=== PATIENT | female | born 1945 | race Two or more races ===

== ENCOUNTER → 2017-04-01 | Outpatient (CLI) | payer MEDICARE, OTHER ==
--- NOTE | 2017-04-02 07:07 | MM ---
Reason for exam: screening (asymptomatic). Last mammogram was performed 1 year ago. History: Patient is postmenopausal and has history of colon cancer at age 59. Physical Findings: A clinical breast exam by your physician is recommended on an annual basis and results should be correlated with mammographic findings. MG 3D Screening Mammo W/Cad Bilateral CC and MLO view(s) were taken. Prior study comparison: March 18, 2016, bilateral MG 3d screening mammo w/cad. February 13, 2015, bilateral MG screening mammo w CAD. The breast tissue is almost entirely fat. Finding: There is a 2.9mm equal density, round mass in the left breast. New finding since March 18, 2016 and February 13, 2015. ASSESSMENT: Incomplete: need additional imaging evaluation, BI-RAD 0 RECOMMENDATION: Ultrasound of the left breast. [facility] will attempt to contact patient to return for ultrasound.
== END | disposition home or self-care (01) ==
LOC: RADMAMWWP 12:45
PROVIDERS: ATTEND Internal Medicine
DX: Z12.31 Encounter for screening mammogram for malignant neoplasm of breast (principal)
CPT/HCPCS: 77063; G0202

== ENCOUNTER → 2017-04-05 | Outpatient (CLI) | payer MEDICARE, OTHER ==
--- NOTE | 2017-04-06 17:17 | BD ---
EXAMINATION TYPE: MG DEXA axial skeleton. DATE OF EXAM: 04/05/2017 COMPARISON: NONE CLINICAL HISTORY: Height: 55.5 IN Weight: 110 LBS FRAX RISK QUESTIONS: Alcohol (3 or more units per day): NO Family History (Parent hip fracture): NO Glucocorticoids (More than 3mos): NO (Ex: prednisone, prednisolone, methylprednisolone, dexamethasone, and hydrocortisone). History of Fracture in Adulthood: NO Secondary Osteoporosis: 1. Type 1 Diabetes: NO 2. Hyperthyroidism: NO 3. Menopause before 45: NO 4. Malnutrition: NO 5. Chronic liver disease: NO Rheumatoid Arthritis: NO Current Tobacco Use: NO RISK FACTORS HISTORY OF: Active: MODERATE Postmenopausal woman: AGE 54 Lost more than 2 inches in height since high school: YES 3 " MEDICATIONS: Additional Medications: CALCIUM, VIT D, BLOOD PRESSURE MEDS, ASPIRIN, HEART MED EXAM MEASUREMENTS: Bone mineral densitometry was performed using the [employer] System. Bone mineral density as measured about the Lumbar spine is: ----- L1-L4(G/cm2): 1.229 T Score Values are as follows: ----- L2: -0.9 ----- L3: 0.0 ----- L4: 1.7 ----- L1-L4: 0.4 Bone mineral density has: Decreased -1.7% since study of: 04/18/2014 Bone mineral density about the R hip (g/cm2): 0.859 Bone mineral density about the L hip (g/cm2): 0.871 T Score values are as follows: -----R Neck: -1.3 -----L Neck: -1.2 -----R Total: -1.6 -----L Total: -0.5 Bone mineral density has: Decreased -2.0% since study of: 04/18/2014 IMPRESSION: Osteopenia (T Score between -2.5 and -1 as noted by T score values There is slightly increased risk of fracture and the patient may be considered for treatment. Re-Screen 2-5 years. Bone density has diminished 1.7% from 2014 within the lumbar spine. Bone density is diminished 2% max ateral hips from 2014. NOTE: T-SCORE=SD OF THE YOUNG ADULT MEAN.
== END | disposition home or self-care (01) ==
LOC: RADBDWWP 16:21
PROVIDERS: ATTEND Internal Medicine
DX: M85.80 Other specified disorders of bone density and structure, unspecified site (principal); N95.1 Menopausal and female climacteric states
CPT/HCPCS: 77080

== ENCOUNTER → 2017-04-15 | Outpatient (CLI) | payer MEDICARE, OTHER ==
--- NOTE | 2017-04-15 10:49 | USB ---
Reason for exam: additional evaluation requested from abnormal screening. History: Patient is postmenopausal and has history of colon cancer at age 59. Physical Findings: Nurse did not find any significant physical abnormalities on exam. US Breast Workup LT Left breast ultrasound demonstrates a 0.8 x 0.4 x 0.4 cm lipoma at 8 o'clock. These results were verbally communicated with the patient and result sheet given to the patient on 04/15/17. ASSESSMENT: Benign, BI-RAD 2 RECOMMENDATION: Follow-up diagnostic mammogram of the left breast in 6 months.
== END | disposition home or self-care (01) ==
LOC: RADUSWWP 09:14
PROVIDERS: ATTEND Internal Medicine
DX: R92.8 Other abnormal and inconclusive findings on diagnostic imaging of breast (principal)

== ENCOUNTER 2018-02-22 09:10 | Day surgery (SDC) | payer MEDICARE, OTHER ==
[2018-02-18 12:43] VITALS: BMI 23.6
[~2018-02-22 09:10] MED LIST: LACTATED RINGERS 1,000 ML IV SCH; LIDOCAINE 1% 20 ML VIAL (10MG/ML) FOR IV START INTRADERMA PRN
[2018-02-22 10:12] VITALS: PULSE 53; TEMP 98.3
[2018-02-22] MEDS ORDERED: LIDOCAINE 1% 20 ML VIAL (10MG/ML) FOR IV START INTRADERMA ONE (10:25)
[2018-02-22] MEDS ORDERED: PROPOFOL 10 MG/ML 20 ML VIAL IV ONE (10:47)
--- NOTE | 2018-02-22 11:34 | P.PCN ---
Date of Procedure: 02/22/18 Procedure(s) Performed: Procedure: Colonoscopy and polypectomy. Preoperative diagnosis: Screening for neoplasia, patient has history of polyps. Postoperative diagnosis: 1. Right colon polyp removed with the snare piecemeal. 2. Prior sigmoid resection and sigmoid diverticulosis with no evidence of acute diverticulitis or strictures. Preparation: HalfLytely prep. Sedation: Was provided by anesthesia. Brief clinical history: The patient is a 72-year-old female who is referred for this evaluation because of history of polyps. She had resection in the past for a colon tumor. She has no abdominal complaints, bleeding or anemia. Procedure: With the patient on her left lateral decubitus position and after informed consent and adequate sedation, the perianal area was inspected and it did not show any fissures or fistulas. There were no masses felt on digital rectal examination. The Olympus CFQ 160L video colonoscope was then inserted in the rectum in the usual fashion and advanced to the cecum. The area of the sigmoid resection in the distal sigmoid was noted and there were a few diverticular orifices seen in the vicinity with no evidence of acute diverticulitis or strictures. On the right side, just distal to the area of the ileocecal valve and on that side of the bowel, there was a flat polyp measuring between 3 and 4 cm which I removed piecemeal with the snare with good hemostasis. No other polyps or tumors were seen. The mucosa appeared healthy. I retroflexed the endoscope in the rectum before the endoscope was withdrawn. The patient tolerated the procedure well. Plan: The patient was reassured. Will await pathology results. I anticipate repeating this exam in 1-3 years depending on the pathology results. She will follow-up with you as planned and I will keep you updated on her progress.
[2018-02-22 11:41] VITALS: BP 147/72; RESP 16
== END 2018-02-22 12:13 | disposition home or self-care (01) ==
LOC: ORWHC2ENDO 09:10
DX: Z12.11 Encounter for screening for malignant neoplasm of colon (principal); D12.2 Benign neoplasm of ascending colon; K57.30 Diverticulosis of large intestine without perforation or abscess without bleeding; Z85.038 Personal history of other malignant neoplasm of large intestine; Z86.010 Personal history of colon polyps; I25.10 Atherosclerotic heart disease of native coronary artery without angina pectoris; I10 Essential (primary) hypertension; E78.5 Hyperlipidemia, unspecified; Z86.73 Personal history of transient ischemic attack (TIA), and cerebral infarction without residual deficits; I25.2 Old myocardial infarction; Z79.82 Long term (current) use of aspirin; Z79.899 Other long term (current) drug therapy
CPT/HCPCS: 88305; 45385; J2704

== ENCOUNTER 2018-02-22 23:27 | Inpatient (IN) | payer MEDICARE, OTHER ==
[2018-02-23] MEDS ORDERED: SODIUM CHLORIDE 0.9% 1,000 ML IV STA ×2 (00:36→04:38)
[2018-02-23] MEDS ORDERED: MORPHINE SULFATE 4 MG/ML SYRINGE IVP STA (00:37)
--- NOTE | 2018-02-23 00:39 | ED ---
General Adult HPI - General Source: patient, RN notes reviewed Mode of arrival: wheelchair Limitations: no limitations <Leonard Emmanuel - Last Filed: 02/23/18 02:16> <Jacob Barnes - Last Filed: 02/23/18 03:07> - General Chief complaint: GI Bleed Stated complaint: Rectal bleeding Time Seen by Provider: 02/23/18 00:22 - History of Present Illness Initial comments: Patient 72-year-old female presenting to the emergency room today with a chief complaint of bloody bowel movement. She does admit that she had a colonoscopy earlier in the day. She states there was a polyp. Patient states that she's had 3 or 4 bloody bowel movements. Patient does admit to pain in the abdomen. Patient also admits to mild headache. She denies any other complaints or symptoms. Patient denies any recent fever, chills, shortness of breath, chest pain, back pain, numbness or tingling, dysuria or hematuria, constipation or diarrhea, headaches or visual changes, or any other complaints. (Leonard Emmanuel) - Related Data Home Medications Medication Instructions Recorded Confirmed Alendronate Sodium [Fosamax] 70 mg PO WEEKLY 07/31/15 02/23/18 Calcium Carbonate/Vitamin D3 1 tab PO DAILY 07/31/15 02/23/18 [Calcium 600-Vit D3 400 Tablet] Ergocalciferol [Vitamin D2 50,000 unit PO TU 07/31/15 02/23/18 (DRISDOL)] Metoprolol Tartrate [Lopressor] 25 mg PO BID 07/31/15 02/23/18 Pravastatin Sodium [Pravachol] 20 mg PO AC-SUPPER 07/31/15 02/23/18 Lisinopril [Zestril] 20 mg PO BID 01/25/16 02/23/18 Aspirin EC [Ecotrin Low Dose] 81 mg PO DAILY 02/18/18 02/23/18 Allergies Allergy/AdvReac Type Severity Reaction Status Date / Time No Known Allergies Allergy Verified 02/22/18 10:14 Review of Systems ROS Other: All systems not noted in ROS Statement are negative. <Leonard Emmanuel - Last Filed: 02/23/18 02:16> ROS Other: All systems not noted in ROS Statement are negative. <Jacob Barnes - Last Filed: 02/23/18 03:07> ROS Statement: Those systems with pertinent positive or pertinent negative responses have been documented in the HPI. Past Medical History Past Medical History: CVA/TIA, Hyperlipidemia, Hypertension, Memory Impairment, Myocardial Infarction ([place]) Additional Past Medical History / Comment(s): HEART MURMUR, LEAKY VALVE. POSS MILD STROKE YEARS AGO, UNSURE, HAS DIFFICULTY RECALLING SOME HISTORICAL MEDICAL INFO. Last Myocardial Infarction Date:: 2005 History of Any Multi-Drug Resistant Organisms: None Reported Past Surgical History: Back Surgery Additional Past Surgical History / Comment(s): TUMOR EXC FROM COLON. Past Anesthesia/Blood Transfusion Reactions: Motion Sickness Past Psychological History: No Psychological Hx Reported Smoking Status: Never smoker - Past Family History Father Additional Family Medical History / Comment(s): patient states "he had heart problems". patient unsure what type of heart problems. Mother Family Medical History: Cancer, Diabetes Mellitus Additional Family Medical History / Comment(s): brain cancer Brother(s) Family Medical History: Diabetes Mellitus Additional Family Medical History / Comment(s): autistic Sister(s) History Unknown: Yes <Leonard Emmanuel - Last Filed: 02/23/18 02:16> General Exam Limitations: no limitations <Leonard Emmanuel - Last Filed: 02/23/18 02:16> <Jacob Barnes - Last Filed: 02/23/18 03:07> - General Exam Comments Initial Comments: General: The patient is awake and alert, in mild distress. Eye: Pupils are equal, round and reactive to light, extra-ocular movements are intact. No nystagmus. There is normal conjunctiva bilaterally. No signs of icterus. Ears, nose, mouth and throat: There are moist mucous membranes and no oral lesions. Neck: The neck is supple, there is no tenderness or JVD. Cardiovascular: There is a regular rate and rhythm. No murmur, rub or gallop is appreciated. Respiratory: Lungs are clear to auscultation, respirations are non-labored, breath sounds are equal. No wheezes, stridor, rales, or rhonchi. Gastrointestinal: Abdomen soft on palpation. Mild tenderness in the middle and left lower quadrants. No rebound. No guarding. No CVA tenderness. Musculoskeletal: Normal ROM, no tenderness. Strength 5/5. Sensation intact. Pulses equal bilaterally 2+. Neurological: A&O x 3. CN II-XII intact, There are no obvious motor or sensory deficits. Coordination appears grossly intact. Speech is normal. Skin: Skin is warm and dry and no rashes or lesions are noted. Psychiatric: Cooperative, appropriate mood & affect, normal judgment. : Patient does have positive occult with blood per rectum. (Leonard Emmanuel) Vital Signs 02/23/18 02/23/18 02/23/18 00:08 00:20 01:04 Temperature 97.7 F 97 F L Pulse Rate 72 69 65 Respiratory 20 14 17 Rate Blood Pressure 97/66 118/68 99/58 O2 Sat by Pulse 100 98 98 Oximetry 02/23/18 02:45 Temperature 97.8 F Pulse Rate 67 Respiratory 14 Rate Blood Pressure 113/68 O2 Sat by Pulse 97 Oximetry Medical Decision Making - Lab Data Result diagrams: 02/23/18 00:30 02/23/18 00:30 <Leonard Emmanuel - Last Filed: 02/23/18 02:16> - Lab Data Result diagrams: 02/23/18 00:30 02/23/18 00:30 <Jacob Barnes - Last Filed: 02/23/18 03:07> - Medical Decision Making Patient's CT of the abdomen and pelvis is negative for any acute abnormality. Patient's hemoglobin stable. She does have positive occult. Patient will be admitted with consult to GI after having a polyp removed from and colonoscopy earlier today. (Leonard Emmanuel) Patient was reevaluated by myself, Dr. Barnes. Patient resting comfortably in bed. Patient did have several episodes of bloody bowel movement at home. Abdomen is soft with mild diffuse tenderness. Endoscopy report from earlier today reviewed. Patient updated on results and plan. Case was discussed in detail with Dr. Dimas, who will admit his patient. Dr. Boston will be placed on consult. (Jacob Barnes) - Lab Data Lab Results 02/23/18 02/23/18 02/23/18 Range/Units 00:30 00:30 00:30 WBC 9.8 (3.8-10.6) k/uL RBC 3.97 (3.80-5.40) m/uL Hgb 12.4 (11.4-16.0) gm/dL Hct 35.2 (34.0-46.0) % MCV 88.8 (80.0-100.0) fL MCH 31.2 (25.0-35.0) pg MCHC 35.2 (31.0-37.0) g/dL RDW 13.3 (11.5-15.5) % Plt Count 305 (150-450) k/uL Neutrophils % 65 % Lymphocytes % 28 % Monocytes % 4 % Eosinophils % 2 % Basophils % 1 % Neutrophils # 6.4 (1.3-7.7) k/uL Lymphocytes # 2.7 (1.0-4.8) k/uL Monocytes # 0.4 (0-1.0) k/uL Eosinophils # 0.2 (0-0.7) k/uL Basophils # 0.1 (0-0.2) k/uL PT 9.9 (9.0-12.0) sec INR 1.0 (<1.2) APTT 22.6 (22.0-30.0) sec Sodium 132 L (137-145) mmol/L Potassium 4.0 (3.5-5.1) mmol/L Chloride 100 (98-107) mmol/L Carbon Dioxide 18 L (22-30) mmol/L Anion Gap 14 mmol/L BUN 14 (7-17) mg/dL Creatinine 0.60 (0.52-1.04) mg/dL Est GFR (CKD-EPI)AfAm >90 (>60 ml/min/1.73 sqM) Est GFR (CKD-EPI)NonAf >90 (>60 ml/min/1.73 sqM) Glucose 117 H (74-99) mg/dL Calcium 9.7 (8.4-10.2) mg/dL Total Bilirubin 1.1 (0.2-1.3) mg/dL AST 31 (14-36) U/L ALT 43 (9-52) U/L Alkaline Phosphatase 113 (38-126) U/L Total Protein 6.4 (6.3-8.2) g/dL Albumin 3.8 (3.5-5.0) g/dL Disposition Is patient prescribed a controlled substance at d/c from ED?: No Time of Disposition: 02:17 <Leonard Emmanuel - Last Filed: 02/23/18 02:16> <Jacob Barnes - Last Filed: 02/23/18 03:07> Clinical Impression: GI bleed Disposition: ADMITTED IP TO THIS [facility] Condition: Stable Referrals: Gary Dimas MD [Primary Care Provider] - 1-2 days
[2018-02-23 00:51] LABS: Basophils # (A) 0.1 k/uL (0-0.2); Basophils % (A) 1 %; Eosinophils # (A) 0.2 k/uL (0-0.7); Eosinophils % (A) 2 %; HCT 35.2 % (34.0-46.0); HGB 12.4 gm/dL (11.4-16.0); Lymphocytes # (A) 2.7 k/uL (1.0-4.8); Lymphocytes % (A) 28 %; MCH 31.2 pg (25.0-35.0); MCHC 35.2 g/dL (31.0-37.0); MCV 88.8 fL (80.0-100.0); Mean Platelet Volume 7.8; Monocytes # (A) 0.4 k/uL (0-1.0); Monocytes % (A) 4 %; Neutrophils # (A) 6.4 k/uL (1.3-7.7); Neutrophils % (A) 65 %; Platelet Count 305 k/uL (150-450); RBC 3.97 m/uL (3.80-5.40); RDW 13.3 % (11.5-15.5); WBC 9.8 k/uL (3.8-10.6)
[2018-02-23] MEDS ORDERED: RX INFO: IV CONTRAST WAS GIVEN 1 EACH MISC MISCELLANE PRN (00:52)
[2018-02-23] MEDS ORDERED: ONDANSETRON 4 MG/2 ML VIAL IVP STA (00:54)
[2018-02-23 01:03] LABS: ALT 43 U/L (9-52); AST 31 U/L (14-36); Albumin 3.8 g/dL (3.5-5.0); Alkaline Phosphatase 113 U/L (38-126); Anion Gap 14 mmol/L; Blood Urea Nitrogen 14 mg/dL (7-17); Calcium 9.7 mg/dL (8.4-10.2); Carbon Dioxide 18 mmol/L (22-30); Chloride 100 mmol/L (98-107); Glucose 117 mg/dL (74-99); Sodium 132 mmol/L (137-145); Total Bilirubin 1.1 mg/dL (0.2-1.3); Total Protein 6.4 g/dL (6.3-8.2)
[2018-02-23 01:22] LABS: Partial Thromboplastin Time 22.6 sec (22.0-30.0); Prothrombin Time 9.9 sec (9.0-12.0)
--- NOTE | 2018-02-23 01:55 | CT ---
EXAMINATION TYPE: CT abdomen pelvis w con DATE OF EXAM: 02/23/2018 COMPARISON: 07/30/2012 HISTORY: Prior on synapse, rectal bleediong, Mid to upper abd pain CT DLP: 492.40 mGycm Automated exposure control for dose reduction was used. TECHNIQUE: Helical acquisition of images was performed from the lung bases through the pelvis. CONTRAST: Performed without Oral Contrast and with IV Contrast, patient injected with 100 mL of Isovue 300. FINDINGS: There is mild subsegmental atelectasis at the lung bases. Heart is enlarged. There is no pericardial effusion. There is no pleural effusion. There is a 1 cm cyst in the left lobe of the liver. There is a 1.5 cm cyst in the inferior right lobe of the liver. Spleen appears normal. There is no pancreatic mass. There are clips from cholecystecto my. Bile ducts are not dilated. There is no adrenal mass. Kidneys show satisfactory contrast opacification. There is no hydronephrosi s. There is thoracolumbar levorotoscoliosis. There is no retroperitoneal adenopathy. Ureters are not dilated. There is umbilical hernia that contains omental fat. There is a loop of bowel projecting int o the hernia to a small extent. I see no intestinal wall thickening. There are surgical clips in the sigmoid colon. I see no sign of a bowel obstruction. Bladder distends smoothly. There is no pelvic mass. There is no ascites. There i s no sign of free air. I see no bony destructive process. There is multilevel lumbar spinal stenosis with hypertrophic facet arthropathy. IMPRESSION: PREVIOUS COLON SURGERY. NO SIGN OF ACUTE ABDOMEN AND PELVIS. NO SIGN OF APPENDICITIS. SMALL UMBILICAL HERNIA IS STABLE.
[2018-02-23] MEDS ORDERED: LORazepam 2 MG/ML INJ IV PRN (02:18)
[2018-02-23] MEDS ORDERED: MORPHINE SULFATE 4 MG/ML SYRINGE IV PRN (02:18)
[2018-02-23] MEDS ORDERED: ONDANSETRON 4 MG/2 ML VIAL IVP PRN (02:18)
[2018-02-23] MEDS ORDERED: NALOXONE 0.4 MG/ML 1 ML VIAL IV PRN (02:18)
[2018-02-23] MEDS ORDERED: ACETAMINOPHEN TAB 325 MG TAB PO PRN (02:18)
[2018-02-23 05:32] LABS: Appearance,Urine Clear (Clear); Bilirubin,Urine Negative (Negative); Blood,Urine Negative (Negative); Color,Urine Light Yellow; Glucose,Urine (UA) Negative (Negative); Ketones,Urine 1+ (Negative); Leukocyte Esterase,Urine Negative (Negative); Nitrite,Urine Negative (Negative); PH, Urine 5.5 (5.0-8.0); Protein,Urine Negative (Negative); Urobilinogen,Urine <2.0 mg/dL (<2.0)
[2018-02-23 06:49] LABS: Specific Gravity,Urine >1.050 (1.001-1.035)
[2018-02-23 08:21] LABS: Basophils % (A) 0 %; Eosinophils # (A) 0.1 k/uL (0-0.7); Eosinophils % (A) 1 %; HCT 31.9 % (34.0-46.0); HGB 10.9 gm/dL (11.4-16.0); Lymphocytes # (A) 1.8 k/uL (1.0-4.8); Lymphocytes % (A) 22 %; MCH 31.2 pg (25.0-35.0); MCV 91.6 fL (80.0-100.0); Mean Platelet Volume 7.7; Monocytes # (A) 0.3 k/uL (0-1.0); Monocytes % (A) 4 %; Neutrophils # (A) 5.9 k/uL (1.3-7.7); Neutrophils % (A) 72 %; Platelet Count 250 k/uL (150-450); RBC 3.48 m/uL (3.80-5.40); RDW 13.4 % (11.5-15.5); WBC 8.2 k/uL (3.8-10.6)
--- NOTE | 2018-02-23 09:25 | P.CONS ---
History of Present Illness - Reason for Consult Consult date: 02/23/18 Rectal bleeding Requesting physician: Gary Dimas - History of Present Illness 72-year-old female status post screening colonoscopy yesterday with findings of a 3-4 cm flat polyp near the ileocecal valve status post snare piecemeal removal. Patient was discharged in satisfactory condition and a few hours later developed increased nausea and passage of bloody burgundy colored bowel movements with clots. She passed a total of 3 bowel movements before presenting herself to the emergency room for further evaluation. Her last bowel movement was late last night. Denies abdominal pain describes as "sore". Denies hematemesis fever or chills. CT abdomen and pelvis reported no evidence of free air. Hemoglobin on admission 12.4 this morning is's 10.9. BUN 14. Creatinine 0.6. INR 1.0. Platelet 250. Review of Systems RConstitutional: Denies fever, chills, sweats, weight gain, or loss. HEENT: Negative for migraines, blurred vision or loss, earaches, drainage, tinnitus, oral mucosal lesions, dysphagia, or odynophagia. CARDIAC: Negative for chest pain, arrhythmias, or palpitation. RESPIRATORY: Negative for shortness of breath, hemoptysis, cough, or sputum production. GI: See HPI for pertinent findings. : Negative for hematuria, urgency, frequency, polyuria, or dysuria. GYNc: Negative vaginal discharge. MUSCULOSKELETAL: Negative for muscle aches, swelling, arthritis, and arthralgias. NEUROLOGIC: Negative for stroke or TIA. ENDOCRINE: Negative for thyroid problems. SKIN: Negative for rash or itching. PSYCHIATRIC: Negative history for depression and anxietymale Past Medical History Past Medical History: CVA/TIA, Hyperlipidemia, Hypertension, Memory Impairment, Myocardial Infarction ([place]) Additional Past Medical History / Comment(s): HEART MURMUR, LEAKY VALVE. POSS MILD STROKE YEARS AGO, UNSURE, HAS DIFFICULTY RECALLING SOME HISTORICAL MEDICAL INFO. 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 Past Anesthesia/Blood Transfusion Reactions: Motion Sickness Past Psychological History: No Psychological Hx Reported Smoking Status: Never smoker Past Alcohol Use History: None Reported Past Drug Use History: None Reported - Past Family History Father Additional Family Medical History / Comment(s): patient states "he had heart problems". patient unsure what type of heart problems. Mother Family Medical History: Cancer, Diabetes Mellitus Additional Family Medical History / Comment(s): brain cancer Brother(s) Family Medical History: Diabetes Mellitus Additional Family Medical History / Comment(s): autistic Sister(s) History Unknown: Yes Medications and Allergies Home Medications Medication Instructions Recorded Confirmed Type Alendronate Sodium [Fosamax] 70 mg PO MO 07/31/15 02/23/18 History Calcium Carbonate/Vitamin D3 1 tab PO DAILY 07/31/15 02/23/18 History [Calcium 600-Vit D3 400 Tablet] Ergocalciferol [Vitamin D2 50,000 unit PO WE 07/31/15 02/23/18 History (DRISDOL)] Metoprolol Tartrate [Lopressor] 25 mg PO AC-BID 07/31/15 02/23/18 History Pravastatin Sodium [Pravachol] 20 mg PO AC-SUPPER 07/31/15 02/23/18 History Lisinopril [Zestril] 20 mg PO BID 01/25/16 02/23/18 History Aspirin EC [Ecotrin Low Dose] 81 mg PO DAILY 02/18/18 02/23/18 History Allergies Allergy/AdvReac Type Severity Reaction Status Date / Time No Known Allergies Allergy Verified 02/23/18 07:46 Physical Exam Vitals: Vital Signs Temp Pulse Pulse Resp BP BP Pulse Ox 02/23/18 05:10 97.0 F L 82 16 122/76 99 02/23/18 04:29 98.6 F 74 16 103/61 97 02/23/18 03:40 98 F 68 14 103/61 97 02/23/18 02:45 97.8 F 67 14 113/68 97 02/23/18 01:04 65 17 99/58 98 02/23/18 00:20 97 F L 69 14 118/68 98 02/23/18 00:08 97.7 F 72 20 97/66 100 Intake and Output 02/22/18 02/23/18 02/23/18 22:59 06:59 14:59 Output Total 300 Balance -300 Output: Urine 300 Other: Voiding Method Toilet # Voids 1 Weight 53.07 kg General appearance: The patient is alert, oriented, in no acute distress. HET: Head is normocephalic and atraumatic. Pupils are equal and reactive. Oropharynx is clear without lesions. Neck: Supple without lymphadenopathy. Trachea midline. Heart: S1 S2. Regular rate and rhythm. Lungs: No crackles or wheezes are heard. Abdomen: Soft, nontender, nondistended with bowel sounds. No peritoneal signs. No palpable organomegaly or masses. Extremities: Normal skin color and turgor. No cyanosis, rash, ulceration, clubbing, or edema. Radial and pedal pulses are 2/4 bilaterally. Neurological: No focal deficits. Strength and sensation are grossly intact. Results CBC & Chem 7: 02/23/18 08:13 02/23/18 00:30 Labs: Abnormal Lab Results - Last 24 Hours (Table) 02/23/18 02/23/18 02/23/18 Range/Units 00:30 04:35 05:10 RBC (3.80-5.40) m/uL Hgb (11.4-16.0) gm/dL Hct (34.0-46.0) % Sodium 132 L (137-145) mmol/L Carbon Dioxide 18 L (22-30) mmol/L Glucose 117 H (74-99) mg/dL Ur Specific [place] >1.050 H (1.001-1.035) Urine Ketones 1+ H (Negative) Stool Occult Blood Positive H (Negative) 02/23/18 Range/Units 08:13 RBC 3.48 L (3.80-5.40) m/uL Hgb 10.9 L (11.4-16.0) gm/dL Hct 31.9 L (34.0-46.0) % Sodium (137-145) mmol/L Carbon Dioxide (22-30) mmol/L Glucose (74-99) mg/dL Ur Specific [place] (1.001-1.035) Urine Ketones (Negative) Stool Occult Blood (Negative) CT scan - abdomen: report reviewed (Dr. Hebert) Assessment and Plan (1) Post-polypectomy bleeding Narrative/Plan: Status post screening colonoscopy yesterday with removal of 3-4 cm flat polyp near the ileocecal valve with snare. Suspect bleeding is secondary to bleeding at polypectomy site. Current Visit: Yes Status: Acute Code(s): KGU7742 - SNOMED Code(s): 596414738 (2) Rectal bleeding Current Visit: Yes Status: Acute Code(s): K62.5 - HEMORRHAGE OF ANUS AND RECTUM SNOMED Code(s): 55318950 (3) Acute blood loss anemia Current Visit: Yes Status: Acute Code(s): D62 - ACUTE POSTHEMORRHAGIC ANEMIA SNOMED Code(s): 635890959 Plan: 1. Patient is relatively comfortable bleeding appears to be settling down no further passages of bloody bowel movements since last night. Will allow clear liquid diet for lunch and observe. If patient has continuance of bleeding reason surveillance colonoscopy will be considered. Continue to monitor CBC. We'll continue to follow with you. Thank you for this kind referral and the opportunity to participate in the care of your patient. This consultation was discussed with Dr. Hebert. The impression and plan of care have been directed as dictated.
--- NOTE | 2018-02-23 11:57 | P.HPIM ---
History of Present Illness H&P Date: 02/23/18 Chief Complaint: Rectal bleeding Tia Faulkner is a 72-year-old female well known to my practice who had a colonoscopy yesterday she had a large polyps that was removed, patient was discharged home she started having significant amount of rectal bleeding discontinued 4 hours, she called the gastroenterology office and was advised to come to emergency room. She was evaluated in the emergency room by Dr. Barnes computed tomography scan of the abdomen and pelvis did not reveal any significant abnormality she was still having significant amount of rectal bleeding she was admitted to medical floor gastroenterology consultation was requested. On review of system patient denies any fever or chills no headache or dizziness no chest pain or shortness of breath no cough no nausea or vomiting no abdominal pain no diarrhea or constipation no burning with urination no frequency or urgency no hematuria Past Medical History Past Medical History: CVA/TIA, Hyperlipidemia, Hypertension, Memory Impairment, Myocardial Infarction (DC) Additional Past Medical History / Comment(s): HEART MURMUR, LEAKY VALVE. POSS MILD STROKE YEARS AGO, UNSURE, HAS DIFFICULTY RECALLING SOME HISTORICAL MEDICAL INFO. 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 Past Anesthesia/Blood Transfusion Reactions: Motion Sickness Past Psychological History: No Psychological Hx Reported Smoking Status: Never smoker Past Alcohol Use History: None Reported Past Drug Use History: None Reported - Past Family History Father Additional Family Medical History / Comment(s): patient states "he had heart problems". patient unsure what type of heart problems. Mother Family Medical History: Cancer, Diabetes Mellitus Additional Family Medical History / Comment(s): brain cancer Brother(s) Family Medical History: Diabetes Mellitus Additional Family Medical History / Comment(s): autistic Sister(s) History Unknown: Yes Medications and Allergies Home Medications Medication Instructions Recorded Confirmed Type Alendronate Sodium [Fosamax] 70 mg PO MO 07/31/15 02/23/18 History Calcium Carbonate/Vitamin D3 1 tab PO DAILY 07/31/15 02/23/18 History [Calcium 600-Vit D3 400 Tablet] Ergocalciferol [Vitamin D2 50,000 unit PO WE 07/31/15 02/23/18 History (DRISDOL)] Metoprolol Tartrate [Lopressor] 25 mg PO AC-BID 07/31/15 02/23/18 History Pravastatin Sodium [Pravachol] 20 mg PO AC-SUPPER 07/31/15 02/23/18 History Lisinopril [Zestril] 20 mg PO BID 01/25/16 02/23/18 History Aspirin EC [Ecotrin Low Dose] 81 mg PO DAILY 02/18/18 02/23/18 History Allergies Allergy/AdvReac Type Severity Reaction Status Date / Time No Known Allergies Allergy Verified 02/23/18 07:46 Physical Exam Vitals: Vital Signs Temp Pulse Pulse Resp BP BP Pulse Ox 02/23/18 05:10 97.0 F L 82 16 122/76 99 02/23/18 04:29 98.6 F 74 16 103/61 97 02/23/18 03:40 98 F 68 14 103/61 97 02/23/18 02:45 97.8 F 67 14 113/68 97 02/23/18 01:04 65 17 99/58 98 02/23/18 00:20 97 F L 69 14 118/68 98 02/23/18 00:08 97.7 F 72 20 97/66 100 Intake and Output 02/22/18 02/23/18 02/23/18 22:59 06:59 14:59 Output Total 300 Balance -300 Output: Urine 300 Other: Voiding Method Toilet # Voids 1 2 Weight 53.07 kg In general patient is alert and oriented 3 in no apparent distress Neck is supple no JVD no goiter no lymphadenopathy Chest exam reveals a few scattered rhonchi no wheezing Cardiac exam reveals regular heart sounds S1 and S2 with 3/6 pansystolic murmur best heard in the left sternal border Abdomen is soft nontender no organomegaly with normal bowel sounds Extremity exam reveals no edema no cyanosis or clubbing Neurological examination reveals no gross focal deficit Results CBC & Chem 7: 02/23/18 08:13 02/23/18 00:30 Labs: Abnormal Lab Results - Last 24 Hours (Table) 02/23/18 02/23/18 02/23/18 Range/Units 00:30 04:35 05:10 RBC (3.80-5.40) m/uL Hgb (11.4-16.0) gm/dL Hct (34.0-46.0) % Sodium 132 L (137-145) mmol/L Carbon Dioxide 18 L (22-30) mmol/L Glucose 117 H (74-99) mg/dL Ur Specific [place] >1.050 H (1.001-1.035) Urine Ketones 1+ H (Negative) Stool Occult Blood Positive H (Negative) 02/23/18 Range/Units 08:13 RBC 3.48 L (3.80-5.40) m/uL Hgb 10.9 L (11.4-16.0) gm/dL Hct 31.9 L (34.0-46.0) % Sodium (137-145) mmol/L Carbon Dioxide (22-30) mmol/L Glucose (74-99) mg/dL Ur Specific [place] (1.001-1.035) Urine Ketones (Negative) Stool Occult Blood (Negative) Thrombosis Risk Factor Assmnt - Choose All That Apply Any of the Below Risk Factors Present?: No Other Risk Factors: Yes Each Risk Factor Represents 2 Points: Age 61-74 years Other congenital or acquired thrombophilia - If yes, enter type in comment: No Thrombosis Risk Factor Assessment Total Risk Factor Score: 2 Thrombosis Risk Factor Assessment Level: Low Risk Assessment and Plan Plan: #1 rectal bleeding patient had colonoscopy yesterday with removal of 4 cm polyp #2 acute blood loss anemia. #3 underlying history of hypertension #4 underlying history of hyperlipidemia #5 underlying history of osteoporosis, maintained on Fosamax #6 underlying history of severe scoliosis with chronic back pain #7 underlying history of anxiety disorder At this time patient is admitted to medical floor will monitor hemoglobin closely If needed will proceed was the red blood cell transfusion Further management steps will depend on the severity of bleeding
--- NOTE | 2018-02-24 09:15 | P.PN ---
Subjective Progress Note Date: 02/24/18 Principal diagnosis: Hematochezia 72-year-old female admitted with suspected post-polypectomy bleeding. Patient had 4 bowel movements yesterday afternoon into early evening. Her last bowel movement between 7-9 PM. She describes her bowel movement is more darker old blood appearance. Presently reports increased abdominal tenderness across the midabdomen. No emesis. Afebrile. CBC pending. Nothing by mouth since midnight. Objective - Vital Signs Vital signs: Vital Signs Temp 98.4 F 02/24/18 06:15 Pulse 74 02/24/18 06:15 Resp 16 02/24/18 06:15 BP 98/55 02/24/18 06:15 Pulse Ox 97 02/24/18 06:15 Intake & Output 02/23/18 02/24/18 02/24/18 18:59 06:59 18:59 Other: Voiding Method Toilet Toilet Toilet # Voids 2 3 # Bowel Movements 1 2 - Exam General appearance: The patient is alert, oriented, in no acute distress. HET: Head is normocephalic and atraumatic. Pupils are equal and reactive. Oropharynx is clear without lesions. Neck: Supple without lymphadenopathy. Trachea midline. Heart: S1 S2. Regular rate and rhythm. Lungs: No crackles or wheezes are heard. Abdomen: Soft, tenderness to the midabdomen, nondistended with bowel sounds. No peritoneal signs. No palpable organomegaly or masses. Extremities: Normal skin color and turgor. No cyanosis, rash, ulceration, clubbing, or edema. Radial and pedal pulses are 2/4 bilaterally. Neurological: No focal deficits. Strength and sensation are grossly intact. - Labs CBC & Chem 7: 02/23/18 08:13 02/23/18 00:30 Assessment and Plan (1) Post-polypectomy bleeding Narrative/Plan: Status post screening colonoscopy yesterday with removal of 3-4 cm flat polyp near the ileocecal valve with snare. Suspect bleeding is secondary to bleeding at polypectomy site. Current Visit: Yes Status: Acute Code(s): INN9410 - SNOMED Code(s): 763559403 (2) Rectal bleeding Current Visit: Yes Status: Acute Code(s): K62.5 - HEMORRHAGE OF ANUS AND RECTUM SNOMED Code(s): 84882389 (3) Acute blood loss anemia Current Visit: Yes Status: Acute Code(s): D62 - ACUTE POSTHEMORRHAGIC ANEMIA SNOMED Code(s): 373279881 Plan: 1. Keep nothing by mouth except medications. Await CBC results. 2. Abdominal x-rays to further evaluate abdominal pain. We'll continue to follow with you. Assessment and plan a care discussed with Dr. Hebert
[2018-02-24 09:46] LABS: Basophils % (A) 1 %; Eosinophils # (A) 0.1 k/uL (0-0.7); Eosinophils % (A) 1 %; HGB 9.5 gm/dL (11.4-16.0); Lymphocytes # (A) 1.7 k/uL (1.0-4.8); Lymphocytes % (A) 27 %; MCH 31.3 pg (25.0-35.0); Mean Platelet Volume 7.1; Monocytes # (A) 0.2 k/uL (0-1.0); Monocytes % (A) 4 %; Neutrophils % (A) 65 %; Platelet Count 190 k/uL (150-450); RBC 3.04 m/uL (3.80-5.40); RDW 13.5 % (11.5-15.5); WBC 6.2 k/uL (3.8-10.6)
--- NOTE | 2018-02-24 09:53 | XR ---
EXAMINATION TYPE: XR abdomen complete w decub DATE OF EXAM: 02/24/2018 COMPARISON: 02/23/2018 HISTORY: Pain TECHNIQUE: Supine, upright, and left side down lateral decubitus views of the abdomen are obtained. FINDINGS: Scoliosis and multilevel degenerative disc disease. Surgical clips in the right upper quadr ant. Calcifications in pelvis are likely vascular. Arthropathy of the hips. Bowel gas pattern nonspec ific. No diagnostic evidence of free intraperitoneal air. IMPRESSION: Nonspecific abdomen
[2018-02-24 10:31] LABS: ALT 30 U/L (9-52); AST 23 U/L (14-36); Albumin 2.8 g/dL (3.5-5.0); Alkaline Phosphatase 83 U/L (38-126); Anion Gap 10 mmol/L; Blood Urea Nitrogen 8 mg/dL (7-17); Calcium 8.4 mg/dL (8.4-10.2); Carbon Dioxide 21 mmol/L (22-30); Chloride 109 mmol/L (98-107); Glucose 71 mg/dL (74-99); Sodium 140 mmol/L (137-145); Total Bilirubin 0.8 mg/dL (0.2-1.3)
--- NOTE | 2018-02-24 11:03 | P.PN ---
Subjective Progress Note Date: 02/24/18 Tia Faulkner is a 72-year-old female well known to my practice who had a colonoscopy yesterday she had a large polyps that was removed, patient was discharged home she started having significant amount of rectal bleeding discontinued 4 hours, she called the gastroenterology office and was advised to come to emergency room. She was evaluated in the emergency room by Dr. Barnes computed tomography scan of the abdomen and pelvis did not reveal any significant abnormality she was still having significant amount of rectal bleeding she was admitted to medical floor gastroenterology consultation was requested. 02/24/2018 Patient had 2 dark bloody stools yesterday evening. Patient's hemoglobin has dropped from 10.9-9.5. She does report after the shower this morning she wiped herself and there was blood present on the towel. Patient is having abdominal tenderness. GI service is following closely. Abdominal x-ray shows a nonspecific abdomen. GI service has ordered a repeat CBC at 1400. Blood pressures have been on the lower side. Ranging in the 90s systolic. Repeat blood pressure is 120/74. Continue with IV fluids. Continue to hold metoprolol and lisinopril Objective - Vital Signs Vital signs: Vital Signs Temp 98.4 F 02/24/18 06:15 Pulse 74 02/24/18 06:15 Resp 16 02/24/18 06:15 BP 120/74 02/24/18 10:20 Pulse Ox 97 02/24/18 06:15 Intake & Output 02/23/18 02/24/18 02/24/18 18:59 06:59 18:59 Other: Voiding Method Toilet Toilet Toilet # Voids 2 3 # Bowel Movements 1 2 - Exam Head normocephalic Neck supple Lungs clear to auscultation bilaterally no wheezing or crackles Heart regular rate and rhythm S1-S2, no rub or gallop Abdomen is soft diffuse abdominal tenderness nondistended positive bowel sounds no hepatosplenomegaly Extremities no edema Neuro alert and orientated to 3 - Labs CBC & Chem 7: 02/24/18 08:58 02/24/18 08:58 Labs: Abnormal Lab Results - Last 24 Hours (Table) 02/24/18 02/24/18 Range/Units 08:58 08:58 RBC 3.04 L (3.80-5.40) m/uL Hgb 9.5 L (11.4-16.0) gm/dL Hct 28.0 L (34.0-46.0) % Chloride 109 H (98-107) mmol/L Carbon Dioxide 21 L (22-30) mmol/L Creatinine 0.50 L (0.52-1.04) mg/dL Glucose 71 L (74-99) mg/dL Total Protein 5.0 L (6.3-8.2) g/dL Albumin 2.8 L (3.5-5.0) g/dL Assessment and Plan Assessment: #1 post polypectomy bleeding: Patient had rectal bleeding after a screening colonoscopy with a 4 cm polyp removed. Suspect bleeding is secondary to bleeding at the polypectomy site. GI service is following closely. Monitoring hemoglobin. Hemoglobin has dropped to 9.5. Repeat CBC ordered at 1400 per GI service #2 acute blood loss anemia secondary to #1. Aspirin discontinued on admission #3 underlying history of hypertension. Patient has been hypotensive. Metoprolol and lisinopril are on hold. Continue with IV fluids #4 underlying history of hyperlipidemia #5 underlying history of osteoporosis, maintained on Fosamax #6 underlying history of severe scoliosis with chronic back pain #7 underlying history of generalized anxiety disorder I performed an examination of the patient and discussed their management with the physician Checker Stocker. I have reviewed the Physician Checker Stocker's notes and agree with the documented findings and plan of care
[2018-02-24 14:05] LABS: Basophils % (A) 1 %; Eosinophils # (A) 0.1 k/uL (0-0.7); Eosinophils % (A) 1 %; HCT 30.1 % (34.0-46.0); HGB 10.4 gm/dL (11.4-16.0); Lymphocytes # (A) 2.3 k/uL (1.0-4.8); Lymphocytes % (A) 27 %; MCH 31.8 pg (25.0-35.0); MCHC 34.4 g/dL (31.0-37.0); MCV 92.5 fL (80.0-100.0); Mean Platelet Volume 6.8; Monocytes # (A) 0.3 k/uL (0-1.0); Monocytes % (A) 4 %; Neutrophils # (A) 5.7 k/uL (1.3-7.7); Neutrophils % (A) 67 %; Platelet Count 228 k/uL (150-450); RBC 3.25 m/uL (3.80-5.40); RDW 13.3 % (11.5-15.5); WBC 8.6 k/uL (3.8-10.6)
[2018-02-24] MEDS: PRAVASTATIN SODIUM 20 MG TAB PO SCH (17:16)
[2018-02-25 06:43] LABS: Basophils % (A) 1 %; Eosinophils # (A) 0.2 k/uL (0-0.7); Eosinophils % (A) 3 %; HCT 26.8 % (34.0-46.0); Lymphocytes # (A) 1.9 k/uL (1.0-4.8); Lymphocytes % (A) 33 %; MCHC 33.5 g/dL (31.0-37.0); MCV 92.5 fL (80.0-100.0); Mean Platelet Volume 7.4; Monocytes # (A) 0.3 k/uL (0-1.0); Monocytes % (A) 6 %; Neutrophils # (A) 3.3 k/uL (1.3-7.7); Neutrophils % (A) 57 %; Platelet Count 185 k/uL (150-450); RDW 13.2 % (11.5-15.5); WBC 5.8 k/uL (3.8-10.6)
[2018-02-25 06:58] LABS: Anion Gap 10 mmol/L; Blood Urea Nitrogen 10 mg/dL (7-17); Calcium 8.6 mg/dL (8.4-10.2); Carbon Dioxide 21 mmol/L (22-30); Chloride 107 mmol/L (98-107); Glucose 81 mg/dL (74-99); Potassium 3.7 mmol/L (3.5-5.1); Sodium 138 mmol/L (137-145)
[2018-02-25] MEDS: CALCIUM CARB-VIT D 500MG-200UN 1 EACH TAB PO SCH (07:31)
[2018-02-25] MEDS ORDERED: MAGNESIUM CITRATE 296 ML BOTTLE PO STA (09:18)
--- NOTE | 2018-02-25 09:21 | P.PN ---
Subjective Progress Note Date: 02/25/18 Principal diagnosis: Hematochezia 72-year-old female admitted with suspected post-polypectomy bleeding. Patient had 2 burgundy colored bowel movements one last night and 1 around 7 AM this morning. Hemoglobin decreased to 9.0. No emesis. Afebrile. Nothing by mouth since midnight. Objective - Vital Signs Vital signs: Vital Signs Temp 98.7 F 02/25/18 05:35 Pulse 69 02/25/18 05:35 Resp 16 02/25/18 05:35 BP 144/81 02/25/18 05:35 Pulse Ox 99 02/25/18 05:35 Intake & Output 02/24/18 02/25/18 02/25/18 18:59 06:59 18:59 Other: Voiding Method Toilet Toilet # Voids 3 3 # Bowel Movements 2 1 - Exam General appearance: The patient is alert, oriented, in no acute distress. HET: Head is normocephalic and atraumatic. Pupils are equal and reactive. Oropharynx is clear without lesions. Neck: Supple without lymphadenopathy. Trachea midline. Heart: S1 S2. Regular rate and rhythm. Lungs: No crackles or wheezes are heard. Abdomen: Soft, tenderness to the midabdomen, nondistended with bowel sounds. No peritoneal signs. No palpable organomegaly or masses. Extremities: Normal skin color and turgor. No cyanosis, rash, ulceration, clubbing, or edema. Radial and pedal pulses are 2/4 bilaterally. Neurological: No focal deficits. Strength and sensation are grossly intact. - Labs CBC & Chem 7: 02/25/18 06:31 02/25/18 06:31 Labs: Abnormal Lab Results - Last 24 Hours (Table) 02/24/18 02/24/18 02/24/18 Range/Units 08:58 08:58 13:50 RBC 3.04 L 3.25 L (3.80-5.40) m/uL Hgb 9.5 L 10.4 L (11.4-16.0) gm/dL Hct 28.0 L 30.1 L (34.0-46.0) % Chloride 109 H (98-107) mmol/L Carbon Dioxide 21 L (22-30) mmol/L Creatinine 0.50 L (0.52-1.04) mg/dL Glucose 71 L (74-99) mg/dL Total Protein 5.0 L (6.3-8.2) g/dL Albumin 2.8 L (3.5-5.0) g/dL 02/25/18 02/25/18 Range/Units 06:31 06:31 RBC 2.90 L (3.80-5.40) m/uL Hgb 9.0 L (11.4-16.0) gm/dL Hct 26.8 L (34.0-46.0) % Chloride (98-107) mmol/L Carbon Dioxide 21 L (22-30) mmol/L Creatinine 0.50 L (0.52-1.04) mg/dL Glucose (74-99) mg/dL Total Protein (6.3-8.2) g/dL Albumin (3.5-5.0) g/dL Assessment and Plan (1) Post-polypectomy bleeding Narrative/Plan: Status post screening colonoscopy yesterday with removal of 3-4 cm flat polyp near the ileocecal valve with snare. Suspect bleeding is secondary to bleeding at polypectomy site. Patient continues to pass burgundy-colored bowel movements. Current Visit: Yes Status: Acute Code(s): [id number] - SNOMED Code(s): 500323137 (2) Rectal bleeding Current Visit: Yes Status: Acute Code(s): K62.5 - HEMORRHAGE OF ANUS AND RECTUM SNOMED Code(s): 00009206 (3) Acute blood loss anemia Current Visit: Yes Status: Acute Code(s): D62 - ACUTE POSTHEMORRHAGIC ANEMIA SNOMED Code(s): 179036130 Plan: 1. Recent surveillance colonoscopy today. Bowel prep; Citrate of magnesia 1. 2. Nothing by mouth except medications. CBC at noon. The chemistry tutor has discussed the risks, benefits and alternative therapies for the above-mentioned procedure and for both sedation/analgesia as well as necessary blood product administration, if indicated, as they pertain to this patient. The patient has indicated understanding and acceptance of the risks and procedures discussed. Assessment and plan of care discussed with Dr. Hendrix
--- NOTE | 2018-02-25 11:40 | P.PN ---
Subjective Progress Note Date: 02/25/18 Tia Faulkner is a 72-year-old female well known to my practice who had a colonoscopy yesterday she had a large polyps that was removed, patient was discharged home she started having significant amount of rectal bleeding discontinued 4 hours, she called the gastroenterology office and was advised to come to emergency room. She was evaluated in the emergency room by Dr. Barnes computed tomography scan of the abdomen and pelvis did not reveal any significant abnormality she was still having significant amount of rectal bleeding she was admitted to medical floor gastroenterology consultation was requested. 02/24/2018 Patient had 2 dark bloody stools yesterday evening. Patient's hemoglobin has dropped from 10.9-9.5. She does report after the shower this morning she wiped herself and there was blood present on the towel. Patient is having abdominal tenderness. GI service is following closely. Abdominal x-ray shows a nonspecific abdomen. GI service has ordered a repeat CBC at 1400. Blood pressures have been on the lower side. Ranging in the 90s systolic. Repeat blood pressure is 120/74. Continue with IV fluids. Continue to hold metoprolol and lisinopril 02/25/2018 patient had about 3 episodes of blood in her stool. Patient's hemoglobin has dropped from 10.4-9. She is scheduled for a colonoscopy this afternoon Objective - Vital Signs Vital signs: Vital Signs Temp 98.7 F 02/25/18 05:35 Pulse 69 02/25/18 05:35 Resp 16 02/25/18 05:35 BP 144/81 02/25/18 05:35 Pulse Ox 99 02/25/18 05:35 Intake & Output 02/24/18 02/25/18 02/25/18 18:59 06:59 18:59 Other: Voiding Method Toilet Toilet # Voids 3 3 # Bowel Movements 2 1 - Exam Head normocephalic Neck supple Lungs clear to auscultation bilaterally no wheezing or crackles Heart regular rate and rhythm S1-S2, no rub or gallop Abdomen is soft diffuse abdominal tenderness nondistended positive bowel sounds no hepatosplenomegaly Extremities no edema Neuro alert and orientated to 3 - Labs CBC & Chem 7: 02/25/18 06:31 02/25/18 06:31 Labs: Abnormal Lab Results - Last 24 Hours (Table) 05/01/0902/25/18 02/25/18 Range/Units 13:50 06:31 06:31 RBC 3.25 L 2.90 L (3.80-5.40) m/uL Hgb 10.4 L 9.0 L (11.4-16.0) gm/dL Hct 30.1 L 26.8 L (34.0-46.0) % Carbon Dioxide 21 L (22-30) mmol/L Creatinine 0.50 L (0.52-1.04) mg/dL Assessment and Plan Assessment: #1 post polypectomy bleeding: Patient had rectal bleeding after a screening colonoscopy with a 4 cm polyp removed. Suspect bleeding is secondary to bleeding at the polypectomy site. GI service is following closely. Patient is had further bloody stools. Hemoglobins dropped to 9. She's scheduled for colonoscopy #2 acute blood loss anemia secondary to #1. Aspirin discontinued on admission #3 underlying history of hypertension. Patient has been hypotensive. Metoprolol and lisinopril are on hold. Continue with IV fluids #4 underlying history of hyperlipidemia #5 underlying history of osteoporosis, maintained on Fosamax #6 underlying history of severe scoliosis with chronic back pain #7 underlying history of generalized anxiety disorder I performed an examination of the patient and discussed their management with the physician Entertainment Manager. I have reviewed the Physician Entertainment Manager's notes and agree with the documented findings and plan of care
[2018-02-25 12:14] LABS: Basophils # (A) 0.1 k/uL (0-0.2); Basophils % (A) 1 %; Eosinophils # (A) 0.1 k/uL (0-0.7); Eosinophils % (A) 1 %; HCT 29.2 % (34.0-46.0); Lymphocytes % (A) 19 %; MCH 31.4 pg (25.0-35.0); MCHC 34.4 g/dL (31.0-37.0); MCV 91.2 fL (80.0-100.0); Mean Platelet Volume 6.9; Monocytes # (A) 0.5 k/uL (0-1.0); Monocytes % (A) 5 %; Neutrophils # (A) 7.9 k/uL (1.3-7.7); Neutrophils % (A) 74 %; Platelet Count 256 k/uL (150-450); RDW 13.4 % (11.5-15.5); WBC 10.7 k/uL (3.8-10.6)
[2018-02-25] MEDS ORDERED: LIDOCAINE 1% INJ 10MG/ML (20 ML MDV) ONE (14:27)
[2018-02-25] MEDS ORDERED: ONDANSETRON 4 MG/2 ML VIAL ONE (14:27)
[2018-02-25] MEDS ORDERED: PROPOFOL 10 MG/ML 20 ML VIAL IV ONE (14:27)
[2018-02-25] MEDS ORDERED: PHENYLEPHRINE-0.9% NACL SYG 1 MG/10 ML SYRINGE ONE (14:27)
[2018-02-25] MEDS ORDERED: IV FLUID CONTINUATION 1,000 ML IV ONE (14:29)
[2018-02-25] MEDS ORDERED: LACTATED RINGERS 1,000 ML IV ONE (15:00)
[2018-02-25] MEDS ORDERED: EPINEPHrine 10 ML SYRINGE (0.1 MG/ML) MISCELLANE ONE (15:18)
--- NOTE | 2018-02-25 15:59 | P.PCN ---
Date of Procedure: 02/25/18 Procedure(s) Performed: BRIEF HISTORY: Patient is a 72-year-old pleasant white female, admitted to the hospital with acute post-polypectomy lower GI bleed. She underwent colonoscopy with polypectomy on Wednesday by Dr. Hebert in the evening came into the emergency room for acute lower GI bleed. She dropped her hemoglobin from 12-10 g/dL. This morning she had a large bloody bowel movement. Because of the ongoing bleeding she is scheduled for colonoscopy today. PROCEDURE PERFORMED: Colonoscopy with injection epinephrine and Endo Clip placement/snare polypectomy. PREOPERATIVE DIAGNOSIS: Acute post-polypectomy lower GI bleed. IV sedation per Anesthesia. PROCEDURE: After informed consent was obtained, the patient, was brought into the endoscopy unit. IV sedation was administered by Anesthesia under continuous monitoring. Digital rectal examination was normal. Initially the Olympus CF- 160 flexible video colonoscope was then inserted in the rectum, gradually advanced into the cecum without any difficulty. Careful examination was performed as the scope was gradually being withdrawn. Ileocecal valve and the appendiceal orifice were visualized and appeared normal. Prep was excellent. Mucosa of the cecum, appeared normal. In the proximal ascending colon there was a 1 cm polyp that was removed by snare polypectomy. In the mid ascending colon there was a large clot that was noted on the site of previous polypectomy. Using thorough irrigation the clot was removed area at this time there was brisk oozing identified. Initially one Endo Clip was placed but there was continued bleeding. At this time I injected epinephrine 1 in 10,000 at the site of bleeding and total of 10 mL was injected with some hemostasis. Following this I placed 2 more endoclips with complete hemostasis. The rest of the ascending colon, transverse colon, descending colon, sigmoid colon, and rectum appeared normal. Retroflexion was performed in the rectum and no lesions were seen. The patient tolerated the procedure well. IMPRESSION: Ulceration with active oozing at the site of previous polypectomy in the mid ascending colon status post injection epinephrine and and a clip placement as described above 1 cm ascending colon polyp status post polypectomy RECOMMENDATIONS: Findings of this examination were discussed with the patient . At this time she'll be on a clear liquid diet. Monitor CBC closely..
[2018-02-25] MEDS: PRAVASTATIN SODIUM 20 MG TAB PO SCH (17:31)
[2018-02-25 19:53] LABS: Basophils % (A) 0 %; Eosinophils # (A) 0.1 k/uL (0-0.7); Eosinophils % (A) 1 %; HCT 24.2 % (34.0-46.0); Lymphocytes # (A) 0.9 k/uL (1.0-4.8); Lymphocytes % (A) 11 %; MCH 31.5 pg (25.0-35.0); MCHC 34.8 g/dL (31.0-37.0); MCV 90.5 fL (80.0-100.0); Mean Platelet Volume 7.8; Monocytes # (A) 0.3 k/uL (0-1.0); Monocytes % (A) 3 %; Neutrophils # (A) 7.3 k/uL (1.3-7.7); Neutrophils % (A) 84 %; Platelet Count 198 k/uL (150-450); RBC 2.68 m/uL (3.80-5.40); RDW 13.3 % (11.5-15.5); WBC 8.6 k/uL (3.8-10.6)
[2018-02-25 20:00] LABS: HGB 8.4 gm/dL (11.4-16.0)
[2018-02-25 23:39] LABS: Basophils % (A) 0 %; Eosinophils # (A) 0.1 k/uL (0-0.7); Eosinophils % (A) 2 %; HCT 23.6 % (34.0-46.0); HGB 8.2 gm/dL (11.4-16.0); Lymphocytes # (A) 2.1 k/uL (1.0-4.8); Lymphocytes % (A) 25 %; MCH 31.8 pg (25.0-35.0); MCHC 34.9 g/dL (31.0-37.0); MCV 91.1 fL (80.0-100.0); Mean Platelet Volume 7.6; Monocytes # (A) 0.4 k/uL (0-1.0); Monocytes % (A) 5 %; Neutrophils # (A) 5.8 k/uL (1.3-7.7); Neutrophils % (A) 67 %; Platelet Count 223 k/uL (150-450); RBC 2.59 m/uL (3.80-5.40); RDW 13.5 % (11.5-15.5); WBC 8.6 k/uL (3.8-10.6)
[2018-02-26] MEDS: CALCIUM CARB-VIT D 500MG-200UN 1 EACH TAB PO SCH (07:19)
[2018-02-26 09:02] LABS: Basophils % (A) 0 %; Eosinophils # (A) 0.1 k/uL (0-0.7); Eosinophils % (A) 2 %; HCT 20.7 % (34.0-46.0); HGB 7.3 gm/dL (11.4-16.0); Lymphocytes # (A) 1.7 k/uL (1.0-4.8); Lymphocytes % (A) 24 %; MCH 32.3 pg (25.0-35.0); MCHC 35.2 g/dL (31.0-37.0); MCV 91.9 fL (80.0-100.0); Mean Platelet Volume 7.4; Monocytes # (A) 0.3 k/uL (0-1.0); Monocytes % (A) 4 %; Neutrophils # (A) 4.8 k/uL (1.3-7.7); Neutrophils % (A) 68 %; Platelet Count 209 k/uL (150-450); RBC 2.25 m/uL (3.80-5.40); WBC 7.1 k/uL (3.8-10.6)
[2018-02-26 09:20] LABS: Anion Gap 11 mmol/L; Blood Urea Nitrogen 8 mg/dL (7-17); Calcium 8.1 mg/dL (8.4-10.2); Carbon Dioxide 22 mmol/L (22-30); Chloride 105 mmol/L (98-107); Glucose 116 mg/dL (74-99); Potassium 3.7 mmol/L (3.5-5.1); Sodium 138 mmol/L (137-145)
--- NOTE | 2018-02-26 10:33 | PN ---
PROGRESS NOTE DATE OF SERVICE: 02/26/18 Patient is a 72-year-old pleasant white female admitted to the hospital because of post polypectomy lower GI bleed. She underwent colonoscopy by Dr. Hebert on February 22 and was noted to have a 3 cm polyp in ascending colon. Biopsy was done which revealed fragmented tubular adenoma. Subsequently a few hours later on the same evening she came to the emergency room with acute lower GI bleed. She had multiple episodes of bright red blood per rectum and maroon-colored stools. She dropped hemoglobin from 12- 8.4 g/dL. She underwent a colonoscopy yesterday and was noted to have bleeding at the previous polypectomy site in the ascending colon that was injected with epinephrine and Endoclips were placed. After the procedure she had 3 small bloody bowel movements. This morning she had 1 with small amount of blood. Overall, she is feeling better. She denies any abdominal pain. No nausea, vomiting. PHYSICAL EXAMINATION: She appears comfortable. No apparent distress. VITAL SIGNS: Stable. Blood pressure is 116/73, pulse rate 85, and temperature 98.6. HEENT examination unremarkable. Conjunctivae pink. Sclerae anicteric. Oral cavity no lesions. Neck no JVD or lymph node enlargement. Chest was clear to auscultation. HEART: Regular rate and rhythm rate. ABDOMEN: Soft. Bowel sounds are positive. No organomegaly. Extremities: No pedal edema. Skin no rashes. Neuro: She is alert and oriented x3. No focal deficits. LABS: From 12 midnight, WBC 8.6, hemoglobin 8.2, and platelets 223. Morning labs are still pending. IMPRESSION: Acute post polypectomy lower gastrointestinal bleed, status post colonoscopy yesterday and was noted to have bleeding from the polypectomy site in the right colon, status post injection of epinephrine and Endoclip placement, which she appears to have slowed down with the bleeding significantly. She remains hemodynamically stable. Hemoglobin last night was 8.2. This morning it is still pending. RECOMMENDATIONS: 1. Continue with a clear liquid diet. 2. Continue to monitor CBC every 6 hours and transfuse if the hemoglobin goes less than 7. At this time, we will continue to monitor her closely. If she has rectal bleeding, we will obtain surgical consultation. Thank you for this consultation. MMODL / IJN: [id number] /
[2018-02-26] MEDS ORDERED: SODIUM FERRIC GLUCONAT-SUCROSE 125 MG in SODIUM CHLORIDE 0.9% 100 ML IVPB ONE (14:00)
--- NOTE | 2018-02-26 14:04 | P.PN ---
Subjective Progress Note Date: 02/26/18 Tia Faulkner is a 72-year-old female well known to my practice who had a colonoscopy yesterday she had a large polyps that was removed, patient was discharged home she started having significant amount of rectal bleeding discontinued 4 hours, she called the gastroenterology office and was advised to come to emergency room. She was evaluated in the emergency room by Dr. Barnes computed tomography scan of the abdomen and pelvis did not reveal any significant abnormality she was still having significant amount of rectal bleeding she was admitted to medical floor gastroenterology consultation was requested. 02/24/2018 Patient had 2 dark bloody stools yesterday evening. Patient's hemoglobin has dropped from 10.9-9.5. She does report after the shower this morning she wiped herself and there was blood present on the towel. Patient is having abdominal tenderness. GI service is following closely. Abdominal x-ray shows a nonspecific abdomen. GI service has ordered a repeat CBC at 1400. Blood pressures have been on the lower side. Ranging in the 90s systolic. Repeat blood pressure is 120/74. Continue with IV fluids. Continue to hold metoprolol and lisinopril 02/25/2018 patient had about 3 episodes of blood in her stool. Patient's hemoglobin has dropped from 10.4-9. She is scheduled for a colonoscopy this afternoon On 02/26/2018 patient is alert and oriented 3 she is still having episodes of bloody stools hemoglobin is down to 7.3 input from gastroenterology including colonoscopy report reviewed at this time possibility of blood transfusion was discussed with patient she is not in favor of blood transfusion at this point will give IV iron and monitor hemoglobin Objective - Vital Signs Vital signs: Vital Signs Temp 96.7 F L 02/26/18 07:00 Pulse 99 02/26/18 07:00 Resp 18 02/26/18 07:00 BP 116/73 02/26/18 07:00 Pulse Ox 100 02/26/18 07:00 Intake & Output 02/25/18 02/26/18 02/26/18 18:59 06:59 18:59 Intake Total 1375 300 Output Total 4 Balance 1375 296 Weight 53.07 kg Intake: IV 1375 Oral 300 Output: Urine/Stool Mix 4 Other: Voiding Method Toilet # Voids 5 3 3 # Bowel Movements 4 3 2 - Exam Head normocephalic and atraumatic Neck supple no JVD no goiter no lymphadenopathy Lungs clear to auscultation bilaterally no wheezing or crackles Heart regular rate and rhythm S1-S2, no rub or gallop Abdomen is soft diffuse abdominal tenderness nondistended positive bowel sounds no hepatosplenomegaly Extremities no edema Neuro alert and orientated to 3 no gross neurological deficit - Labs CBC & Chem 7: 02/26/18 08:09 02/26/18 08:09 Labs: Abnormal Lab Results - Last 24 Hours (Table) 02/25/18 02/25/18 02/26/18 Range/Units 19:26 23:16 08:09 RBC 2.68 L 2.59 L 2.25 L (3.80-5.40) m/uL Hgb 8.4 L D 8.2 L 7.3 L (11.4-16.0) gm/dL Hct 24.2 L 23.6 L 20.7 L (34.0-46.0) % Lymphocytes # 0.9 L (1.0-4.8) k/uL Glucose (74-99) mg/dL Calcium (8.4-10.2) mg/dL 02/26/18 Range/Units 08:09 RBC (3.80-5.40) m/uL Hgb (11.4-16.0) gm/dL Hct (34.0-46.0) % Lymphocytes # (1.0-4.8) k/uL Glucose 116 H (74-99) mg/dL Calcium 8.1 L (8.4-10.2) mg/dL Assessment and Plan Plan: #1 rectal bleeding patient had colonoscopy yesterday with removal of 4 cm polyp #2 acute blood loss anemia. #3 underlying history of hypertension #4 underlying history of hyperlipidemia #5 underlying history of osteoporosis, maintained on Fosamax #6 underlying history of severe scoliosis with chronic back pain #7 underlying history of anxiety disorder At this time patient is admitted to medical floor will monitor hemoglobin closely, at this time patient will be given IV iron If needed will proceed was the red blood cell transfusion Input from gastroenterology including colonoscopy report reviewed
[2018-02-26] MEDS: PRAVASTATIN SODIUM 20 MG TAB PO SCH (16:43)
[2018-02-26 18:18] LABS: MCH 31.9 pg (25.0-35.0); MCHC 34.2 g/dL (31.0-37.0); MCV 93.1 fL (80.0-100.0); Platelet Count 203 k/uL (150-450); RBC 2.03 m/uL (3.80-5.40); RDW 14.2 % (11.5-15.5); WBC 7.9 k/uL (3.8-10.6)
[2018-02-26 18:32] LABS: HGB 6.5 gm/dL (11.4-16.0)
[2018-02-27 07:10] LABS: ALT 18 U/L (9-52); AST 18 U/L (14-36); Albumin 2.3 g/dL (3.5-5.0); Alkaline Phosphatase 58 U/L (38-126); Anion Gap 9 mmol/L; Blood Urea Nitrogen 9 mg/dL (7-17); Carbon Dioxide 22 mmol/L (22-30); Chloride 108 mmol/L (98-107); Glucose 77 mg/dL (74-99); Potassium 3.5 mmol/L (3.5-5.1); Sodium 139 mmol/L (137-145); Total Bilirubin 1.1 mg/dL (0.2-1.3); Total Protein 4.2 g/dL (6.3-8.2)
[2018-02-27 07:12] LABS: Basophils % (A) 0 %; Eosinophils # (A) 0.1 k/uL (0-0.7); Eosinophils % (A) 2 %; HCT 26.3 % (34.0-46.0); Lymphocytes # (A) 1.9 k/uL (1.0-4.8); Lymphocytes % (A) 28 %; MCH 30.7 pg (25.0-35.0); MCHC 34.5 g/dL (31.0-37.0); MCV 89.1 fL (80.0-100.0); Mean Platelet Volume 7.6; Monocytes # (A) 0.3 k/uL (0-1.0); Monocytes % (A) 5 %; Neutrophils # (A) 4.5 k/uL (1.3-7.7); Neutrophils % (A) 64 %; Platelet Count 148 k/uL (150-450); RBC 2.96 m/uL (3.80-5.40); RDW 15.7 % (11.5-15.5)
[2018-02-27 07:17] LABS: HGB 9.1 gm/dL (11.4-16.0)
[2018-02-27] MEDS: CALCIUM CARB-VIT D 500MG-200UN 1 EACH TAB PO SCH (08:42)
--- NOTE | 2018-02-27 09:01 | PN ---
PROGRESS NOTE DATE OF SERVICE: 02/27/18. REQUESTING PHYSICIAN: Dr. Dimas. HISTORY: The patient is a 72-year-old pleasant white female who underwent a colonoscopy by Dr. Hebert 6 days ago and admitted to the hospital with post polypectomy bleed. She dropped hemoglobin to 6.5 yesterday, requiring 2 units of blood transfusion. I performed a colonoscopy on her on Wednesday, which revealed active bleeding from the polypectomy site in the ascending colon that was injected with epinephrine and Endoclips were placed. Last night she had 2 more episodes of bloody bowel movements. This morning she is feeling better. She denies any symptoms. No bowel movements for the last 6 hours. PHYSICAL EXAMINATION: She appears comfortable. No apparent distress. Vital signs are stable. Blood pressure is 108/62, pulse rate 69, temperature 97.4. HEENT examination unremarkable. Conjunctivae pink. Sclerae anicteric. Oral cavity no lesions. Neck: No jugular venous distention or lymph node enlargement. Chest was clear to auscultation. HEART: Regular rate and rhythm. ABDOMEN: Soft. Bowel sounds are positive. No organomegaly. Extremities: No pedal edema. Skin no rashes. NEUROLOGIC: Alert and oriented x3. No focal deficits. LABS: From today, WBC is 7, hemoglobin 9.1, platelets 148. Yesterday hemoglobin was 6.5. IMPRESSION: Acute post polypectomy lower gastrointestinal bleed. Initial colonoscopy done on Wednesday of last week. Repeat colonoscopy on Wednesday showed actively bleeding at the post polypectomy site in the ascending colon that was injected with epinephrine and Endoclips were placed. The patient still has ongoing oozing despite colonoscopy with Endoclip placement. She dropped hemoglobin to 6.5 requiring 2 units of blood transfusion. This morning it is 9.1. She remains stable. Last bloody bowel movement was last night. RECOMMENDATIONS: I had a lengthy discussion with the patient regarding further management. If she continues to bleed, she may need surgical intervention. At this time the patient wants to wait and continue with conservative approach. Hence, for now, we will obtain CBC every 6 hours. Transfuse as needed and follow her closely and keep her on a clear liquid diet. Thank you for this consultation. MMODL / IJN: [id number] /
--- NOTE | 2018-02-27 12:11 | P.PN ---
Subjective Progress Note Date: 02/27/18 Tia Faulkner is a 72-year-old female well known to my practice who had a colonoscopy yesterday she had a large polyps that was removed, patient was discharged home she started having significant amount of rectal bleeding discontinued 4 hours, she called the gastroenterology office and was advised to come to emergency room. She was evaluated in the emergency room by Dr. Barnes computed tomography scan of the abdomen and pelvis did not reveal any significant abnormality she was still having significant amount of rectal bleeding she was admitted to medical floor gastroenterology consultation was requested. 02/24/2018 Patient had 2 dark bloody stools yesterday evening. Patient's hemoglobin has dropped from 10.9-9.5. She does report after the shower this morning she wiped herself and there was blood present on the towel. Patient is having abdominal tenderness. GI service is following closely. Abdominal x-ray shows a nonspecific abdomen. GI service has ordered a repeat CBC at 1400. Blood pressures have been on the lower side. Ranging in the 90s systolic. Repeat blood pressure is 120/74. Continue with IV fluids. Continue to hold metoprolol and lisinopril 02/25/2018 patient had about 3 episodes of blood in her stool. Patient's hemoglobin has dropped from 10.4-9. She is scheduled for a colonoscopy this afternoon On 02/26/2018 patient is alert and oriented 3 she is still having episodes of bloody stools hemoglobin is down to 7.3 input from gastroenterology including colonoscopy report reviewed at this time possibility of blood transfusion was discussed with patient she is not in favor of blood transfusion at this point will give IV iron and monitor hemoglobin. On 02/27/2018 patient is alert and oriented x3 in no distress, still having bloody bowel movement, HGB dropped to 6.5 last night and patient was given 2 units of RBC today HGB 9.1 clinically patient is stable, no fever or chills no headache no dizziness no chest pain or shortness of breath no cough no nausea or vomiting no abdominal pain and no urinary symptoms. Objective - Vital Signs Vital signs: Vital Signs Temp 98.1 F 02/27/18 11:29 Pulse 75 02/27/18 11:29 Resp 18 02/27/18 11:29 BP 120/74 02/27/18 11:29 Pulse Ox 98 02/27/18 11:29 Intake & Output 02/26/18 02/27/18 02/27/18 18:59 06:59 18:59 Intake Total 360 Balance 360 Weight 53.07 kg 53.07 kg Intake: Oral 50 Blood Product 310 Rc As-1 Unit 310 [id number] As-3 Unit 0 [id number] Other: Voiding Method Toilet Toilet Toilet Bedside Commode Bedside Commode # Voids 3 1 # Bowel Movements 2 1 - Exam Head normocephalic and atraumatic Neck supple no JVD no goiter no lymphadenopathy Lungs clear to auscultation bilaterally no wheezing or crackles Heart regular rate and rhythm S1-S2, no rub or gallop Abdomen is soft diffuse abdominal tenderness nondistended positive bowel sounds no hepatosplenomegaly Extremities no edema Neuro alert and orientated to 3 no gross neurological deficit - Labs CBC & Chem 7: 02/27/18 06:23 02/27/18 06:23 Labs: Abnormal Lab Results - Last 24 Hours (Table) 02/26/18 02/26/18 02/27/18 Range/Units 08:12 18:08 06:23 RBC 2.03 L 2.96 L (3.80-5.40) m/uL Hgb 6.5 L* 9.1 L D (11.4-16.0) gm/dL Hct 19.0 L* 26.3 L (34.0-46.0) % RDW 15.7 H (11.5-15.5) % Plt Count 148 L (150-450) k/uL Chloride (98-107) mmol/L Creatinine (0.52-1.04) mg/dL Calcium (8.4-10.2) mg/dL Total Protein (6.3-8.2) g/dL Albumin (3.5-5.0) g/dL Crossmatch See Detail 02/27/18 Range/Units 06:23 RBC (3.80-5.40) m/uL Hgb (11.4-16.0) gm/dL Hct (34.0-46.0) % RDW (11.5-15.5) % Plt Count (150-450) k/uL Chloride 108 H (98-107) mmol/L Creatinine 0.50 L (0.52-1.04) mg/dL Calcium 8.0 L (8.4-10.2) mg/dL Total Protein 4.2 L (6.3-8.2) g/dL Albumin 2.3 L (3.5-5.0) g/dL Crossmatch Assessment and Plan Plan: #1 rectal bleeding patient had colonoscopy yesterday with removal of 4 cm polyp , hemoglobin last night down to 6.5 requiring 2 units of red blood cell transfusion #2 acute blood loss anemia. #3 underlying history of hypertension #4 underlying history of hyperlipidemia #5 underlying history of osteoporosis, maintained on Fosamax #6 underlying history of severe scoliosis with chronic back pain #7 underlying history of anxiety disorder Continue to monitor CBC If needed will proceed was the red blood cell transfusion Input from gastroenterology including colonoscopy report reviewed If bleeding continues patient may need surgical intervention, however she wants to wait and have a conservative approach at this time She was counseled to walk several times a day for DVT prevention also continue to use SCD stockings for DVT prevention
[2018-02-27 12:39] LABS: Basophils % (A) 0 %; Eosinophils # (A) 0.2 k/uL (0-0.7); Eosinophils % (A) 2 %; HCT 27.2 % (34.0-46.0); HGB 9.3 gm/dL (11.4-16.0); Lymphocytes # (A) 3.3 k/uL (1.0-4.8); Lymphocytes % (A) 32 %; MCH 30.7 pg (25.0-35.0); MCHC 34.3 g/dL (31.0-37.0); MCV 89.5 fL (80.0-100.0); Mean Platelet Volume 7.7; Monocytes # (A) 0.4 k/uL (0-1.0); Monocytes % (A) 4 %; Neutrophils # (A) 6.4 k/uL (1.3-7.7); Neutrophils % (A) 61 %; Platelet Count 177 k/uL (150-450); RBC 3.04 m/uL (3.80-5.40); RDW 15.4 % (11.5-15.5); WBC 10.4 k/uL (3.8-10.6)
[2018-02-27] MEDS: PRAVASTATIN SODIUM 20 MG TAB PO SCH (17:08)
[2018-02-27 18:57] LABS: Basophils % (A) 1 %; Eosinophils # (A) 0.2 k/uL (0-0.7); Eosinophils % (A) 2 %; HCT 24.3 % (34.0-46.0); HGB 8.2 gm/dL (11.4-16.0); Lymphocytes # (A) 2.5 k/uL (1.0-4.8); Lymphocytes % (A) 30 %; MCH 30.1 pg (25.0-35.0); MCHC 33.8 g/dL (31.0-37.0); Mean Platelet Volume 7.8; Monocytes # (A) 0.4 k/uL (0-1.0); Monocytes % (A) 4 %; Neutrophils # (A) 5.3 k/uL (1.3-7.7); Neutrophils % (A) 63 %; Platelet Count 162 k/uL (150-450); RBC 2.73 m/uL (3.80-5.40); RDW 15.6 % (11.5-15.5); WBC 8.6 k/uL (3.8-10.6)
[2018-02-27 23:42] LABS: Basophils % (A) 0 %; Eosinophils # (A) 0.2 k/uL (0-0.7); Eosinophils % (A) 2 %; HGB 7.5 gm/dL (11.4-16.0); Lymphocytes # (A) 2.3 k/uL (1.0-4.8); Lymphocytes % (A) 31 %; MCH 30.4 pg (25.0-35.0); MCHC 34.1 g/dL (31.0-37.0); Mean Platelet Volume 7.6; Monocytes # (A) 0.3 k/uL (0-1.0); Monocytes % (A) 4 %; Neutrophils # (A) 4.6 k/uL (1.3-7.7); Neutrophils % (A) 62 %; Platelet Count 151 k/uL (150-450); RBC 2.47 m/uL (3.80-5.40); RDW 15.7 % (11.5-15.5); WBC 7.5 k/uL (3.8-10.6)
[2018-02-28 06:53] LABS: Anisocytosis Slight; Basophils % (A) 1 %; Eosinophils # (A) 0.2 k/uL (0-0.7); Eosinophils % (A) 2 %; HCT 24.3 % (34.0-46.0); HGB 8.4 gm/dL (11.4-16.0); Lymphocytes # (A) 2.2 k/uL (1.0-4.8); Lymphocytes % (A) 25 %; MCH 30.7 pg (25.0-35.0); MCHC 34.5 g/dL (31.0-37.0); MCV 88.9 fL (80.0-100.0); Mean Platelet Volume 7.2; Monocytes # (A) 0.3 k/uL (0-1.0); Monocytes % (A) 4 %; Neutrophils # (A) 5.9 k/uL (1.3-7.7); Neutrophils % (A) 68 %; Platelet Count 188 k/uL (150-450); RBC 2.73 m/uL (3.80-5.40); WBC 8.7 k/uL (3.8-10.6)
[2018-02-28] MEDS: CALCIUM CARB-VIT D 500MG-200UN 1 EACH TAB PO SCH (07:51)
[2018-02-28] MEDS ORDERED: Alendronate Sodium [Fosamax] 70 MG PO SCH (09:00)
--- NOTE | 2018-02-28 11:14 | US ---
EXAMINATION TYPE: US venous doppler duplex UE RT DATE OF EXAM: 02/28/2018 COMPARISON: NONE CLINICAL HISTORY: pain,swelling. SIDE PERFORMED: Right Grayscale, color doppler, spectral doppler imaging performed of the deep veins of the upper extremiti es. There is normal flow, compressibility and vascular waveforms. Right Arm: Negative for DVT At area of redness and swelling is superficial thrombophlebitis in right basilic v at forearm. IMPRESSION: 1. No sonographic evidence of deep venous thrombosis within the right upper extremity. 2. Positive exam for superficial venous thrombosis within the right basilic vein at the level of swel ling and redness in the right upper extremity.
--- NOTE | 2018-02-28 11:16 | P.PN ---
Subjective Progress Note Date: 02/28/18 Tia Faulkner is a 72-year-old female well known to my practice who had a colonoscopy yesterday she had a large polyps that was removed, patient was discharged home she started having significant amount of rectal bleeding discontinued 4 hours, she called the gastroenterology office and was advised to come to emergency room. She was evaluated in the emergency room by Dr. Barnes computed tomography scan of the abdomen and pelvis did not reveal any significant abnormality she was still having significant amount of rectal bleeding she was admitted to medical floor gastroenterology consultation was requested. 02/24/2018 Patient had 2 dark bloody stools yesterday evening. Patient's hemoglobin has dropped from 10.9-9.5. She does report after the shower this morning she wiped herself and there was blood present on the towel. Patient is having abdominal tenderness. GI service is following closely. Abdominal x-ray shows a nonspecific abdomen. GI service has ordered a repeat CBC at 1400. Blood pressures have been on the lower side. Ranging in the 90s systolic. Repeat blood pressure is 120/74. Continue with IV fluids. Continue to hold metoprolol and lisinopril 02/25/2018 patient had about 3 episodes of blood in her stool. Patient's hemoglobin has dropped from 10.4-9. She is scheduled for a colonoscopy this afternoon On 02/26/2018 patient is alert and oriented 3 she is still having episodes of bloody stools hemoglobin is down to 7.3 input from gastroenterology including colonoscopy report reviewed at this time possibility of blood transfusion was discussed with patient she is not in favor of blood transfusion at this point will give IV iron and monitor hemoglobin 02/28/2018 patient did require 2 units of blood over the weekend and was given IV iron. Hemoglobin is currently 8.4. For Kelly patient is still having blood in her stools. She had 2 yesterday evening and one this morning. GI service consult dictated they are recommending surgical service for possible intervention. Dr. Russell will be consulted. Patient also complaining of swelling and decreased range of motion of her right arm at old IV site. There is redness around the old IV site with scabbing no pus or drainage. Very tender with palpation and limited range of motion. Venous Doppler has been ordered to rule out DVT. Patient denies any chest pain or shortness of breath. Denies any nausea or vomiting. Denies any burning with urination. Objective - Vital Signs Vital signs: Vital Signs Temp 97.9 F 02/28/18 07:52 Pulse 88 02/28/18 07:52 Resp 18 02/28/18 07:52 BP 109/70 02/28/18 07:52 Pulse Ox 100 02/28/18 07:52 Intake & Output 02/27/18 02/28/18 02/28/18 18:59 06:59 18:59 Intake Total 560 50 Balance 560 50 Weight 53.07 kg 52 kg Intake: Oral 560 50 Other: Voiding Method Toilet Toilet Bedside Commode Bedside Commode # Voids 1 1 # Bowel Movements 1 - Exam Head normocephalic Neck supple Lungs clear to auscultation bilaterally no wheezing or crackles Heart regular rate and rhythm S1-S2, no rub or gallop Abdomen is soft nontender nondistended positive bowel sounds no hepatosplenomegaly Extremities no edema of the lower extremities. Right arm is swollen. Erythema around the IV site. No pus or drainage. Limited range of motion. Neuro alert and orientated to 3 - Labs CBC & Chem 7: 02/28/18 06:23 02/27/18 06:23 Labs: Abnormal Lab Results - Last 24 Hours (Table) 02/26/18 02/27/18 02/27/18 Range/Units 08:12 12:14 18:13 RBC 3.04 L 2.73 L (3.80-5.40) m/uL Hgb 9.3 L 8.2 L (11.4-16.0) gm/dL Hct 27.2 L 24.3 L (34.0-46.0) % RDW 15.6 H (11.5-15.5) % Crossmatch See Detail 02/27/18 02/28/18 Range/Units 23:29 06:23 RBC 2.47 L 2.73 L (3.80-5.40) m/uL Hgb 7.5 L 8.4 L (11.4-16.0) gm/dL Hct 22.0 L 24.3 L (34.0-46.0) % RDW 15.7 H 16.0 H (11.5-15.5) % Crossmatch Assessment and Plan Assessment: #1 acute post polypectomy bleeding: Patient had rectal bleeding after a screening colonoscopy with a 4 cm polyp removed. Repeat colonoscopy on Wednesday showed active bleeding at the post polypectomy site the ascending colon. GI service injected with epinephrine and clips were placed. Patient is still having evidence of blood in her stools. She did require 2 units of blood for hemoglobin of 6.5. Patient had blood in her stools again this morning. GI service is recommending a surgical consult. Dr. Russell will be consulted. Continue to monitor CBC every 6 #2 acute blood loss anemia secondary to #1. Aspirin discontinued on admission #3 underlying history of hypertension. Patient had been hypotensive. Metoprolol and lisinopril are on hold. Blood pressures are currently stable. Continue to monitor off of BP meds #4 underlying history of hyperlipidemia #5 underlying history of osteoporosis, maintained on Fosamax #6 underlying history of severe scoliosis with chronic back pain #7 underlying history of generalized anxiety disorder #8 right arm swelling and redness at IV site. Start Keflex for mild cellulitis. Check venous Doppler to rule out DVT I performed an examination of the patient and discussed their management with the physician Sql Report Analyst. I have reviewed the Physician Sql Report Analyst's notes and agree with the documented findings and plan of care
[2018-02-28] MEDS: CEPHALEXIN 500 MG CAP PO SCH ×3 (12:51→21:22)
--- NOTE | 2018-02-28 13:02 | PN ---
PROGRESS NOTE DATE OF SERVICE: 02/28/2018 The patient is a 72-year-old pleasant white female admitted to the hospital with post polypectomy bleed a week ago. She continues to have ongoing bleeding. She underwent colonoscopy by Dr. Hebert a week ago Wednesday and had a 3 cm polyp removed in the right colon. She was admitted the same night underwent a repeat colonoscopy on Wednesday with Endoclip placement at the polypectomy site in the right colon. Through the weekend she dropped hemoglobin to 6.5 requiring 2 units of blood transfusion. On Wednesday she had one bowel movement and last night she had 2 more maroon-colored stools. This morning, hemoglobin is 7.5 g/dL. The patient denies any symptoms. PHYSICAL EXAMINATION: On physical examination, appears comfortable, no apparent distress. Vital signs are stable. Blood pressure is 104/68, pulse rate is 87, temperature 97.9. HEENT examination unremarkable. Conjunctivae pink. Sclerae anicteric. Oral cavity no lesions. NECK: No JVD or lymph node enlargement. Chest was clear to auscultation. HEART: Regular rate and rhythm. ABDOMEN: Soft. Bowel sounds are positive. No organomegaly. EXTREMITIES: No pedal edema. SKIN: No rashes. NEURO: Alert and oriented x3. No focal deficits. LABS: Labs from today, hemoglobin last night it was 7.5 and this morning it is 8.4. IMPRESSION: Acute postpolypectomy lower gastrointestinal bleed from the right colon, status post colonoscopy 3 days ago with Endoclip placement. Still continues to have slow active bleeding. She is status post 2 units of blood transfusion so far. Last hemoglobin 8.4 g/dL. RECOMMENDATIONS: Because of the ongoing bleeding, we will obtain surgical consultation with Dr. Cisneros. In the meantime, CBC every 8 hours and transfuse as needed. Thank you for this consultation. MMODL / IJN: [id number] /
[2018-02-28 13:21] LABS: Anisocytosis Slight; Basophils % (A) 0 %; Eosinophils # (A) 0.2 k/uL (0-0.7); Eosinophils % (A) 2 %; HCT 23.8 % (34.0-46.0); Lymphocytes # (A) 1.4 k/uL (1.0-4.8); Lymphocytes % (A) 19 %; MCH 30.5 pg (25.0-35.0); MCHC 33.8 g/dL (31.0-37.0); MCV 90.3 fL (80.0-100.0); Mean Platelet Volume 7.6; Monocytes # (A) 0.3 k/uL (0-1.0); Monocytes % (A) 4 %; Neutrophils # (A) 5.4 k/uL (1.3-7.7); Neutrophils % (A) 74 %; Platelet Count 174 k/uL (150-450); RBC 2.64 m/uL (3.80-5.40); RDW 16.1 % (11.5-15.5); WBC 7.3 k/uL (3.8-10.6)
--- NOTE | 2018-02-28 13:45 | P.GSCN ---
<Kristina Salazar M - Last Filed: 02/28/18 13:18> History of Present Illness Consult date: 02/28/18 Reason for Consult: Ongoing lower GI bleeding status post colonoscopy History of present illness: A very pleasant 72-year-old female being seen at the request of the attending for a surgical eval for persistent lower GI bleed. Patient reportedly underwent a surveillance colonoscopy by Dr. Higgins Wednesday last week. The report indicated 3 cm polyp was removed from the right colon Patient stated she went home after the procedure that evening started having bright red bloody stool. The symptoms continue throughout the night. Patient stated she had dizziness lightheadedness with the episode. Patient returned to the emergency room to be evaluated subsequently was admitted. Patient underwent a repeat colonoscopy on Wednesday this week by Dr. Manzanares. Endoclips were placed at the polypectomy site patient over the past 48 hours continue to have episodes of maroon colored stool. There was a drop in hemoglobin down to 6.5. Did require 2 units of packed red blood cells to be infused. This morning the patient states is no abdominal pain had 1 stool this morning bright red stool per nursing. Patient denies any nausea vomiting dizziness or lightheadedness. The hemoglobin this morning is 8 the heart rate in the 80s blood pressure 147/85 Review of Systems Essentially unremarkable except as mentioned in the present illness Past Medical History Past Medical History: CVA/TIA, Hyperlipidemia, Hypertension, Memory Impairment, Myocardial Infarction (OR) Additional Past Medical History / Comment(s): HEART MURMUR, LEAKY VALVE. POSS MILD STROKE YEARS AGO, UNSURE, HAS DIFFICULTY RECALLING SOME HISTORICAL MEDICAL INFO. 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 Past Anesthesia/Blood Transfusion Reactions: Motion Sickness Past Psychological History: No Psychological Hx Reported Smoking Status: Never smoker Past Alcohol Use History: None Reported Past Drug Use History: None Reported - Past Family History Father Additional Family Medical History / Comment(s): patient states "he had heart problems". patient unsure what type of heart problems. Mother Family Medical History: Cancer, Diabetes Mellitus Additional Family Medical History / Comment(s): brain cancer Brother(s) Family Medical History: Diabetes Mellitus Additional Family Medical History / Comment(s): autistic Sister(s) History Unknown: Yes Medications and Allergies Home Medications Medication Instructions Recorded Confirmed Type Alendronate Sodium [Fosamax] 70 mg PO MO 07/31/15 02/23/18 History Calcium Carbonate/Vitamin D3 1 tab PO DAILY 07/31/15 02/23/18 History [Calcium 600-Vit D3 400 Tablet] Ergocalciferol [Vitamin D2 50,000 unit PO WE 07/31/15 02/23/18 History (DRISDOL)] Metoprolol Tartrate [Lopressor] 25 mg PO AC-BID 07/31/15 02/23/18 History Pravastatin Sodium [Pravachol] 20 mg PO AC-SUPPER 07/31/15 02/23/18 History Lisinopril [Zestril] 20 mg PO BID 01/25/16 02/23/18 History Aspirin EC [Ecotrin Low Dose] 81 mg PO DAILY 02/18/18 02/23/18 History Allergies Allergy/AdvReac Type Severity Reaction Status Date / Time No Known Allergies Allergy Verified 02/23/18 07:46 Surgical - Exam Vital Signs Temp Pulse Resp BP Pulse Ox 97.7 F 72 20 97/66 100 02/23/18 00:08 02/23/18 00:08 02/23/18 00:08 02/23/18 00:08 02/23/18 00:08 GENERAL APPEARANCE: Pleasant 72-year-old female resting in bed patient is alert denies any abdominal pain. Denies any dizziness lightheadedness or chest pain VITAL SIGNS: Reviewed HEENT: Head is normocephalic and atraumatic. Pupils are equal and reactive. The nares are patent. Oropharynx is clear without lesions. NECK: Supple without lymphadenopathy. Traches midline. HEART: S1, S2. Regular rate and rhythm. Positive murmur noted LUNGS: No crackles or wheezes are heard. Adequate air movement bilaterally room air ABDOMEN: Soft, nontender, nondistended with good bowel sounds. No peritoneal signs. No palpable organomegaly or masses. States urinating no difficulty states had 1 stool this morning is reports it was bright red. Patient reports she had 1 stool last evening EXTREMITIES: Right arm at the antecubital space red tenderness no drainage no pus Normal skin color and turgor. Radial pedal pulses are 2/4 bilaterally. NEUROLOGICAL: No focal deficits. Strength and sensation are grossly intact. Results - Labs 02/28/18 06:23 02/27/18 06:23 Abnormal Lab Results - Last 24 Hours (Table) 02/26/18 02/27/18 02/27/18 Range/Units 08:12 18:13 23:29 RBC 2.73 L 2.47 L (3.80-5.40) m/uL Hgb 8.2 L 7.5 L (11.4-16.0) gm/dL Hct 24.3 L 22.0 L (34.0-46.0) % RDW 15.6 H 15.7 H (11.5-15.5) % Crossmatch See Detail 02/28/18 Range/Units 06:23 RBC 2.73 L (3.80-5.40) m/uL Hgb 8.4 L (11.4-16.0) gm/dL Hct 24.3 L (34.0-46.0) % RDW 16.0 H (11.5-15.5) % Crossmatch Assessment and Plan Assessment: Impression Present on admission nausea vomiting passage of bloody burgundy colored stools with clots after colonoscopy screening done with a snare polypectomy Acute blood loss anemia suspect lower GI bleed Repeat colonoscopy showed ulceration with active oozing at the previous polypectomy site in the mid ascending colon with clip placement done on February 25 Symptomatic acute blood loss anemia suspect lower GI bleed necessitating 2 units of packed red blood cells to be infused Plan Agree with monitoring hemoglobin every 8 hours with a attempt to keep greater than 8 IV iron supplements per the attending Further recommendations after Dr. Cisneros evaluates the patient Continue recommendations per medical service defer to Surgical consultation note dictated for Dr. Cardoso The above impression and plan of care have been discussed and directed by signing physician. Kristina Salazar nurse practitioner acting as scribe for signing physician. <Leonard Cisneros - Last Filed: 02/28/18 16:27> Surgical - Exam Vital Signs Temp Pulse Resp BP Pulse Ox 97.7 F 72 20 97/66 100 02/23/18 00:08 02/23/18 00:08 02/23/18 00:08 02/23/18 00:08 02/23/18 00:08 Results - Labs 02/28/18 12:59 02/27/18 06:23 Abnormal Lab Results - Last 24 Hours (Table) 02/26/18 02/27/18 02/27/18 Range/Units 08:12 18:13 23:29 RBC 2.73 L 2.47 L (3.80-5.40) m/uL Hgb 8.2 L 7.5 L (11.4-16.0) gm/dL Hct 24.3 L 22.0 L (34.0-46.0) % RDW 15.6 H 15.7 H (11.5-15.5) % Crossmatch See Detail 02/28/18 02/28/18 Range/Units 06:23 12:59 RBC 2.73 L 2.64 L (3.80-5.40) m/uL Hgb 8.4 L 8.0 L (11.4-16.0) gm/dL Hct 24.3 L 23.8 L (34.0-46.0) % RDW 16.0 H 16.1 H (11.5-15.5) % Crossmatch Assessment and Plan Assessment: As above. Unclear whether the bleeding seen this morning is related to old blood that the patient is evacuating or if there is in fact active bleeding still present. Hemoglobin has been fairly stable. Options discussed with the patient she and I both agree on observation at this time. Surgical intervention or repeat endoscopy will be reserved in the event that bleeding continues. We'll follow closely with you.
[2018-02-28] MEDS: PRAVASTATIN SODIUM 20 MG TAB PO SCH (15:22)
[2018-02-28 19:42] LABS: Anisocytosis Slight; Basophils % (A) 0 %; Eosinophils # (A) 0.2 k/uL (0-0.7); Eosinophils % (A) 2 %; HCT 25.6 % (34.0-46.0); HGB 8.8 gm/dL (11.4-16.0); Lymphocytes # (A) 2.5 k/uL (1.0-4.8); Lymphocytes % (A) 24 %; MCH 30.8 pg (25.0-35.0); MCHC 34.3 g/dL (31.0-37.0); MCV 89.7 fL (80.0-100.0); Mean Platelet Volume 7.7; Monocytes # (A) 0.5 k/uL (0-1.0); Monocytes % (A) 5 %; Neutrophils # (A) 7.2 k/uL (1.3-7.7); Neutrophils % (A) 69 %; Platelet Count 219 k/uL (150-450); RBC 2.85 m/uL (3.80-5.40); RDW 16.1 % (11.5-15.5); WBC 10.5 k/uL (3.8-10.6)
[2018-03-01 00:06] LABS: Anisocytosis Slight; Basophils % (A) 1 %; Eosinophils # (A) 0.1 k/uL (0-0.7); Eosinophils % (A) 2 %; HCT 21.9 % (34.0-46.0); HGB 7.6 gm/dL (11.4-16.0); Lymphocytes # (A) 1.6 k/uL (1.0-4.8); Lymphocytes % (A) 23 %; MCH 31.2 pg (25.0-35.0); MCV 89.1 fL (80.0-100.0); Mean Platelet Volume 7.1; Monocytes # (A) 0.4 k/uL (0-1.0); Monocytes % (A) 5 %; Neutrophils % (A) 69 %; Platelet Count 194 k/uL (150-450); RBC 2.45 m/uL (3.80-5.40); RDW 16.4 % (11.5-15.5); WBC 7.2 k/uL (3.8-10.6)
[2018-03-01 06:59] LABS: Anisocytosis Slight; Basophils % (A) 0 %; Eosinophils # (A) 0.1 k/uL (0-0.7); Eosinophils % (A) 2 %; HCT 23.2 % (34.0-46.0); HGB 7.9 gm/dL (11.4-16.0); Lymphocytes # (A) 1.3 k/uL (1.0-4.8); Lymphocytes % (A) 19 %; MCH 30.6 pg (25.0-35.0); MCHC 33.8 g/dL (31.0-37.0); MCV 90.3 fL (80.0-100.0); Monocytes # (A) 0.3 k/uL (0-1.0); Monocytes % (A) 5 %; Neutrophils % (A) 73 %; Platelet Count 186 k/uL (150-450); RBC 2.57 m/uL (3.80-5.40); RDW 16.2 % (11.5-15.5); WBC 6.9 k/uL (3.8-10.6)
[2018-03-01 07:23] LABS: Anion Gap 7 mmol/L; Blood Urea Nitrogen 8 mg/dL (7-17); Calcium 8.1 mg/dL (8.4-10.2); Carbon Dioxide 26 mmol/L (22-30); Chloride 104 mmol/L (98-107); Glucose 81 mg/dL (74-99); Potassium 3.3 mmol/L (3.5-5.1); Sodium 137 mmol/L (137-145)
[2018-03-01] MEDS ORDERED: POTASSIUM CHLORIDE ER 20 MEQ TAB.ER PO STA (08:15)
--- NOTE | 2018-03-01 09:21 | P.PN ---
Subjective Progress Note Date: 03/01/18 Principal diagnosis: Hematochezia No rectal bleeding 24 hours. Tolerating clears. Denies abdominal pain. Hemoglobin stable 7.9. Objective - Vital Signs Vital signs: Vital Signs Temp 98.0 F 03/01/18 04:00 Pulse 79 03/01/18 04:00 Resp 18 03/01/18 04:00 BP 137/78 03/01/18 04:00 Pulse Ox 98 03/01/18 04:00 Intake & Output 02/28/18 03/01/18 03/01/18 18:59 06:59 18:59 Intake Total 118 Output Total 400 Balance 118 -400 Weight 52 kg 51 kg Intake: Oral 118 Output: Urine 400 Other: Voiding Method Toilet Bedside Commode # Voids 1 - Exam General appearance: The patient is alert, oriented, in no acute distress. HET: Head is normocephalic and atraumatic. Pupils are equal and reactive. Oropharynx is clear without lesions. Neck: Supple without lymphadenopathy. Trachea midline. Heart: S1 S2. Regular rate and rhythm. Lungs: No crackles or wheezes are heard. Abdomen: Soft, nontender, nondistended with bowel sounds. No peritoneal signs. No palpable organomegaly or masses. Extremities: Right upper extremity antecubital region with erythema and swelling warmth. Neurological: No focal deficits. Strength and sensation are grossly intact. - Labs CBC & Chem 7: 03/01/18 06:22 03/01/18 06:22 Labs: Abnormal Lab Results - Last 24 Hours (Table) 02/26/18 02/28/18 02/28/18 Range/Units 08:12 12:59 18:23 RBC 2.64 L 2.85 L (3.80-5.40) m/uL Hgb 8.0 L 8.8 L (11.4-16.0) gm/dL Hct 23.8 L 25.6 L (34.0-46.0) % RDW 16.1 H 16.1 H (11.5-15.5) % Crossmatch See Detail 02/28/18 Range/Units 23:45 RBC 2.45 L (3.80-5.40) m/uL Hgb 7.6 L (11.4-16.0) gm/dL Hct 21.9 L (34.0-46.0) % RDW 16.4 H (11.5-15.5) % Crossmatch Assessment and Plan (1) Post-polypectomy bleeding Narrative/Plan: Status post screening colonoscopy one week ago with removal of 3-4 cm flat polyp near the ileocecal valve with snare with development of post polypectomy bleeding status post recent surveillance colonoscopy 4 days ago with Endo Clip placement. Current Visit: Yes Status: Acute Code(s): NZX9247 - SNOMED Code(s): 221949423 (2) Rectal bleeding Current Visit: Yes Status: Acute Code(s): K62.5 - HEMORRHAGE OF ANUS AND RECTUM SNOMED Code(s): 04100987 (3) Acute blood loss anemia Current Visit: Yes Status: Acute Code(s): D62 - ACUTE POSTHEMORRHAGIC ANEMIA SNOMED Code(s): 707207479 Plan: 1. Surgical consult and recommendations appreciated. CBC monitoring. Full liquids. Assessment and plan a care discussed with Dr. mason
[2018-03-01] MEDS: CALCIUM CARB-VIT D 500MG-200UN 1 EACH TAB PO SCH (09:22)
[2018-03-01] MEDS: CEPHALEXIN 500 MG CAP PO SCH ×3 (09:22→20:57)
[2018-03-01] MEDS: HYDROcodone/APAP 5-325MG 1 EACH TAB PO PRN (09:31)
--- NOTE | 2018-03-01 11:07 | P.PN ---
Subjective Progress Note Date: 03/01/18 Tia Faulkner is a 72-year-old female well known to my practice who had a colonoscopy yesterday she had a large polyps that was removed, patient was discharged home she started having significant amount of rectal bleeding discontinued 4 hours, she called the gastroenterology office and was advised to come to emergency room. She was evaluated in the emergency room by Dr. Barnes computed tomography scan of the abdomen and pelvis did not reveal any significant abnormality she was still having significant amount of rectal bleeding she was admitted to medical floor gastroenterology consultation was requested. 02/24/2018 Patient had 2 dark bloody stools yesterday evening. Patient's hemoglobin has dropped from 10.9-9.5. She does report after the shower this morning she wiped herself and there was blood present on the towel. Patient is having abdominal tenderness. GI service is following closely. Abdominal x-ray shows a nonspecific abdomen. GI service has ordered a repeat CBC at 1400. Blood pressures have been on the lower side. Ranging in the 90s systolic. Repeat blood pressure is 120/74. Continue with IV fluids. Continue to hold metoprolol and lisinopril 02/25/2018 patient had about 3 episodes of blood in her stool. Patient's hemoglobin has dropped from 10.4-9. She is scheduled for a colonoscopy this afternoon On 02/26/2018 patient is alert and oriented 3 she is still having episodes of bloody stools hemoglobin is down to 7.3 input from gastroenterology including colonoscopy report reviewed at this time possibility of blood transfusion was discussed with patient she is not in favor of blood transfusion at this point will give IV iron and monitor hemoglobin 02/28/2018 patient did require 2 units of blood over the weekend and was given IV iron. Hemoglobin is currently 8.4. For Kelly patient is still having blood in her stools. She had 2 yesterday evening and one this morning. GI service consult dictated they are recommending surgical service for possible intervention. Dr. Russell will be consulted. Patient also complaining of swelling and decreased range of motion of her right arm at old IV site. There is redness around the old IV site with scabbing no pus or drainage. Very tender with palpation and limited range of motion. Venous Doppler has been ordered to rule out DVT. Patient denies any chest pain or shortness of breath. Denies any nausea or vomiting. Denies any burning with urination. 03/01/2018 patient had 1 bloody bowel movements around noon yesterday. Has had no further bloody stools. Patient has been seen by surgical service and they' re recommending observation at this point. No surgical intervention scheduled. Hemoglobin is up to 7.9. Patient is still complaining of right arm pain where the SVT is located. Denies any chest pain or shortness breath. Denies any burning with urination. Objective - Vital Signs Vital signs: Vital Signs Temp 97.6 F 03/01/18 09:24 Pulse 79 03/01/18 09:24 Resp 18 03/01/18 09:24 BP 99/62 03/01/18 09:24 Pulse Ox 97 03/01/18 09:24 Intake & Output 02/28/18 03/01/18 03/01/18 18:59 06:59 18:59 Intake Total 118 Output Total 400 200 Balance 118 -400 -200 Weight 52 kg 51 kg Intake: Oral 118 Output: Urine 400 200 Other: Voiding Method Toilet Toilet Bedside Commode Bedside Commode # Voids 1 - Exam Head normocephalic Neck supple Lungs clear to auscultation bilaterally no wheezing or crackles Heart regular rate and rhythm S1-S2, no rub or gallop Abdomen is soft nontender nondistended positive bowel sounds no hepatosplenomegaly Extremities no edema of the lower extremities. Right arm is swollen. Erythema around the IV site. No pus or drainage. Limited range of motion. Neuro alert and orientated to 3 - Labs CBC & Chem 7: 03/01/18 06:22 03/01/18 06:22 Labs: Abnormal Lab Results - Last 24 Hours (Table) 02/28/18 02/28/18 02/28/18 Range/Units 12:59 18:23 23:45 RBC 2.64 L 2.85 L 2.45 L (3.80-5.40) m/uL Hgb 8.0 L 8.8 L 7.6 L (11.4-16.0) gm/dL Hct 23.8 L 25.6 L 21.9 L (34.0-46.0) % RDW 16.1 H 16.1 H 16.4 H (11.5-15.5) % Potassium (3.5-5.1) mmol/L Creatinine (0.52-1.04) mg/dL Calcium (8.4-10.2) mg/dL 03/01/18 03/01/18 Range/Units 06:22 06:22 RBC 2.57 L (3.80-5.40) m/uL Hgb 7.9 L (11.4-16.0) gm/dL Hct 23.2 L (34.0-46.0) % RDW 16.2 H (11.5-15.5) % Potassium 3.3 L (3.5-5.1) mmol/L Creatinine 0.45 L (0.52-1.04) mg/dL Calcium 8.1 L (8.4-10.2) mg/dL Assessment and Plan Assessment: #1 acute post polypectomy bleeding: Patient had rectal bleeding after a screening colonoscopy with a 4 cm polyp removed. Repeat colonoscopy on Wednesday showed active bleeding at the post polypectomy site the ascending colon. GI service injected with epinephrine and clips were placed. Patient is still having evidence of blood in her stools. She did require 2 units of blood for hemoglobin of 6.5. Patient had blood in her stools again this morning. GI service is recommending a surgical consult. Patient seen by surgical service. The recommending observation. No surgical intervention at this point. Continue to monitor hemoglobin. Hemoglobin is at 7.9. Last bloody bowel movement around noon. GI service is advancing diet to a full liquid diet #2 acute blood loss anemia secondary to #1. Aspirin discontinued on admission #3 underlying history of hypertension. Patient had been hypotensive. Metoprolol and lisinopril are on hold. Blood pressures are currently stable. Continue to monitor off of BP meds #4 underlying history of hyperlipidemia #5 underlying history of osteoporosis, maintained on Fosamax #6 underlying history of severe scoliosis with chronic back pain #7 underlying history of generalized anxiety disorder #8 right arm phlebitis and SVT: Continue Keflex. Keep arm elevated and apply heat I performed an examination of the patient and discussed their management with the physician Incising Machine Operator. I have reviewed the Physician Incising Machine Operator's notes and agree with the documented findings and plan of care
--- NOTE | 2018-03-01 16:45 | P.PN ---
Subjective Progress Note Date: 03/01/18 Principal diagnosis: GI bleeding Patient doing well today. She has not moved her bowels since yesterday morning. No abdominal pain. Right arm discomfort at the IV site improved. Hemoglobin has fluctuated but shows no definite significant drop. Tolerating full. Objective - Vital Signs Vital signs: Vital Signs Temp 97.7 F 03/01/18 16:28 Pulse 87 03/01/18 16:28 Resp 16 03/01/18 16:28 BP 124/72 03/01/18 16:28 Pulse Ox 99 03/01/18 16:28 Intake & Output 02/28/18 03/01/18 03/01/18 18:59 06:59 18:59 Intake Total 118 875 Output Total 400 200 Balance 118 -400 675 Weight 52 kg 51 kg Intake: Oral 118 875 Output: Urine 400 200 Other: Voiding Method Toilet Toilet Bedside Commode Bedside Commode # Voids 1 - Exam Abdomen: Soft, nontender, nondistended - Labs CBC & Chem 7: 03/01/18 06:22 03/01/18 06:22 Labs: Abnormal Lab Results - Last 24 Hours (Table) 02/28/18 02/28/18 03/01/18 Range/Units 18:23 23:45 06:22 RBC 2.85 L 2.45 L 2.57 L (3.80-5.40) m/uL Hgb 8.8 L 7.6 L 7.9 L (11.4-16.0) gm/dL Hct 25.6 L 21.9 L 23.2 L (34.0-46.0) % RDW 16.1 H 16.4 H 16.2 H (11.5-15.5) % Potassium (3.5-5.1) mmol/L Creatinine (0.52-1.04) mg/dL Calcium (8.4-10.2) mg/dL 03/01/18 Range/Units 06:22 RBC (3.80-5.40) m/uL Hgb (11.4-16.0) gm/dL Hct (34.0-46.0) % RDW (11.5-15.5) % Potassium 3.3 L (3.5-5.1) mmol/L Creatinine 0.45 L (0.52-1.04) mg/dL Calcium 8.1 L (8.4-10.2) mg/dL Assessment and Plan (1) GI bleed Narrative/Plan: Continue to increase diet. Recheck hemoglobin tomorrow. Probable discharge tomorrow. Current Visit: Yes Status: Acute Code(s): K92.2 - GASTROINTESTINAL HEMORRHAGE, UNSPECIFIED SNOMED Code(s): 30360718
[2018-03-01] MEDS: PRAVASTATIN SODIUM 20 MG TAB PO SCH (20:56)
[2018-03-02 06:39] LABS: Anion Gap 6 mmol/L; Anisocytosis Slight; Basophils % (A) 0 %; Blood Urea Nitrogen 6 mg/dL (7-17); Calcium 8.2 mg/dL (8.4-10.2); Carbon Dioxide 27 mmol/L (22-30); Chloride 104 mmol/L (98-107); Eosinophils # (A) 0.1 k/uL (0-0.7); Eosinophils % (A) 2 %; Glucose 86 mg/dL (74-99); HCT 22.5 % (34.0-46.0); HGB 7.6 gm/dL (11.4-16.0); Lymphocytes # (A) 1.4 k/uL (1.0-4.8); Lymphocytes % (A) 22 %; MCH 31.5 pg (25.0-35.0); MCV 92.8 fL (80.0-100.0); Mean Platelet Volume 7.6; Monocytes # (A) 0.3 k/uL (0-1.0); Monocytes % (A) 5 %; Neutrophils # (A) 4.4 k/uL (1.3-7.7); Neutrophils % (A) 70 %; Platelet Count 224 k/uL (150-450); Potassium 3.8 mmol/L (3.5-5.1); RBC 2.42 m/uL (3.80-5.40); RDW 16.9 % (11.5-15.5); Sodium 137 mmol/L (137-145); WBC 6.3 k/uL (3.8-10.6)
[2018-03-02] MEDS: CEPHALEXIN 500 MG CAP PO SCH ×3 (07:45→21:24)
[2018-03-02] MEDS: CALCIUM CARB-VIT D 500MG-200UN 1 EACH TAB PO SCH (07:45)
[2018-03-02] MEDS: HYDROcodone/APAP 5-325MG 1 EACH TAB PO PRN (07:49)
--- NOTE | 2018-03-02 09:52 | P.PN ---
Subjective Progress Note Date: 03/02/18 Principal diagnosis: Hematochezia Hemoglobin stable 7.6. Denies abdominal pain. Tolerating full liquids with ensure. All movement yesterday mixture of older colored blood. Objective - Vital Signs Vital signs: Vital Signs Temp 98.8 F 03/02/18 07:51 Pulse 78 03/02/18 07:51 Resp 16 03/02/18 08:00 BP 124/74 03/02/18 07:51 Pulse Ox 98 03/02/18 07:51 Intake & Output 03/01/18 03/02/18 03/02/18 18:59 06:59 18:59 Intake Total 1750 240 Output Total 200 Balance 1550 240 Weight 50.4 kg Intake: Oral 1750 240 Output: Urine 200 Other: Voiding Method Toilet Toilet Toilet Bedside Commode # Voids 2 1 - Exam General appearance: The patient is alert, oriented, in no acute distress. HET: Head is normocephalic and atraumatic. Pupils are equal and reactive. Oropharynx is clear without lesions. Neck: Supple without lymphadenopathy. Trachea midline. Heart: S1 S2. Regular rate and rhythm. Lungs: No crackles or wheezes are heard. Abdomen: Soft, nontender, nondistended with bowel sounds. No peritoneal signs. No palpable organomegaly or masses. Extremities: Right upper extremity antecubital region with erythema and swelling warmth. Neurological: No focal deficits. Strength and sensation are grossly intact. - Labs CBC & Chem 7: 03/02/18 05:57 03/02/18 05:57 Labs: Abnormal Lab Results - Last 24 Hours (Table) 03/02/18 03/02/18 Range/Units 05:57 05:57 RBC 2.42 L (3.80-5.40) m/uL Hgb 7.6 L (11.4-16.0) gm/dL Hct 22.5 L (34.0-46.0) % RDW 16.9 H (11.5-15.5) % BUN 6 L (7-17) mg/dL Creatinine 0.49 L (0.52-1.04) mg/dL Calcium 8.2 L (8.4-10.2) mg/dL Assessment and Plan (1) Post-polypectomy bleeding Narrative/Plan: Status post screening colonoscopy one week ago with removal of 3-4 cm flat polyp near the ileocecal valve with snare with development of post polypectomy bleeding status post recent surveillance colonoscopy 5 days ago with Endo Clip placement. Current Visit: Yes Status: Acute Code(s): AXA6009 - SNOMED Code(s): 823035557 (2) Rectal bleeding Current Visit: Yes Status: Acute Code(s): K62.5 - HEMORRHAGE OF ANUS AND RECTUM SNOMED Code(s): 19396519 (3) Acute blood loss anemia Current Visit: Yes Status: Acute Code(s): D62 - ACUTE POSTHEMORRHAGIC ANEMIA SNOMED Code(s): 414657579 Plan: 1. Continue with present diet do not advance. CBC monitoring. Possible discharge in 24-48 hours. Assessment and plan a care discussed with Dr. Hendrix
--- NOTE | 2018-03-02 10:14 | P.PN ---
Subjective Progress Note Date: 03/02/18 Principal diagnosis: GI bleeding Patient doing well today. Still no bowel activity. Hemoglobin down slightly. No pain. Objective - Vital Signs Vital signs: Vital Signs Temp 98.8 F 03/02/18 07:51 Pulse 78 03/02/18 07:51 Resp 16 03/02/18 08:00 BP 124/74 03/02/18 07:51 Pulse Ox 98 03/02/18 07:51 Intake & Output 03/01/18 03/02/18 03/02/18 18:59 06:59 18:59 Intake Total 1750 240 Output Total 200 Balance 1550 240 Weight 50.4 kg Intake: Oral 1750 240 Output: Urine 200 Other: Voiding Method Toilet Toilet Toilet Bedside Commode # Voids 2 1 - Exam Abdomen: Soft, nondistended, nontender - Labs CBC & Chem 7: 03/02/18 05:57 03/02/18 05:57 Labs: Abnormal Lab Results - Last 24 Hours (Table) 03/02/18 03/02/18 Range/Units 05:57 05:57 RBC 2.42 L (3.80-5.40) m/uL Hgb 7.6 L (11.4-16.0) gm/dL Hct 22.5 L (34.0-46.0) % RDW 16.9 H (11.5-15.5) % BUN 6 L (7-17) mg/dL Creatinine 0.49 L (0.52-1.04) mg/dL Calcium 8.2 L (8.4-10.2) mg/dL Assessment and Plan (1) GI bleed Narrative/Plan: No evidence of bleeding. We'll sign off at this point. Current Visit: Yes Status: Acute Code(s): K92.2 - GASTROINTESTINAL HEMORRHAGE, UNSPECIFIED SNOMED Code(s): 97914572
[2018-03-02] MEDS ORDERED: ERGOCALCIFEROL 50,000 UNIT CAP PO SCH (12:00)
[2018-03-02 13:41] VITALS: BMI 22.4
[2018-03-02] MEDS ORDERED: MORPHINE ORAL SOLN 10 MG/5 ML CUP PO PRN (14:08)
[2018-03-02 14:44] LABS: Anisocytosis Slight; Basophils % (A) 0 %; Eosinophils # (A) 0.2 k/uL (0-0.7); Eosinophils % (A) 2 %; HCT 24.9 % (34.0-46.0); HGB 8.5 gm/dL (11.4-16.0); Lymphocytes # (A) 1.6 k/uL (1.0-4.8); Lymphocytes % (A) 21 %; MCH 31.5 pg (25.0-35.0); MCHC 34.4 g/dL (31.0-37.0); MCV 91.8 fL (80.0-100.0); Monocytes # (A) 0.4 k/uL (0-1.0); Monocytes % (A) 5 %; Neutrophils # (A) 5.5 k/uL (1.3-7.7); Neutrophils % (A) 71 %; Platelet Count 269 k/uL (150-450); Poikilocytosis Slight; RBC 2.71 m/uL (3.80-5.40); RDW 17.1 % (11.5-15.5); WBC 7.7 k/uL (3.8-10.6)
--- NOTE | 2018-03-02 16:59 | P.PN ---
Subjective Progress Note Date: 03/02/18 Tia Faulkner is a 72-year-old female well known to my practice who had a colonoscopy yesterday she had a large polyps that was removed, patient was discharged home she started having significant amount of rectal bleeding discontinued 4 hours, she called the gastroenterology office and was advised to come to emergency room. She was evaluated in the emergency room by Dr. Barnes computed tomography scan of the abdomen and pelvis did not reveal any significant abnormality she was still having significant amount of rectal bleeding she was admitted to medical floor gastroenterology consultation was requested. 02/24/2018 Patient had 2 dark bloody stools yesterday evening. Patient's hemoglobin has dropped from 10.9-9.5. She does report after the shower this morning she wiped herself and there was blood present on the towel. Patient is having abdominal tenderness. GI service is following closely. Abdominal x-ray shows a nonspecific abdomen. GI service has ordered a repeat CBC at 1400. Blood pressures have been on the lower side. Ranging in the 90s systolic. Repeat blood pressure is 120/74. Continue with IV fluids. Continue to hold metoprolol and lisinopril 02/25/2018 patient had about 3 episodes of blood in her stool. Patient's hemoglobin has dropped from 10.4-9. She is scheduled for a colonoscopy this afternoon On 02/26/2018 patient is alert and oriented 3 she is still having episodes of bloody stools hemoglobin is down to 7.3 input from gastroenterology including colonoscopy report reviewed at this time possibility of blood transfusion was discussed with patient she is not in favor of blood transfusion at this point will give IV iron and monitor hemoglobin. On 02/27/2018 patient is alert and oriented x3 in no distress, still having bloody bowel movement, HGB dropped to 6.5 last night and patient was given 2 units of RBC today HGB 9.1 clinically patient is stable, no fever or chills no headache no dizziness no chest pain or shortness of breath no cough no nausea or vomiting no abdominal pain and no urinary symptoms. 02/28/2018 patient did require 2 units of blood over the weekend and was given IV iron. Hemoglobin is currently 8.4. For Kelly patient is still having blood in her stools. She had 2 yesterday evening and one this morning. GI service consult dictated they are recommending surgical service for possible intervention. Dr. Russell will be consulted. Patient also complaining of swelling and decreased range of motion of her right arm at old IV site. There is redness around the old IV site with scabbing no pus or drainage. Very tender with palpation and limited range of motion. Venous Doppler has been ordered to rule out DVT. Patient denies any chest pain or shortness of breath. Denies any nausea or vomiting. Denies any burning with urination. 03/01/2018 patient had 1 bloody bowel movements around noon yesterday. Has had no further bloody stools. Patient has been seen by surgical service and they' re recommending observation at this point. No surgical intervention scheduled. Hemoglobin is up to 7.9. Patient is still complaining of right arm pain where the SVT is located. Denies any chest pain or shortness breath. Denies any burning with urination. 03/02/2018 patient had 1 bowel movements today, no clear blood in it. Has had no further bloody stools. Patient has been seen by surgical service and they' re recommending no surgical intervention at this time. Hemoglobin is down to 7.6. Patient is still complaining of right arm pain where the SVT is located. Denies any chest pain or shortness breath. Denies any burning with urination. Objective - Vital Signs Vital signs: Vital Signs Temp 98.8 F 03/02/18 07:51 Pulse 75 03/02/18 11:39 Resp 16 03/02/18 16:00 BP 111/69 03/02/18 11:39 Pulse Ox 98 03/02/18 11:39 Intake & Output 03/01/18 03/02/18 03/02/18 18:59 06:59 18:59 Intake Total 1750 480 Output Total 200 Balance 1550 480 Weight 50.4 kg 50.4 kg Intake: Oral 1750 480 Output: Urine 200 Other: Voiding Method Toilet Toilet Toilet Bedside Commode # Voids 2 1 1 - Exam Head normocephalic and atraumatic Neck supple no JVD no goiter no lymphadenopathy Lungs clear to auscultation bilaterally no wheezing or crackles Heart regular rate and rhythm S1-S2, no rub or gallop Abdomen is soft diffuse abdominal tenderness nondistended positive bowel sounds no hepatosplenomegaly Extremities no edema Neuro alert and orientated to 3 no gross neurological deficit - Labs CBC & Chem 7: 03/02/18 14:29 03/02/18 05:57 Labs: Abnormal Lab Results - Last 24 Hours (Table) 03/02/18 03/02/18 03/02/18 Range/Units 05:57 05:57 14:29 RBC 2.42 L 2.71 L (3.80-5.40) m/uL Hgb 7.6 L 8.5 L (11.4-16.0) gm/dL Hct 22.5 L 24.9 L (34.0-46.0) % RDW 16.9 H 17.1 H (11.5-15.5) % BUN 6 L (7-17) mg/dL Creatinine 0.49 L (0.52-1.04) mg/dL Calcium 8.2 L (8.4-10.2) mg/dL Assessment and Plan Plan: #1 acute post polypectomy bleeding: Patient had rectal bleeding after a screening colonoscopy with a 4 cm polyp removed. Repeat colonoscopy on Wednesday showed active bleeding at the post polypectomy site the ascending colon. GI service injected with epinephrine and clips were placed. Patient is still having evidence of blood in her stools. She did require 2 units of blood for hemoglobin of 6.5. Patient had blood in her stools again this morning. GI service is recommending a surgical consult. Patient seen by surgical service. The recommending observation. No surgical intervention at this point. Continue to monitor hemoglobin. Hemoglobin is at 7.6. Last bloody bowel movement around noon. GI service is advancing diet to a full liquid diet #2 acute blood loss anemia secondary to #1. Aspirin discontinued on admission #3 underlying history of hypertension. Patient had been hypotensive. Metoprolol and lisinopril are on hold. Blood pressures are currently stable. Continue to monitor off of BP meds #4 underlying history of hyperlipidemia #5 underlying history of osteoporosis, maintained on Fosamax #6 underlying history of severe scoliosis with chronic back pain #7 underlying history of generalized anxiety disorder #8 right arm phlebitis and SVT: Continue Keflex. Keep arm elevated and apply heat
[2018-03-02] MEDS: PRAVASTATIN SODIUM 20 MG TAB PO SCH (17:29)
[2018-03-03 05:49] LABS: Anisocytosis Slight; Basophils % (A) 0 %; Eosinophils # (A) 0.2 k/uL (0-0.7); Eosinophils % (A) 2 %; HCT 26.4 % (34.0-46.0); HGB 8.8 gm/dL (11.4-16.0); Lymphocytes # (A) 2.4 k/uL (1.0-4.8); Lymphocytes % (A) 26 %; MCHC 33.5 g/dL (31.0-37.0); MCV 92.6 fL (80.0-100.0); Monocytes # (A) 0.3 k/uL (0-1.0); Monocytes % (A) 4 %; Neutrophils # (A) 6.3 k/uL (1.3-7.7); Neutrophils % (A) 67 %; Platelet Count 324 k/uL (150-450); Poikilocytosis Slight; RBC 2.85 m/uL (3.80-5.40); RDW 16.8 % (11.5-15.5); WBC 9.4 k/uL (3.8-10.6)
[2018-03-03 06:03] LABS: Anion Gap 11 mmol/L; Blood Urea Nitrogen 13 mg/dL (7-17); Calcium 8.5 mg/dL (8.4-10.2); Carbon Dioxide 26 mmol/L (22-30); Chloride 100 mmol/L (98-107); Glucose 94 mg/dL (74-99); Potassium 4.1 mmol/L (3.5-5.1); Sodium 137 mmol/L (137-145)
[2018-03-03] MEDS: HYDROcodone/APAP 5-325MG 1 EACH TAB PO PRN ×2 (06:47→12:19)
[2018-03-03] MEDS: CEPHALEXIN 500 MG CAP PO SCH (08:02)
[2018-03-03] MEDS: CALCIUM CARB-VIT D 500MG-200UN 1 EACH TAB PO SCH (08:02)
[2018-03-03 08:06] VITALS: RESP 16
--- NOTE | 2018-03-03 11:18 | P.DS ---
Providers Date of admission: 02/24/18 18:24 Expected date of discharge: 03/03/18 Attending physician: Gary Dimas Consults: 02/28/18 11:01 Consult Physician Routine Consulting Provider: Leonard Cisneros Consult Reason/Comments: Continuous rectal bleeding Do you want consulting provider notified?: Yes Primary care physician: [facility] Course: Discharge diagnosis #1 acute post polypectomy bleeding: Patient had rectal bleeding after a screening colonoscopy with a 4 cm polyp removed. Repeat colonoscopy on Wednesday showed active bleeding at the post polypectomy site the ascending colon. GI service injected with epinephrine and clips were placed. She did require 2 units of blood for hemoglobin of 6.5. Patient had blood in her stools again this morning. GI service is recommending a surgical consult. Patient seen by surgical service. The recommending observation. No surgical intervention at this point. Patient is had no further bloody bowel movements. Hemoglobin at discharge is 8.8. She'll follow up with GI service in the outpatient setting #2 acute blood loss anemia secondary to #1. Aspirin discontinued on admission #3 underlying history of hypertension. Patient had been hypotensive. Blood pressures are stable. We'll continue holding the lisinopril. We'll restart patient's metoprolol at a decreased dose of 25 mg daily #4 underlying history of hyperlipidemia #5 underlying history of osteoporosis, maintained on Fosamax #6 underlying history of severe scoliosis with chronic back pain #7 underlying history of generalized anxiety disorder #8 right arm phlebitis and SVT: Continue Keflex for 5 more days. Keep arm elevated and apply heat Hospital course Tia Faulkner is a 72-year-old female well known to my practice who had a colonoscopy yesterday she had a large polyps that was removed, patient was discharged home she started having significant amount of rectal bleeding discontinued 4 hours, she called the gastroenterology office and was advised to come to emergency room. She was evaluated in the emergency room by Dr. Barnes computed tomography scan of the abdomen and pelvis did not reveal any significant abnormality she was still having significant amount of rectal bleeding she was admitted to medical floor gastroenterology consultation was requested. 02/24/2018 Patient had 2 dark bloody stools yesterday evening. Patient's hemoglobin has dropped from 10.9-9.5. She does report after the shower this morning she wiped herself and there was blood present on the towel. Patient is having abdominal tenderness. GI service is following closely. Abdominal x-ray shows a nonspecific abdomen. GI service has ordered a repeat CBC at 1400. Blood pressures have been on the lower side. Ranging in the 90s systolic. Repeat blood pressure is 120/74. Continue with IV fluids. Continue to hold metoprolol and lisinopril 02/25/2018 patient had about 3 episodes of blood in her stool. Patient's hemoglobin has dropped from 10.4-9. She is scheduled for a colonoscopy this afternoon On 02/26/2018 patient is alert and oriented 3 she is still having episodes of bloody stools hemoglobin is down to 7.3 input from gastroenterology including colonoscopy report reviewed at this time possibility of blood transfusion was discussed with patient she is not in favor of blood transfusion at this point will give IV iron and monitor hemoglobin. On 02/27/2018 patient is alert and oriented x3 in no distress, still having bloody bowel movement, HGB dropped to 6.5 last night and patient was given 2 units of RBC today HGB 9.1 clinically patient is stable, no fever or chills no headache no dizziness no chest pain or shortness of breath no cough no nausea or vomiting no abdominal pain and no urinary symptoms. 02/28/2018 patient did require 2 units of blood over the weekend and was given IV iron. Hemoglobin is currently 8.4. For Kelly patient is still having blood in her stools. She had 2 yesterday evening and one this morning. GI service consult dictated they are recommending surgical service for possible intervention. Dr. Russell will be consulted. Patient also complaining of swelling and decreased range of motion of her right arm at old IV site. There is redness around the old IV site with scabbing no pus or drainage. Very tender with palpation and limited range of motion. Venous Doppler has been ordered to rule out DVT. Patient denies any chest pain or shortness of breath. Denies any nausea or vomiting. Denies any burning with urination. 03/01/2018 patient had 1 bloody bowel movements around noon yesterday. Has had no further bloody stools. Patient has been seen by surgical service and they' re recommending observation at this point. No surgical intervention scheduled. Hemoglobin is up to 7.9. Patient is still complaining of right arm pain where the SVT is located. Denies any chest pain or shortness breath. Denies any burning with urination. 03/02/2018 patient had 1 bowel movements today, no clear blood in it. Has had no further bloody stools. Patient has been seen by surgical service and they' re recommending no surgical intervention at this time. Hemoglobin is down to 7.6. Patient is still complaining of right arm pain where the SVT is located. Denies any chest pain or shortness breath. Denies any burning with urination. Patient is medically stable for discharge. She's been cleared by consulting physicians. She did not require any surgical intervention. She's had no further bloody bowel movements. Hemoglobin is stable at 8.8. She did require blood transfusion during this admission. We'll patient follow-up in the office on Wednesday to have a recheck CBC. Patient is also being sent home on Keflex for her right arm phlebitis. Also being given a three-day prescription of [place] for pain control. I performed an examination of the patient and discussed their management with the physician Salt Machine Operator. I have reviewed the Physician Salt Machine Operator's notes and agree with the documented findings and plan of care Patient Condition at Discharge: Stable Plan - Discharge Summary Discharge Rx Participant: No New Discharge Prescriptions: New Cephalexin [Keflex] 500 mg PO TID #15 cap HYDROcodone/APAP 5-325MG [[place] 5-325] 1 each PO Q8HR PRN #9 tab PRN Reason: Moderate Pain Continue Pravastatin Sodium [Pravachol] 20 mg PO AC-SUPPER Ergocalciferol [Vitamin D2 (DRISDOL)] 50,000 unit PO WE Alendronate Sodium [Fosamax] 70 mg PO MO Calcium Carbonate/Vitamin D3 [Calcium 600-Vit D3 400 Tablet] 1 tab PO DAILY Changed Metoprolol Tartrate [Lopressor] 25 mg PO DAILY #0 Discontinued Lisinopril [Zestril] 20 mg PO BID Aspirin EC [Ecotrin Low Dose] 81 mg PO DAILY Discharge Medication List Alendronate Sodium [Fosamax] 70 mg PO MO 07/31/15 [History] Calcium Carbonate/Vitamin D3 [Calcium 600-Vit D3 400 Tablet] 1 tab PO DAILY 05/08 [History] Ergocalciferol [Vitamin D2 (DRISDOL)] 50,000 unit PO WE 07/31/15 [History] Pravastatin Sodium [Pravachol] 20 mg PO AC-SUPPER 07/31/15 [History] Cephalexin [Keflex] 500 mg PO TID #15 cap 03/03/18 [Rx] HYDROcodone/APAP 5-325MG [[place] 5-325] 1 each PO Q8HR PRN #9 tab 03/03/18 [Rx] Metoprolol Tartrate [Lopressor] 25 mg PO DAILY #0 03/03/18 [Rx] Follow up Appointment(s)/Referral(s): Kuldip Hebert MD [STAFF PHYSICIAN] - 03/15/18 5:15 pm (Wednesday) Gary Dimas MD [Primary Care Provider] - 03/08/18 4:00 pm (Wednesday) Activity/Diet/Wound Care/Special Instructions: Diet: cardiac Activity: as tolerated Discharge Disposition: HOME SELF-CARE
[2018-03-03 12:17] VITALS: BP 114/85; PULSE 83; TEMP 98
== END 2018-03-03 14:05 | disposition home or self-care (01) | DRG 920 ==
LOC: EC 23:27 → 4MS4W 02-23 03:08 → OBSVTOIN 02-24 18:24 → 6SEL 02-26 19:46
PROVIDERS: ADMIT Internal Medicine; ATTEND Internal Medicine
PROC: 0W3P8ZZ Control Bleeding in Gastrointestinal Tract, Via Natural or Artificial Opening Endoscopic (ICD-10-PCS; principal; 2018-02-25 07:50)
PROC: 0DBK8ZX Excision of Ascending Colon, Via Natural or Artificial Opening Endoscopic, Diagnostic (ICD-10-PCS; 2018-02-25 07:50)
PROC: 30230N1 Transfusion of Nonautologous Red Blood Cells into Peripheral Vein, Open Approach (ICD-10-PCS; 2018-02-26)
DX: K91.840 Postprocedural hemorrhage of a digestive system organ or structure following a digestive system procedure (principal); I95.9 Hypotension, unspecified; T80.1XXA Vascular complications following infusion, transfusion and therapeutic injection, initial encounter; I80.8 Phlebitis and thrombophlebitis of other sites; D62 Acute posthemorrhagic anemia; I10 Essential (primary) hypertension; E78.5 Hyperlipidemia, unspecified; M81.0 Age-related osteoporosis without current pathological fracture; D12.2 Benign neoplasm of ascending colon; F41.1 Generalized anxiety disorder; M41.9 Scoliosis, unspecified; G89.29 Other chronic pain; M54.9 Dorsalgia, unspecified; I25.2 Old myocardial infarction; Z79.83 Long term (current) use of bisphosphonates; Z79.82 Long term (current) use of aspirin; Z79.899 Other long term (current) drug therapy; Z90.49 Acquired absence of other specified parts of digestive tract; Z86.73 Personal history of transient ischemic attack (TIA), and cerebral infarction without residual deficits; Z83.3 Family history of diabetes mellitus; Z80.8 Family history of malignant neoplasm of other organs or systems; Z81.8 Family history of other mental and behavioral disorders; Y83.8 Other surgical procedures as the cause of abnormal reaction of the patient, or of later complication, without mention of misadventure at the time of the procedure
CPT/HCPCS: 36415; 44404; 45382; 45385; 74021; 74177; 80048; 80053; 81003; 82272; 85025; 85027; 85610; 85730; 86850; 86900; 86901; 86920; 88305; 96361; 96374; 96375; 99285

== ENCOUNTER → 2018-05-09 | Outpatient (CLI) | payer MEDICARE, OTHER ==
--- NOTE | 2018-05-10 11:05 | MM ---
Reason for exam: screening (asymptomatic). Last mammogram was performed 1 year and 1 month ago. History: Patient is postmenopausal and has history of colon cancer at age 59. Physical Findings: A clinical breast exam by your physician is recommended on an annual basis and results should be correlated with mammographic findings. MG 3D Screening Mammo W/Cad Bilateral CC and MLO view(s) were taken. Prior study comparison: April 01, 2017, bilateral MG 3d screening mammo w/cad. March 18, 2016, bilateral MG 3d screening mammo w/cad. There are scattered fibroglandular densities. Finding: There is a 6 mm circumscribed oval mass in the lower inner quadrant, middle position of the left breast. New finding and increase in size since April 01, 2017 and March 18, 2016. ASSESSMENT: Incomplete: need additional imaging evaluation, BI-RAD 0 RECOMMENDATION: Ultrasound of the left breast. [facility] will attempt to contact patient to return for ultrasound.
== END | disposition home or self-care (01) ==
LOC: RADMAMWWP 11:10
PROVIDERS: ATTEND Internal Medicine
DX: Z12.31 Encounter for screening mammogram for malignant neoplasm of breast (principal)
CPT/HCPCS: 77063; 77067

== ENCOUNTER → 2018-05-24 | Outpatient (CLI) | payer MEDICARE, OTHER ==
--- NOTE | 2018-05-26 08:45 | USB ---
Reason for exam: additional evaluation requested from abnormal screening. History: Patient is postmenopausal and has history of colon cancer at age 59. Physical Findings: Nurse did not find any significant physical abnormalities on exam. US Breast Workup Limited LT Technologist: Cyndee Bowman, RT (R)(M) Left limited breast ultrasound including focal area of concern, retroareolar and axilla demonstrates no cystic or solid lesion seen. The focal asymmetry maybe at the skin. 6 month follow up recommended. These results were verbally communicated with the patient and result sheet given to the patient on 05/24/18. ASSESSMENT: Probably benign, BI-RAD 3 RECOMMENDATION: Follow-up diagnostic mammogram of the left breast in 6 months.
== END | disposition home or self-care (01) ==
LOC: RADUSWWP 08:01
PROVIDERS: ATTEND Internal Medicine
DX: R92.8 Other abnormal and inconclusive findings on diagnostic imaging of breast (principal)

== ENCOUNTER → 2019-03-17 | Outpatient (CLI) | payer MEDICARE, OTHER ==
--- NOTE | 2019-03-21 09:12 | MM ---
Reason for exam: follow-up at short interval from prior study. Last mammogram was performed 10 months ago. History: Patient is postmenopausal and has history of colon cancer at age 59. Physical Findings: Nurse Summary: 1cm nodule in the left breast at 11 o'clock (nurse dw). MG 3D Diag Mammo W/Cad LT CC and MLO view(s) were taken of the left breast. Prior study comparison: May 09, 2018, bilateral MG 3d screening mammo w/cad. April 01, 2017, bilateral MG 3d screening mammo w/cad. Finding: There is a stable 3 mm equal density (isodense), circumscribed oval mass in the lower inner quadrant, anterior position of the left breast. No significant changes in finding since May 09, 2018 and April 01, 2017. These results were verbally communicated with the patient and result sheet given to the patient on 03/17/19. ASSESSMENT: Benign, BI-RAD 2 RECOMMENDATION: Return to routine screening mammogram schedule for both breasts. Back on schedule for May 2019.
== END | disposition home or self-care (01) ==
LOC: RADMAMWWP 12:10
PROVIDERS: ATTEND Internal Medicine
DX: R92.8 Other abnormal and inconclusive findings on diagnostic imaging of breast (principal)
CPT/HCPCS: 77065; G0279; 77061

== ENCOUNTER → 2019-06-12 | Outpatient (CLI) | payer MEDICARE, OTHER ==
--- NOTE | 2019-06-13 11:05 | MM ---
Reason for exam: screening (asymptomatic). Last mammogram was performed 3 months ago. History: Patient is postmenopausal and has history of colon cancer at age 59. Physical Findings: A clinical breast exam by your physician is recommended on an annual basis and results should be correlated with mammographic findings. MG 3D Screening Mammo W/Cad Bilateral CC and MLO view(s) were taken. XCCL view(s) were taken of the left breast. Prior study comparison: March 17, 2019, left breast MG 3d diag mammo w/cad LT. May 09, 2018, bilateral MG 3d screening mammo w/cad. There are scattered fibroglandular densities. There is chronic nodularity in the left breast. There is no discrete abnormality. ASSESSMENT: Benign, BI-RAD 2 RECOMMENDATION: Routine screening mammogram of both breasts in 1 year.
== END | disposition home or self-care (01) ==
LOC: RADMAMWWP 15:28
PROVIDERS: ATTEND Internal Medicine
DX: Z12.31 Encounter for screening mammogram for malignant neoplasm of breast (principal)
CPT/HCPCS: 77063; 77067

== ENCOUNTER → 2021-01-28 | Outpatient (CLI) | payer MEDICARE, OTHER ==
--- NOTE | 2021-01-29 09:22 | MM ---
Reason for exam: screening (asymptomatic). Last mammogram was performed 1 year and 8 months ago. History: Patient is postmenopausal and has history of colon cancer at age 59. Physical Findings: A clinical breast exam by your physician is recommended on an annual basis and results should be correlated with mammographic findings. MG 3D Screening Mammo W/Cad Bilateral CC and MLO view(s) were taken. Prior study comparison: June 12, 2019, bilateral MG 3d screening mammo w/cad. March 17, 2019, left breast MG 3d diag mammo w/cad LT. The breast tissue is heterogeneously dense. This may lower the sensitivity of mammography. There is chronic nodularity in the left breast. There is no discrete abnormality. No significant changes when compared with prior studies. ASSESSMENT: Benign, BI-RAD 2 RECOMMENDATION: Routine screening mammogram of both breasts in 1 year.
--- NOTE | 2021-01-29 10:40 | BD ---
EXAMINATION TYPE: Axial Bone Density DATE OF EXAM: 01/28/2021 COMPARISON: 04.05.2017 CLINICAL HISTORY: 75 YR OLD FEMALE....ICD-10 CODE: M81.0 OSTEOPOROSIS Height: 55 Weight: 114 FRAX RISK QUESTIONS: NOTHING ADDITIONAL TO ADD RISK FACTORS HISTORY OF: Surgery to Spine...INJECTIONS....LONG AGO Family History of Osteoporosis: YES, NO BROKEN BONES Active: NO, USES WALKER, AND CHAIR Postmenopausal woman: YES, AT AGE 54 Lost more than 2 inches in height since high school: YES Frequent falls: WALKER AND UNSTEADY Hyperparathyroidism: UNKNOWN Adrenal Insufficiency: UNKNOWN MEDICATIONS: Osteoporosis Medications: YES, FOSAMAX, FOR MANY YRS Additional Medications: CALCIUM AND VIT D, BP MEDS, STATIN FOR CHOLESTEROL, HEART MEDS, , Additional History: SCOLIOSIS, PT USES A WALKER, CHOLESTEROL, HYPERTENSION, HEART TROUBLE EXAM MEASUREMENTS: Bone mineral densitometry was performed using the [employer] retargeting System. Bone mineral density as measured about the Lumbar spine is: ----- L1-L4(G/cm2): 1.308 T Score Values are as follows: ----- L1: 0.9 ----- L2: -0.8 ----- L3: 0.6 ----- L4: 2.5 ----- L1-L4: 1.1 Bone mineral density has: Increased 7.6% since study of: 04.05.2017 Bone mineral density about the R hip (g/cm2): 0.757 Bone mineral density about the L hip (g/cm2): 0.921 T Score values are as follows: -----R Neck: -1.8 -----L Neck: -1.7 -----R Total: -2.0 -----L Total: -0.7 Bone mineral density has: Decreased -3.6% since study of: 04.05.2017 FRAX%s: THERE IS A 9.2% CHANCE FOR A MAJOR OSTEPOROTIC FX AND A 2.3% FOR HIP......PROBABILITY FOR FX IN 10 YRS TIME IMPRESSION: Osteopenia (T Score between -2.5 and -1). There is slightly increased risk of fracture and the patient may be considered for treatment. Re-Screen 2-5 years. NOTE: T-SCORE=SD OF THE YOUNG ADULT MEAN.
== END | disposition home or self-care (01) ==
LOC: RADMAMWWP 09:16
PROVIDERS: ATTEND Internal Medicine
DX: Z12.31 Encounter for screening mammogram for malignant neoplasm of breast (principal); M81.0 Age-related osteoporosis without current pathological fracture
CPT/HCPCS: 77063; 77067; 77080

== ENCOUNTER 2023-04-08 10:45 | Inpatient (IN) | payer MEDICARE, OTHER ==
--- NOTE | 2023-04-08 11:21 | ED ---
General Adult HPI - General Chief complaint: Neuro Symptoms/Deficit Stated complaint: Numbness on Left Side of Body Time Seen by Provider: 04/08/23 11:00 Source: patient, family, RN notes reviewed, old records reviewed Mode of arrival: ambulatory Limitations: no limitations - History of Present Illness Initial comments: Patient is a 77-year-old female presents he was Department complaining of numbness on the left side of her body. She was also complaining of some weakness. Does ambulate with a walker baseline and his chronic lower extremity weakness but worse on the left side upon wakening this morning. Last known well was last night. Awoke at approximately 9:30 AM. She no she had complete tingling, paresthesias and numbness over the left side of her face, upper extremity, neck as well as leg. Patient also endorses weakness in her left u pper extremity only. Denies any trauma. Denies any falls. Takes a baby aspirin at baseline. Chart states she has a prior CVA or TIA but patient and family deny. Is not on blood thinners. No history of intracranial surgery. Presents for further evaluation at this time. - Related Data Home Medications Medication Instructions Recorded Confirmed Pravastatin Sodium [Pravachol] 20 mg PO HS 07/31/15 04/08/23 Aspirin EC [Ecotrin Low Dose] 81 mg PO DAILY 04/08/23 04/08/23 Metoprolol Tartrate [Lopressor] 25 mg PO BID 04/08/23 04/08/23 lisinopriL [Zestril] 20 mg PO BID 04/08/23 04/08/23 Allergies Allergy/AdvReac Type Severity Reaction Status Date / Time No Known Allergies Allergy Verified 04/08/23 12:21 Review of Systems ROS Statement: Those systems with pertinent positive or pertinent negative responses have been documented in the HPI. Review of Systems: CONST: Denies fever EYES: Denies blurry vision ENT: Denies nasal congestion C/V: Denies Chest pain RESP: Denies shortness of breath GI: Denies abdominal pain : Denies dysuria SKIN: Denies rash. MSK: Denies joint pain. NEURO: Denies headache ROS Other: All systems not noted in ROS Statement are negative. Past Medical History Past Medical History: CVA/TIA, Hyperlipidemia, Hypertension, Memory Impairment, Myocardial Infarction ([place]) Additional Past Medical History / Comment(s): HEART MURMUR, LEAKY VALVE. POSS MILD STROKE YEARS AGO, UNSURE, HAS DIFFICULTY RECALLING SOME HISTORICAL MEDICAL INFO. 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 Past Anesthesia/Blood Transfusion Reactions: Motion Sickness Past Psychological History: No Psychological Hx Reported Smoking Status: Never smoker Past Alcohol Use History: None Reported Past Drug Use History: None Reported - Past Family History Father Additional Family Medical History / Comment(s): patient states "he had heart problems". patient unsure what type of heart problems. Mother Family Medical History: Cancer, Diabetes Mellitus Additional Family Medical History / Comment(s): brain cancer Brother(s) Family Medical History: Diabetes Mellitus Additional Family Medical History / Comment(s): autistic Sister(s) History Unknown: Yes General Exam - General Exam Comments Initial Comments: General: Appears in no acute distress. HEAD: Normal with no signs of head trauma. EYES: PERRLA, EOMI, conjunctiva normal, no discharge. Pupils are 3 mm and equal bilaterally. ENT: Hearing grossly intact, normal oropharynx. RESPIRATORY: Clear breath sounds bilaterally. No wheezes, rales, or rhonchi. C/V: Regular rate and rhythm. S1 and S2 auscultated, no edema, peripheral pulses 2+ and intact throughout ABD: Abd is soft, nontender, nondistended EXT: Normal range of motion, no obvious deformity SKIN: No rashes or lesions observed on exposed skin. NEURO: Alert and oriented 4. NIH is 5, with 2 points for left lower extremity weakness, 1 for left upper extremity weakness, 1 for sensory loss, 1 point for mild LUE ataxia. Limitations: no limitations Course Vital Signs 04/08/23 04/08/23 04/08/23 10:55 11:40 11:45 Temperature 98.1 F Pulse Rate 60 57 L 57 L Respiratory 18 24 19 Rate Blood Pressure 182/86 178/84 O2 Sat by Pulse 99 99 96 Oximetry 04/08/23 04/08/23 04/08/23 12:00 12:15 12:30 Temperature Pulse Rate 56 L 54 L 55 L Respiratory 15 16 19 Rate Blood Pressure 157/82 161/85 149/85 O2 Sat by Pulse 96 96 97 Oximetry 04/08/23 04/08/23 04/08/23 12:45 13:00 13:15 Temperature Pulse Rate 54 L 57 L 52 L Respiratory 18 15 16 Rate Blood Pressure 152/88 148/83 148/88 O2 Sat by Pulse 97 97 98 Oximetry 04/08/23 13:30 Temperature Pulse Rate 56 L Respiratory 18 Rate Blood Pressure 159/84 O2 Sat by Pulse 97 Oximetry Medical Decision Making - Medical Decision Making Was pt. sent in by a medical professional or institution (, PA, MORNING NEWS PRODUCER, urgent care, hospital, or fpc...) When possible be specific @ -No Did you speak to anyone other than the patient for history (EMS, parent, family, police, friend...)? What history was obtained from this source @ -Patient's family who is at bedside and consulted the patient's history. Did you review nursing and triage notes (agree or disagree)? Why? @ -I reviewed and agree with nursing and triage notes Were old charts reviewed (outside hosp., previous admission, EMS record, old EKG, old radiological studies, urgent care reports/EKG's, fpc records)? Report findings @ -No old charts were reviewed Differential Diagnosis (chest pain, altered mental status, abdominal pain women, abdominal pain men, vaginal bleeding, weakness, fever, dyspnea, syncope, headache, dizziness, GI bleed, back pain, seizure, CVA, palpatations, mental health, musculoskeletal)? @ -Differential CVA Ischemic stroke, hemorrhagic stroke, brain tumor, atypical migraine, Wernicke's encephalopathy, seizure, multiple sclerosis, meningitis, encephalitis, hypoglycemia, Guillain-Villa, electrolytes disturbance, myasthenia gravis.... This is not meant to be an all-inclusive list EKG interpreted by me (3pts min.). @ -As above X-rays interpreted by me (1pt min.). @ -Chest x-ray reveals no obvious acute cardio pulmonary process. CT interpreted by me (1pt min.). @ -CT brain, CT angiogram brain and neck revealed no obvious acute stenosis, blockage, evidence of CVA. U/S interpreted by me (1pt. min.). @ -None done What testing was considered but not performed or refused? (CT, X-rays, U/S, labs)? Why? @ -None What meds were considered but not given or refused? Why? @ -None Did you discuss the management of the patient with other professionals (jimbo meyer i.e. , PA, MORNING NEWS PRODUCER, lab, RT, psych nurse, clinical social work aide, trimmer hand, teacher, special service officer, case loader operator)? Give summary @ -Discussed with neuro critical care on-call Dr. Casanova, who is in agreement with the workup plan. He did review the images and states that there is no acut e intervention is no obvious blockage. Recommended medical management an aspirin. Recommended neuro consult. I spoke with Dr. Valenzuela of neurology who accepted the consult. I spoke with Dr. Dimas who accepted the patient on his service. Was smoking cessation discussed for >3mins.? @ -No Was critical care preformed (if so, how long)? @ -yes, 35 minutes Were there social determinants of health that impacted care today? How? (Homelessness, low income, unemployed, alcoholism, drug addiction, transporta tion, low edu. Level, literacy, decrease access to med. care, retirement, rehab)? @ -No Was there de-escalation of care discussed even if they declined (Discuss DNR or withdrawal of care, Hospice)? DNR status @ -No What co-morbidities impacted this encounter? (DM, HTN, Smoking, COPD, CAD, Cancer, CVA, ARF, Chemo, Hep., AIDS, mental health diagnosis, sleep apnea, morbid obesity)? @ -None Was patient admitted / discharged? Hospital course, mention meds given and route, prescriptions, significant lab abnormalities, going to OR and other pertinent info. @ -Based on the patient's presentation and physical exam, I'm concerned for possible CVA. Patient has wakeup symptoms. Last known well was last night. NIH is currently 5. Patient is not a TPA candidate as risks far outweigh the benefits. She is outside of the window. We will obtain stroke workup. Code stroke was activated. Vital signs are within acceptable limits. Patient was in agreement this plan. I spoke with neurocritical care who was in agreement with the plan and will review the imaging. EKG showed no evidence of acute ischemia. Chronic right bundle branch block.Patient's labs are within acceptable limits. Potassium is 3.3 which was replenished. Patient's imaging shows no evidence of acute CVA on CT or CT angiogram. Chest x-ray is unremarkable. On reevaluation, patient remains an NIH of 5. I spoke with Dr. Casanova who reviewed the imaging and was in agreement that there is no obvious evidence of CVA at this time. Recommended admission, aspirin initiation, evaluation by neurology. I spoke with Dr. Valenzuela, who was walking in the emergency department who agreed to the consult. MRI was ordered. Patient was given 325 mg of aspirin. I spoke with the patient and she was in agreement with this plan. Patient will be admitted to inpatient for further workup. I spoke with Dr. Dr. Dimas, the accepting physician who was in agreement with the plan. Undiagnosed new problem with uncertain prognosis? @ -No Drug Therapy requiring intensive monitoring for toxicity (Heparin, Nitro, Insulin, Cardizem)? @ -No Were any procedures done? @ -No Diagnosis/symptom? @ -CVA Acute, or Chronic, or Acute on Chronic? @ -Acute Uncomplicated (without systemic symptoms) or Complicated (systemic symptoms)? @ -Complicated Side effects of treatment? @ -none Exacerbation, Progression, or Severe Exacerbation] @ -no Poses a threat to life or bodily function? @ -Yes Diagnosis/symptom? @ -Hypokalemia Acute, or Chronic, or Acute on Chronic? @ -Acute Uncomplicated (without systemic symptoms) or Complicated (systemic symptoms)? @ -Uncomplicated Side effects of treatment? @ -none Exacerbation, Progression, or Severe Exacerbation] @ -no Poses a threat to life or bodily function? @ -no - Lab Data Result diagrams: 04/08/23 11:19 04/08/23 11:19 Lab Results 04/08/23 04/08/23 04/08/23 Range/Units 11:19 11:19 11:19 WBC 6.8 (3.8-10.6) k/uL RBC 4.57 (3.80-5.40) m/uL Hgb 14.7 (11.4-16.0) gm/dL Hct 41.5 (34.0-46.0) % MCV 90.8 (80.0-100.0) fL MCH 32.1 (25.0-35.0) pg MCHC 35.3 (31.0-37.0) g/dL RDW 13.6 (11.5-15.5) % Plt Count 231 (150-450) k/uL MPV 8.7 Neutrophils % 71 % Lymphocytes % 22 % Monocytes % 4 % Eosinophils % 1 % Basophils % 1 % Neutrophils # 4.9 (1.3-7.7) k/uL Lymphocytes # 1.5 (1.0-4.8) k/uL Monocytes # 0.3 (0-1.0) k/uL Eosinophils # 0.1 (0-0.7) k/uL Basophils # 0.0 (0-0.2) k/uL PT 10.0 (9.0-12.0) sec INR 0.9 (<1.2) APTT 25.2 (22.0-30.0) sec Sodium 138 (137-145) mmol/L Potassium 3.3 L (3.5-5.1) mmol/L Chloride 103 (98-107) mmol/L Carbon Dioxide 27 (22-30) mmol/L Anion Gap 8 mmol/L BUN 11 (7-17) mg/dL Creatinine 0.45 L (0.52-1.04) mg/dL Est GFR (CKD-EPI)AfAm >90 (>60 ml/min/1.73 sqM) Est GFR (CKD-EPI)NonAf >90 (>60 ml/min/1.73 sqM) Glucose 91 (74-99) mg/dL Calcium 9.3 (8.4-10.2) mg/dL Total Bilirubin 1.4 H (0.2-1.3) mg/dL AST 25 (14-36) U/L ALT 16 (4-34) U/L Alkaline Phosphatase 114 (38-126) U/L Creatine Kinase 108 (30-135) U/L Troponin I (0.000-0.034) ng/mL Total Protein 7.2 (6.3-8.2) g/dL Albumin 4.3 (3.5-5.0) g/dL 04/08/23 Range/Units 11:19 WBC (3.8-10.6) k/uL RBC (3.80-5.40) m/uL Hgb (11.4-16.0) gm/dL Hct (34.0-46.0) % MCV (80.0-100.0) fL MCH (25.0-35.0) pg MCHC (31.0-37.0) g/dL RDW (11.5-15.5) % Plt Count (150-450) k/uL MPV Neutrophils % % Lymphocytes % % Monocytes % % Eosinophils % % Basophils % % Neutrophils # (1.3-7.7) k/uL Lymphocytes # (1.0-4.8) k/uL Monocytes # (0-1.0) k/uL Eosinophils # (0-0.7) k/uL Basophils # (0-0.2) k/uL PT (9.0-12.0) sec INR (<1.2) APTT (22.0-30.0) sec Sodium (137-145) mmol/L Potassium (3.5-5.1) mmol/L Chloride (98-107) mmol/L Carbon Dioxide (22-30) mmol/L Anion Gap mmol/L BUN (7-17) mg/dL Creatinine (0.52-1.04) mg/dL Est GFR (CKD-EPI)AfAm (>60 ml/min/1.73 sqM) Est GFR (CKD-EPI)NonAf (>60 ml/min/1.73 sqM) Glucose (74-99) mg/dL Calcium (8.4-10.2) mg/dL Total Bilirubin (0.2-1.3) mg/dL AST (14-36) U/L ALT (4-34) U/L Alkaline Phosphatase (38-126) U/L Creatine Kinase (30-135) U/L Troponin I 0.015 (0.000-0.034) ng/mL Total Protein (6.3-8.2) g/dL Albumin (3.5-5.0) g/dL - EKG Data -: EKG Interpreted by Me EKG Comments: 12-lead Electrocardiogram Interpretation Note EKG was reviewed and interpreted by myself. 12-lead ECG performed at 1111 is interpreted by me as revealing sinus bradycardia with right bundle branch block that is chronic at a rate of 57 beats per minute. [place] is normal. [place] interval is 170 ms, QRS duration is 153 ms, QTc is 503 ms.. There were no acute ST or T wave abnormalities to suggest myocardial ischemia or injury. Chronic right bundle branch block present. R wave progression across the precordium was satisfactory. By my interpretation this EKG is non-diagnostic for acute ischemia. Compared with EKG from January 2016 with no acute changes. Critical Care Time Critical Care Time: Yes Total Critical Care Time: 35 Disposition Clinical Impression: Cerebrovascular accident (CVA), Hypokalemia Disposition: ADMITTED IP TO THIS HOSP Condition: Stable Time of Disposition: 12:38
[2023-04-08 11:27] LABS: Basophils % (A) 1 %; Eosinophils # (A) 0.1 k/uL (0-0.7); Eosinophils % (A) 1 %; HCT 41.5 % (34.0-46.0); HGB 14.7 gm/dL (11.4-16.0); Lymphocytes # (A) 1.5 k/uL (1.0-4.8); Lymphocytes % (A) 22 %; MCH 32.1 pg (25.0-35.0); MCHC 35.3 g/dL (31.0-37.0); MCV 90.8 fL (80.0-100.0); Mean Platelet Volume 8.7; Monocytes # (A) 0.3 k/uL (0-1.0); Monocytes % (A) 4 %; Neutrophils # (A) 4.9 k/uL (1.3-7.7); Neutrophils % (A) 71 %; Platelet Count 231 k/uL (150-450); RBC 4.57 m/uL (3.80-5.40); RDW 13.6 % (11.5-15.5); WBC 6.8 k/uL (3.8-10.6)
--- NOTE | 2023-04-08 11:36 | CT ---
EXAMINATION TYPE: CT brain wo con CT DLP: 1103.6 mGycm, Automated exposure control for dose reduction was used. DATE OF EXAM: 04/08/2023 11:29 AM COMPARISON: Prior CT Brain from 07/14/2012, MRI brain 02/09/2014. CLINICAL INDICATION:Female, 77 years old with history of Neuro deficit, acute, stroke suspected, Neur o deficits code stroke TECHNIQUE: Brain: Multiple axial CT images of the brain were obtained without IV contrast. Coronal and sagittal reformats reviewed. FINDINGS: Brain: Extra-axial spaces: No abnormal extra-axial fluid collections. Ventricular system: Within normal limits Cerebral parenchyma: Mild cerebral atrophy. No acute intraparenchymal hemorrhage or mass effect. The delacruz-white junction is well differentiated. Scattered hypoattenuating areas are seen within the whit e matter. Cerebellum: Unremarkable. Mass effect: No evidence of midline shift. Intracranial vasculature: unremarkable Soft tissues: Normal. Calvarium/osseous structures: No depressed skull fracture. Benign hyperostosis frontalis noted. Paranasal sinuses and mastoid air cells: The mastoid air cells are clear. Likely mucous retention cys t within the bilateral maxillary sinuses with largest on the right measuring up to 1.2 cm. Visualized orbits: Orbital contents are intact. IMPRESSION: 1. No acute intracranial process. 2. Nonspecific white matter changes, likely secondary to chronic small vessel ischemic disease.
[2023-04-08 11:41] LABS: INR 0.9 (<1.2); Partial Thromboplastin Time 25.2 sec (22.0-30.0)
[2023-04-08 11:48] LABS: ALT 16 U/L (4-34); AST 25 U/L (14-36); African American GFR (CKD) >90 (>60 ml/min/1.73 sqM); Albumin 4.3 g/dL (3.5-5.0); Alkaline Phosphatase 114 U/L (38-126); Anion Gap 8 mmol/L; Blood Urea Nitrogen 11 mg/dL (7-17); Calcium 9.3 mg/dL (8.4-10.2); Carbon Dioxide 27 mmol/L (22-30); Chloride 103 mmol/L (98-107); Creatine Kinase 108 U/L (30-135); Glucose 91 mg/dL (74-99); Non-African American GFR(CKD) >90 (>60 ml/min/1.73 sqM); Potassium 3.3 mmol/L (3.5-5.1); Sodium 138 mmol/L (137-145); Total Bilirubin 1.4 mg/dL (0.2-1.3); Total Protein 7.2 g/dL (6.3-8.2)
--- NOTE | 2023-04-08 11:53 | XR ---
EXAMINATION TYPE: XR chest 2V DATE OF EXAM: 04/08/2023 11:49 AM COMPARISON: Chest radiographs from 01/24/2016 TECHNIQUE: XR chest 2V Frontal and lateral views of the chest. CLINICAL INDICATION:Female, 77 years old with history of altered mental status; FINDINGS: Lungs/Pleura: There is no evidence of pleural effusion, focal consolidation, or pneumothorax. Chroni c senescent parenchymal change. Pulmonary vascularity: Unremarkable. Heart/mediastinum: Cardiomediastinal silhouette is enlarged and stable. Atherosclerotic calcificatio ns are seen in the aorta. Musculoskeletal: No acute osseous pathology. Scoliotic curvature. IMPRESSION: Mild cardiomegaly without evidence for acute process.
--- NOTE | 2023-04-08 12:03 | CT ---
EXAMINATION TYPE: CT angio head neck CT DLP: 370 mGycm, Automated exposure control for dose reduction was used. DATE OF EXAM: 04/08/2023 11:45 AM COMPARISON: CT brain of the same date. CLINICAL INDICATION:Female, 77 years old with history of Neuro deficit, acute, stroke suspected; PHH, Neuro deficits, code stroke. TECHNIQUE: Axially acquired helical CT angiogram of the head and neck was obtained with contrast util izing 65 cc of Isovue-370 administered intravenously. Axial images are supplemented with 3D reconstru ctions which were post-processed at an independent workstation. NASCET criteria used. FINDINGS: CTA HEAD: No evidence of acute intracranial hemorrhage, mass effect, or midline shift. The ventricles, sulci, a nd cisterns are unremarkable. The visualized portions of the internal carotid arteries, middle cerebral arteries, anterior cerebral arteries, and posterior cerebral arteries are patent. Absent left A1 segment of the anterior cerebra l artery which is an incidental anatomic variant. Both A2 segments are supplied by the right A1 segme nt. origin of the left posterior cerebral artery. The basilar and vertebral arteries are patent. CTA NECK: Right Carotid System: The common carotid artery and external carotid artery are patent. The carotid bifurcation demonstrate s no evidence of hemodynamically significant stenosis. The remaining portions of the internal carotid artery demonstrate normal size without significant narrowing. Left Carotid System: The common carotid artery and external carotid artery are patent. The carotid bifurcation demonstrate s no evidence of hemodynamically significant stenosis. The remaining portions of the internal carotid artery demonstrate normal size without significant narrowing. Vertebral arteries are patent without evidence hemodynamically significant stenosis. Right vertebral artery is dominant. There is a three-vessel aortic arch. The origins of the great vessels are patent. No evidence of hemo dynamically significant stenosis. IMPRESSION: 1. No evidence of dissection of the cervical internal carotid arteries or vertebral arteries or any e vidence of significant stenosis at the carotid bifurcations. 2. No evidence of high-grade stenosis or intracranial aneurysm.
[2023-04-08] MEDS ORDERED: ASPIRIN 325 MG TAB PO STA (12:05)
[2023-04-08] MEDS ORDERED: POTASSIUM CHLORIDE ER 20 MEQ TAB.ER PO STA (12:06)
[2023-04-08] MEDS: CLOPIDOGREL 75 MG TAB PO SCH (16:21)
[2023-04-08] MEDS ORDERED: NON FORMULARY DRUG (Aspirin Ec 81 MG Tablet) PO SCH (17:15)
--- NOTE | 2023-04-08 17:46 | P.HPIM ---
History of Present Illness H&P Date: 04/08/23 Tia Faulkner, is a 77-year-old female who presented to [facility] emergency room with a chief complaint of weakness and numbness involving the left side of her body, patient stated that she woke up at 9:30 AM this morning and was having numbness and tingling over the left side of her face upper extremity and lower extremity she was also having some weakness in the left upper extremity, EMS were called and patient was brought into emergency room. She was evaluated in the emergency room vital examination on presentation revealed a temperature of 98.1 pulse 60 respiration 18 blood pressure 182/86 pulse ox 99% on room air Laboratory data revealed a white blood count of 6.8 hemoglobin 14.7 platelet count 231 sodium 138 potassium 3.3 chloride 103 CO2 27 BUN 11 creatinine 0.45 Testing in the emergency room revealed computed tomography scan of the brain without contrast was done in the emergency room and revealed no acute intracranial process, nonspecific white matter changes likely secondary to chronic small vessel ischemic disease. CT angiogram of the neck and brain was done and revealed no evidence of dissection of the cervical internal carotid arteries or vertebral arteries or any evidence of significant stenosis at the carotid bifurcations, no evidence of high grade stenosis or intracranial aneurysm. Patient was admitted to medical floor for further evaluation and treatment, neurology consultation was requested. Past medical history is significant for history of hypertension, history of hyperlipidemia, History of osteoporosis, history of severe scoliosis On review of systems Patient is alert and oriented 3 in no apparent distress there is no fever or chills, no headache or dizziness no chest pain no shortness of breath no cough no nausea or vomiting no abdominal pain no diarrhea no blood in the stools no burning with urination no frequency or urgency and no hematuria. Past Medical History Past Medical History: CVA/TIA, Hyperlipidemia, Hypertension, Memory Impairment, Myocardial Infarction ([place]) Additional Past Medical History / Comment(s): HEART MURMUR, LEAKY VALVE. POSS MILD STROKE YEARS AGO, UNSURE, HAS DIFFICULTY RECALLING SOME HISTORICAL MEDICAL INFO. 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 Past Anesthesia/Blood Transfusion Reactions: Motion Sickness Past Psychological History: No Psychological Hx Reported Smoking Status: Never smoker Past Alcohol Use History: None Reported Past Drug Use History: None Reported - Past Family History Father Additional Family Medical History / Comment(s): patient states "he had heart problems". patient unsure what type of heart problems. Mother Family Medical History: Cancer, Diabetes Mellitus Additional Family Medical History / Comment(s): brain cancer Brother(s) Family Medical History: Diabetes Mellitus Additional Family Medical History / Comment(s): autistic Sister(s) History Unknown: Yes Medications and Allergies Home Medications Medication Instructions Recorded Confirmed Type Pravastatin Sodium [Pravachol] 20 mg PO HS 07/31/15 04/08/23 History Aspirin EC [Ecotrin Low Dose] 81 mg PO DAILY 04/08/23 04/08/23 History Metoprolol Tartrate [Lopressor] 25 mg PO BID 04/08/23 04/08/23 History lisinopriL [Zestril] 20 mg PO BID 04/08/23 04/08/23 History Allergies Allergy/AdvReac Type Severity Reaction Status Date / Time No Known Allergies Allergy Verified 04/08/23 12:21 Physical Exam Vitals: Vital Signs Temp Pulse Resp BP Pulse Ox 04/08/23 15:00 50 L 15 141/83 96 04/08/23 14:00 52 L 18 149/107 94 L 04/08/23 13:30 56 L 18 159/84 97 04/08/23 13:15 52 L 16 148/88 98 04/08/23 13:00 57 L 15 148/83 97 04/08/23 12:45 54 L 18 152/88 97 04/08/23 12:30 55 L 19 149/85 97 04/08/23 12:15 54 L 16 161/85 96 04/08/23 12:00 56 L 15 157/82 96 04/08/23 11:45 57 L 19 178/84 96 04/08/23 11:40 57 L 24 99 04/08/23 10:55 98.1 F 60 18 182/86 99 Intake and Output 04/08/23 04/08/23 04/08/23 06:59 14:59 22:59 Other: Weight 54.431 kg In general patient is alert and oriented x 3 in no distress HEENT head normocephalic and atraumatic Neck is supple no JVD no goiter no lymphadenopathy no carotid bruit Chest examination is clear to auscultation no crackles no wheezing Cardiac exam reveals regular heart sounds S1 and S2 no gallops no murmurs Abdomen is soft nontender no organomegaly with normal bowel sounds Extremity exam reveals no edema no cyanosis or clubbing Neurological examination reveals patient is alert and oriented 3 in no apparent distress speech is fluent Cranial nerve II-12 are intact There is weakness in the left upper extremity and the left lower extremity at 4 out of 5 There is loss of sensation to the touch in the left upper extremity and the left lower extremity Plantar is downward on the right and equivocal on the left Results CBC & Chem 7: 04/08/23 11:19 04/08/23 11:19 Labs: Abnormal Lab Results - Last 24 Hours (Table) 04/08/23 Range/Units 11:19 Potassium 3.3 L (3.5-5.1) mmol/L Creatinine 0.45 L (0.52-1.04) mg/dL Total Bilirubin 1.4 H (0.2-1.3) mg/dL Assessment and Plan Plan: Left sided numbness tingling and weakness involving the left side of the face the left upper and lower extremity, likely related to acute ischemic stroke Underlying history of hypertension Underlying history of osteoarthritis Underlying history of osteoporosis Underlying history of severe scoliosis At this time patient was seen and examined in emergency room She was started on aspirin and Plavix Home medications reviewed and reordered Neurology consultation was requested For DVT prophylaxis subcu Lovenox Physical therapy and occupational therapy consultations requested Will follow closely
--- NOTE | 2023-04-08 18:19 | P.CNNES ---
History of Present Illness Consult date: 04/08/23 Requesting physician: Tj Daugherty Reason for Consult: CVA History of Present Illness: Patient is a 77-year-old left-handed female with history of hypertension, otherwise healthy, came to the hospital this morning at 10:45 AM with stroke symptoms. Patient's daughter and grandson were present, who provided the hist ory as well. Patient's daughter states that this morning she got up at 9:30 AM with stroke symptoms, consisting of left-sided numbness, achiness and tingling. She also has some difficulty breathing, headache rating 8/10 and nausea. Patient never has any history of headaches, and she did not vomit. She was feeling very weak, mainly involving her whole body but left more than right. Patient apparently was feeling fine last night and had dinner, and then watched movie with her daughter and while going to the bed at 9 PM, was complaining of some discomfort on the left side. Patient's daughter believed that it was her left hip, which has chronic issues is giving her discomfort therefore did not think of a stroke. However at this time patient admits that she did have some stroke symptoms with numbness of the left arm and leg last night as well by she was going to the bed. However this morning as his symptoms persisted, therefore she brought her to the hospital. There is no slurred speech, swallowing difficulty. Patient does complain of some blurred vision involving the left eye and complaining of left-sided weakness. Patient has been using walker for last 5 years since she had undergone hip surgery. She uses cane for short distances. Vital signs on arrival blood pressure 182/86, pulse rate 60 temperature 98.1.. Blood test shows normal CBC, PT/PTT, normal CMP with potassium 3.3. Troponin negative, CK normal. CT head revealed no acute intracranial process. Nonspecific white matter changes, likely secondary to chronic small vessel ischemic disease. I personally reviewed CT head, agree with the findings. Chest x-ray revealed mild cardiomegaly without evidence for acute process. EKG shows sinus bradycardia, right bundle branch block. Patient has history of hypertension, denies diabetes. No previous history of strokes. Patient has history of ME 20 years ago. Patient is compliant with her aspirin 81 mg daily for years. Denies any tobacco or alcohol use. Patient has history of low back surgery 25 years ago. At present her back does not bother her, but she does have chronic hip issue with the left side. Patient has been living with her daughter for last 10 years. Her memory functions is normal, with no evidence of dementia. She is slightly forgetful at times. At present patient complains of headache 5-6/10, feels slightly dizzy, slight nausea but no vomiting. Continues to have weakness and numbness of left side of the body. Review of Systems Constitutional: Denies chills, Denies fever Eyes: left blurred vision, denies diplopia, denies pain Ears: bilateral: decreased hearing, tinnitus, deny: earache Ears, nose, mouth and throat: Reports headache, Denies sore throat Cardiovascular: Reports shortness of breath, Denies chest pain Respiratory: Denies cough, Denies excessive sputum Gastrointestinal: Reports nausea, Denies abdominal pain, Denies diarrhea, Denies vomiting Genitourinary: Denies dysuria, Denies hematuria, Denies urge incontinence Musculoskeletal: Reports neck pain, Denies low back pain, Denies myalgias Musculoskeletal: left: hip pain Integumentary: Denies pruritus, Denies rash Neurological: Reports as per HPI Psychiatric: Denies anxiety, Denies depression Endocrine: Reports fatigue, Denies weight change Past Medical History Past Medical History: CVA/TIA, Hyperlipidemia, Hypertension, Memory Impairment, Myocardial Infarction (ME) Additional Past Medical History / Comment(s): HEART MURMUR, LEAKY VALVE. POSS MILD STROKE YEARS AGO, UNSURE, HAS DIFFICULTY RECALLING SOME HISTORICAL MEDICAL INFO. 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 Past Anesthesia/Blood Transfusion Reactions: Motion Sickness Past Psychological History: No Psychological Hx Reported Smoking Status: Never smoker Past Alcohol Use History: None Reported Past Drug Use History: None Reported - Past Family History Father Additional Family Medical History / Comment(s): patient states "he had heart problems". patient unsure what type of heart problems. Mother Family Medical History: Cancer, Diabetes Mellitus Additional Family Medical History / Comment(s): brain cancer Brother(s) Family Medical History: Diabetes Mellitus Additional Family Medical History / Comment(s): autistic Sister(s) History Unknown: Yes Medications and Allergies Home Medications Medication Instructions Recorded Confirmed Type Pravastatin Sodium [Pravachol] 20 mg PO HS 07/31/15 04/08/23 History Aspirin EC [Ecotrin Low Dose] 81 mg PO DAILY 04/08/23 04/08/23 History Metoprolol Tartrate [Lopressor] 25 mg PO BID 04/08/23 04/08/23 History lisinopriL [Zestril] 20 mg PO BID 04/08/23 04/08/23 History Allergies Allergy/AdvReac Type Severity Reaction Status Date / Time No Known Allergies Allergy Verified 04/08/23 12:21 Physical Examination - Vital Signs Vital Signs: Vital Signs Temp Pulse Resp BP Pulse Ox 04/08/23 15:00 50 L 15 141/83 96 04/08/23 14:00 52 L 18 149/107 94 L 04/08/23 13:30 56 L 18 159/84 97 04/08/23 13:15 52 L 16 148/88 98 04/08/23 13:00 57 L 15 148/83 97 04/08/23 12:45 54 L 18 152/88 97 04/08/23 12:30 55 L 19 149/85 97 04/08/23 12:15 54 L 16 161/85 96 04/08/23 12:00 56 L 15 157/82 96 04/08/23 11:45 57 L 19 178/84 96 04/08/23 11:40 57 L 24 99 04/08/23 10:55 98.1 F 60 18 182/86 99 Intake and Output 04/08/23 04/08/23 04/08/23 06:59 14:59 22:59 Other: Weight 54.431 kg Patient is an elderly female, very pleasant, appears to be somewhat in discomfort, not feeling well. Patient is alert awake oriented to time place and person. Speech and language functions are normal. Patient can name and repeat very well. No aphasia or dysarthria. Attention, concentration and fund of knowledge is adequate. On cranial nerve examination, pupils are equal, round and reacting to light, visual orozco are full on confrontation, with no neglect on double simultaneous stimulation. Patient complains of blurred vision on the left side, but no deficits noted. Extraocular muscles are intact with no nystagmus. Face is symmetric, tongue protrudes to the midline. Palatal elevation and sensation normal, hearing and shoulder shrug normal, facial sensation normal. On muscle strength testing, there is left pronator drift, and the strength is (right/left) deltoid 5/4+, triceps 5/4+5-, biceps 5/4, media theorist and author of 5/3+, hip flexion 4- /3, ankle dorsiflexion 5/4. Deep tendon reflexes are symmetric and hypoactive, and plantars are downgoing bilaterally. Sensory to touch is decreased in the entire left side of the body including face arm and leg Cerebellar function showed no ataxia for [id number] testing. No ataxia for [id number] testing on the right leg, but cannot perform on the left because of pain and weakness. Tone and bulk of muscles normal. Gait deferred.. On general examination, there is no carotid bruit or murmur, S1-S2 audible. Chest is clear on consultation. Abdomen is soft nontender. No organomegaly, bowel sounds present. Peripheral pulses are present. No edema. Results - Laboratory Findings CBC and BMP: 04/08/23 11:19 04/08/23 11:19 Abnormal Lab Findings: Abnormal Labs 04/08/23 11:19 Potassium 3.3 L Creatinine 0.45 L Total Bilirubin 1.4 H Assessment and Plan Assessment: * Probable acute ischemic stroke, manifesting with mild to moderate left hemiparesis, and left-sided sensory loss. No cranial nerve symptoms except for subjective blurred vision on the left, and decreased sensations left side of the face. * Hypertension * Hyperlipidemia * Chronic left hip issues * History of low back surgery 25 years ago. Plan: * MRI of the brain without contrast, evaluate for acute CVA * 2-D echo with bubble study to rule out PFO * CTA head and neck showed: No evidence of dissection of the cervical internal carotid arteries or vertebral arteries or any evidence of significant stenosis at the carotid bifurcations. No evidence of high-grade stenosis or intracranial aneurysm. * Patient has failed aspirin regimen. We will start Plavix 75 mg daily. Patient will stay on dual antiplatelet medications for 21 days and then will stop aspirin and continue Plavix. * Fasting a.m. lipid panel * Hemoglobin A1c * Permissive hypertension for next 24-48 hours * Close neuro checks * Telemetry monitoring rule out any arrhythmia * DVT prophylaxis: Lovenox 40 mg subcu daily * PT OT, speech therapy. * Neurology will continue ot follow. Thank you for the consult.
[2023-04-08] MEDS: ENOXAPARIN 40 MG/0.4 ML SYRINGE SQ SCH (20:42)
[2023-04-08] MEDS: PRAVASTATIN SODIUM 20 MG TAB PO SCH (20:43)
[2023-04-08] MEDS: METOPROLOL TARTRATE 25 MG TAB PO SCH (20:43)
[2023-04-08] MEDS: lisinopriL 20 MG TAB PO SCH (20:43)
[2023-04-09] MEDS: CLOPIDOGREL 75 MG TAB PO SCH (08:59)
[2023-04-09] MEDS: lisinopriL 20 MG TAB PO SCH ×2 (08:59→19:53)
[2023-04-09] MEDS: METOPROLOL TARTRATE 25 MG TAB PO SCH ×2 (08:59→19:53)
[2023-04-09] MEDS: ASPIRIN 81 MG PO SCH (08:59)
--- NOTE | 2023-04-09 10:32 | P.PN ---
Subjective Progress Note Date: 04/09/23 Tia Faulkner, is a 77-year-old female who presented to [facility] emergency room with a chief complaint of weakness and numbness involving the left side of her body, patient stated that she woke up at 9:30 AM this morning and was having numbness and tingling over the left side of her face upper extremity and lower extremity she was also having some weakness in the left upper extremity, EMS were called and patient was brought into emergency room. She was evaluated in the emergency room vital examination on presentation revealed a temperature of 98.1 pulse 60 respiration 18 blood pressure 182/86 pulse ox 99% on room air Laboratory data revealed a white blood count of 6.8 hemoglobin 14.7 platelet count 231 sodium 138 potassium 3.3 chloride 103 CO2 27 BUN 11 creatinine 0.45 Testing in the emergency room revealed computed tomography scan of the brain without contrast was done in the emergency room and revealed no acute intracranial process, nonspecific white matter changes likely secondary to chronic small vessel ischemic disease. CT angiogram of the neck and brain was done and revealed no evidence of dissection of the cervical internal carotid arteries or vertebral arteries or any evidence of significant stenosis at the carotid bifurcations, no evidence of high grade stenosis or intracranial aneurysm. Patient was admitted to medical floor for further evaluation and treatment, neurology consultation was requested. Past medical history is significant for history of hypertension, history of hyperlipidemia, History of osteoporosis, history of severe scoliosis On review of systems Patient is alert and oriented 3 in no apparent distress there is no fever or chills, no headache or dizziness no chest pain no shortness of breath no cough no nausea or vomiting no abdominal pain no diarrhea no blood in the stools no burning with urination no frequency or urgency and no hematuria. On 04/09/2023 patient is alert and oriented 3 currently sitting up in chair ready to take a shower. Patient was started on Plavix and aspirin. Patient reports minimal improvement with weakness. Patient denies any new neurological symptoms. MRI and 2-D echo has been ordered. Patient denies chest pain or shortness breath. Patient denies nausea vomiting or diarrhea. Patient denies any urinary burning or frequency. Current vital signs temp 98.1, heart rate 53, blood pressure 143/77 with pulse ox 97% on room and Objective - Vital Signs Vital signs: Vital Signs Temp 98.1 F 04/09/23 04:00 Pulse 53 L 04/09/23 04:00 Resp 18 04/09/23 04:00 BP 143/77 04/09/23 04:00 Pulse Ox 97 04/09/23 04:00 FiO2 Intake & Output 04/08/23 04/09/23 04/09/23 18:59 06:59 18:59 Intake Total 10 110 Balance 10 110 Weight 54.431 kg Intake: IV 10 0.9 10 Oral 110 Other: Voiding Method Toilet # Voids 1 1 1 - Exam In general patient is alert and oriented x 3 in no distress HEENT head normocephalic and atraumatic Neck is supple no JVD no goiter no lymphadenopathy no carotid bruit Chest examination is clear to auscultation no crackles no wheezing Cardiac exam reveals regular heart sounds S1 and S2 no gallops no murmurs Abdomen is soft nontender no organomegaly with normal bowel sounds Extremity exam reveals no edema no cyanosis or clubbing Neurological examination reveals patient is alert and oriented 3 in no apparent distress speech is fluent Cranial nerve II-12 are intact There is weakness in the left upper extremity and the left lower extremity at 4 out of 5 There is loss of sensation to the touch in the left upper extremity and the left lower extremity Plantar is downward on the right and equivocal on the left - Labs CBC & Chem 7: 04/08/23 11:19 04/08/23 11:19 Labs: Abnormal Lab Results - Last 24 Hours (Table) 04/08/23 04/08/23 Range/Units 11:19 11:19 Potassium 3.3 L (3.5-5.1) mmol/L Creatinine 0.45 L (0.52-1.04) mg/dL Total Bilirubin 1.4 H (0.2-1.3) mg/dL Folate 35.70 H (4.40-31.00) ng/mL Assessment and Plan Plan: Left sided numbness tingling and weakness involving the left side of the face the left upper and lower extremity, likely related to acute ischemic stroke Underlying history of hypertension Underlying history of osteoarthritis Underlying history of osteoporosis Underlying history of severe scoliosis At this time patient was seen and examined in emergency room She was started on aspirin and Plavix Home medications reviewed and reordered Neurology consultation was requested MRI of the brain ordered 2-D echo ordered For DVT prophylaxis subcu Lovenox Physical therapy and occupational therapy consultations requested Will follow closely
--- NOTE | 2023-04-09 11:05 | CA ---
Transthoracic Echo Report Name: Tia Faulkner Age: 77 Gender: F : 1945 Exam Date: 04/09/2023 07:32 Exam Location: [facility] Ht (in): 60 Wt (lb): 120 Ordering Physician: Gary Dimas MD Attending/Referring Phys: Rat Exterminator Moses Anglin Procedure CPT: Indications: CVA Cardiac Hx: Technical Quality: Good Contrast 1: Total Dose (mL): Contrast 2: Total Dose (mL): MEASUREMENTS (Male / Female) Normal Values 2D ECHO LV Diastolic Diameter PLAX 2.8 cm 4.2 - 5.9 / 3.9 - 5.3 cm LV Systolic Diameter PLAX 1.9 cm IVS Diastolic Thickness 1.9 cm 0.6 - 1.0 / 0.6 - 0.9 cm LVPW Diastolic Thickness 2.4 cm 0.6 - 1.0 / 0.6 - 0.9 cm LV Relative Wall Thickness 1.5 RV Internal Dim ED PLAX 2.4 cm LVOT Diameter 1.8 cm Aortic Root Diameter 2.6 cm LA Systolic Diameter LX 3.0 cm 3.0 - 4.0 / 2.7 - 3.8 cm LV Diastolic Volume MOD BP 50.7 cm??? 67 - 155 / 56 - 104 cm??? LV Systolic Volume MOD BP 15.4 cm??? 22 - 58 / 19 - 49 cm??? LV Ejection Fraction MOD BP 69.7 % >= 55 % LV Diastolic Volume MOD 4C 51.7 cm??? LV Systolic Volume MOD 4C 11.4 cm??? LV Ejection Fraction MOD 4C 78.0 % LV Diastolic Length 4C 7.4 cm LV Systolic Length 4C 6.2 cm LV Diastolic Volume MOD 2C 36.2 cm??? LV Systolic Volume MOD 2C 19.7 cm??? LV Ejection Fraction MOD 2C 45.5 % LV Diastolic Length 2C 5.3 cm LV Systolic Length 2C 6.6 cm LA Volume 58.7 cm??? 18 - 58 / 22 - 52 cm??? Ascending Aorta Diameter 3.1 cm DOPPLER AV Peak Velocity 383.6 cm/s AV Peak Gradient 58.9 mmHg AV Mean Velocity 257.5 cm/s AV Mean Gradient 31.6 mmHg AV Velocity Time Integral 97.6 cm AI Peak Velocity 415.5 cm/s AI Peak Gradient 69.1 mmHg AI Pressure Half Time 889.8 ms MV Peak Velocity 110.9 cm/s MV Peak Gradient 4.9 mmHg MV Mean Velocity 49.2 cm/s MV Mean Gradient 1.2 mmHg MV Velocity Time Integral 44.0 cm MR Peak Velocity 661.6 cm/s MR Peak Gradient 175.1 mmHg Mitral E Point Velocity 62.1 cm/s Mitral A Point Velocity 100.4 cm/s Mitral E to A Ratio 0.6 MV Deceleration Time 244.6 ms TR Peak Velocity 228.5 cm/s TR Peak Gradient 20.9 mmHg Right Ventricular Systolic Press 25.9 mmHg FINDINGS Left Ventricle Left ventricular ejection fraction is estimated at 55-60 %. Severe concentric left ventricular hypertrophy.normal left ventricular wall motion. Left ventricular cavity size normal. Right Ventricle Normal right ventricular size. Right Atrium Normal right atrial size. Left Atrium Normal left atrial size. Mitral Valve Moderate mitral annular calcification. Moderate mitral regurgitation. Aortic Valve Hypertrophic Subaortic Stenosis. Trileaflet aortic valve. Mild to Moderate AI. Tricuspid Valve Structurally normal tricuspid valve. . Mild TR. Pulmonic Valve Pulmonic valve not well visualized. No pulmonic regurgitation. Pericardium Normal pericardium. Aorta Normal size aortic root and proximal ascending aorta. CONCLUSIONS 1. Normal left ventricle size and systolic function with severe hypertrophy 2. Moderate mitral regurgitation 3. Left ventricular outflow gradient consistent with hypertrophic obstructive cardiomyopathy 4. Mild to moderate aortic regurgitation 5. Mild tricuspid regurgitation with normal estimated right ventricular systolic pressure 6. No Evidence of shunting with bubble study Previewed by: Dr. Dolly Morel MD (Electronically Signed) Final Date: 09 April 2023 11:03
--- NOTE | 2023-04-09 11:23 | MR ---
EXAMINATION TYPE: MR brain wo con DATE OF EXAM: 04/09/2023 10:44 AM COMPARISON: CT 04/08/2023. CLINICAL INDICATION:Female, 77 years old with history of cva, Neuro deficits TECHNIQUE: Multi planar, multi sequence imaging was performed through the brain including: T1, T2, In version recovery, Diffusion weighted imaging, and gradient echo imaging. No gadolinium was given. FINDINGS: The delacruz-white junctions, ventricular system, and cisterns appear unremarkable. Scattered foci of hi gh T2 signal intensity are seen within the periventricular white matter. Midline structures show no a bnormality. Diffusion-weighted imaging shows no evidence of restricted diffusion. The susceptibility weighted images do not reveal any evidence for micro-hemorrhage. Blooming artifact is pronounced in t he posterior cranial fossa but also affecting the parietal lobes with corresponding low T2 signal. The bone marrow signal is within normal limits. Paranasal sinuses and mastoid air cells: Mild scattered paranasal sinus disease. Visualized orbits: Orbital contents are intact. IMPRESSION: 1. No evidence of intracranial mass or acute/subacute infarct. 2. Findings suspicious for superficial siderosis. 3. Nonspecific white matter changes, likely secondary to small vessel ischemic disease
[2023-04-09 11:39] LABS: Chol/HDL Ratio 3.36 Ratio; LDL Cholesterol,Calculated 117.8 mg/dL (0.0-131.0)
[2023-04-09 12:48] LABS: African American GFR (CKD) >90 (>60 ml/min/1.73 sqM); Anion Gap 5 mmol/L; Blood Urea Nitrogen 11 mg/dL (7-17); Calcium 8.9 mg/dL (8.4-10.2); Carbon Dioxide 26 mmol/L (22-30); Chloride 104 mmol/L (98-107); Glucose 83 mg/dL (74-99); Non-African American GFR(CKD) >90 (>60 ml/min/1.73 sqM); Potassium 3.9 mmol/L (3.5-5.1); Sodium 135 mmol/L (137-145)
--- NOTE | 2023-04-09 14:34 | P.CONS ---
History of Present Illness - Reason for Consult Consult date: 04/09/23 Rehab recommendations - Chief Complaint Left sided numbness, concer for CVA - History of Present Illness Ms Tia Faulkner, is a 77-year-old left handed female who lives with her daughter and grandson in a second floor apartment, 14 steps to enter. Patient has good support from family. She presented to [facility] emergency room on 04/08/23 with a chief complaint of weakness and numbness involving the left side of her body, patient stated that she woke up at 9:30 AM in the morning and was having numbness and tingling over the left side of her face upper extremity and lower extremity she was also having some weakness in the left upper extremity, EMS were called and patient was brought into emergency room. She was evaluated in the emergency room vital examination on presentation revealed a temperature of 98.1 pulse 60 respiration 18 blood pressure 182/86 pulse ox 99% on room air. Laboratory data revealed a white blood count of 6.8 hemoglobin 14.7 platelet count 231 sodium 138 potassium 3.3 chloride 103 CO2 27 BUN [address] brain without contrast was done in the emergency room and revealed no acute intracranial process, nonspecific white matter changes likely secondary to chronic small vessel ischemic disease. CT angiogram of the neck and brain was done and revealed no evidence of dissection of the cervical internal carotid arteries or vertebral arteries or any evidence of significant stenosis at the carotid bifurcations, no evidence of high grade stenosis or intracranial aneurysm. Patient was admitted to medical floor for further evaluation and treatment, neurology consultation was requested. Echo was ordered, revealed EF > 50% and normal left side ventricle and systolic function with severe hypertrophy. MRI brain with no acute mass or infarct. PM&R consulted for rehab recommendations; patient seen by [facility] for auditory comprehension, some difficulty with immediate recall which is patient's baseline, Supervision with transfers, bed mobility, gait. Review of Systems Reviewed, negative unless noted above in HPI Past Medical History Past Medical History: CVA/TIA, Hyperlipidemia, Hypertension, Memory Impairment, Myocardial Infarction (CT) Additional Past Medical History / Comment(s): HEART MURMUR, LEAKY VALVE. POSS MILD STROKE YEARS AGO, UNSURE, HAS DIFFICULTY RECALLING SOME HISTORICAL MEDICAL INFO. 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 Past Anesthesia/Blood Transfusion Reactions: Motion Sickness Past Psychological History: No Psychological Hx Reported Smoking Status: Never smoker Past Alcohol Use History: None Reported Past Drug Use History: None Reported - Past Family History Father Additional Family Medical History / Comment(s): patient states "he had heart problems". patient unsure what type of heart problems. Mother Family Medical History: Cancer, Diabetes Mellitus Additional Family Medical History / Comment(s): brain cancer Brother(s) Family Medical History: Diabetes Mellitus Additional Family Medical History / Comment(s): autistic Sister(s) History Unknown: Yes Medications and Allergies Home Medications Medication Instructions Recorded Confirmed Type Pravastatin Sodium [Pravachol] 20 mg PO HS 07/31/15 04/08/23 History Aspirin EC [Ecotrin Low Dose] 81 mg PO DAILY 04/08/23 04/08/23 History Metoprolol Tartrate [Lopressor] 25 mg PO BID 04/08/23 04/08/23 History lisinopriL [Zestril] 20 mg PO BID 04/08/23 04/08/23 History Allergies Allergy/AdvReac Type Severity Reaction Status Date / Time No Known Allergies Allergy Verified 04/08/23 12:21 Physical Exam Osteopathic Statement: *. No significant issues noted on an osteopathic structural exam other than those noted in the History and Physical/Consult. Vitals: Vital Signs Temp Pulse Pulse Resp BP BP BP 04/09/23 12:00 49 L 127/63 04/09/23 08:00 98.1 F 49 L 18 150/70 04/09/23 04:00 98.1 F 53 L 18 143/77 04/09/23 02:00 43 L 18 04/09/23 00:00 97.8 F 43 L 18 157/68 04/08/23 20:00 98.0 F 55 L 18 137/84 04/08/23 16:00 98.7 F 56 L 16 165/83 04/08/23 15:00 50 L 15 141/83 Pulse Ox 04/09/23 12:00 97 04/09/23 08:00 94 L 04/09/23 04:00 97 04/09/23 02:00 04/09/23 00:00 96 04/08/23 20:00 97 04/08/23 16:00 96 04/08/23 15:00 96 Intake and Output 04/08/23 04/09/23 04/09/23 22:59 06:59 14:59 Intake Total 10 110 Balance 10 110 Intake: IV 10 0.9 10 Oral 110 Other: Voiding Method Toilet Toilet Toilet # Voids 1 1 1 Weight 54.431 kg General: Well-developed, well-nourished, female, in no acute distress, sitting up in bed HEENT: NC/AT, external ears intact, hearing intact to conversational speech, neck supple Cardiovascular: B/L calves are supple, nontender, no cords, without peripheral edema, no cardiac distress Respiratory: Even and unlabored breathing on RA Abdomen: Soft, nontender, nondistended Musculoskeletal: ROM WFL MMT RUE 4/5 throughout LUE 4/5 throughout RLE 4/5 throughout LLE 4/5 throughout Neurological: Alert and oriented x2-3. CN II-XII: Grossly intact. Speech is clear, fluent. Slow processing. Negative Hoffmans bilaterally. Skin: Skin intact where visible to head, neck, and bilateral upper and lower extremities Psychiatric: Mood calm, affect appropriate, cooperative Results CBC & Chem 7: 04/08/23 11:19 04/09/23 12:32 Labs: Abnormal Lab Results - Last 24 Hours (Table) 04/08/23 04/09/23 04/09/23 Range/Units 11:19 07:04 12:32 Sodium 135 L (137-145) mmol/L Creatinine 0.48 L (0.52-1.04) mg/dL Cholesterol 205.00 H (0.00-200.00) mg/dL HDL Cholesterol 61.00 H (40.00-60.00) mg/dL Folate 35.70 H (4.40-31.00) ng/mL Assessment and Plan Assessment: #Left hemiparesis and paresthesias, suspected TIA - resolved -CT and MRI negative for infarct -Patient on ASA, statin, Plavix # Impaired gait and ADLs # Memory impairment -baseline # Bowel/ Bladder: Nursing to monitor and report concerns if any. # Diet- per EMR # Skin/wound: Skin/Wound care to follow as needed # Pain Management none per MAR # DVT Prophylaxis: Lovenox # Comorbidities: HTN, OA, osteoporosis, severe scoliosis # Your medical dx and mgt Goals: Modified Independent mobility and ADLS both basic and advanced; increased functional mobility/strength; increased balance, safety, endurance. Improvement in medical issues through your care. Barriers: fall risk, stairs to enter apartment Discharge recommendation: Patient doing well with therapy, will likely be sucessful with C as long as family is able to provide supervision and assist with stairs, which patient says they are. Patient is too high level for IPR. Patient seen and examined by Dr Christina, consult remotely prepped by Michelle Thrasher PA-C
[2023-04-09 16:15] VITALS: RESP 16
[2023-04-09] MEDS: ENOXAPARIN 40 MG/0.4 ML SYRINGE SQ SCH (19:01)
[2023-04-09] MEDS: PRAVASTATIN SODIUM 20 MG TAB PO SCH (19:53)
--- NOTE | 2023-04-10 07:30 | P.CRDCN ---
History of Present Illness Consult date: 04/10/23 Chief complaint: Left side weak History of present illness: The patient is a 77-year-old female patient with a past medical history significant for hypertension and dyslipidemia presented to the hospital with left sided numbness and left side weakness and finding concerning for ischemic stroke. She was seen by the neurology service and the further investigation was performed including computed tomography scan of the brain as well as MRI of the brain and both came in to be unremarkable. She underwent also CTA of the neck and that showed no evidence of any high-grade stenosis or any carotid dissection. Subsequently further investigation was performed including an echocardiogram and that showed normal LV systolic function with severe left ventricular hypertrophy and evidence of LVOT obstruction. Also the echo showed evidence of moderate aortic regurgitation and moderate mitral regurgitation. The EKG showed sinus mechanism with RBBB. The echo did not show any evidence of crossing across the interatrial septum. We requested to see the patient for further evaluation of the abnormal echocardiogram. Currently the patient does n ot report any symptoms of any anginal chest pain or chest discomfort. She does not recall having any heart racing or fluttering or any dizziness or lightheadedness or any presyncope or syncope. No coronary artery disease or any congestive heart failure history from before. On examination she has regular rhythm with sinus bradycardia and heart rate in the upper 40s and/or 50s with systolic murmur at the right and left upper sternal border. 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 She might benefit from an event monitor as an outpatient And no evidence of any patent foramen ovale on the echocardiogram which was p erformed earlier Continue the current medical regimen. Possible discharge in the next 24-48 hours Past Medical History Past Medical History: CVA/TIA, Hyperlipidemia, Hypertension, Memory Impairment, Myocardial Infarction (AR) Additional Past Medical History / Comment(s): HEART MURMUR, LEAKY VALVE. POSS MILD STROKE YEARS AGO, UNSURE, HAS DIFFICULTY RECALLING SOME HISTORICAL MEDICAL INFO. 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 Past Anesthesia/Blood Transfusion Reactions: Motion Sickness Past Psychological History: No Psychological Hx Reported Smoking Status: Never smoker Past Alcohol Use History: None Reported Past Drug Use History: None Reported - Past Family History Father Additional Family Medical History / Comment(s): patient states "he had heart problems". patient unsure what type of heart problems. Mother Family Medical History: Cancer, Diabetes Mellitus Additional Family Medical History / Comment(s): brain cancer Brother(s) Family Medical History: Diabetes Mellitus Additional Family Medical History / Comment(s): autistic Sister(s) History Unknown: Yes Medications and Allergies Home Medications Medication Instructions Recorded Confirmed Type Pravastatin Sodium [Pravachol] 20 mg PO HS 07/31/15 04/08/23 History Aspirin EC [Ecotrin Low Dose] 81 mg PO DAILY 04/08/23 04/08/23 History Metoprolol Tartrate [Lopressor] 25 mg PO BID 04/08/23 04/08/23 History lisinopriL [Zestril] 20 mg PO BID 04/08/23 04/08/23 History Allergies Allergy/AdvReac Type Severity Reaction Status Date / Time No Known Allergies Allergy Verified 04/08/23 12:21 Physical Exam Vitals: Vital Signs Temp Pulse Resp BP BP Pulse Ox 04/10/23 04:00 98.1 F 48 L 16 136/78 96 04/10/23 02:00 44 L 16 04/09/23 23:48 98 F 44 L 16 150/70 95 04/09/23 19:04 97.4 F L 50 L 16 143/80 96 04/09/23 16:00 98 F 48 L 16 124/76 96 04/09/23 14:00 49 L 18 04/09/23 12:00 49 L 127/63 97 04/09/23 08:00 98.1 F 49 L 18 150/70 94 L Intake and Output 04/09/23 04/10/23 04/10/23 22:59 06:59 14:59 Intake Total 0 Balance 0 Intake: Oral 0 Other: Voiding Method Toilet # Voids 1 2 1 Results 04/08/23 11:19 04/09/23 12:32 Lipids 04/09/23 Range/Units 07:04 Triglycerides 131.00 (0.00-149.00) mg/dL Cholesterol 205.00 H (0.00-200.00) mg/dL HDL Cholesterol 61.00 H (40.00-60.00) mg/dL Cholesterol/HDL Ratio 3.36 Ratio Comprehensive Metabolic Panel 04/09/23 Range/Units 12:32 Sodium 135 L (137-145) mmol/L Potassium 3.9 (3.5-5.1) mmol/L Chloride 104 (98-107) mmol/L Carbon Dioxide 26 (22-30) mmol/L BUN 11 (7-17) mg/dL Creatinine 0.48 L (0.52-1.04) mg/dL Glucose 83 (74-99) mg/dL Calcium 8.9 (8.4-10.2) mg/dL Current Medications Generic Name Dose Route Start Last Admin Trade Name Freq PRN Reason Stop Dose Admin Aspirin 81 mg 04/09/23 09:00 04/09/23 08:59 Aspirin 81 Mg PO 81 mg DAILY AUTUMN Administration Clopidogrel Bisulfate 75 mg 04/08/23 16:00 04/09/23 08:59 Clopidogrel 75 Mg Tab PO 75 mg DAILY AUTUMN Administration Enoxaparin Sodium 40 mg 04/08/23 18:00 04/09/23 19:01 Enoxaparin 40 Mg/0.4 Ml Syringe SQ 40 mg DAILY@1800 AUTUMN Administration Lisinopril 20 mg 04/08/23 21:00 04/09/23 19:53 Lisinopril 20 Mg Tab PO 20 mg BID AUTUMN Administration Metoprolol Tartrate 12.5 mg 04/10/23 09:00 Metoprolol Tartrate 12.5 Mg Tab PO BID [facility] Pravastatin Sodium 20 mg 04/08/23 21:00 04/09/23 19:53 Pravastatin Sodium 20 Mg Tab PO 20 mg HS AUTUMN Administration Intake and Output 04/09/23 04/10/23 04/10/23 22:59 06:59 14:59 Intake Total 0 Balance 0 Intake: Oral 0 Other: Voiding Method Toilet # Voids 1 2 1 04/08/23 11:19 04/09/23 12:32
[2023-04-10 08:09] LABS: Basophils % (A) 1 %; Eosinophils # (A) 0.1 k/uL (0-0.7); Eosinophils % (A) 1 %; HCT 46.5 % (34.0-46.0); HGB 15.4 gm/dL (11.4-16.0); Lymphocytes # (A) 2.4 k/uL (1.0-4.8); Lymphocytes % (A) 34 %; MCH 31.4 pg (25.0-35.0); MCHC 33.2 g/dL (31.0-37.0); MCV 94.7 fL (80.0-100.0); Monocytes # (A) 0.4 k/uL (0-1.0); Monocytes % (A) 5 %; Neutrophils % (A) 56 %; Platelet Count 238 k/uL (150-450); RBC 4.91 m/uL (3.80-5.40); RDW 13.7 % (11.5-15.5)
[2023-04-10 08:39] LABS: ALT 14 U/L (4-34); AST 25 U/L (14-36); African American GFR (CKD) >90 (>60 ml/min/1.73 sqM); Albumin 4.2 g/dL (3.5-5.0); Alkaline Phosphatase 112 U/L (38-126); Anion Gap 7 mmol/L; Blood Urea Nitrogen 16 mg/dL (7-17); Calcium 9.5 mg/dL (8.4-10.2); Carbon Dioxide 25 mmol/L (22-30); Chloride 105 mmol/L (98-107); Glucose 86 mg/dL (74-99); Non-African American GFR(CKD) >90 (>60 ml/min/1.73 sqM); Potassium 4.3 mmol/L (3.5-5.1); Sodium 137 mmol/L (137-145); Total Protein 7.2 g/dL (6.3-8.2)
[2023-04-10] MEDS: lisinopriL 20 MG TAB PO SCH ×2 (08:54→20:40)
[2023-04-10] MEDS: METOPROLOL TARTRATE 12.5 MG TAB PO SCH ×2 (08:54→20:40)
[2023-04-10] MEDS: CLOPIDOGREL 75 MG TAB PO SCH (08:54)
[2023-04-10] MEDS: ASPIRIN 81 MG PO SCH (08:54)
--- NOTE | 2023-04-10 10:43 | P.PN ---
Subjective Progress Note Date: 04/09/23 Patient was seen for follow-up. Patient says that she is feeling much better. Patient offers no new complaints. Patient is laying comfortably in the bed. Objective - Vital Signs Vital signs: Vital Signs Temp 98.1 F 04/09/23 08:00 Pulse 49 L 04/09/23 12:00 Resp 18 04/09/23 08:00 BP 127/63 04/09/23 12:00 Pulse Ox 97 04/09/23 12:00 FiO2 Intake & Output 04/08/23 04/09/23 04/09/23 18:59 06:59 18:59 Intake Total 10 110 Balance 10 110 Weight 54.431 kg Intake: IV 10 0.9 10 Oral 110 Other: Voiding Method Toilet Toilet # Voids 1 1 1 - Exam Patient's mental status, speech and language functions are normal. Cranial ne rves are all normal. Visual orozco are full, extraocular muscles are intact, face is symmetric and tongue protrudes the midline. Shoulder shrug normal. On muscle strength testing, there is no pronator drift and the strength is normal in arms and legs distally and proximally. No more focal weakness. Patient does have some generalized pain, and sometimes goes away but equally. Sensory touch is equal. No ataxia for [id number] or [id number] testing. Plantars are downgoing bilaterally. - Labs CBC & Chem 7: 04/10/23 07:12 04/10/23 07:12 Labs: Abnormal Lab Results - Last 24 Hours (Table) 04/08/23 04/09/23 04/09/23 Range/Units 11:19 07:04 12:32 Sodium 135 L (137-145) mmol/L Creatinine 0.48 L (0.52-1.04) mg/dL Cholesterol 205.00 H (0.00-200.00) mg/dL HDL Cholesterol 61.00 H (40.00-60.00) mg/dL Folate 35.70 H (4.40-31.00) ng/mL Assessment and Plan Assessment: * Probable stroke/TIA manifesting with transient left hemiparesis. Her symptoms have mostly has resolved. * Hypertension * Hyperlipidemia * Chronic left hip issues * History of low back surgery 25 years ago. Plan: * MRI of the brain without contrast, revealed no evidence of intracranial mass or acute/subacute infarct. Findings suspicious for superficial syndrome process. Nonspecific white matter changes, likely secondary to small vessel ischemic disease. I personally reviewed MRI, agree with the findings. No acute ischemic stroke. Some small vessel disease. * 2-D echo with bubble study revealed normal left ventricle size and systolic function with severe hypertrophy. Left ventricular outflow gradient consistent with hypertrophic obstructive cardiomyopathy. Moderate MR, mild to moderate AR. No evidence of shunting with bubble study. Suggest cardiology consultation for abnormal 2-D echo. * CTA head and neck showed: No evidence of dissection of the cervical internal carotid arteries or vertebral arteries or any evidence of significant stenosis at the carotid bifurcations. No evidence of high-grade stenosis or intracranial aneurysm. * Patient has failed aspirin regimen. We will start Plavix 75 mg daily. Patient will stay on dual antiplatelet medications for 21 days and then will stop aspirin and continue Plavix. * Pepcid 20 mg twice a day for gastric ulcer prophylaxis. * Fasting a.m. lipid panel with cholesterol 205, LDL 117, HDL 61 and triglycerides 131. Patient on pravastatin 20 mg at bedtime * Hemoglobin A1c 4.9. * B12 236, folate 35.7. B12 is low, we will start B12 replacement. * Optimize control of blood pressure. * Close neuro checks * Telemetry monitoring rule out any arrhythmia * DVT prophylaxis: Lovenox 40 mg subcu daily * PT OT, speech therapy. PMNR consult appreciated. * Neurologically otherwise clear pending cardiology workup.
[2023-04-10] MEDS ORDERED: CYANOCOBALAMIN 1,000 MCG/ML 1 ML VIAL IM ONE (11:00)
--- NOTE | 2023-04-10 11:24 | P.PN ---
Subjective Progress Note Date: 04/10/23 Tia Faulkner, is a 77-year-old female who presented to [facility] emergency room with a chief complaint of weakness and numbness involving the left side of her body, patient stated that she woke up at 9:30 AM this morning and was having numbness and tingling over the left side of her face upper extremity and lower extremity she was also having some weakness in the left upper extremity, EMS were called and patient was brought into emergency room. She was evaluated in the emergency room vital examination on presentation revealed a temperature of 98.1 pulse 60 respiration 18 blood pressure 182/86 pulse ox 99% on room air Laboratory data revealed a white blood count of 6.8 hemoglobin 14.7 platelet count 231 sodium 138 potassium 3.3 chloride 103 CO2 27 BUN 11 creatinine 0.45 Testing in the emergency room revealed computed tomography scan of the brain without contrast was done in the emergency room and revealed no acute intracranial process, nonspecific white matter changes likely secondary to chronic small vessel ischemic disease. CT angiogram of the neck and brain was done and revealed no evidence of dissection of the cervical internal carotid arteries or vertebral arteries or any evidence of significant stenosis at the carotid bifurcations, no evidence of high grade stenosis or intracranial aneurysm. Patient was admitted to medical floor for further evaluation and treatment, neurology consultation was requested. Past medical history is significant for history of hypertension, history of hyperlipidemia, History of osteoporosis, history of severe scoliosis On review of systems Patient is alert and oriented 3 in no apparent distress there is no fever or chills, no headache or dizziness no chest pain no shortness of breath no cough no nausea or vomiting no abdominal pain no diarrhea no blood in the stools no burning with urination no frequency or urgency and no hematuria. On 04/09/2023 patient is alert and oriented 3 currently sitting up in chair ready to take a shower. Patient was started on Plavix and aspirin. Patient reports minimal improvement with weakness. Patient denies any new neurological symptoms. MRI and 2-D echo has been ordered. Patient denies chest pain or shortness breath. Patient denies nausea vomiting or diarrhea. Patient denies any urinary burning or frequency. Current vital signs temp 98.1, heart rate 53, blood pressure 143/77 with pulse ox 97% on room and On 04/10/2023 patient was seen and examined on the telemetry floor she is alert and oriented 3 in no apparent distress she is still complaining of weakness and numbness especially in the left upper extremity otherwise she denies any complaints, there is no fever or chills no headache or dizziness no chest pain no shortness of breath no cough no nausea or vomiting no abdominal pain no diarrhea and no urinary symptoms. Patient had an abnormal echocardiogram showing hypertrophic obstructive cardiomyopathy, patient also has evidence of bradycardia, dose of beta esthela was decreased by cardiology, will continue to monitor till AM possible discharge to home tomorrow if stable. Objective - Vital Signs Vital signs: Vital Signs Temp 97.7 F 04/10/23 08:00 Pulse 52 L 04/10/23 08:00 Resp 16 04/10/23 08:00 BP 123/59 04/10/23 08:00 Pulse Ox 98 04/10/23 08:00 FiO2 Intake & Output 04/09/23 04/10/23 04/10/23 18:59 06:59 18:59 Intake Total 110 180 Balance 110 180 Intake: Oral 110 180 Other: Voiding Method Toilet Toilet Toilet # Voids 1 2 1 - Exam In general patient is alert and oriented x 3 in no distress HEENT head normocephalic and atraumatic Neck is supple no JVD no goiter no lymphadenopathy no carotid bruit Chest examination is clear to auscultation no crackles no wheezing Cardiac exam reveals regular heart sounds S1 and S2 no gallops no murmurs Abdomen is soft nontender no organomegaly with normal bowel sounds Extremity exam reveals no edema no cyanosis or clubbing Neurological examination reveals patient is alert and oriented 3 in no apparent distress speech is fluent Cranial nerve II-12 are intact There is weakness in the left upper extremity and the left lower extremity at 4 out of 5 There is loss of sensation to the touch in the left upper extremity and the left lower extremity Plantar is downward on the right and equivocal on the left - Labs CBC & Chem 7: 04/10/23 07:12 04/10/23 07:12 Labs: Abnormal Lab Results - Last 24 Hours (Table) 04/09/23 04/09/23 04/10/23 Range/Units 07:04 12:32 07:12 Hct 46.5 H (34.0-46.0) % Sodium 135 L (137-145) mmol/L Creatinine 0.48 L (0.52-1.04) mg/dL Cholesterol 205.00 H (0.00-200.00) mg/dL HDL Cholesterol 61.00 H (40.00-60.00) mg/dL Assessment and Plan Plan: Left sided numbness tingling and weakness involving the left side of the face the left upper and lower extremity, likely related to acute ischemic stroke Underlying history of hypertension Underlying history of osteoarthritis Underlying history of osteoporosis Underlying history of severe scoliosis At this time patient was seen and examined in emergency room She was started on aspirin and Plavix Home medications reviewed and reordered Neurology consultation was requested MRI of the brain ordered 2-D echo ordered For DVT prophylaxis subcu Lovenox Physical therapy and occupational therapy consultations requested Will follow closely
[2023-04-10] MEDS: FAMOTIDINE 20 MG TAB PO SCH ×2 (12:59→20:40)
[2023-04-10] MEDS: ENOXAPARIN 40 MG/0.4 ML SYRINGE SQ SCH (16:40)
[2023-04-10] MEDS: PRAVASTATIN SODIUM 20 MG TAB PO SCH (20:40)
[2023-04-11 07:53] LABS: Basophils % (A) 1 %; Eosinophils # (A) 0.2 k/uL (0-0.7); Eosinophils % (A) 3 %; HCT 45.5 % (34.0-46.0); HGB 15.1 gm/dL (11.4-16.0); Lymphocytes # (A) 2.4 k/uL (1.0-4.8); Lymphocytes % (A) 37 %; MCH 31.8 pg (25.0-35.0); MCHC 33.2 g/dL (31.0-37.0); MCV 95.9 fL (80.0-100.0); Mean Platelet Volume 8.5; Monocytes # (A) 0.3 k/uL (0-1.0); Monocytes % (A) 4 %; Neutrophils # (A) 3.6 k/uL (1.3-7.7); Neutrophils % (A) 55 %; Platelet Count 245 k/uL (150-450); RBC 4.74 m/uL (3.80-5.40); RDW 13.4 % (11.5-15.5); WBC 6.6 k/uL (3.8-10.6)
[2023-04-11 08:10] VITALS: BP 101/59; PULSE 53; TEMP 97.9
[2023-04-11] MEDS: CLOPIDOGREL 75 MG TAB PO SCH (08:15)
[2023-04-11] MEDS: FAMOTIDINE 20 MG TAB PO SCH (08:15)
[2023-04-11] MEDS: ASPIRIN 81 MG PO SCH (08:15)
[2023-04-11 08:44] LABS: ALT 15 U/L (4-34); AST 27 U/L (14-36); African American GFR (CKD) >90 (>60 ml/min/1.73 sqM); Alkaline Phosphatase 96 U/L (38-126); Anion Gap 5 mmol/L; Blood Urea Nitrogen 20 mg/dL (7-17); Calcium 9.1 mg/dL (8.4-10.2); Carbon Dioxide 27 mmol/L (22-30); Chloride 104 mmol/L (98-107); Glucose 83 mg/dL (74-99); Non-African American GFR(CKD) >90 (>60 ml/min/1.73 sqM); Potassium 4.4 mmol/L (3.5-5.1); Sodium 136 mmol/L (137-145); Total Bilirubin 0.8 mg/dL (0.2-1.3); Total Protein 6.9 g/dL (6.3-8.2)
--- NOTE | 2023-04-11 09:16 | P.PN ---
Subjective Progress Note Date: 04/11/23 Principal diagnosis: Hypertension and dyslipidemia The patient is a 77-year-old female patient with a past medical history significant for hypertension and dyslipidemia presented to the hospital with left sided numbness and left side weakness and finding concerning for ischemic stroke. She was seen by the neurology service and the further investigation was performed including computed tomography scan of the brain as well as MRI of the brain and both came in to be unremarkable. She underwent also CTA of the neck and that showed no evidence of any high-grade stenosis or any carotid dissection. Subsequently further investigation was performed including an echocardiogram and that showed normal LV systolic function with severe left ventricular hypertrophy and evidence of LVOT obstruction. Also the echo showed evidence of moderate aortic regurgitation and moderate mitral regurgitation. The EKG showed sinus mechanism with RBBB. The echo did not show any evidence of crossing across the interatrial septum. We requested to see the patient for further evaluation of the abnormal echocardiogram. Currently the patient does not report any symptoms of any anginal chest pain or chest discomfort. She does not recall having any heart racing or fluttering or any dizziness or lightheadedness or any presyncope or syncope. No coronary artery disease or any congestive heart failure history from before. 04/11/2023 The patient was seen and evaluated this morning. She has been up and around using a walker. She reports no cardiovascular symptoms. The pressure has been marginal and I'm going to decrease the dose of lisinopril. The heart rate continues to be on the low side but has been in the upper 40s and lower 50s but she has been asymptomatic in terms of dizziness and lightheadedness or presyncope or syncope. I am going to keep her on the current dose of beta esthela which has decreased yesterday. On examination she has regular rhythm with sinus bradycardia and heart rate in the upper 40s and/or 50s with systolic murmur at the right and left upper st ernal border. Assessment Left sided numbness/weakness concerning for TIA Hypertrophy cardiomyopathy/hypertensive heart disease on the echocardiogram Valvular heart disease with aortic regurgitation and mitral regurgitation Asymptomatic sinus bradycardia Hypotension Plan Decrease the dose of lisinopril in the light of marginal blood pressure Continue the current dose of beta esthela Follow-up with the patient on when necessary case Objective - Vital Signs Vital signs: Vital Signs Temp 97.9 F 04/11/23 08:09 Pulse 53 L 04/11/23 08:09 Resp 16 04/11/23 08:09 BP 101/59 04/11/23 08:09 Pulse Ox 97 04/11/23 08:09 FiO2 Intake & Output 04/10/23 04/11/23 04/11/23 18:59 06:59 18:59 Intake Total 900 Balance 900 Intake: Oral 900 Other: Voiding Method Toilet Toilet # Voids 2 1 - Labs CBC & Chem 7: 04/11/23 07:23 04/11/23 07:23 Labs: Abnormal Lab Results - Last 24 Hours (Table) 04/11/23 Range/Units 07:23 Sodium 136 L (137-145) mmol/L BUN 20 H (7-17) mg/dL
[2023-04-11] MEDS ORDERED: lisinopriL 20 MG TAB PO SCH (09:30)
[2023-04-11] MEDS: METOPROLOL TARTRATE 12.5 MG TAB PO SCH (10:17)
--- NOTE | 2023-04-11 10:44 | P.PN ---
Subjective Progress Note Date: 04/10/23 Patient was seen for follow-up. Patient says that she is feeling much better. Patient offers no new complaints. Patient is laying comfortably in the bed. Objective - Vital Signs Vital signs: Vital Signs Temp 97.7 F 04/10/23 08:00 Pulse 50 L 04/10/23 12:00 Resp 16 04/10/23 08:00 BP 103/58 04/10/23 12:00 Pulse Ox 99 04/10/23 12:08 FiO2 Intake & Output 04/09/23 04/10/23 04/10/23 18:59 06:59 18:59 Intake Total 110 360 Balance 110 360 Intake: Oral 110 360 Other: Voiding Method Toilet Toilet Toilet # Voids 1 2 1 - Exam Patient's mental status, speech and language functions are normal. Cranial nerves are all normal. Visual orozco are full, extraocular muscles are intact, face is symmetric and tongue protrudes the midline. Shoulder shrug normal. On muscle strength testing, there is no pronator drift and the strength is normal in arms and legs distally and proximally. No more focal weakness. Sensory touch is equal. No ataxia for ejlzfl-fk-yoph or asnz-hw-mekh testing. Plantars are downgoing bilaterally. - Labs CBC & Chem 7: 04/11/23 07:23 04/11/23 07:23 Labs: Abnormal Lab Results - Last 24 Hours (Table) 04/10/23 Range/Units 07:12 Hct 46.5 H (34.0-46.0) % Assessment and Plan Assessment: * Probable stroke/TIA manifesting with transient left hemiparesis. Her symptoms have mostly has resolved. MRI of the brain negative for any acute stroke. * Hypertrophic obstructive cardiomyopathy * Valvular heart disease with aortic regurgitation and mitral regurgitation * Hypertension * Hyperlipidemia * Chronic left hip issues * Vitamin B12 deficiency * History of low back surgery 25 years ago. Plan: * Patient's all neurological deficits have resolved. * MRI of the brain without contrast, revealed no evidence of intracranial mass or acute/subacute infarct. Findings suspicious for superficial syndrome process. Nonspecific white matter changes, likely secondary to small vessel ischemic disease. I personally reviewed MRI, agree with the findings. No acute ischemic stroke. Some small vessel disease. * 2-D echo with bubble study revealed normal left ventricle size and systolic function with severe hypertrophy. Left ventricular outflow gradient consistent with hypertrophic obstructive cardiomyopathy. Moderate MR, mild to moderate AR. No evidence of shunting with bubble study. Appreciate cardiology input.. * CTA head and neck showed: No evidence of dissection of the cervical internal carotid arteries or vertebral arteries or any evidence of significant stenosis at the carotid bifurcations. No evidence of high-grade stenosis or intracranial aneurysm. * Patient has failed aspirin regimen. We will start Plavix 75 mg daily. Patient will stay on dual antiplatelet medications for 21 days and then will stop aspirin and continue Plavix. * Pepcid 20 mg twice a day for gastric ulcer prophylaxis. * Fasting a.m. lipid panel with cholesterol 205, LDL 117, HDL 61 and triglycerides 131. Patient on pravastatin 20 mg at bedtime * Hemoglobin A1c 4.9. * B12 236, folate 35.7. B12 is low, we will start B12 replacement. May consider monthly B12 injections after discharge. * Optimize control of blood pressure to normotensive level. Cardiology following. * Telemetry monitoring rule out any arrhythmia * DVT prophylaxis: Lovenox 40 mg subcu daily * PT OT, speech therapy. PMNR consult appreciated. Recommending home with home health care. * Neurologically otherwise clear pending cardiology workup.
[2023-04-11] MEDS: lisinopriL 20 MG TAB PO SCH (10:52)
--- NOTE | 2023-04-11 10:52 | P.DS ---
Providers Date of admission: 04/08/23 12:53 Expected date of discharge: 04/11/23 Attending physician: Gary Dimas Consults: 04/08/23 12:51 Consult Physician Routine Consulting Provider: Sona Valenzuela Consult Reason/Comments: cva Do you want consulting provider notified?: Already Contacted 04/09/23 11:28 Consult Physician Routine Consulting Provider: John Knox Consult Reason/Comments: IPR consult Do you want consulting provider notified?: Yes 04/09/23 15:35 Consult Physician Routine Consulting Provider: Dolly Morel Consult Reason/Comments: CVA, abnormal echo Do you want consulting provider notified?: Yes Primary care physician: Gary Dimas [facility] Course: Discharge diagnosis Left sided numbness tingling and weakness involving the left side of the face the left upper and lower extremity, likely related to acute ischemic stroke Underlying history of hypertension Underlying history of osteoarthritis Underlying history of osteoporosis Underlying history of severe scoliosis Hospital course Tia Faulkner, is a 77-year-old female who presented to [facility] emergency room with a chief complaint of weakness and numbness involving the left side of her body, patient stated that she woke up at 9:30 AM this morning and was having numbness and tingling over the left side of her face upper extremity and lower extremity she was also having some weakness in the left upper extremity, EMS were called and patient was brought into emergency room. She was evaluated in the emergency room vital examination on presentation revealed a temperature of 98.1 pulse 60 respiration 18 blood pressure 182/86 pulse ox 99% on room air Laboratory data revealed a white blood count of 6.8 hemoglobin 14.7 platelet count 231 sodium 138 potassium 3.3 chloride 103 CO2 27 BUN 11 creatinine 0.45 Testing in the emergency room revealed computed tomography scan of the brain without contrast was done in the emergency room and revealed no acute intracranial process, nonspecific white matter changes likely secondary to chronic small vessel ischemic disease. CT angiogram of the neck and brain was done and revealed no evidence of dissection of the cervical internal carotid arteries or vertebral arteries or any evidence of significant stenosis at the carotid bifurcations, no evidence of high grade stenosis or intracranial aneurysm. Patient was admitted to medical floor for further evaluation and treatment, neurology consultation was requested. Past medical history is significant for history of hypertension, history of hyperlipidemia, History of osteoporosis, history of severe scoliosis On review of systems Patient is alert and oriented 3 in no apparent distress there is no fever or chills, no headache or dizziness no chest pain no shortness of breath no cough no nausea or vomiting no abdominal pain no diarrhea no blood in the stools no burning with urination no frequency or urgency and no hematuria. On 04/09/2023 patient is alert and oriented 3 currently sitting up in chair ready to take a shower. Patient was started on Plavix and aspirin. Patient reports minimal improvement with weakness. Patient denies any new neurological symptoms. MRI and 2-D echo has been ordered. Patient denies chest pain or shortness breath. Patient denies nausea vomiting or diarrhea. Patient denies any urinary burning or frequency. Current vital signs temp 98.1, heart rate 53, blood pressure 143/77 with pulse ox 97% on room and On 04/10/2023 patient was seen and examined on the telemetry floor she is alert and oriented 3 in no apparent distress she is still complaining of weakness and numbness especially in the left upper extremity otherwise she denies any complaints, there is no fever or chills no headache or dizziness no chest pain no shortness of breath no cough no nausea or vomiting no abdominal pain no diarrhea and no urinary symptoms. Patient had an abnormal echocardiogram showing hypertrophic obstructive cardiomyopathy, patient also has evidence of bradycardia, dose of beta esthela was decreased by cardiology, will continue to monitor till AM possible discharge to home tomorrow if stable. On 04/11/2023 patient is alert and oriented 3. Lisinopril and beta estehla decreased per cardiology services. Cardiology no further workup inpatient patient to follow-up outpatient for further management. She'll be DC'd home with Plavix and aspirin. Patient Condition at Discharge: Stable Plan - Discharge Summary Discharge Rx Participant: No New Discharge Prescriptions: New Clopidogrel [Plavix] 75 mg PO DAILY 30 Days #30 tab lisinopriL [Zestril] 20 mg PO DAILY 30 Days #30 tab Metoprolol Tartrate [Lopressor] 12.5 mg PO BID 30 Days #60 tab Continue Pravastatin Sodium [Pravachol] 20 mg PO HS Aspirin EC [Ecotrin Low Dose] 81 mg PO DAILY Discontinued lisinopriL [Zestril] 20 mg PO BID Metoprolol Tartrate [Lopressor] 25 mg PO BID Discharge Medication List Pravastatin Sodium [Pravachol] 20 mg PO HS 07/31/15 [History] Aspirin EC [Ecotrin Low Dose] 81 mg PO DAILY 04/08/23 [History] Clopidogrel [Plavix] 75 mg PO DAILY 30 Days #30 tab 04/11/23 [Rx] Metoprolol Tartrate [Lopressor] 12.5 mg PO BID 30 Days #60 tab 04/11/23 [Rx] lisinopriL [Zestril] 20 mg PO DAILY 30 Days #30 tab 04/11/23 [Rx] Follow up Appointment(s)/Referral(s): [facility],[place] [facility] [NON-STAFF] - Gary Dimas MD [Primary Care Provider] - 1-2 days [facility] [NON-STAFF] - Wero Gagnon MD [STAFF PHYSICIAN] - 1 Week Activity/Diet/Wound Care/Special Instructions: Activity as tolerated Diet heart healthy Discharge/Stand Alone Forms: Who Do I Call?, Community Resources, Personal Android Software Engineer Discharge Disposition: HOME WITH HOME HEALTH SERVICES
[2023-04-11] MEDS ORDERED: CYANOCOBALAMIN 1,000 MCG/ML 1 ML VIAL IM ONE (11:00)
== END 2023-04-11 13:37 | disposition home or self-care (01) | DRG 65 ==
LOC: EC 10:45 → 3SCARD 12:53
PROVIDERS: ADMIT Internal Medicine; ATTEND Internal Medicine
DX: I63.9 Cerebral infarction, unspecified (principal); G81.94 Hemiplegia, unspecified affecting left nondominant side; I42.1 Obstructive hypertrophic cardiomyopathy; I11.9 Hypertensive heart disease without heart failure; I95.9 Hypotension, unspecified; R29.705 NIHSS score 5; E53.8 Deficiency of other specified B group vitamins; E78.5 Hyperlipidemia, unspecified; E87.6 Hypokalemia; I08.0 Rheumatic disorders of both mitral and aortic valves; M81.0 Age-related osteoporosis without current pathological fracture; M41.9 Scoliosis, unspecified; R00.1 Bradycardia, unspecified; M19.90 Unspecified osteoarthritis, unspecified site; I45.10 Unspecified right bundle-branch block; I25.2 Old myocardial infarction; Z79.82 Long term (current) use of aspirin; Z79.899 Other long term (current) drug therapy; Z86.73 Personal history of transient ischemic attack (TIA), and cerebral infarction without residual deficits; Z91.81 History of falling
CPT/HCPCS: 36415; 70450; 70496; 70498; 70551; 71046; 80048; 80053; 80061; 82550; 82607; 82746; 83036; 84484; 85025; 85610; 85730; 93005; 93306; 94760; 99291

== ENCOUNTER 2023-04-14 08:05 | Observation (INO) | payer MEDICARE, OTHER ==
--- NOTE | 2023-04-14 08:28 | ED ---
General Adult HPI - General Chief complaint: Neuro Symptoms/Deficit Stated complaint: poss stroke Time Seen by Provider: 04/14/23 08:13 Source: patient, family, RN notes reviewed Mode of arrival: wheelchair Limitations: no limitations - History of Present Illness Initial comments: Patient is a pleasant 77 year old female presenting to the emergency department with family with concern for lightheadedness. Onset of symptoms was noticed when she woke this morning. Last known well patient believes was last night however she is not quite clear on this. Patient feels lightheaded. Patient feels somewhat weak. Patient is unable to identify specific area of weakness. Patient did have mild tremors earlier. Family was worried patient is having another stroke. Patient was admitted last week with stroke. - Related Data Home Medications Medication Instructions Recorded Confirmed Pravastatin Sodium [Pravachol] 20 mg PO HS 07/31/15 04/08/23 Aspirin EC [Ecotrin Low Dose] 81 mg PO DAILY 04/08/23 04/08/23 Previous Rx's Medication Instructions Recorded Clopidogrel [Plavix] 75 mg PO DAILY 30 Days #30 tab 04/11/23 Metoprolol Tartrate [Lopressor] 12.5 mg PO BID 30 Days #60 tab 04/11/23 lisinopriL [Zestril] 20 mg PO DAILY 30 Days #30 tab 04/11/23 Allergies Allergy/AdvReac Type Severity Reaction Status Date / Time No Known Allergies Allergy Verified 04/08/23 12:21 Review of Systems ROS Statement: Those systems with pertinent positive or pertinent negative responses have been documented in the HPI. ROS Other: All systems not noted in ROS Statement are negative. Constitutional: Denies: fever Eyes: Denies: eye pain ENT: Denies: ear pain Respiratory: Denies: cough Cardiovascular: Denies: chest pain Endocrine: Denies: fatigue Gastrointestinal: Denies: abdominal pain Genitourinary: Denies: dysuria Musculoskeletal: Denies: back pain Skin: Denies: rash Neurological: Reports: as per HPI. Denies: headache Past Medical History Past Medical History: CVA/TIA, Hyperlipidemia, Hypertension, Memory Impairment, Myocardial Infarction (IL) Additional Past Medical History / Comment(s): HEART MURMUR, LEAKY VALVE. POSS MILD STROKE YEARS AGO, UNSURE, HAS DIFFICULTY RECALLING SOME HISTORICAL MEDICAL INFO. 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 Past Anesthesia/Blood Transfusion Reactions: Motion Sickness Past Psychological History: No Psychological Hx Reported Smoking Status: Never smoker Past Alcohol Use History: None Reported Past Drug Use History: None Reported - Past Family History Father Additional Family Medical History / Comment(s): patient states "he had heart problems". patient unsure what type of heart problems. Mother Family Medical History: Cancer, Diabetes Mellitus Additional Family Medical History / Comment(s): brain cancer Brother(s) Family Medical History: Diabetes Mellitus Additional Family Medical History / Comment(s): autistic Sister(s) History Unknown: Yes General Exam Limitations: no limitations General appearance: alert, in no apparent distress Head exam: Present: atraumatic Eye exam: Present: normal appearance, PERRL, EOMI ENT exam: Present: normal oropharynx Neck exam: Present: normal inspection Respiratory exam: Present: normal lung sounds bilaterally Cardiovascular Exam: Present: bradycardia GI/Abdominal exam: Present: soft. Absent: tenderness Extremities exam: Present: normal inspection Neurological exam: Present: alert, CN II-XII intact Expanded Neurological exam: Present: protecting the airway Speech: Present: fluid speech Cranial nerves: EOM's Intact: Normal, Facial Sensation: Normal Sensory exam: Upper Extremity Light Touch: Normal, Lower Extremity Light Touch: Normal Motor strength exam: RUE: 3, LUE: 3, RLE: 4, LLE: 3 Eye Response: (4) open spontaneously Motor Response: (6) obeys commands Verbal Response: (5) oriented Psychiatric exam: Present: normal affect, normal mood Skin exam: Present: normal color Course Vital Signs 04/14/23 04/14/23 08:06 09:13 Temperature 98 F Pulse Rate 44 L 47 L Respiratory 20 18 Rate Blood Pressure 141/60 152/81 O2 Sat by Pulse 100 97 Oximetry - Reevaluation(s) Reevaluation #1: 04/14/23 08:24 Patient not considered a TPA candidate secondary to symptoms not clear-cut diagn osis of stroke. In addition last known well greater than 4.5 hours. Therefore risk is felt to outweigh the benefit. EKG Findings - EKG Results: EKG: interpreted by ERMD (Left axis. Right bundle branch block. LVH. Prominent T waves.), sinus rhythm EKG shows: bradycardia Medical Decision Making - Medical Decision Making Was pt. sent in by a medical professional or institution (, [employer], COMPOSING MACHINE OPERATOR/TENDER, urgent care, hospital, or shelter...) When possible be specific @ -No Did you speak to anyone other than the patient for history (EMS, parent, family, police, friend...)? What history was obtained from this source @ -Daughter is present and helps provide history including recent visit Did you review nursing and triage notes (agree or disagree)? Why? @ -I reviewed and agree with nursing and triage notes Were old charts reviewed (outside hosp., previous admission, EMS record, old EKG, old radiological studies, urgent care reports/EKG's, shelter records)? Report findings @ -Previous CT and CTA reviewed Differential Diagnosis (chest pain, altered mental status, abdominal pain women, abdominal pain men, vaginal bleeding, weakness, fever, dyspnea, syncope, headache, dizziness, GI bleed, back pain, seizure, CVA, palpatations, mental health)? @ -Differential Weakness: Hypoglycemia, shock, sepsis, hyponatremia, anemia, infection, IL, ETOH, adverse medicine reaction, overdose, stroke, this is not meant to be an all-inclusive list. EKG interpreted by me (3pts min.). @ -As above X-rays interpreted by me (1pt min.). @ -Chest x-ray shows no acute process. Cardio megaly. CT interpreted by me (1pt min.). @ -Report reviewed U/S interpreted by me (1pt. min.). @ -None done What testing was considered but not performed or refused? (CT, X-rays, U/S, labs)? Why? @ -None What meds were considered but not given or refused? Why? @ -None Did you discuss the management of the patient with other professionals (professionals i.e. , [employer], COMPOSING MACHINE OPERATOR/TENDER, lab, RT, psych nurse, adoption social worker, local tanker truck driver, teacher, drug abuse resistance education officer, returned case inspector)? Give summary @ -Case was discussed with Dr. Dimas, who will admit his patient. Was smoking cessation discussed for >3mins.? @ -No Was critical care preformed (if so, how long)? @ -No Were there social determinants of health that impacted care today? How? (Homelessness, low income, unemployed, alcoholism, drug addiction, transportation, low edu. Level, literacy, decrease access to med. care, long term, rehab)? @ -No Was there de-escalation of care discussed even if they declined (Discuss DNR or withdrawal of care, Hospice)? DNR status @ -No What co-morbidities impacted this encounter? (DM, HTN, Smoking, COPD, CAD, Cancer, CVA, ARF, Chemo, Hep., AIDS, mental health diagnosis, sleep apnea, morbid obesity)? @ -None Was patient admitted / discharged? Hospital course, mention meds given and route, prescriptions, significant lab abnormalities, going to OR and other pertinent info. @ -Patient reevaluated. Patient and family updated on results and plan. Patient has persistent bradycardia. It about her be held and cardiology will be placed on consult. He should and will also have neurology consult for nonspecific neurological symptoms. Undiagnosed new problem with uncertain prognosis? @ -No Drug Therapy requiring intensive monitoring for toxicity (Heparin, Nitro, Ins ulin, Cardizem)? @ -No Were any procedures done? @ -No Diagnosis/symptom? @ -Bradycardia, weakness Acute, or Chronic, or Acute on Chronic? @ -Acute, acute Uncomplicated (without systemic symptoms) or Complicated (systemic symptoms)? @ -default Side effects of treatment? @ -No Exacerbation, Progression, or Severe Exacerbation? @ -No Poses a threat to life or bodily function? How? (Chest pain, [place], IL, pneumonia, PE, COPD, DKA, ARF, appy, cholecystitis, CVA, Diverticulitis, Homicidal, Suicidal, threat to staff... and all critical care pts) @ -No - Lab Data Result diagrams: 04/14/23 08:35 Lab Results 04/14/23 04/14/23 Range/Units 08:35 08:35 WBC 5.9 (3.8-10.6) k/uL RBC 4.52 (3.80-5.40) m/uL Hgb 14.8 (11.4-16.0) gm/dL Hct 43.1 (34.0-46.0) % MCV 95.5 (80.0-100.0) fL MCH 32.7 (25.0-35.0) pg MCHC 34.2 (31.0-37.0) g/dL RDW 13.1 (11.5-15.5) % Plt Count 253 (150-450) k/uL MPV 8.7 Neutrophils % 52 % Lymphocytes % 37 % Monocytes % 5 % Eosinophils % 4 % Basophils % 1 % Neutrophils # 3.0 (1.3-7.7) k/uL Lymphocytes # 2.2 (1.0-4.8) k/uL Monocytes # 0.3 (0-1.0) k/uL Eosinophils # 0.2 (0-0.7) k/uL Basophils # 0.1 (0-0.2) k/uL PT 10.0 (9.0-12.0) sec INR 0.9 (<1.2) APTT 23.3 (22.0-30.0) sec Disposition Clinical Impression: Bradycardia, Weakness Disposition: ADMITTED IP TO THIS HOSP Is patient prescribed a controlled substance at d/c from ED?: No Referrals: Gary Dimas MD [Primary Care Provider] - 1-2 days Time of Disposition: 09:42
[2023-04-14 08:45] LABS: Basophils # (A) 0.1 k/uL (0-0.2); Basophils % (A) 1 %; Eosinophils # (A) 0.2 k/uL (0-0.7); Eosinophils % (A) 4 %; HCT 43.1 % (34.0-46.0); HGB 14.8 gm/dL (11.4-16.0); Lymphocytes # (A) 2.2 k/uL (1.0-4.8); Lymphocytes % (A) 37 %; MCH 32.7 pg (25.0-35.0); MCHC 34.2 g/dL (31.0-37.0); MCV 95.5 fL (80.0-100.0); Mean Platelet Volume 8.7; Monocytes # (A) 0.3 k/uL (0-1.0); Monocytes % (A) 5 %; Neutrophils % (A) 52 %; Platelet Count 253 k/uL (150-450); RBC 4.52 m/uL (3.80-5.40); RDW 13.1 % (11.5-15.5); WBC 5.9 k/uL (3.8-10.6)
[2023-04-14 08:57] LABS: INR 0.9 (<1.2); Partial Thromboplastin Time 23.3 sec (22.0-30.0)
--- NOTE | 2023-04-14 09:05 | CT ---
EXAMINATION TYPE: CT brain wo con DATE OF EXAM: 04/14/2023 COMPARISON: 04/08/2023 HISTORY: Neuro deficit, stroke suspected. NOT CALLED A CODE STROKE CT DLP: 1099.4 mGycm Automated exposure control for dose reduction was used. FINDINGS: Moderate generalized degenerative change with faint low-attenuation white matter suggestive of remote ischemia. A low-attenuation left frontal cortex is stable exam appears to be secondary to partial vo lume averaging and coronal and sagittal images. There is no acute hemorrhage. No mass effect. Punctate left basal ganglia calcification incidentally noted. Intracranial atherosclerotic change is noted. Hyperostosis of frontal bone noted with a small osteoma extending off the outer table craniocervical junction maintained. Sella turcica is normal orbits are symmetric. A mucous retention cyst or polyp i n the right sinus. IMPRESSION: MODERATE DEGENERATIVE AND MILD REMOTE SUSPECT ISCHEMIC WHITE MATTER CHANGE WITH NO ACUTE MAJOR MASS E FFECT.
--- NOTE | 2023-04-14 09:29 | XR ---
EXAMINATION TYPE: XR chest 2V DATE OF EXAM: 04/14/2023 COMPARISON: 04/08/2023 HISTORY: 77-year-old female confusion, altered mental status TECHNIQUE: AP and lateral views FINDINGS: Heart mild to moderately enlarged. Atherosclerotic arch calcifications. Cholecystectomy clips. No con solidation or pleural effusion. Dextroconvex scoliosis. IMPRESSION: Similar mild to moderate cardiomegaly. No acute process seen.
[2023-04-14] MEDS ORDERED: ACETAMINOPHEN TAB 325 MG TAB PO PRN (09:43)
[2023-04-14] MEDS ORDERED: NALOXONE 0.4 MG/ML 1 ML VIAL IV PRN (09:43)
[2023-04-14 11:09] LABS: Glucose,Whole Blood 79 mg/dL (70-110)
--- NOTE | 2023-04-14 11:40 | CT ---
EXAMINATION TYPE: CT brain wo con for TPA DATE OF EXAM: 04/14/2023 COMPARISON: 04/14/2023 HISTORY: 77-year-old female CVA, code stroke TECHNIQUE: Examination was done in axial plane without intravenous contrast. Coronal and sagittal r econstructions performed. CT DLP: 1090.40 mGycm Automated exposure control for dose reduction was used. FINDINGS: There is no evidence of acute intracranial hemorrhage, acute ischemic changes, mass, mass-effect, or extra-axial fluid collection. There is no effacement of cerebral sulci or basal subarachnoid cister ns. There is no hydrocephalus. There is no midline shift. Garcia-white matter distinction is preserv ed. 1.3 cm polyp or mucous retention cyst posterior floor the right maxillary sinus. Mastoid air cells ar e well pneumatized. Orbits and globes are intact. Benign hyperostosis frontalis interna with stable small right paramedian anterior osteoma of the oute r table. IMPRESSION: No acute intracranial abnormality seen.
--- NOTE | 2023-04-14 11:48 | CT ---
EXAMINATION TYPE: CODE STROKE: CTA head neck DATE OF EXAM: 04/14/2023 COMPARISON: CT head same day HISTORY: 77-year-old female neuro deficit. code stroke TECHNIQUE: Contiguous axial scanning of the head and neck performed with IV Contrast, patient injecte d with 65 mL of Isovue 370. Coronal/sagittal MIP reconstructions performed. 3-D reconstructions gener ated on a dedicated independent workstation. CT DLP: 234.90 mGycm Automated exposure control for dose reduction was used. FINDINGS: Neck: Conventional arch vessel branching anatomy. Mild atherosclerotic arch calcifications. The vertebral arteries are patent throughout the course. Right vertebral artery minimally more domina nt than the left. The right common and right external carotid arteries are patent. The left common and left internal carotid arteries are widely patent. NASCET criteria was utilized. Mild emphysematous change in the visualized upper lungs. Head: Slightly more dominant right vertebral artery. Otherwise, both vertebral and basilar arteries are pat ent. The remainder of the posterior circulation is patent. Small posterior communicating artery on the right. 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 The bilateral internal carotid arteries are patent. There is hypoplastic A1 segment left anterior cer ebral artery. Otherwise, the anterior circulation is patent. No aneurysmal change is seen. Dural venous sinuses are patent. IMPRESSION: 1. NECK: WIDELY PATENT VERTEBRAL AND CAROTID ARTERIES OF THE NECK. 2. HEAD: NO LARGE VESSEL INTRACRANIAL ARTERIAL OCCLUSION, SIGNIFICANT STENOSIS, OR ANEURYSMAL CHANGE IS SEEN. SOME NORMAL ANATOMIC VARIATION ABOVE.
[2023-04-14 12:48] LABS: Basophils % (A) 1 %; Eosinophils # (A) 0.1 k/uL (0-0.7); Eosinophils % (A) 1 %; HCT 40.8 % (34.0-46.0); HGB 14.1 gm/dL (11.4-16.0); Lymphocytes # (A) 1.5 k/uL (1.0-4.8); Lymphocytes % (A) 29 %; MCHC 34.7 g/dL (31.0-37.0); MCV 92.3 fL (80.0-100.0); Mean Platelet Volume 9.2; Monocytes # (A) 0.2 k/uL (0-1.0); Monocytes % (A) 4 %; Neutrophils # (A) 3.3 k/uL (1.3-7.7); Neutrophils % (A) 64 %; Platelet Count 214 k/uL (150-450); RBC 4.42 m/uL (3.80-5.40); RDW 13.4 % (11.5-15.5); WBC 5.2 k/uL (3.8-10.6)
[2023-04-14] MEDS ORDERED: CYANOCOBALAMIN 1,000 MCG/ML 1 ML VIAL IM ONE (13:13)
--- NOTE | 2023-04-14 13:14 | P.CNNES ---
History of Present Illness Consult date: 04/14/23 Requesting physician: Jacob Barnes Reason for Consult: weak History of Present Illness: This is a 77-year-old woman with a recent probable stroke/TIA manifesting with left hemiparesis and symptoms resolved, hypertrophic obstructive cardiomyopathy, valvular heart disease with aortic regurgitation and mitral regurgitation, hypertension, hyperlipidemia, vitamin B12 deficiency who presented emergency department because of dizziness, feeling off. History was obtained from the patient's daughter was at bedside as well as the medical record the patient nurse. Patient was recently seen in our facility and was seen by Dr. Gisel little on 04/10/2023 in which she had the transient left-sided weakness any felt probable TIA and MRI is negative for acute stroke. Patient had a stroke workup and the patient was placed on aspirin or Plavix. Per the daughter she was doing well recovering well but today she woke up by stating that she's feeling dizzy feeling off and the stated she had allowed noticed it in her ears bilaterally. Per the patient daughter and grandson they stated that she had numbness on the left side while in the ED. While the patient was moved to 6 N floor there at around the 10ish according to her nurse she felt the patient had generalized weakness but predominately left-sided weakness more than the right side and was confused. Patient seems to be very confused. According to the daughter earlier dad today she had some shaking of bilateral upper extremity but she was responding. No foaming around the mouth. She does not have any history of seizures. Seems earlier she was a very unresponsive but has been slightly improving compared to earlier. Last normal state is unknown about presumptive E last night. As a result her NIH stroke scale per the the nurse is 18. No IV TPA since last normal was last night she is outside of her window. And the risk outweighed the benefit. CT of the head is reported as no acute intracranial abnormality seen. I personally reviewed the CT and I agree with the report. CT angiography of the head is reported as no large vessel intracranial arterial occlusion, significant stenosis or aneurysm changes seen. Some normal anatomic variation. For the CT of the neck and it's reported as widely patent vertebral and carotid arteries of the neck. POC glucose is 79. Her blood pressure was in the 160s 190s systolic and diastolic is 70 to 80s. Heart rate in the 40s. Earlier CT of the head is reported as moderate degenerative and mild most suspect ischemic white matter changes with no acute major mass effect. Review of Systems Review of system is limited but the prone positive and negative as per HPI. Past Medical History Past Medical History: CVA/TIA, Hyperlipidemia, Hypertension, Memory Impairment, Myocardial Infarction ([place]) Additional Past Medical History / Comment(s): HEART MURMUR, LEAKY VALVE. POSS MILD STROKE YEARS AGO, UNSURE, HAS DIFFICULTY RECALLING SOME HISTORICAL MEDICAL INFO. 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 Past Anesthesia/Blood Transfusion Reactions: Motion Sickness Past Psychological History: No Psychological Hx Reported Smoking Status: Never smoker Past Alcohol Use History: None Reported Past Drug Use History: None Reported - Past Family History Father Additional Family Medical History / Comment(s): patient states "he had heart problems". patient unsure what type of heart problems. Mother Family Medical History: Cancer, Diabetes Mellitus Additional Family Medical History / Comment(s): brain cancer Brother(s) Family Medical History: Diabetes Mellitus Additional Family Medical History / Comment(s): autistic Sister(s) History Unknown: Yes Medications and Allergies Home Medications Medication Instructions Recorded Confirmed Type Pravastatin Sodium [Pravachol] 20 mg PO HS 07/31/15 04/14/23 History Aspirin EC [Ecotrin Low Dose] 81 mg PO DAILY 04/08/23 04/14/23 History Clopidogrel [Plavix] 75 mg PO DAILY 30 Days #30 tab 04/11/23 04/14/23 Rx Metoprolol Tartrate [Lopressor] 12.5 mg PO BID 30 Days #60 tab 04/11/23 04/14/23 Rx lisinopriL [Zestril] 20 mg PO DAILY 30 Days #30 tab 04/11/23 04/14/23 Rx Allergies Allergy/AdvReac Type Severity Reaction Status Date / Time No Known Allergies Allergy Verified 04/14/23 10:23 Physical Examination - Vital Signs Vital Signs: Vital Signs Temp Pulse Pulse Resp BP BP Pulse Ox 04/14/23 11:50 49 L 13 162/81 98 04/14/23 11:05 44 L 14 164/74 99 04/14/23 10:58 98 F 44 L 44 L 12 195/71 195/71 98 04/14/23 10:20 48 L 16 129/80 99 04/14/23 09:13 47 L 18 152/81 97 04/14/23 08:06 98 F 44 L 20 141/60 100 Intake and Output 04/13/23 04/14/23 04/14/23 22:59 06:59 14:59 Other: Weight 47.174 kg GENERAL: The patient is laying in bed and does not appear in acute distress. NEUROLOGICAL: Higher mental function: The patient is severely drowsy and briefly aweakeable to voice. She is oriented to self. She is following few simple commands (thumbs up, wiggling toes). Language is limited and talking very slow. Pupils are round, equal and reactive to light. EOM is tracking throughout the room and no nystagmus. No facial droop. No dysarthria. Motor: The strength is limited in assessment but lifting bilateral uppers briefly above gravity and wiggle toes symmetrically. Decrease tone throughout. Cerebellum: Unable to assess. Sensation: Sensation is normal to touch in lowers otherwise limited. Results - Laboratory Findings CBC and BMP: 04/14/23 12:19 Assessment and Plan Assessment: This is a 77-year-old woman who was here last week for probable TIA (manifesting) with transient left hemiparesis that resolved and MRI was negative who presented to our facility because of dizzy, confused and lateral nose both ears. In the ED it seems that she had numbness and on the floor she had the weakness over the left side and that very confused and was unresponsive. Per the daughter she had some shaking of bilateral upper extremities earlier today but was a responsive during this episode. Episode of confusion with left-sided weakness and numbness and shaking of bilateral upper extremity is concerning for seizure. Cannot rule out stroke or other underlying etiologies. My examination she is extremely drowsy but do not appreciate any focal deficit by examination is limited because of her drowsiness History of recent TIA last week and she had manifestation of left hemiparesis that resolved the MRI the brain was negative. bradycardiac in the 40s Hypertension Valvular heart disease with aortic regurgitation mitral regurgitation Hypertension Hyperlipidemia Chronic left hip issues Vitamin B12 deficiency Plan: I ordered MRI of the brain with and without to rule out any stroke or any mass. I ordered the EEG to rule out underlying seizure or discharges. The daughters in agreement also holding off anti-seizure medication unless the EEG shows any signs of seizure or discharges or any further clinical episodes suggestive of seizures We'll continue her home dose of aspirin 81mg daily and Plavix 75mg daily. Continued pravastatin 20mg daily Recently she had B12: 236 and she received supplement last week (prior hospital visit). Dr. Valenzuela Recommended Monthly B12 Injection. I will give another B12 1000mcg injection today. 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 Thank you consultation Time with Patient: Greater than 30
[2023-04-14 13:23] LABS: Creatine Kinase MB 0.8 ng/mL (0.0-2.4); Troponin I 0.013 ng/mL (0.000-0.034)
[2023-04-14 13:26] LABS: Partial Thromboplastin Time 26.6 sec (22.0-30.0); Prothrombin Time 10.2 sec (9.0-12.0)
--- NOTE | 2023-04-14 13:38 | P.CRDCN ---
History of Present Illness History of present illness: HISTORY OF PRESENT ILLNESS: This is a 77-year-old female with a past medical history significant for hypertension, hyperlipidemia, and possible HOCM with LVOT obstruction per echocardiogram. Patient follows in the office with Dr. Morel. We have been asked to see the patient in consultation for bradycardia. Patient examined at the bedside. Patient initially presented to the hospital this morning with dizziness and "feeling off". Patient was found to be bradycardic and admitted for further evaluation. Beta esthela placed on hold. Patient was transferred up to 6N. Apparently, the patient became confused and had left sided weakness. A code stroke was called. She underwent CT which was negative. Neurology was consulted and patient is scheduled for EEG and MRI. Patient is drowsy but awakens to verbal stimulation. No complaints of chest pain or pressure. It is noted that the patient was hospitalized last week for left sided weakness and thought to have had a TIA. * EKG reveals sinus bradycardia. Right bundle branch block. Left axis deviation. * Chest xray similar [id number] cardiomegaly. No acute process seen. * CT brain: No acute intracranial abnormality noted * Head and neck CTA: Widely patent and vertebral and carotid arteries of the neck. No large vessel intracranial artery occlusion, significant stenosis, or aneurysmal change seen. * Laboratory data: WBC 5.2. Hemoglobin 14.1. Platelet count 214. * Current home cardiac medications include lisinopril 20 mg daily, Pravachol 20 mg at night, metoprolol tartrate 12.5 mg twice a day, Plavix 75 mg daily, and aspirin 81 mg daily * Most recent echocardiogram obtained in March 2023 revealing normal left ventricular size and systolic function with severe hypertrophy, moderate mitral regurgitation, left ventricular outflow gradient consistent with hypertrophic obstructive cardiomyopathy, [id number] aortic regurgitation, mild tricuspid regurgitation, no evidence of shunting with bubble study * Patient underwent Lexiscan stress test in May 2022 revealing ejection fraction 60% with no evidence of acute ischemia REVIEW OF SYSTEMS: At the time of my exam: CONSTITUTIONAL: Denies fever or chills. HEENT: Denies blurred vision, vision changes, or eye pain. Denies hemoptysis CARDIOVASCULAR: Denies chest pain. Denies orthopnea. Denies PND. Denies palpit ations RESPIRATORY: Denies shortness of breath. GASTROINTESTINAL: Denies abdominal pain. Denies nausea or vomiting. HEMATOLOGIC: Denies bleeding disorders. GENITOURINARY: Denies any blood in urine. SKIN: Denies pruitis. Denies rash. PHYSICAL EXAM: VITAL SIGNS: Reviewed. GENERAL: Well-developed in no acute distress. HEENT: Head is normocephalic. Pupils are equal, round. Sclerae anicteric. Mucous membranes of the mouth are moist. Neck supple. No JVD or thyromegaly LUNGS: Respirations even and unlabored. Lungs essentially clear to auscultation bilaterally. HEART: Regular rate and rhythm. S1 and S2 heard. 3/6 systolic murmur noted ABDOMEN: Soft. Nondistended. Nontender. EXTREMITIES: Left-sided weakness. No clubbing or cyanosis. Peripheral pulses intact. No lower extremity edema NEUROLOGIC: Lethargic. Awakens to verbal stimulation ASSESSMENT: Left sided weakness and dizziness Altered mental status, less likely to be related to hypoperfusion secondary to HOCM, r/o CVA/TIA, MRI pending Recent hospitalization last week for suspected TIA, per neurology Severe left ventricular hypertrophy Left ventricular outflow gradient consistent with hypertrophic obstructive cardiomyopathy Sinus bradycardia Hypertension Hyperlipidemia PLAN: Continue aspirin and plavix Neurology has changed statin therapy to atorvastatin 80 mg at night Patient scheduled for MRI of the brain and EEG Continue telemetry monitoring to assess for any arrhythmias Recommend 30 day event monitor at the time of discharge Patient may require RADHA during this hospitalization. Timing to be determined. Further recommendations pending patient course Nurse practitioner note has been reviewed by physician. Signing provider agrees with the documented findings, assessment, and plan of care. Past Medical History Past Medical History: CVA/TIA, Hyperlipidemia, Hypertension, Memory Impairment, Myocardial Infarction ([place]) Additional Past Medical History / Comment(s): HEART MURMUR, LEAKY VALVE. POSS MILD STROKE YEARS AGO, UNSURE, HAS DIFFICULTY RECALLING SOME HISTORICAL MEDICAL INFO. 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 Past Anesthesia/Blood Transfusion Reactions: Motion Sickness Past Psychological History: No Psychological Hx Reported Smoking Status: Never smoker Past Alcohol Use History: None Reported Past Drug Use History: None Reported - Past Family History Father Additional Family Medical History / Comment(s): patient states "he had heart problems". patient unsure what type of heart problems. Mother Family Medical History: Cancer, Diabetes Mellitus Additional Family Medical History / Comment(s): brain cancer Brother(s) Family Medical History: Diabetes Mellitus Additional Family Medical History / Comment(s): autistic Sister(s) History Unknown: Yes Medications and Allergies Home Medications Medication Instructions Recorded Confirmed Type Pravastatin Sodium [Pravachol] 20 mg PO HS 07/31/15 04/14/23 History Aspirin EC [Ecotrin Low Dose] 81 mg PO DAILY 04/08/23 04/14/23 History Clopidogrel [Plavix] 75 mg PO DAILY 30 Days #30 tab 04/11/23 04/14/23 Rx Metoprolol Tartrate [Lopressor] 12.5 mg PO BID 30 Days #60 tab 04/11/23 04/14/23 Rx lisinopriL [Zestril] 20 mg PO DAILY 30 Days #30 tab 04/11/23 04/14/23 Rx Allergies Allergy/AdvReac Type Severity Reaction Status Date / Time No Known Allergies Allergy Verified 04/14/23 10:23 Physical Exam Vitals: Vital Signs Temp Pulse Pulse Resp BP BP Pulse Ox 04/14/23 11:50 49 L 13 162/81 98 04/14/23 11:05 44 L 14 164/74 99 04/14/23 10:58 98 F 44 L 44 L 12 195/71 195/71 98 04/14/23 10:20 48 L 16 129/80 99 04/14/23 09:13 47 L 18 152/81 97 04/14/23 08:06 98 F 44 L 20 141/60 100 Intake and Output 04/13/23 04/14/23 04/14/23 22:59 06:59 14:59 Other: Weight 47.174 kg Results 04/14/23 12:19 Coagulation 04/14/23 Range/Units 08:35 PT 10.0 (9.0-12.0) sec APTT 23.3 (22.0-30.0) sec CBC 04/14/23 Range/Units 08:35 WBC 5.9 (3.8-10.6) k/uL RBC 4.52 (3.80-5.40) m/uL Hgb 14.8 (11.4-16.0) gm/dL Hct 43.1 (34.0-46.0) % Plt Count 253 (150-450) k/uL Current Medications Generic Name Dose Route Start Last Admin Trade Name Freq PRN Reason Stop Dose Admin Acetaminophen 650 mg 04/14/23 09:43 Acetaminophen Tab 325 Mg Tab PO Q6HR PRN Mild Pain or Fever > 100.5 Atorvastatin Calcium 80 mg 04/14/23 21:00 Atorvastatin 80 Mg Tab PO HS AUTUMN Naloxone HCl 0.2 mg 04/14/23 09:43 Naloxone 0.4 Mg/Ml 1 Ml Vial IV Q2M PRN Opioid Reversal Intake and Output 04/13/23 04/14/23 04/14/23 22:59 06:59 14:59 Other: Weight 47.174 kg Patient Weight 04/15/23 06:59 Weight 47.174 kg 04/14/23 08:35
[2023-04-14] MEDS ORDERED: levETIRAcetam IV 500 MG/5 ML VIAL IVP STA (13:44)
[2023-04-14 15:37] LABS: ALT 50 U/L (4-34); AST 77 U/L (14-36); African American GFR (CKD) >90 (>60 ml/min/1.73 sqM); Albumin 3.9 g/dL (3.5-5.0); Alkaline Phosphatase 101 U/L (38-126); Anion Gap 9 mmol/L; Blood Urea Nitrogen 15 mg/dL (7-17); Calcium 9.3 mg/dL (8.4-10.2); Carbon Dioxide 23 mmol/L (22-30); Chloride 102 mmol/L (98-107); Glucose 85 mg/dL (74-99); Non-African American GFR(CKD) >90 (>60 ml/min/1.73 sqM); Potassium 4.9 mmol/L (3.5-5.1); Sodium 134 mmol/L (137-145); Total Protein 6.5 g/dL (6.3-8.2)
[2023-04-14] MEDS: CLOPIDOGREL 75 MG TAB PO SCH (15:52)
[2023-04-14] MEDS: ASPIRIN 81 MG PO SCH (15:52)
[2023-04-14] MEDS: ENOXAPARIN 40 MG/0.4 ML SYRINGE SQ SCH (15:52)
--- NOTE | 2023-04-14 16:52 | P.HPIM ---
History of Present Illness H&P Date: 04/14/23 Tia Faulkner, is a 77-year-old female who presented to [facility] emergency room with a chief complaint of generalized weakness and fatigue. Patient was recently admitted to [facility], she had evidence of acute ischemic stroke at that time with left sided weakness and numbness, patient was seen by neurology and cardiology and was discharged home. She was evaluated in the emergency room vital examination on presentation revealed a temperature of 98 pulse 44 respiration 20 blood pressure 141/60 pulse ox 100% on room air Laboratory data revealed a white blood count of 5.9 hemoglobin 14.8 platelet count 253 Testing in the emergency room revealed computed tomography scan of the brain without contrast revealed moderate degenerative and mild remote ischemic white matter changes with no acute major mass effect Patient was admitted to medical floor for further evaluation and treatment Past Medical History Past Medical History: CVA/TIA, Hyperlipidemia, Hypertension, Memory Impairment, Myocardial Infarction ([place]) Additional Past Medical History / Comment(s): HEART MURMUR, LEAKY VALVE. POSS MILD STROKE YEARS AGO, UNSURE, HAS DIFFICULTY RECALLING SOME HISTORICAL MEDICAL INFO. 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 Past Anesthesia/Blood Transfusion Reactions: Motion Sickness Past Psychological History: No Psychological Hx Reported Smoking Status: Never smoker Past Alcohol Use History: None Reported Past Drug Use History: None Reported - Past Family History Father Additional Family Medical History / Comment(s): patient states "he had heart problems". patient unsure what type of heart problems. Mother Family Medical History: Cancer, Diabetes Mellitus Additional Family Medical History / Comment(s): brain cancer Brother(s) Family Medical History: Diabetes Mellitus Additional Family Medical History / Comment(s): autistic Sister(s) History Unknown: Yes Medications and Allergies Home Medications Medication Instructions Recorded Confirmed Type Pravastatin Sodium [Pravachol] 20 mg PO HS 07/31/15 04/14/23 History Aspirin EC [Ecotrin Low Dose] 81 mg PO DAILY 04/08/23 04/14/23 History Clopidogrel [Plavix] 75 mg PO DAILY 30 Days #30 tab 04/11/23 04/14/23 Rx Metoprolol Tartrate [Lopressor] 12.5 mg PO BID 30 Days #60 tab 04/11/23 04/14/23 Rx lisinopriL [Zestril] 20 mg PO DAILY 30 Days #30 tab 04/11/23 04/14/23 Rx Allergies Allergy/AdvReac Type Severity Reaction Status Date / Time No Known Allergies Allergy Verified 04/14/23 10:23 Physical Exam Vitals: Vital Signs Temp Pulse Resp BP Pulse Ox 04/14/23 10:20 48 L 16 129/80 99 04/14/23 09:13 47 L 18 152/81 97 04/14/23 08:06 98 F 44 L 20 141/60 100 Intake and Output 04/13/23 04/14/23 04/14/23 22:59 06:59 14:59 Other: Weight 47.174 kg In general patient is alert and oriented x 3 in no distress HEENT head normocephalic and atraumatic Neck is supple no JVD no goiter no lymphadenopathy no carotid bruit Chest examination is clear to auscultation no crackles no wheezing Cardiac exam reveals regular heart sounds S1 and S2 no gallops no murmurs Abdomen is soft nontender no organomegaly with normal bowel sounds Extremity exam reveals no edema no cyanosis or clubbing Neurological examination reveals no gross focal deficits, there is minimal weakness on the left upper extremity as compared to the right which may be residual from last week admission Results CBC & Chem 7: 04/14/23 12:19 04/14/23 15:03 Assessment and Plan Plan: Generalized weakness and fatigue Bradycardia, heart rate 44 on presentation Recent history of acute ischemic stroke with left sided weakness and numbness Underlying history of hypertension Underlying history of hyperlipidemia Underlying history of severe scoliosis Underlying history of osteoarthritis At this time patient is admitted to telemetry floor Home medications reviewed and reordered Cardiology consultation and neurology consultation requested Hold metoprolol for bradycardia Will follow closely
[2023-04-14] MEDS: PRAVASTATIN SODIUM 20 MG TAB PO SCH (19:26)
[2023-04-14] MEDS: ATORVASTATIN 80 MG TAB PO SCH (19:26)
[2023-04-14] MEDS: levETIRAcetam IV 500 MG/5 ML VIAL IVP SCH (20:22)
--- NOTE | 2023-04-15 00:28 | EEG ---
ELECTROENCEPHALOGRAM REPORT CLINICAL HISTORY: This is a 77-year-old woman who is in hospital because of confusion and tremor. The video EEG is obtained to evaluate for seizure and epileptiform activity. RELEVANT MEDICATIONS: The patient is not on any antiepileptic drugs. EEG TYPE: A routine 21-channel EEG is performed with video using the 10/20 electrode placement system. DESCRIPTION: Wakefulness is only obtained. The posterior dominant rhythm consists of low to moderate voltage of 9-10 hertz activity that is well modulated, well sustained. There is no physiological sleep architecture. There is no focal slowing. Interictal and ictal, there are sharp/spike slow waves over the left temporal region stemming over the T5/T3 region. Also, there is a phase reversal over the T5 electrode. No seizures noted during the study. ACTIVATION PROCEDURE: Photic stimulation and hyperventilation are not performed. CLINICAL INTERPRETATION: This is an abnormal routine EEG. The epileptiform discharges over the left temporal region increases risk for seizure. Otherwise, the background is normal and there is no focal slowing or seizure noted during this study. Clinical correlation is recommended. DOV / LAXMIN: [id number] / JO ANN
[2023-04-15] MEDS: ENOXAPARIN 40 MG/0.4 ML SYRINGE SQ SCH (09:38)
[2023-04-15] MEDS: CLOPIDOGREL 75 MG TAB PO SCH (09:38)
[2023-04-15] MEDS: ASPIRIN 81 MG PO SCH (09:38)
[2023-04-15] MEDS: lisinopriL 20 MG TAB PO SCH (09:38)
[2023-04-15] MEDS: levETIRAcetam IV 500 MG/5 ML VIAL IVP SCH ×2 (09:39→19:58)
--- NOTE | 2023-04-15 10:35 | P.PN ---
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 Patient follows in the office with Dr. Morel. We have been asked to see the patient in consultation for bradycardia. Patient examined at the bedside. Patient initially presented to the hospital this morning with dizziness and "feeling off". Patient was found to be bradycardic and admitted for further evaluation. Beta esthela placed on hold. Patient was transferred up to . Apparently, the patient became confused and had left sided weakness. A code stroke was called. She underwent CT which was negative. Neurology was consulted and patient is scheduled for EEG and MRI. Patient is drowsy but awakens to verbal stimulation. No complaints of chest pain or pressure. It is noted that the patient was hospitalized last week for left sided weakness and thought to have had a TIA. * EKG reveals sinus bradycardia. Right bundle branch block. Left axis deviation. * Chest xray similar [id number] cardiomegaly. No acute process seen. * CT brain: No acute intracranial abnormality noted * Head and neck CTA: Widely patent and vertebral and carotid arteries of the neck. No large vessel intracranial artery occlusion, significant stenosis, or aneurysmal change seen. * Laboratory data: WBC 5.2. Hemoglobin 14.1. Platelet count 214. * Current home cardiac medications include lisinopril 20 mg daily, Pravachol 20 mg at night, metoprolol tartrate 12.5 mg twice a day, Plavix 75 mg daily, and aspirin 81 mg daily * Most recent echocardiogram obtained in March 2023 revealing normal left ventricular size and systolic function with severe hypertrophy, moderate mitral regurgitation, left ventricular outflow gradient consistent with hypertrophic obstructive cardiomyopathy, [id number] aortic regurgitation, mild tricuspid regurgitation, no evidence of shunting with bubble study * Patient underwent Lexiscan stress test in May 2022 revealing ejection fraction 60% with no evidence of acute ischemia 04/15 Patient is seen today in follow-up, she is on the cardiac stepdown unit. Heart rate is running in the 50s to 65. Blood pressure is 98/66. Telemetry is sinus bradycardia, no signs of atrial fibrillation. She is scheduled for MRI of the brain. Patient denies any new concerns today. PHYSICAL EXAM: VITAL SIGNS: Reviewed. GENERAL: Well-developed in no acute distress. HEENT: Head is normocephalic. Pupils are equal, round. Sclerae anicteric. Mucous membranes of the mouth are moist. Neck supple. No JVD or thyromegaly LUNGS: Respirations even and unlabored. Lungs essentially clear to auscultation bilaterally. HEART: Regular rate and rhythm. S1 and S2 heard. 3/6 systolic murmur noted ABDOMEN: Soft. Nondistended. Nontender. EXTREMITIES: Left-sided weakness. No clubbing or cyanosis. Peripheral pulses intact. No lower extremity edema NEUROLOGIC: Lethargic. Awakens to verbal stimulation ASSESSMENT: Left sided weakness and dizziness Altered mental status, less likely to be related to hypoperfusion secondary to HOCM, r/o CVA/TIA, MRI pending Recent hospitalization last week for suspected TIA, per neurology Severe left ventricular hypertrophy Left ventricular outflow gradient consistent with hypertrophic obstructive cardiomyopathy Sinus bradycardia Hypertension Hyperlipidemia PLAN: Continue aspirin and plavix Neurology has changed statin therapy to atorvastatin 80 mg at night Patient scheduled for MRI of the brain Continue telemetry monitoring to assess for any arrhythmias, atrial fibrillation Recommend 30 day event monitor at the time of discharge Patient may require RADHA during this hospitalization if CVA is confirmed on MRI. Further recommendations pending patient course Nurse practitioner note has been reviewed by physician. Signing provider agrees with the documented findings, assessment, and plan of care. Objective - Vital Signs Vital signs: Vital Signs Temp 98.1 F 04/14/23 23:55 Pulse 52 L 04/15/23 05:53 Resp 18 04/15/23 05:53 BP 112/59 04/15/23 05:53 Pulse Ox 96 04/15/23 07:44 FiO2 Intake & Output 04/14/23 04/15/23 04/15/23 18:59 06:59 18:59 Output Total 150 Balance -150 Weight 47.174 kg Output: Urine 150 - Labs CBC & Chem 7: 04/14/23 12:19 04/14/23 15:03 Labs: Abnormal Lab Results - Last 24 Hours (Table) 04/14/23 Range/Units 15:03 Sodium 134 L (137-145) mmol/L Creatinine 0.48 L (0.52-1.04) mg/dL AST 77 H (14-36) U/L ALT 50 H (4-34) U/L
--- NOTE | 2023-04-15 10:57 | P.PN ---
Subjective Progress Note Date: 04/15/23 Tia Faulkner, is a 77-year-old female who presented to [facility] emergency room with a chief complaint of generalized weakness and fatigue. Patient was recently admitted to [facility], she had evidence of acute ischemic stroke at that time with left sided weakness and numbness, patient was seen by neurology and cardiology and was discharged home. She was evaluated in the emergency room vital examination on presentation revealed a temperature of 98 pulse 44 respiration 20 blood pressure 141/60 pulse ox 100% on room air Laboratory data revealed a white blood count of 5.9 hemoglobin 14.8 platelet count 253 Testing in the emergency room revealed computed tomography scan of the brain without contrast revealed moderate degenerative and mild remote ischemic white matter changes with no acute major mass effect Patient was admitted to medical floor for further evaluation and treatment On 04/15/2023 patient was seen and examined on the telemetry floor she is alert and oriented 3 in no apparent distress she is complaining of generalized fatigue and weakness and is complaining of headache otherwise she denies any complaints. Yesterday she had an episodes of altered mental status she was transferred to the telemetry floor and was reevaluated by neurology EEG was done and revealed epileptiform discharges over the left temporal region, patient was started on Keppra by neurology. Patient is scheduled for MRI of the brain, neurology and cardiology are following. Objective - Vital Signs Vital signs: Vital Signs Temp 97.8 F 04/15/23 08:00 Pulse 64 04/15/23 08:00 Resp 14 04/15/23 08:00 BP 98/66 04/15/23 08:00 Pulse Ox 96 04/15/23 08:00 FiO2 Intake & Output 04/14/23 04/15/23 04/15/23 18:59 06:59 18:59 Intake Total 100 Output Total 150 Balance -150 100 Weight 47.174 kg Intake: Oral 100 Output: Urine 150 - Exam In general patient is alert and oriented x 3 in no distress HEENT head normocephalic and atraumatic Neck is supple no JVD no goiter no lymphadenopathy no carotid bruit Chest examination is clear to auscultation no crackles no wheezing Cardiac exam reveals regular heart sounds S1 and S2 no gallops no murmurs Abdomen is soft nontender no organomegaly with normal bowel sounds Extremity exam reveals no edema no cyanosis or clubbing Neurological examination reveals no gross focal deficits, there is minimal weakness on the left upper extremity as compared to the right which may be residual from last week admission - Labs CBC & Chem 7: 04/14/23 12:19 04/14/23 15:03 Labs: Abnormal Lab Results - Last 24 Hours (Table) 04/14/23 Range/Units 15:03 Sodium 134 L (137-145) mmol/L Creatinine 0.48 L (0.52-1.04) mg/dL AST 77 H (14-36) U/L ALT 50 H (4-34) U/L Assessment and Plan Plan: Generalized weakness and fatigue Bradycardia, heart rate 44 on presentation Recent history of acute ischemic stroke with left sided weakness and numbness Underlying history of hypertension Underlying history of hyperlipidemia Underlying history of severe scoliosis Underlying history of osteoarthritis At this time patient is admitted to telemetry floor Home medications reviewed and reordered Cardiology consultation and neurology consultation requested Hold metoprolol for bradycardia Will follow closely
--- NOTE | 2023-04-15 13:20 | MR ---
EXAMINATION TYPE: MR brain wo/w con DATE OF EXAM: 04/15/2023 11:56 AM CLINICAL INDICATION:Female, 77 years old with history of left sided weakness.; Left side weakness COMPARISON: 04/09/2023 TECHNIQUE: Multi planar, multi sequence imaging was performed through the brain including: T1, T2, In version recovery, susceptibility weighted imaging and gradient echo imaging and Diffusion weighted im aging. The patient was then given intravenous contrast and multi planar, T1 fat-saturation images wer e obtained. IV Contrast: 5 cc Gadavist FINDINGS: Dilation of ventricular system in proportion to cerebral atrophy. Scattered foci of high T2 signal in tensity are seen within the periventricular white matter. Midline structures show no abnormality. Dif fusion-weighted imaging shows no evidence of restricted diffusion. Scattered foci are also present wi thin these regions. Curvilinear blooming artifact involving the cerebral cortex predominantly posteri pricilla with a gyriform pattern but also affecting the cerebellum to a greater degree. This has correspo nding low T2 signal which is most apparent in the posterior cranial fossa and parietal lobes. No abno rmal postcontrast enhancement The bone marrow signal is within normal limits. Paranasal sinuses and mastoid air cells: Mild scattered paranasal sinus disease. Visualized orbits: Orbital contents are intact. IMPRESSION: 1. No change from prior exam, No evidence of intracranial mass or acute/subacute infarct. 2. Findings suspicious for superficial siderosis. 3. Nonspecific white matter changes, likely secondary to small vessel ischemic disease
[2023-04-15 14:09] VITALS: BMI 20.9
--- NOTE | 2023-04-15 15:12 | P.PN ---
Subjective Progress Note Date: 04/15/23 The patient seen at bedside and the she is doing better. Denies of any headache, focal weakness or any neurological issues. She's feeling better again. Objective - Vital Signs Vital signs: Vital Signs Temp 98.2 F 04/15/23 12:00 Pulse 65 04/15/23 12:00 Resp 15 04/15/23 12:00 BP 93/62 04/15/23 12:00 Pulse Ox 97 04/15/23 12:00 FiO2 Intake & Output 04/14/23 04/15/23 04/15/23 18:59 06:59 18:59 Intake Total 340 Output Total 150 200 Balance -150 140 Weight 47.174 kg 47.174 kg Intake: Oral 340 Output: Urine 150 200 - Exam Neuro: Patient is awake alert oriented to self place and time. She is mildly slow to response. Is following simple commands. No aphasia. Visual orozco are full to confrontation. No facial weakness. No dysarthria Motor is a strength is moving all extremities above gravity without any focality. SOME OF THE WORK-UP DURING THIS HOSPITAL VISIT CONSISTED OF: CT of the head is reported as no acute intracranial abnormality seen. I personally reviewed the CT and I agree with the report. CT angiography of the head is reported as no large vessel intracranial arterial occlusion, significant stenosis or aneurysm changes seen. Some normal anatomic variation. For the CT of the neck and it's reported as widely patent vertebral and carotid arteries of the neck. POC glucose is 79. Her blood pressure was in the 160s 190s systolic and diastolic is 70 to 80s. Heart rate in the 40s. Earlier CT of the head is reported as moderate degenerative and mild most suspect ischemic white matter changes with no acute major mass effect. Routine EEG is abnormal. The epileptiform discharges over the left frontal region increases risk for seizure. Otherwise the background is normal and there is no focal slowing or seizure during the study. - Labs CBC & Chem 7: 04/14/23 12:19 04/14/23 15:03 Labs: Abnormal Lab Results - Last 24 Hours (Table) 04/14/23 Range/Units 15:03 Sodium 134 L (137-145) mmol/L Creatinine 0.48 L (0.52-1.04) mg/dL AST 77 H (14-36) U/L ALT 50 H (4-34) U/L Assessment and Plan Assessment: This is a 77-year-old woman who was here last week for probable TIA (manifesting) with transient left hemiparesis that resolved and MRI was negative who presented to our facility because of dizzy, confused and lateral nose both ears. In the ED it seems that she had numbness and on the floor she had the weakness over the left side and that very confused and was unresponsive. Per the daughter she had some shaking of bilateral upper extremities earlier today but was a responsive during this episode. Episode of confusion with reported left-sided weakness and numbness and shaking of bilateral upper extremity is concerning for seizure: On EEG had left temporal discharges and no seizure noted.---no focal deficit on my examination. History of recent TIA last week and she had manifestation of left hemiparesis that resolved the MRI the brain was negative. bradycardiac in the 40s Hypertension Valvular heart disease with aortic regurgitation mitral regurgitation Hypertension Hyperlipidemia Chronic left hip issues Vitamin B12 deficiency Plan: Pending.MRI of the brain with and without to rule out any stroke or any mass. Routine EEG shows left temporal discharges no seizure. Yesterday I loaded the patient with Keppra 1000 mg once and started the patient on Keppra 500 mg IV every 12 hours. Currently patient is stable and no further seizures or confusions. We'll continue her home dose of aspirin 81mg daily and Plavix 75mg daily. Can consider stopping Plavix a my perspective since I felt her episode this time and last time was likely due to seizures. Continued pravastatin 20mg daily Recently she had B12: 236 and she received supplement last week (prior hospital visit). Dr. Valenzuela Recommended Monthly B12 Injection. I gave another B12 1000mcg injection yesterday. 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
[2023-04-15] MEDS: ATORVASTATIN 80 MG TAB PO SCH (19:58)
[2023-04-15] MEDS: PRAVASTATIN SODIUM 20 MG TAB PO SCH (19:58)
[2023-04-16 08:23] LABS: Basophils # (A) 0.1 k/uL (0-0.2); Basophils % (A) 1 %; Eosinophils # (A) 0.1 k/uL (0-0.7); Eosinophils % (A) 2 %; HCT 41.4 % (34.0-46.0); Lymphocytes # (A) 1.4 k/uL (1.0-4.8); Lymphocytes % (A) 26 %; MCHC 33.9 g/dL (31.0-37.0); MCV 94.3 fL (80.0-100.0); Mean Platelet Volume 9.3; Monocytes # (A) 0.2 k/uL (0-1.0); Monocytes % (A) 4 %; Neutrophils # (A) 3.6 k/uL (1.3-7.7); Neutrophils % (A) 66 %; Platelet Count 243 k/uL (150-450); RBC 4.39 m/uL (3.80-5.40); RDW 12.8 % (11.5-15.5); WBC 5.4 k/uL (3.8-10.6)
[2023-04-16 08:48] LABS: ALT 38 U/L (4-34); AST 36 U/L (14-36); African American GFR (CKD) >90 (>60 ml/min/1.73 sqM); Albumin 3.6 g/dL (3.5-5.0); Alkaline Phosphatase 90 U/L (38-126); Anion Gap 8 mmol/L; Blood Urea Nitrogen 25 mg/dL (7-17); Carbon Dioxide 25 mmol/L (22-30); Chloride 100 mmol/L (98-107); Glucose 148 mg/dL (74-99); Non-African American GFR(CKD) 87 (>60 ml/min/1.73 sqM); Potassium 4.4 mmol/L (3.5-5.1); Sodium 133 mmol/L (137-145); Total Bilirubin 0.7 mg/dL (0.2-1.3); Total Protein 6.2 g/dL (6.3-8.2)
[2023-04-16] MEDS: ASPIRIN 81 MG PO SCH (08:56)
[2023-04-16] MEDS: ENOXAPARIN 40 MG/0.4 ML SYRINGE SQ SCH (08:56)
[2023-04-16] MEDS: lisinopriL 20 MG TAB PO SCH (08:56)
[2023-04-16] MEDS: CLOPIDOGREL 75 MG TAB PO SCH (08:56)
[2023-04-16] MEDS: levETIRAcetam IV 500 MG/5 ML VIAL IVP SCH (08:56)
--- NOTE | 2023-04-16 10:20 | P.PN ---
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 Patient follows in the office with Dr. Morel. We have been asked to see the patient in consultation for bradycardia. Patient examined at the bedside. Patient initially presented to the hospital this morning with dizziness and "feeling off". Patient was found to be bradycardic and admitted for further evaluation. Beta esthela placed on hold. Patient was transferred up to . Apparently, the patient became confused and had left sided weakness. A code stroke was called. She underwent CT which was negative. Neurology was consulted and patient is scheduled for EEG and MRI. Patient is drowsy but awakens to verbal stimulation. No complaints of chest pain or pressure. It is noted that the patient was hospitalized last week for left sided weakness and thought to have had a TIA. * EKG reveals sinus bradycardia. Right bundle branch block. Left axis deviation. * Chest xray similar [id number] cardiomegaly. No acute process seen. * CT brain: No acute intracranial abnormality noted * Head and neck CTA: Widely patent and vertebral and carotid arteries of the neck. No large vessel intracranial artery occlusion, significant stenosis, or aneurysmal change seen. * Laboratory data: WBC 5.2. Hemoglobin 14.1. Platelet count 214. * Current home cardiac medications include lisinopril 20 mg daily, Pravachol 20 mg at night, metoprolol tartrate 12.5 mg twice a day, Plavix 75 mg daily, and aspirin 81 mg daily * Most recent echocardiogram obtained in March 2023 revealing normal left ventricular size and systolic function with severe hypertrophy, moderate mitral regurgitation, left ventricular outflow gradient consistent with hypertrophic obstructive cardiomyopathy, [id number] aortic regurgitation, mild tricuspid regurgitation, no evidence of shunting with bubble study * Patient underwent Lexiscan stress test in May 2022 revealing ejection fraction 60% with no evidence of acute ischemia 04/15 Patient is seen today in follow-up, she is on the cardiac stepdown unit. Heart rate is running in the 50s to 65. Blood pressure is 98/66. Telemetry is sinus bradycardia, no signs of atrial fibrillation. She is scheduled for MRI of the brain. Patient denies any new concerns today. 04/16 MRI of the brain revealed no acute findings, no infarct. Patient has been on telemetry with no episodes of atrial fibrillation. HR 59-70, BP 93/62. Na 133, K 4.4, BUN 25, Creat 0.63. PHYSICAL EXAM: VITAL SIGNS: Reviewed. GENERAL: Well-developed in no acute distress. HEENT: Head is normocephalic. Pupils are equal, round. Sclerae anicteric. Mucous membranes of the mouth are moist. Neck supple. No JVD or thyromegaly LUNGS: Respirations even and unlabored. Lungs essentially clear to auscultation bilaterally. HEART: Regular rate and rhythm. S1 and S2 heard. 3/6 systolic murmur noted ABDOMEN: Soft. Nondistended. Nontender. EXTREMITIES: Left-sided weakness. No clubbing or cyanosis. Peripheral pulses intact. No lower extremity edema NEUROLOGIC: Lethargic. Awakens to verbal stimulation ASSESSMENT: Left sided weakness and dizziness Altered mental status, less likely to be related to hypoperfusion secondary to HOCM, r/o CVA/TIA, MRI pending Recent hospitalization last week for suspected TIA, per neurology Severe left ventricular hypertrophy Left ventricular outflow gradient consistent with hypertrophic obstructive cardiomyopathy Sinus bradycardia Hypertension Hyperlipidemia PLAN: Continue aspirin and plavix Cardiology we'll sign off and follow on an as-needed basis. Patient may follow-up in the office with Dr. Morel in 1 week. Nurse practitioner note has been reviewed by physician. Signing provider agrees with the documented findings, assessment, and plan of care. Objective - Vital Signs Vital signs: Vital Signs Temp 97.8 F 04/16/23 07:51 Pulse 70 04/16/23 07:51 Resp 14 04/16/23 07:51 BP 93/62 04/16/23 07:51 Pulse Ox 97 04/16/23 07:51 FiO2 Intake & Output 04/15/23 04/16/23 04/16/23 18:59 06:59 18:59 Intake Total 1010 Output Total 400 250 Balance 610 -250 Weight 47.174 kg Intake: Oral 1010 Output: Urine 400 250 Other: # Voids 2 - Labs CBC & Chem 7: 04/16/23 07:58 04/16/23 07:58
--- NOTE | 2023-04-16 11:13 | P.DS ---
Providers Date of admission: 04/14/23 09:46 Expected date of discharge: 04/16/23 Attending physician: Gary Dimas Consults: 04/14/23 09:43 Consult Physician Routine Consulting Provider: Wero Gagnon Consult Reason/Comments: bradyca Do you want consulting provider notified?: Yes Consult Physician Routine Consulting Provider: Hal Britt Consult Reason/Comments: weak Do you want consulting provider notified?: Yes Primary care physician: Gary Dimas [place] [facility] Course: Discharge diagnosis Generalized weakness and fatigue Bradycardia, heart rate 44 on presentation Recent history of acute ischemic stroke with left sided weakness and numbness Underlying history of hypertension Underlying history of hyperlipidemia Underlying history of severe scoliosis Underlying history of osteoarthritis Hospital course Tia Faulkner, is a 77-year-old female who presented to [facility] emergency room with a chief complaint of generalized weakness and fatigue. Patient was recently admitted to [facility], she had evidence of acute ischemic stroke at that time with left sided weakness and numbness, patient was seen by neurology and cardiology and was discharged home. She was evaluated in the emergency room vital examination on presentation revealed a temperature of 98 pulse 44 respiration 20 blood pressure 141/60 pulse ox 100% on room air Laboratory data revealed a white blood count of 5.9 hemoglobin 14.8 platelet count 253 Testing in the emergency room revealed computed tomography scan of the brain without contrast revealed moderate degenerative and mild remote ischemic white matter changes with no acute major mass effect Patient was admitted to medical floor for further evaluation and treatment On 04/15/2023 patient was seen and examined on the telemetry floor she is alert and oriented 3 in no apparent distress she is complaining of generalized fatigue and weakness and is complaining of headache otherwise she denies any complaints. Yesterday she had an episodes of altered mental status she was transferred to the telemetry floor and was reevaluated by neurology EEG was done and revealed epileptiform discharges over the left temporal region, patient was started on Keppra by neurology. Patient is scheduled for MRI of the brain, neurology and cardiology are following. On 04/16/2023 patient is alert and oriented 3. MRI of the brain completed and reviewed per cardiology and neurology services. Discussed case with cardiology nurse practitioner no plans for RADHA outpatient Holter monitor. Also patient's chronology start patient on Keppra 500 twice a day and she is going to be DC'd to ECF facility on Plavix and aspirin. Patient sitting or shortness of breath. Denies nausea vomiting or diarrhea. Patient denies any urinary burning or frequency Per phone call from Dr Hal Oconnor stated that he reviewed brain MRI with radiology, there is suspesion for siderosis, he is now recommending to discontinue Plavix. Patient Condition at Discharge: Stable Plan - Discharge Summary New Discharge Prescriptions: New levETIRAcetam [Keppra] 500 mg PO Q12HR 30 Days #60 tab Atorvastatin [Lipitor] 80 mg PO HS tab Continue Clopidogrel [Plavix] 75 mg PO DAILY 30 Days #30 tab lisinopriL [Zestril] 20 mg PO DAILY 30 Days #30 tab Aspirin EC [Ecotrin Low Dose] 81 mg PO DAILY Discontinued Pravastatin Sodium [Pravachol] 20 mg PO HS Metoprolol Tartrate [Lopressor] 12.5 mg PO BID 30 Days #60 tab Discharge Medication List Aspirin EC [Ecotrin Low Dose] 81 mg PO DAILY 04/08/23 [History] Clopidogrel [Plavix] 75 mg PO DAILY 30 Days #30 tab 04/11/23 [Rx] lisinopriL [Zestril] 20 mg PO DAILY 30 Days #30 tab 04/11/23 [Rx] Atorvastatin [Lipitor] 80 mg PO HS tab 04/16/23 [Rx] levETIRAcetam [Keppra] 500 mg PO Q12HR 30 Days #60 tab 04/16/23 [Rx] Follow up Appointment(s)/Referral(s): Dolly Morel MD [STAFF PHYSICIAN] - 1 Week Gary Dimas MD [Primary Care Provider] - 1-2 days Activity/Diet/Wound Care/Special Instructions: activity as tolerated heart healthy Discharge Disposition: TRANSFER TO SNF/ECF
[2023-04-16 11:38] VITALS: BP 91/62; PULSE 59; RESP 16; TEMP 98.1
--- NOTE | 2023-04-16 15:33 | P.PN ---
Subjective Progress Note Date: 04/16/23 The patient is seen at bedside and feels doing better compared to initial presentation. No further seizure-like activities. Objective - Vital Signs Vital signs: Vital Signs Temp 98.1 F 04/16/23 11:37 Pulse 59 L 04/16/23 11:37 Resp 16 04/16/23 11:37 BP 91/62 04/16/23 11:37 Pulse Ox 97 04/16/23 11:37 FiO2 Intake & Output 04/15/23 04/16/23 04/16/23 18:59 06:59 18:59 Intake Total 1010 180 Output Total 400 250 Balance 610 -250 180 Weight 47.174 kg Intake: Oral 1010 180 Output: Urine 400 250 Other: # Voids 2 - Exam Neuro: Patient is awake alert oriented to self place and time. She is mildly slow to response. Is following simple commands. No aphasia. Visual orozco are full to confrontation. No facial weakness. No dysarthria Motor is a strength is moving all extremities above gravity without any focality. SOME OF THE WORK-UP DURING THIS HOSPITAL VISIT CONSISTED OF: CT of the head is reported as no acute intracranial abnormality seen. I personally reviewed the CT and I agree with the report. CT angiography of the head is reported as no large vessel intracranial arterial occlusion, significant stenosis or aneurysm changes seen. Some normal anatomic variation. For the CT of the neck and it's reported as widely patent vertebral and carotid arteries of the neck. POC glucose is 79. Her blood pressure was in the 160s 190s systolic and diastolic is 70 to 80s. Heart rate in the 40s. Earlier CT of the head is reported as moderate degenerative and mild most suspect ischemic white matter changes with no acute major mass effect. Routine EEG is abnormal. The epileptiform discharges over the left frontal faina on increases risk for seizure. Otherwise the background is normal and there is no focal slowing or seizure during the study. MRI of the brain with and without is reported as no change from prior exam. No evidence of intracranial mass or acute/subacute infarct. Finding suspicious for superficial siderosis. Nonspecific white matter changes, likely secondary to small vessel ischemic disease. I discussed the case with Dr. 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 - Labs CBC & Chem 7: 04/16/23 07:58 04/16/23 07:58 Labs: Abnormal Lab Results - Last 24 Hours (Table) 04/16/ Range/Units 07:58 Sodium 133 L (137-145) mmol/L BUN 25 H (7-17) mg/dL Glucose 148 H (74-99) mg/dL ALT 38 H (4-34) U/L Total Protein 6.2 L (6.3-8.2) g/dL Assessment and Plan Assessment: This is a 77-year-old woman who was here last week for probable TIA (manifesting) with transient left hemiparesis that resolved and MRI was negative who presented to our facility because of dizzy, confused and lateral nose both ears. In the ED it seems that she had numbness and on the floor she had the weakness over the left side and that very confused and was unresponsive. Per the daughter she had some shaking of bilateral upper extremities earlier today but was a responsive during this episode. Episode of confusion with reported left-sided weakness and numbness and shaking of bilateral upper extremity is concerning for seizure: On EEG had left temporal discharges and no seizure noted. 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 Superficial siderosis on MRI Brain and unsure cause. History of recent ?TIA last week and she had manifestation of left hemiparesis that resolved the MRI the brain was negative. 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 No evidence of intracranial mass or acute/subacute infarct. Finding suspicious for superficial siderosis. Nonspecific white matter changes, likely secondary to small vessel ischemic disease. I discussed the case with Dr. 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 Regarding her superficial siderosis seen on MRI Brain, I recommend further work- up by PCP. Consider amylodsis work-up, MRI C-spine. If work-up is negative, it is idiopathic up to 46% of cases upon reviewing literature. Routine EEG shows left temporal discharges no seizure. Continue Keppra 500 mg IV every 12 hours. Currently patient is stable and no further seizures or confusions. On aspirin 81mg daily and Plavix 75mg daily. Recommend stopping Plavix and avoid dual antiplatelets from neurological perspective because of siderosis and increase increase of bleed. On pravastatin 20mg daily Recently she had B12: 236 and she received supplement last week (prior hospital visit). Dr. Valenzuela Recommended Monthly B12 Injection. I gave another B12 1000mcg injection during her stay. Continue neuro checks Cardiac monitoring Consulted PT OT and BAR HOSTESS Cardiology is consulted We'll defer the rest of the medical management to the primary team For DVT prophylaxis On Lovenox 40 mg subcu daily Recommend the patient to follow-up with neurologist as outpatient within 1-2 weeks. The plan is discussed with the patient's daughter via phone and her PCP (Dr. Dimas). Time with Patient: Less than 30
== END 2023-04-16 13:05 ==
LOC: EC 08:05 → 6NMEDSUR 09:46 → 3SCARD 12:52
PROVIDERS: ADMIT Internal Medicine; ATTEND Internal Medicine
DX: R00.1 Bradycardia, unspecified (principal); R53.1 Weakness; R53.83 Other fatigue; I08.0 Rheumatic disorders of both mitral and aortic valves; I69.354 Hemiplegia and hemiparesis following cerebral infarction affecting left non-dominant side; I10 Essential (primary) hypertension; E78.5 Hyperlipidemia, unspecified; E53.8 Deficiency of other specified B group vitamins; M41.9 Scoliosis, unspecified; M19.90 Unspecified osteoarthritis, unspecified site; R25.1 Tremor, unspecified; R41.3 Other amnesia; R01.1 Cardiac murmur, unspecified; Z90.49 Acquired absence of other specified parts of digestive tract; Z98.890 Other specified postprocedural states; I25.2 Old myocardial infarction; Z83.3 Family history of diabetes mellitus; Z82.49 Family history of ischemic heart disease and other diseases of the circulatory system; Z80.8 Family history of malignant neoplasm of other organs or systems; Z81.8 Family history of other mental and behavioral disorders; Z79.02 Long term (current) use of antithrombotics/antiplatelets; Z79.82 Long term (current) use of aspirin; Z79.899 Other long term (current) drug therapy
CPT/HCPCS: 96376 ×2; 96372 ×3; 96374; 99285; 36415; 94760 ×2; 95816; 93005; 97163; 97167; 92610; 80053 ×2; 82550; 82553; 84484; 85025 ×2; 85610; 85730; 71046; 70496; 70450 ×2; 70498; 70553; G0378 ×4; J3420; J1650 ×3; J1953 ×3; Q9967; A9585

== ENCOUNTER 2023-05-16 08:23 | Inpatient (IN) | payer MEDICARE, OTHER ==
[2023-05-16] MEDS ORDERED: LORazepam 2 MG/ML INJ IV STA (08:49)
[2023-05-16] MEDS ORDERED: ASPIRIN 81 MG PO STA (08:49)
[2023-05-16] MEDS ORDERED: NITROGLYCERIN OINT 1 INCH/GM PACKET TOPICAL STA (08:49)
--- NOTE | 2023-05-16 08:52 | ED ---
General Adult HPI - General Chief complaint: Chest Pain Stated complaint: left side pain Time Seen by Provider: 05/16/23 08:35 Source: patient, family, RN notes reviewed Mode of arrival: ambulatory Limitations: no limitations - History of Present Illness Initial comments: Patient is a pleasant 77-year-old female presents emergency Department with chest pain. Onset of symptoms was this morning. Patient is a poor historian and majority of history is taken from daughter. Daughter states there was some left-sided shaking when patient arrived here that lasted for a few seconds. Patient has been a little bit confused since that time. Symptoms are similar to previous seizures. Patient is unclear if she is still having chest discomfort at this time. Patient denies dyspnea. - Related Data Home Medications Medication Instructions Recorded Confirmed Aspirin EC [Ecotrin Low Dose] 81 mg PO DAILY 04/08/23 04/14/23 Previous Rx's Medication Instructions Recorded Clopidogrel [Plavix] 75 mg PO DAILY 30 Days #30 tab 04/11/23 lisinopriL [Zestril] 20 mg PO DAILY 30 Days #30 tab 04/11/23 Atorvastatin [Lipitor] 80 mg PO HS tab 04/16/23 levETIRAcetam [Keppra] 500 mg PO Q12HR 30 Days #60 tab 04/16/23 Allergies Allergy/AdvReac Type Severity Reaction Status Date / Time No Known Allergies Allergy Verified 05/16/23 08:27 Review of Systems ROS Statement: Those systems with pertinent positive or pertinent negative responses have been documented in the HPI. ROS Other: All systems not noted in ROS Statement are negative. Cardiovascular: Reports: as per HPI Past Medical History Past Medical History: CVA/TIA, Hyperlipidemia, Hypertension, Memory Impairment, Myocardial Infarction ([place]) Additional Past Medical History / Comment(s): HEART MURMUR, LEAKY VALVE. POSS MILD STROKE YEARS AGO, UNSURE, HAS DIFFICULTY RECALLING SOME HISTORICAL MEDICAL INFO. 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 Past Anesthesia/Blood Transfusion Reactions: Motion Sickness Past Psychological History: No Psychological Hx Reported Smoking Status: Never smoker Past Alcohol Use History: None Reported Past Drug Use History: None Reported - Past Family History Father Additional Family Medical History / Comment(s): patient states "he had heart problems". patient unsure what type of heart problems. Mother Family Medical History: Cancer, Diabetes Mellitus Additional Family Medical History / Comment(s): brain cancer Brother(s) Family Medical History: Diabetes Mellitus Additional Family Medical History / Comment(s): autistic Sister(s) History Unknown: Yes General Exam Limitations: no limitations General appearance: alert Head exam: Present: atraumatic Eye exam: Present: normal appearance, PERRL, EOMI ENT exam: Present: normal oropharynx Neck exam: Present: normal inspection. Absent: tenderness Respiratory exam: Present: normal lung sounds bilaterally Cardiovascular Exam: Present: normal rhythm, bradycardia, systolic murmur Expanded Peripheral pulses: 2+: Radial (R), Radial (L), Dorsalis Pedis (R), Dorsalis Pedis (L) GI/Abdominal exam: Present: soft. Absent: distended, tenderness, guarding, rebound, rigid Extremities exam: Present: normal inspection. Absent: pedal edema, calf tenderness Neurological exam: Present: alert, altered. Absent: motor sensory deficit (Limited exam secondary to patient noncompliance) Expanded Neurological exam: Present: protecting the airway Patient oriented to: Present: person. Absent: place, time Eye Response: (3) open to voice Motor Response: (6) obeys commands Verbal Response: (4) confused conversation Psychiatric exam: Present: flat affect Skin exam: Present: normal color Course Vital Signs 05/16/23 05/16/23 05/16/23 08:24 09:02 10:05 Temperature 97.8 F Pulse Rate 52 L 57 L 58 L Respiratory 24 16 17 Rate Blood Pressure 138/76 153/76 123/66 O2 Sat by Pulse 98 95 98 Oximetry EKG Findings - EKG Results: EKG: interpreted by ERMD (Left axis. Right bundle branch block. LVH criteria. No acute ST), sinus rhythm, normal ST/T EKG shows: bradycardia Medical Decision Making - Medical Decision Making Was pt. sent in by a medical professional or institution (, PA, DATABASE SECURITY EXPERT, urgent care, hospital, or group home...) When possible be specific @ -No Did you speak to anyone other than the patient for history (EMS, parent, family, police, friend...)? What history was obtained from this source @ -Daughter provides majority of history. Patient is a poor historian. Did you review nursing and triage notes (agree or disagree)? Why? @ -I reviewed and agree with nursing and triage notes Were old charts reviewed (outside hosp., previous admission, EMS record, old EKG, old radiological studies, urgent care reports/EKG's, group home records)? Report findings @ -Review previous admission for strokes and seizures Differential Diagnosis (chest pain, altered mental status, abdominal pain women, abdominal pain men, vaginal bleeding, weakness, fever, dyspnea, syncope, headache, dizziness, GI bleed, back pain, seizure, CVA, palpatations, mental health, musculoskeletal)? @ -Differential Chest Pain: Stable Angina, Unstable Angina, STEMI, NSTEMI Aortic Dissection, Pneumothorax, Musculoskeletal, Esophageal Spasm GERD, Cholecystitis, Pancreatitis, Zoster, this is not meant to be an all-inclusive list. EKG interpreted by me (3pts min.). @ -As above X-rays interpreted by me (1pt min.). @ -Chest x-ray shows no acute process. CT interpreted by me (1pt min.). @ -None done U/S interpreted by me (1pt. min.). @ -None done What testing was considered but not performed or refused? (CT, X-rays, U/S, labs)? Why? @ -None What meds were considered but not given or refused? Why? @ -None Did you discuss the management of the patient with other professionals (professionals i.e. , PA, DATABASE SECURITY EXPERT, lab, RT, psych nurse, pediatric social worker, patient liaison, teacher, chief diversity officer, insurance case manager)? Give summary @ -Case was discussed with Dr. Dimas who is familiar with this patient and will admit Was smoking cessation discussed for >3mins.? @ -No Was critical care preformed (if so, how long)? @ -No Were there social determinants of health that impacted care today? How? (Homelessness, low income, unemployed, alcoholism, drug addiction, transportation, low edu. Level, literacy, decrease access to med. care, senior living, rehab)? @ -No Was there de-escalation of care discussed even if they declined (Discuss DNR or withdrawal of care, Hospice)? DNR status @ -No What co-morbidities impacted this encounter? (DM, HTN, Smoking, COPD, CAD, Cancer, CVA, ARF, Chemo, Hep., AIDS, mental health diagnosis, sleep apnea, morbid obesity)? @ -None Was patient admitted / discharged? Hospital course, mention meds given and route, prescriptions, significant lab abnormalities, going to OR and other pertinent info. @ -Patient evaluated and significant improved. Patient is alert and appropriate. Patient only has mild discomfort left chest at this time. Daughte r states patient has had mild cough recently. Patient will be admitted with consults with cardiology and neurology. Undiagnosed new problem with uncertain prognosis? @ -No Drug Therapy requiring intensive monitoring for toxicity (Heparin, Nitro, Insulin, Cardizem)? @ -No Were any procedures done? @ -No Diagnosis/symptom? @ -Chest pain, seizure Acute, or Chronic, or Acute on Chronic? @ -Acute, acute Uncomplicated (without systemic symptoms) or Complicated (systemic symptoms)? @ -default Side effects of treatment? @ -No Exacerbation, Progression, or Severe Exacerbation? @ -No Poses a threat to life or bodily function? How? (Chest pain, [place], [place], pneumonia, PE, COPD, DKA, ARF, appy, cholecystitis, CVA, Diverticulitis, Homicidal, Suicidal, threat to staff... and all critical care pts) @ -No - Lab Data Result diagrams: 05/16/23 08:50 05/16/23 08:50 Lab Results 05/16/23 05/16/23 05/16/23 Range/Units 08:50 08:50 08:50 WBC 10.1 (3.8-10.6) k/uL RBC 4.07 (3.80-5.40) m/uL Hgb 13.5 (11.4-16.0) gm/dL Hct 37.6 (34.0-46.0) % MCV 92.6 (80.0-100.0) fL MCH 33.3 (25.0-35.0) pg MCHC 35.9 (31.0-37.0) g/dL RDW 13.1 (11.5-15.5) % Plt Count 234 (150-450) k/uL MPV 8.5 Neutrophils % 67 % Lymphocytes % 15 % Monocytes % 4 % Eosinophils % 13 % Basophils % 0 % Neutrophils # 6.8 (1.3-7.7) k/uL Lymphocytes # 1.5 (1.0-4.8) k/uL Monocytes # 0.4 (0-1.0) k/uL Eosinophils # 1.3 H (0-0.7) k/uL Basophils # 0.0 (0-0.2) k/uL PT 10.2 (9.0-12.0) sec INR 1.0 (<1.2) APTT 26.1 (22.0-30.0) sec Sodium 139 (137-145) mmol/L Potassium 3.9 (3.5-5.1) mmol/L Chloride 109 H (98-107) mmol/L Carbon Dioxide 23 (22-30) mmol/L Anion Gap 7 mmol/L BUN 13 (7-17) mg/dL Creatinine 0.49 L (0.52-1.04) mg/dL Est GFR (CKD-EPI)AfAm >90 (>60 ml/min/1.73 sqM) Est GFR (CKD-EPI)NonAf >90 (>60 ml/min/1.73 sqM) Glucose 85 (74-99) mg/dL Calcium 8.9 (8.4-10.2) mg/dL Magnesium 1.8 (1.6-2.3) mg/dL Total Bilirubin 0.7 (0.2-1.3) mg/dL AST 114 H (14-36) U/L ALT 77 H (4-34) U/L Alkaline Phosphatase 160 H (38-126) U/L Troponin I (0.000-0.034) ng/mL Total Protein 6.5 (6.3-8.2) g/dL Albumin 3.6 (3.5-5.0) g/dL Amylase 70 (30-110) U/L Lipase 158 (23-300) U/L 05/16/23 Range/Units 08:50 WBC (3.8-10.6) k/uL RBC (3.80-5.40) m/uL Hgb (11.4-16.0) gm/dL Hct (34.0-46.0) % MCV (80.0-100.0) fL MCH (25.0-35.0) pg MCHC (31.0-37.0) g/dL RDW (11.5-15.5) % Plt Count (150-450) k/uL MPV Neutrophils % % Lymphocytes % % Monocytes % % Eosinophils % % Basophils % % Neutrophils # (1.3-7.7) k/uL Lymphocytes # (1.0-4.8) k/uL Monocytes # (0-1.0) k/uL Eosinophils # (0-0.7) k/uL Basophils # (0-0.2) k/uL PT (9.0-12.0) sec INR (<1.2) APTT (22.0-30.0) sec Sodium (137-145) mmol/L Potassium (3.5-5.1) mmol/L Chloride (98-107) mmol/L Carbon Dioxide (22-30) mmol/L Anion Gap mmol/L BUN (7-17) mg/dL Creatinine (0.52-1.04) mg/dL Est GFR (CKD-EPI)AfAm (>60 ml/min/1.73 sqM) Est GFR (CKD-EPI)NonAf (>60 ml/min/1.73 sqM) Glucose (74-99) mg/dL Calcium (8.4-10.2) mg/dL Magnesium (1.6-2.3) mg/dL Total Bilirubin (0.2-1.3) mg/dL AST (14-36) U/L ALT (4-34) U/L Alkaline Phosphatase (38-126) U/L Troponin I <0.012 (0.000-0.034) ng/mL Total Protein (6.3-8.2) g/dL Albumin (3.5-5.0) g/dL Amylase (30-110) U/L Lipase (23-300) U/L Disposition Clinical Impression: Chest pain, Seizure Disposition: ADMITTED IP TO THIS HOSP Is patient prescribed a controlled substance at d/c from ED?: No Referrals: Gary Dimas MD [Primary Care Provider] - 1-2 days Time of Disposition: 10:46
--- NOTE | 2023-05-16 09:12 | XR ---
EXAMINATION TYPE: XR chest 2V DATE OF EXAM: 05/16/2023 9:07 AM COMPARISON: Chest radiographs from 04/14/2023 TECHNIQUE: XR chest 2V view. CLINICAL INDICATION:Female, 77 years old with history of Chest Pain; FINDINGS: Lungs/Pleura: There is no evidence of pleural effusion, focal consolidation, or pneumothorax. Pulmonary vascularity: Unremarkable. Heart/mediastinum: Cardiomediastinal silhouette is enlarged and stable. Atherosclerotic calcificatio ns are seen in the aorta. Musculoskeletal: No acute osseous pathology. IMPRESSION: Chronic changes without evidence for acute process.
[2023-05-16 09:34] LABS: ALT 77 U/L (4-34); AST 114 U/L (14-36); African American GFR (CKD) >90 (>60 ml/min/1.73 sqM); Albumin 3.6 g/dL (3.5-5.0); Alkaline Phosphatase 160 U/L (38-126); Amylase 70 U/L (30-110); Anion Gap 7 mmol/L; Blood Urea Nitrogen 13 mg/dL (7-17); Calcium 8.9 mg/dL (8.4-10.2); Carbon Dioxide 23 mmol/L (22-30); Chloride 109 mmol/L (98-107); Glucose 85 mg/dL (74-99); Lipase 158 U/L (23-300); Magnesium 1.8 mg/dL (1.6-2.3); Non-African American GFR(CKD) >90 (>60 ml/min/1.73 sqM); Potassium 3.9 mmol/L (3.5-5.1); Sodium 139 mmol/L (137-145); Total Bilirubin 0.7 mg/dL (0.2-1.3); Total Protein 6.5 g/dL (6.3-8.2)
[2023-05-16 09:35] LABS: Basophils % (A) 0 %; Eosinophils # (A) 1.3 k/uL (0-0.7); Eosinophils % (A) 13 %; HCT 37.6 % (34.0-46.0); HGB 13.5 gm/dL (11.4-16.0); Lymphocytes # (A) 1.5 k/uL (1.0-4.8); Lymphocytes % (A) 15 %; MCH 33.3 pg (25.0-35.0); MCHC 35.9 g/dL (31.0-37.0); MCV 92.6 fL (80.0-100.0); Mean Platelet Volume 8.5; Monocytes # (A) 0.4 k/uL (0-1.0); Monocytes % (A) 4 %; Neutrophils # (A) 6.8 k/uL (1.3-7.7); Neutrophils % (A) 67 %; Platelet Count 234 k/uL (150-450); RBC 4.07 m/uL (3.80-5.40); RDW 13.1 % (11.5-15.5); WBC 10.1 k/uL (3.8-10.6)
[2023-05-16 09:54] LABS: Partial Thromboplastin Time 26.1 sec (22.0-30.0); Prothrombin Time 10.2 sec (9.0-12.0)
[2023-05-16] MEDS ORDERED: NITROGLYCERIN SL TABS 0.4 MG TAB SUBLINGUAL PRN (10:47)
[2023-05-16] MEDS: NITROGLYCERIN OINT 1 INCH/GM PACKET TOPICAL SCH ×2 (11:03→17:29)
--- NOTE | 2023-05-16 13:53 | P.CNNES ---
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 Neurology consulted for seizure. She is known to our neurology team. History was obtained from medical record as well as her daughter. According to the daughter she's been compliant taking her Keppra 500 mg 1 tablet twice a day at. Since for the past 1 week she's been having cough and the daughter has scheduled her an appointment with Dr. Dimas but she declined so the daughter had to cancel that appointment. The cough was dry cough for the last 1 week and no fever. It seems that today when she woke up around 7:30 she was complaining of pressure in the abdomen with difficulty breathing and the last normal state was around 11p.m. yesterday. The daughter brought her to the hospital and upon the coming out of the vehicle per the daughter she started having shaking movement on the left side lasting for at least 5 minutes. She did not have any recent fever. Again she's been compliant taking her Keppra. She was seeing Dr. Brown and he wanted to order a Keppra level on her. Of note I personally saw the patient last on 04/14/2023 and I felt her episode of confusion with left-sided weakness numbness with shaking of bilateral upper extremity was concerning for seizure. Her EEG showed left temporal discharges there is no seizures. Her MRI showed the superficial siderosis. The past Dr. Valenzuela at [facility] and he felt a possible TIA and that was a week prior to me seeing her on prior admission because of manifestation of left hemiparesis and MRI the brain was negative. Please refer to our notes for further details. Other workup during this hospital visit consisted of: Patient is afebrile with a temperature of 97.8 Heart rate is in the 50s 52-58 Blood pressure has been in the range of 120s to 150s and diastolic is in the 70s. CBC with differential seems unremarkable AST is 114 ALT is 77 Alkaline phosphatase is 160 Calcium, magnesium, sodium and glucose are within normal limits. Review of Systems Review of systems Limited but the prone positive and negative as per HPI. Past Medical History Past Medical History: CVA/TIA, Hyperlipidemia, Hypertension, Memory Impairment, Myocardial Infarction ([place]) Additional Past Medical History / Comment(s): HEART MURMUR, LEAKY VALVE. POSS MILD STROKE YEARS AGO, UNSURE, HAS DIFFICULTY RECALLING SOME HISTORICAL MEDICAL INFO. 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 Past Anesthesia/Blood Transfusion Reactions: Motion Sickness Past Psychological History: No Psychological Hx Reported Smoking Status: Never smoker Past Alcohol Use History: None Reported Past Drug Use History: None Reported - Past Family History Father Additional Family Medical History / Comment(s): patient states "he had heart problems". patient unsure what type of heart problems. Mother Family Medical History: Cancer, Diabetes Mellitus Additional Family Medical History / Comment(s): brain cancer Brother(s) Family Medical History: Diabetes Mellitus Additional Family Medical History / Comment(s): autistic Sister(s) History Unknown: Yes Medications and Allergies Home Medications Medication Instructions Recorded Confirmed Type Aspirin EC [Ecotrin Low Dose] 81 mg PO DAILY 04/08/23 05/16/23 History Atorvastatin [Lipitor] 80 mg PO HS tab 04/16/23 05/16/23 Rx levETIRAcetam [Keppra] 500 mg PO Q12HR 30 Days #60 tab 04/16/23 05/16/23 Rx Metoprolol Tartrate [Lopressor] 25 mg PO BID 05/16/23 05/16/23 History lisinopriL [Zestril] 10 mg PO DAILY 05/16/23 05/16/23 History Allergies Allergy/AdvReac Type Severity Reaction Status Date / Time No Known Allergies Allergy Verified 05/16/23 12:57 Physical Examination - Vital Signs Vital Signs: Vital Signs Temp Pulse Resp BP Pulse Ox 05/16/23 11:12 98.8 F 55 L 17 123/76 97 05/16/23 10:05 58 L 17 123/66 98 05/16/23 09:02 57 L 16 153/76 95 05/16/23 08:24 97.8 F 52 L 24 138/76 98 Intake and Output 07/22/23 07/23/23 07/23/23 22:59 06:59 14:59 Other: Weight 49.442 kg GENERAL: The patient is laying in bed and appears lethargic NEUROLOGICAL: Limited Higher mental function: The patient is moderately to severely drowsy and would responds to voice. She is very slow to respond. She's oriented to self and she stated she is in the hospital. She is able follow a few simple commands such as showing a thumbs up lifted extremities but again very slow in performing the tasks. Language is very limited but does not appear a phasic. Cranial nerves: The pupils are round, equal and reactive to light. No facial weakness. No dysarthria. Motor: The strength is limited in assessment individual muscle strength because of her cooperation. She is slow raising all extremities above gravity but was able to do it and that there is no appreciable focality but again it's hard to assess at this time. Appears diffuse low tone throughout. Normal bulk. Cerebellum: Unable to examine. Sensation: Unable to examine at this time.. Reflexes (right/left): 2+ throughout. Plantars are mute bilaterally. Results - Laboratory Findings CBC and BMP: 05/16/23 08:50 05/16/23 08:50 Abnormal Lab Findings: Abnormal Labs 05/16/23 05/16/23 08:50 08:50 Eosinophils # 1.3 H Chloride 109 H Creatinine 0.49 L AST 114 H ALT 77 H Alkaline Phosphatase 160 H Assessment and Plan Assessment: This is a 77-year-old woman with highly suspicious of seizure and is known to our neurology team and was last seen by me on 04/14/2023 and I placed her on Keppra 500 mg twice a day with been having a dry cough for the past 1 week as well as that today she had the abdominal pressure and difficulty breathing. Upon the arrival to our facility she had the uncontrollable shaking on the left side lasting for 5 minutes concerning for seizure that was witnessed by the daughter. Breakthrough seizure on chair fits provoked due to her recent ?infection (cough with abdominal pain). History of seizure on 2022 and on the EEG she had discharges over the left temporal region. She had MRI of the brain which does not show any evidence of intracranial mass, stroke. Finding suspicious for superficial siderosis. Recent cough for the past 1 week and the patient refused to seek medical attention even though the daughter made an appointment with primary. Unknown if patient has any underlying pneumonia or any other infection Recent abdominal pain on known cause Questionable history of TIA with manifestation of left hemiparesis that resolved an MRI of the brain was negative. History of suspicious superficial siderosis seen on MRI of the brain History of bradycardia as low as 40s History of valvular disease with aortic regurgitation and mitral regurgitation Hypertension Hyperlipidemia Chronic left hip issues Vitamin B12 deficiency Plan: I ordered a CT of the head to rule out any acute or subacute changes I'll not pursue MRI of the brain since patient had multiple MRIs in our facility and the last one was in March 2023 which showed superficial siderosis. I'll defer this duration of MRI to the covering neurologist tomorrow if needed. On prior admission I recommended further investigation of the superficial siderosis and we'll defer the management to the primary team. I also recommended MRI of the cervical spine on the prior admission that can be considered as an outpatient. I ordered a routine EEG to rule out any active seizures or any further disch arges. I ordered ammonia level and the lactic acid level. Keppra level is ordered by ED team. I increased her Keppra from 500 mg 1 tablet twice a day 2000 mg 1 tablet twice a day. He is on seizure precautions seizure pads Regarding her abdominal pain and cough will defer the further investigation to the primary attending. Defer the rest of the medical management to the primary team and other speci alist. Plan discharge the patient needs to continue to follow up with her neurologist as an outpatient (Dr. Brown). The plan was discussed with the patient daughter via phone. Thank you for the consultation. Dr. Valenzuela will start neurology service tomorrow A.M. Time with Patient: Greater than 30
--- NOTE | 2023-05-16 13:58 | CT ---
EXAMINATION TYPE: CT brain wo con CT DLP: 1098.4 mGycm, Automated exposure control for dose reduction was used. DATE OF EXAM: 05/16/2023 1:51 PM COMPARISON: Prior CT Brain from 04/14/2023. CLINICAL INDICATION:Female, 77 years old with history of altered mental status, Weakness, altered men irvin status TECHNIQUE: Brain: Multiple axial CT images of the brain were obtained without IV contrast. Coronal and sagittal reformats reviewed. FINDINGS: Brain: Extra-axial spaces: No abnormal extra-axial fluid collections. Ventricular system: Within normal limits Cerebral parenchyma: Cerebral atrophy. No acute intraparenchymal hemorrhage or mass effect. The delacruz -white junction is well differentiated. Scattered hypoattenuating areas are seen within the white mat ter. Cerebellum: Unremarkable. Mass effect: No evidence of midline shift. Intracranial vasculature: Atherosclerotic calcifications of the intracranial vessels. Soft tissues: Normal. Calvarium/osseous structures: No depressed skull fracture. Benign hyperostosis frontalis noted. Stabl e right paramedian anterior osteoma the outer table. Paranasal sinuses and mastoid air cells: Mastoid air cells are clear. Air-fluid level is identified w ithin the bilateral maxillary sinuses and sphenoid sinuses. Mild mucosal thickening of the ethmoid si nus and left frontal sinus. Visualized orbits: Orbital contents are intact. IMPRESSION: 1. No acute intracranial process. 2. Nonspecific white matter changes, likely secondary to chronic small vessel ischemic disease. 3. Paranasal sinus disease.
[2023-05-16 17:01] LABS: Lactic Acid, Venous 0.7 mmol/L (0.7-2.0)
[2023-05-16] MEDS: METOPROLOL TARTRATE 12.5 MG TAB PO SCH ×2 (20:46→22:25)
[2023-05-16] MEDS: ATORVASTATIN 80 MG TAB PO SCH (20:46)
[2023-05-16] MEDS: levETIRAcetam 500 MG TAB PO SCH (20:47)
[2023-05-16] MEDS ORDERED: METOPROLOL TARTRATE 25 MG TAB PO SCH (21:00)
[2023-05-17] MEDS: NITROGLYCERIN OINT 1 INCH/GM PACKET TOPICAL SCH ×2 (02:25→06:45)
[2023-05-17] MEDS ORDERED: NON FORMULARY DRUG (Aspirin Ec 81 MG Tablet) PO SCH (09:00)
[2023-05-17] MEDS ORDERED: ASPIRIN 325 MG TAB PO SCH (09:00)
[2023-05-17] MEDS: levETIRAcetam 500 MG TAB PO SCH (09:17)
[2023-05-17] MEDS: METOPROLOL TARTRATE 12.5 MG TAB PO SCH ×2 (09:17→20:55)
[2023-05-17] MEDS: lisinopriL 10 MG TAB PO SCH (09:17)
[2023-05-17 11:28] LABS: Chol/HDL Ratio 2.47 Ratio; LDL Cholesterol,Calculated 51.3 mg/dL (0.0-131.0); VLDL Calculation 12.86 mg/dL (5.00-40.00)
--- NOTE | 2023-05-17 11:32 | P.CRDCN ---
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 Patient follows in the office with Dr. Morel. We have been asked to see the patient in consultation for chest pain. Patient examined at the bedside. Patient initially presented to the hospital with a chief complaint of abdominal pain and SOB. The patient currently denies chest pain or pressure. She denies shortness of breath at the time of examination. The patient apparently had a seizure when she was getting out of the car to come to the emergency room. She has been evaluated by neurology. EEG has been ordered. * EKG reveals bradycardia with right bundle branch block. * Chest xray chronic changes without evidence for acute process * Laboratory data: WBC 10.1. Hemoglobin 13.5. Platelet count 234. Sodium 139. Potassium 3.9. BUN 13. Creatinine 0.49. Troponin negative 3. * Current home cardiac medications include metoprolol tartrate 12.5 mg twice a day, lisinopril 10 mg daily, atorvastatin 80 mg at night, and aspirin 81 mg daily * Most recent echocardiogram obtained in March 2023 revealing normal left ventricular size and systolic function with severe hypertrophy, moderate mitral regurgitation, left ventricular outflow gradient consistent with hypertrophic obstructive cardiomyopathy, [id number] aortic regurgitation, mild tricuspid regurgitation, and no evidence of shunting with bubble study * Patient underwent Lexiscan stress test in May 2022 revealing ejection fraction 60% with no evidence of acute ischemia REVIEW OF SYSTEMS: At the time of my exam: CONSTITUTIONAL: Denies fever or chills. HEENT: Denies blurred vision, vision changes, or eye pain. Denies hemoptysis CARDIOVASCULAR: Denies chest pain. Denies orthopnea. Denies PND. Denies palpitations RESPIRATORY: Denies shortness of breath. GASTROINTESTINAL: Denies abdominal pain. Denies nausea or vomiting. HEMATOLOGIC: Denies bleeding disorders. GENITOURINARY: Denies any blood in urine. SKIN: Denies pruitis. Denies rash. PHYSICAL EXAM: VITAL SIGNS: Reviewed. GENERAL: Well-developed in no acute distress. HEENT: Head is normocephalic. Pupils are equal, round. Sclerae anicteric. Mucous membranes of the mouth are moist. Neck supple. No JVD or thyromegaly LUNGS: Respirations even and unlabored. Lungs essentially clear to auscultation bilaterally. HEART: Regular rate and rhythm. S1 and S2 heard. Systolic murmur noted ABDOMEN: Soft. Nondistended. Nontender. EXTREMITIES: Normal range of motion. No clubbing or cyanosis. Peripheral pulses intact. No lower extremity edema NEUROLOGIC: Awake and alert. Oriented x 3. ASSESSMENT: Chest pain, atypical, troponin negative x 3 Seizure History of seizures Hypertension Hyperlipidemia History of sinus bradycardia Severe left ventricular hypertrophy Left ventricular outflow gradient consistent with hypertrophic obstructive cardiomyopathy Questionable history of TIA PLAN: An acute coronary event has been ruled out Resume home cardiac medications Decrease aspirin to 81mg daily Neurology following. Patient scheduled for EEG today. No further inpatient recommendations from a cardiac standpoint We will sign off. Please reconsult if needed. Nurse practitioner note has been reviewed by physician. Signing provider agrees with the documented findings, assessment, and plan of care. Past Medical History Past Medical History: CVA/TIA, Hyperlipidemia, Hypertension, Memory Impairment, Myocardial Infarction ([place]) Additional Past Medical History / Comment(s): HEART MURMUR, LEAKY VALVE. POSS MILD STROKE YEARS AGO, UNSURE, HAS DIFFICULTY RECALLING SOME HISTORICAL MEDICAL INFO. 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 Past Anesthesia/Blood Transfusion Reactions: Motion Sickness Past Psychological History: No Psychological Hx Reported Smoking Status: Never smoker Past Alcohol Use History: None Reported Past Drug Use History: None Reported - Past Family History Father Additional Family Medical History / Comment(s): patient states "he had heart problems". patient unsure what type of heart problems. Mother Family Medical History: Cancer, Diabetes Mellitus Additional Family Medical History / Comment(s): brain cancer Brother(s) Family Medical History: Diabetes Mellitus Additional Family Medical History / Comment(s): autistic Sister(s) History Unknown: Yes Medications and Allergies Home Medications Medication Instructions Recorded Confirmed Type Aspirin EC [Ecotrin Low Dose] 81 mg PO DAILY 04/08/23 05/16/23 History Atorvastatin [Lipitor] 80 mg PO HS tab 04/16/23 05/16/23 Rx levETIRAcetam [Keppra] 500 mg PO Q12HR 30 Days #60 tab 04/16/23 05/16/23 Rx Metoprolol Tartrate [Lopressor] 12.5 mg PO BID 05/16/23 05/16/23 History lisinopriL [Zestril] 10 mg PO DAILY 05/16/23 05/16/23 History Allergies Allergy/AdvReac Type Severity Reaction Status Date / Time No Known Allergies Allergy Verified 05/16/23 12:57 Physical Exam Vitals: Vital Signs Temp Pulse Pulse Resp BP BP Pulse Ox 05/17/23 04:00 64 17 138/76 96 05/17/23 00:00 66 18 107/65 96 05/16/23 20:00 98.3 F 52 L 17 131/64 96 05/16/23 15:24 98.4 F 53 L 18 142/65 97 05/16/23 15:02 98.2 F 49 L 17 122/69 95 05/16/23 13:38 98.4 F 55 L 16 125/76 97 05/16/23 11:12 98.8 F 55 L 17 123/76 97 05/16/23 10:05 58 L 17 123/66 98 Intake and Output 05/16/23 05/17/23 05/17/23 22:59 06:59 14:59 Other: # Voids 1 Results 05/16/23 08:50 05/16/23 08:50 Cardiac Enzymes 05/16/23 05/16/23 05/16/23 Range/Units 08:50 11:06 16:20 Troponin I <0.012 <0.012 <0.012 (0.000-0.034) ng/mL Coagulation 05/16/23 Range/Units 08:50 PT 10.2 (9.0-12.0) sec APTT 26.1 (22.0-30.0) sec Current Medications Generic Name Dose Route Start Last Admin Trade Name Freq PRN Reason Stop Dose Admin Aspirin 325 mg 05/17/23 09:00 05/17/23 09:17 Aspirin 325 Mg Tab PO 325 mg DAILY AUTUMN Administration Atorvastatin Calcium 80 mg 05/16/23 21:00 05/16/23 20:46 Atorvastatin 80 Mg Tab PO 80 mg HS AUTUMN Administration Levetiracetam 1,000 mg 05/16/23 21:00 05/17/23 09:17 Levetiracetam 500 Mg Tab PO 1,000 mg Q12HR AUTUMN Administration Lisinopril 10 mg 05/17/23 09:00 05/17/23 09:17 Lisinopril 10 Mg Tab PO 10 mg DAILY AUTUMN Administration Metoprolol Tartrate 12.5 mg 05/16/23 21:00 05/17/23 09:17 Metoprolol Tartrate 12.5 Mg Tab PO 12.5 mg BID AUTUMN Administration Nitroglycerin 0.4 mg 05/16/23 10:47 Nitroglycerin Sl Tabs 0.4 Mg Tab SUBLINGUAL Q5M PRN Chest Pain Nitroglycerin 0.5 inch 05/16/23 12:00 05/17/23 06:45 Nitroglycerin Oint 1 Inch/Gm Packet TOPICAL 0.5 inch Q6HR [facility] Administration Intake and Output 05/16/23 05/17/23 05/17/23 22:59 06:59 14:59 Other: # Voids 1 05/16/23 08:50 05/16/23 08:50
--- NOTE | 2023-05-17 13:11 | EEG ---
ELECTROENCEPHALOGRAM REPORT PREAMBLE: This is a 78-year-old female with seizure disorder. EEG FINDINGS: This is a 21-channel digital EEG recorded with video component, utilizing 10/20 international system with referential and bipolar montages. Background consists of well developed, well regulated moderate voltage activity in 9 hertz alpha. Background is posterior dominant and reactive to eye opening and closing. Photic driving response was not clearly seen. Drowsiness was seen with appearance of bilaterally symmetric theta frequency rhythm. Stage 2 sleep was seen with presence of vertex waves and sleep spindles. No focal or generalized epileptiform activity was seen. IMPRESSION: This is a normal EEG during wakefulness, drowsiness, and stage 2 sleep. No focal, lateralized, or epileptiform activity was seen. MMODL / IJN: [id number] /
--- NOTE | 2023-05-17 13:54 | P.PN ---
Subjective Progress Note Date: 05/17/23 Patient was initially seen by Dr. Hal Britt. Please refer to his note for details. Patient presented to the hospital with seizure-like activity for 5 minutes, that was witnessed. Patient was taking Keppra 500 mg twice a day. Dr. Britt increase the dose of Keppra to 1 g twice a day. Patient also complaining of some cough and abdominal pain. IM on board. Patient is laying in the bed. Offers no complaints. Continues to be generalized weak. I had seen patient for initial consultation on 04/08/2023 for possible stroke/TIA, with negative MRI of the brain. Patient was sent home. On 04/14/2023, patient was having strokelike symptoms, when when she arrived to the ER, patient had a possible focal seizure, in which her left arm was jerking, twitching, lasted for a few minutes. Patient had an EEG, and after coming back from the EEG, patient had a second seizure, with jerking of left arm and hand, that lasted for 5 minutes. The EEG was reviewed by Dr. Britt, which revealed possible sharp waves left temporal region. Patient was transferred to [facility] [place]. Patient's third seizure occurred on 04/30/2023 while she was in the [facility] when she was on phone with her daughter, and patient started complaining of left-sided jerking of her arm. Patient's daughter called the nurse from the other line, and the nurse came over and saw patient having a seizure like activity involving the left arm. It lasted for about 5 minutes. The nurse tried to contact the physician, but there was no response. Patient was not brought to the hospital. After the event, her head flops to the left side. There is no jerking reported of the leg, facial region of the head. With most recent seizure yesterday 05/16/2023, which is the fourth seizure in her lifetime, yesterday she woke up having lot of pressure below the breast and abdominal region. She also has been having some cough for last 1 week. She was having difficulty breathing. Patient's daughter is her in the ventricle, and talked to the hospital. While she was being transferred from medical to the wheelchair, her left arm started shaking, jerking, which was witnessed by the patient's daughter and patient's grandson, and both of them felt was a seizure. It lasted for about 5 minutes. Her head flops to the left side but no jerking. Post ictally patient is disoriented, very incoherent, and wants to sleep. Objective - Vital Signs Vital signs: Vital Signs Temp 98.2 F 05/17/23 08:00 Pulse 62 05/17/23 08:00 Resp 18 05/17/23 08:00 BP 164/74 05/17/23 08:00 Pulse Ox 96 05/17/23 08:00 FiO2 Intake & Output 05/16/23 05/17/23 05/17/23 18:59 06:59 18:59 Intake Total 240 Balance 240 Weight 49.442 kg Intake: Oral 240 Other: # Voids 1 - Exam Patient is alert and awake. Speech and language functions are normal. Cranial nerves are normal. Visual orozco are full. Face is symmetric. On muscle strength testing, there is no pronator drift. Strength is equal, but patient is generalized weak. Decreased effort. No ataxia for [id number] testing. Sensory to touch is equal with no neglect. - Labs CBC & Chem 7: 05/16/23 08:50 05/16/23 08:50 Assessment and Plan Assessment: Probable seizure disorder. Patient has presented with some chest pain and in the ER had some left-sided shaking without loss of consciousness. Patient had so far had 4 possible focal seizures since new onset seizure type spells on 04/14/2023. Patient was discharged on Keppra 500 mg twice a day in the last admission, but now the dose has been increased to 1000 mg twice a day. Acute pansinusitis. CT head revealing air fluid level in the left frontal, left maxillary and bilateral sphenoid sinuses. Also multiple ethmoid air cells are opacified. Patient also has impacted cerumen bilaterally. Breakthrough seizure on chair fits provoked due to her recent ?infection (cough with abdominal pain). History of seizure on [address] Britt has felt the EEG showing discharges over the left temporal region. She had MRI of the brain which does not show any evidence of intracranial mass, stroke. Finding suspicious for superficial siderosis. Recent cough for the past 1 week and the patient refused to seek medical attention even though the daughter made an appointment with primary. Unknown if patient has any underlying pneumonia or any other infection. Probable pansinusitis. Recent abdominal pain on known cause Probable history of TIA with manifestation of left hemiparesis that resolved an MRI of the brain was negative. History of suspicious superficial siderosis seen on MRI of the brain History of bradycardia as low as 40s History of moderate MR, mild to moderate AR and severe concentric left ventricular hypertrophy. Hypertension Hyperlipidemia Chronic left hip issues Vitamin B12 deficiency Plan: CT of the head revealed no acute process. Nonspecific white matter changes, li isabelle secondary to chronic small vessel ischemic disease. Paranasal sinus disease. Patient's examination is nonfocal, no indication for repeat MRI. I personally reviewed CT head, and there is evidence of significant pansinusitis, with evidence of air fluid level in the left frontal, left maxillary, bilateral sphenoid sinuses and multiple ethmoid air cells are opacified. Suggest Aug mentin 875 mg twice a day for 10 days. Routine EEG performed today was normal during wakefulness, drowsiness and stage II sleep. No epileptiform activity was seen. Patient appears generalized weak. We will decrease Keppra down to 750 mg twice a day. Recommend prolonged EEG in the morning for further evaluation. Ammonia level 13 normal and the lactic acid level normal 0.7. Keppra level is ordered by ED team. Lipid panel with cholesterol 108, LDL 51, HDL 43 and triglycerides 64. Continue Lipitor 80 mg. Continue aspirin 81 mg daily. Regarding her abdominal pain and cough will defer the further investigation to the primary attending. After discharge the patient needs to continue to follow up with her neurologist as an outpatient (Dr. Brown). Discussed with patient's family, and primary physician in detail. I spent 20 minutes on the phone with the patient's daughter besides above evaluation. Time with Patient: Greater than 30
--- NOTE | 2023-05-17 16:55 | P.HPIM ---
History of Present Illness H&P Date: 05/17/23 Tia Faulkner, is a 78-year-old female who presented to [facility] emergency room with multiple vague symptoms of chest pain, abdominal pain, cough, confusion and left sided shaking. she was evaluated in the emergency room vital examination on presentation revealed a temperature of 97.8 pulse 52 respiration 24 blood pressure 138/76 pulse ox 98% on room air Laboratory data revealed a white blood count of 10.1 hemoglobin 13.5 platelet count 234 BUN 13 creatinine 0.49AST 114 ALT 77 alkaline phosphatase 160 troponin level 0.012 amylase and lipase were normal Testing in the emergency room revealed chest x-ray done in the emergency room revealed no acute process, computed tomography scan of the brain revealed no acute intracranial process there was evidence of diffuse paranasal sinus infection. EKG was done in the emergency room and revealed normal sinus rhythm with right b undle branch block. Patient was admitted to telemetry floor cardiology consultation and neurology co nsultation were requested Past Medical History Past Medical History: CVA/TIA, Hyperlipidemia, Hypertension, Memory Impairment, Myocardial Infarction ([place]) Additional Past Medical History / Comment(s): HEART MURMUR, LEAKY VALVE. POSS MILD STROKE YEARS AGO, UNSURE, HAS DIFFICULTY RECALLING SOME HISTORICAL MEDICAL INFO. 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 Past Anesthesia/Blood Transfusion Reactions: Motion Sickness Past Psychological History: No Psychological Hx Reported Smoking Status: Never smoker Past Alcohol Use History: None Reported Past Drug Use History: None Reported - Past Family History Father Additional Family Medical History / Comment(s): patient states "he had heart problems". patient unsure what type of heart problems. Mother Family Medical History: Cancer, Diabetes Mellitus Additional Family Medical History / Comment(s): brain cancer Brother(s) Family Medical History: Diabetes Mellitus Additional Family Medical History / Comment(s): autistic Sister(s) History Unknown: Yes Medications and Allergies Home Medications Medication Instructions Recorded Confirmed Type Aspirin EC [Ecotrin Low Dose] 81 mg PO DAILY 04/08/23 05/16/23 History Atorvastatin [Lipitor] 80 mg PO HS tab 04/16/23 05/16/23 Rx levETIRAcetam [Keppra] 500 mg PO Q12HR 30 Days #60 tab 04/16/23 05/16/23 Rx Metoprolol Tartrate [Lopressor] 12.5 mg PO BID 05/16/23 05/16/23 History lisinopriL [Zestril] 10 mg PO DAILY 05/16/23 05/16/23 History Allergies Allergy/AdvReac Type Severity Reaction Status Date / Time No Known Allergies Allergy Verified 05/16/23 12:57 Physical Exam Vitals: Vital Signs Temp Pulse Pulse Resp BP BP Pulse Ox 05/17/23 04:00 64 17 138/76 96 05/17/23 00:00 66 18 107/65 96 05/16/23 20:00 98.3 F 52 L 17 131/64 96 05/16/23 15:24 98.4 F 53 L 18 142/65 97 05/16/23 15:02 98.2 F 49 L 17 122/69 95 05/16/23 13:38 98.4 F 55 L 16 125/76 97 05/16/23 11:12 98.8 F 55 L 17 123/76 97 Intake and Output 05/16/23 05/17/23 05/17/23 22:59 06:59 14:59 Other: # Voids 1 In general patient is alert and oriented x 3 in no distress HEENT head normocephalic and atraumatic Neck is supple no JVD no goiter no lymphadenopathy no carotid bruit Chest examination is clear to auscultation no crackles no wheezing Cardiac exam reveals regular heart sounds S1 and S2 no gallops no murmurs Abdomen is soft nontender no organomegaly with normal bowel sounds Extremity exam reveals no edema no cyanosis or clubbing Neurological examination reveals no gross focal deficits Results CBC & Chem 7: 05/16/23 08:50 05/16/23 08:50 Assessment and Plan Plan: episode of chest pain, serial EKG and cardiac enzymes ordered cardiology consultation requested Left sided shaking similar to recent seizure activity, neurology consultation requested EEG ordered Evidence of acute pansinusitis, patient started on IV ceftriaxone Recent history of transient ischemic attack Recent diagnosis was seizure disorder, patient was started on Keppra last admission Severe kyphoscoliosis At this time patient is admitted to telemetry floor serial EKG and cardiac enzymes ordered Cardiology consultation and neurology consultation requested Home medications reviewed and reordered Started on IV ceftriaxone for acute pansinusitis Will recheck in a.m.
[2023-05-17] MEDS: ATORVASTATIN 80 MG TAB PO SCH (20:55)
[2023-05-18] MEDS: lisinopriL 10 MG TAB PO SCH (08:32)
[2023-05-18] MEDS: METOPROLOL TARTRATE 12.5 MG TAB PO SCH ×2 (08:32→19:36)
[2023-05-18] MEDS: ASPIRIN 81 MG PO SCH (08:32)
--- NOTE | 2023-05-18 09:06 | US ---
EXAMINATION TYPE: US abdomen complete DATE OF EXAM: 05/18/2023 COMPARISON: None CLINICAL INDICATION: Female, 78 years old with history of abdominal pain; Gb removed. TECHNIQUE: Multiple sonographic images of the abdomen are obtained. FINDINGS: EXAM MEASUREMENTS: Liver Length: 12.2 cm CBD: 0.4 cm Spleen: 10.5 cm Right Kidney: 8.6 x 4.3 x 4.1 cm Left Kidney: 9.4 x 3.3 x 3.8 cm CLERK ANALYST NOTES: Limited due to overlying bowel gas Pancreas: Tail obscured by overlying bowel gas Liver: Right lobe posterior cystic lesion - 1.3 x 1.3 x 1.5 cm Gallbladder: Surgically absent Evidence for sonographic Samano's sign: neg CBD: wnl Spleen: Possible accessory lobe= 1.2 x 1.3 x 1.3 cm Right Kidney: No hydronephrosis or masses seen Left Kidney: No hydronephrosis or masses seen Upper IVC: wnl Abd Aorta: No AAA visualized at time of scan The liver is homogenous. The intrahepatic portion of the IVC and proximal abdominal aorta are within normal limits. There is no evidence of cholelithiasis. Common bile duct is unremarkable. The visu alized portions of the pancreas are homogenous. The spleen is unremarkable. Kidneys are symmetric a nd free of hydronephrosis. No renal lesions are seen. IMPRESSION: 1. No evidence for acute process. 2. Simple appearing hepatic cyst. 3. Surgically absent gallbladder.
[2023-05-18 12:17] LABS: HCT 40.8 % (34.0-46.0); HGB 14.2 gm/dL (11.4-16.0); MCHC 34.8 g/dL (31.0-37.0); MCV 94.8 fL (80.0-100.0); Mean Platelet Volume 8.1; Platelet Count 235 k/uL (150-450); RDW 13.2 % (11.5-15.5); WBC 13.4 k/uL (3.8-10.6)
[2023-05-18 12:33] LABS: ALT 280 U/L (4-34); AST 249 U/L (14-36); African American GFR (CKD) >90 (>60 ml/min/1.73 sqM); Albumin 3.5 g/dL (3.5-5.0); Alkaline Phosphatase 294 U/L (38-126); Anion Gap 7 mmol/L; Blood Urea Nitrogen 9 mg/dL (7-17); Calcium 8.7 mg/dL (8.4-10.2); Carbon Dioxide 26 mmol/L (22-30); Chloride 105 mmol/L (98-107); Glucose 83 mg/dL (74-99); Non-African American GFR(CKD) >90 (>60 ml/min/1.73 sqM); Potassium 4.1 mmol/L (3.5-5.1); Sodium 138 mmol/L (137-145); Total Bilirubin 0.9 mg/dL (0.2-1.3); Total Protein 6.5 g/dL (6.3-8.2)
[2023-05-18 12:59] LABS: Eosinophils # (M) 2.28 k/uL (0-0.7); Lymphocytes # (M) 2.28 k/uL (1.0-4.8); Monocytes # (M) 0.27 k/uL (0-1.0); Neutrophils # (M) 8.71 k/uL (1.3-7.7); Neutrophils % (M) 65 %; Nucleated Red Blood Cells 0 /100 WBC (0-0); Total Cells Counted 200
[2023-05-18 13:00] LABS: Anisocytosis (M) Present
--- NOTE | 2023-05-18 22:22 | EEG ---
ELECTROENCEPHALOGRAM REPORT ELECTROENCEPHALOGRAM (EEG) REPORT: TECHNIQUE: This is a report from a prolonged 2.5-hour EEG performed using the 10/20 international system. HISTORY: Multiple admissions for weakness, fatigue, possible seizure in March. CURRENT MEDICATIONS: 1. Aspirin. 2. Lipitor. 3. Ceftriaxone. 4. Keppra. 5. Zestril. 6. Lopressor. FINDINGS: Recording start time: 05/18/2023 at 09:24 a.m. Recording end time: 05/18/2023 at 11:54 a.m. VENTS: During this 2.5-hour video EEG, no clinical or electrographic seizures were recorded. BACKGROUND: The background activity consisted of 9 to 10 hertz rhythmic waveforms symmetrically seen throughout both posterior quadrants. ACTIVATION: Hyperventilation: Not performed. Photic stimulation: Mild symmetric driving seen. Sleep: Drowsy. ABNORMALITIES: None. IMPRESSION: Normal 2.5-hour video EEG. No clinical or electrographic seizures were recorded. No epileptiform activity was present. These findings were called to the consulting neurologist at 3:00 p.m. on 05/18/2023. MMODL / IJN: [id number] /
[2023-05-19] MEDS: lisinopriL 10 MG TAB PO SCH (08:26)
[2023-05-19] MEDS: ASPIRIN 81 MG PO SCH (08:26)
[2023-05-19] MEDS: METOPROLOL TARTRATE 12.5 MG TAB PO SCH ×2 (08:26→20:39)
--- NOTE | 2023-05-19 10:24 | P.PN ---
Subjective Progress Note Date: 05/18/23 Tia Faulkner, is a 78-year-old female who presented to [facility] emergency room with multiple vague symptoms of chest pain, abdominal pain, cough, confusion and left sided shaking. she was evaluated in the emergency room vital examination on presentation revealed a temperature of 97.8 pulse 52 respiration 24 blood pressure 138/76 pulse ox 98% on room air Laboratory data revealed a white blood count of 10.1 hemoglobin 13.5 platelet count 234 BUN 13 creatinine 0.49AST 114 ALT 77 alkaline phosphatase 160 troponin level 0.012 amylase and lipase were normal Testing in the emergency room revealed chest x-ray done in the emergency room revealed no acute process, computed tomography scan of the brain revealed no acute intracranial process there was evidence of diffuse paranasal sinus infection. EKG was done in the emergency room and revealed normal sinus rhythm with right bundle branch block. Patient was admitted to telemetry floor cardiology consultation and neurology consultation were requested on 05/18/2023 patient was seen and examined on the medical she is alert and michelle ented 3 in no apparent distress she is scheduled for a 3 hour EEG today she is feeling well at this time and denies any chest pain she is still having some abdominal discomfort, liver enzymes has increased significantly since yesterday abdomen ultrasound was done and did not reveal any significant abnormality, at this time will discontinue, will consult gastroenterology for elevated liver enzymes, will monitor closely, once EEG is done, will wait for further recommendation from neurology. Possible discharge in the next 1-2 days if liver enzymes started trending down. Objective - Vital Signs Vital signs: Vital Signs Temp 98.2 F 05/18/23 08:00 Pulse 67 05/18/23 08:00 Resp 16 05/18/23 08:00 BP 154/85 05/18/23 08:00 Pulse Ox 96 05/18/23 08:00 FiO2 Intake & Output 05/17/23 05/18/23 05/18/23 18:59 06:59 18:59 Intake Total 360 Balance 360 Intake: Oral 360 Other: Voiding Method Toilet # Voids 1 1 - Exam In general patient is alert and oriented x 3 in no distress HEENT head normocephalic and atraumatic Neck is supple no JVD no goiter no lymphadenopathy no carotid bruit Chest examination is clear to auscultation no crackles no wheezing Cardiac exam reveals regular heart sounds S1 and S2 no gallops no murmurs Abdomen is soft nontender no organomegaly with normal bowel sounds Extremity exam reveals no edema no cyanosis or clubbing Neurological examination reveals no gross focal deficits - Labs CBC & Chem 7: 05/18/23 12:01 05/18/23 12:01 Assessment and Plan Plan: episode of chest pain, serial EKG and cardiac enzymes ordered cardiology consultation requested Left sided shaking similar to recent seizure activity, neurology consultation requested EEG ordered Evidence of acute pansinusitis, patient started on IV ceftriaxone Recent history of transient ischemic attack Recent diagnosis was seizure disorder, patient was started on Keppra last admission Severe kyphoscoliosis At this time patient is admitted to telemetry floor serial EKG and cardiac enzymes ordered Cardiology consultation and neurology consultation requested Home medications reviewed and reordered Started on IV ceftriaxone for acute pansinusitis Will recheck in a.m.
[2023-05-19 10:59] LABS: HCT 38.5 % (34.0-46.0); MCHC 33.8 g/dL (31.0-37.0); MCV 94.7 fL (80.0-100.0); Mean Platelet Volume 8.3; Platelet Count 246 k/uL (150-450); RBC 4.07 m/uL (3.80-5.40); RDW 13.2 % (11.5-15.5); WBC 12.4 k/uL (3.8-10.6)
--- NOTE | 2023-05-19 11:21 | P.PN ---
Subjective Progress Note Date: 05/18/23 05/18/2023: Patient was seen for a follow-up. Patient is laying comfortably in the bed. No further syncopal spell or seizure-like activity. Family was not present today. 05/17/2023: Patient was initially seen by Dr. Hal Britt. Please refer to his note for details. Patient presented to the hospital with seizure-like activity for 5 minutes, that was witnessed. Patient was taking Keppra 500 mg twice a day. Dr. Britt increase the dose of Keppra to 1 g twice a day. Patient also complaining of some cough and abdominal pain. IM on board. Patient is laying in the bed. Offers no complaints. Continues to be generalized weak. I had seen patient for initial consultation on 04/08/2023 for possible stroke/TIA, with negative MRI of the brain. Patient was sent home. On 04/14/2023, patient was having strokelike symptoms, when when she arrived to the ER, patient had a possible focal seizure, in which her left arm was jerking, twitching, lasted for a few minutes. Patient had an EEG, and after coming back from the EEG, patient had a second seizure, with jerking of left arm and hand, that lasted for 5 minutes. The EEG was reviewed by Dr. Britt, which revealed possible sharp waves left temporal region. Patient was transferred to [facility] [place]. Patient's third seizure occurred on 04/30/2023 while she was in the [facility] when she was on phone with her daughter, and patient started complaining of left-sided jerking of her arm. Patient's daughter called the nurse from the other line, and the nurse came over and saw patient having a seizure like activity involving the left arm. It lasted for about 5 minutes. The nurse tried to contact the physician, but there was no response. Patient was not brought to the hospital. After the event, her head flops to the left side. There is no jerking reported of the leg, facial region of the head. With most recent seizure yesterday 05/16/2023, which is the fourth seizure in her lifetime, yesterday she woke up having lot of pressure below the breast and abdominal region. She also has been having some cough for last 1 week. She was having difficulty breathing. Patient's daughter is her in the ventricle, and talked to the hospital. While she was being transferred from medical to the wheelchair, her left arm started shaking, jerking, which was witnessed by the patient's daughter and patient's grandson, and both of them felt was a seizure. It lasted for about 5 minutes. Her head flops to the left side but no jerking. Post ictally patient is disoriented, very incoherent, and wants to sleep. Objective - Vital Signs Vital signs: Vital Signs Temp 97.8 F 05/18/23 15:28 Pulse 54 L 05/18/23 15:28 Resp 18 05/18/23 15:28 BP 128/69 05/18/23 15:28 Pulse Ox 97 05/18/23 15:28 FiO2 Intake & Output 05/17/23 05/18/23 05/18/23 18:59 06:59 18:59 Intake Total 360 Balance 360 Intake: Oral 360 Other: Voiding Method Toilet # Voids 1 1 1 - Exam Patient is alert and awake. Speech and language functions are normal. Cranial nerves are normal. Visual orozco are full. Face is symmetric. On muscle strength testing, there is no pronator drift. Strength is equal, but patient is generalized weak. Decreased effort. No ataxia for [id number] testing. Sensory to touch is equal with no neglect. - Labs CBC & Chem 7: 05/19/23 10:29 05/18/23 12:01 Labs: Abnormal Lab Results - Last 24 Hours (Table) 05/18/23 05/18/23 Range/Units 12:01 12:01 WBC 13.4 H (3.8-10.6) k/uL Neutrophils # (Manual) 8.71 H (1.3-7.7) k/uL Eosinophils # (Manual) 2.28 H (0-0.7) k/uL Creatinine 0.46 L (0.52-1.04) mg/dL AST 249 H (14-36) U/L ALT 280 H (4-34) U/L Alkaline Phosphatase 294 H (38-126) U/L Assessment and Plan Assessment: Probable seizure disorder. Patient has presented with some chest pain and in the ER had some left-sided shaking without loss of consciousness. Patient had so far had 4 possible focal type seizures (with clonic activity of the left upper limb) since new onset seizure type spells on 04/14/2023. Patient was discharged on Keppra 500 mg twice a day in the last admission, but now the dose has been increased to 1000 mg twice a day. Acute pansinusitis. CT head revealing air fluid level in the left frontal, left maxillary and bilateral sphenoid sinuses. Also multiple ethmoid air cells are opacified. Patient also has impacted cerumen bilaterally. History of seizure on [address] Britt has felt the EEG showing discharges over the left temporal region. She had MRI of the brain which does not show any evidence of intracranial mass, stroke. Finding suspicious for superficial siderosis. Recent cough for the past 1 week and the patient refused to seek medical attention even though the daughter made an appointment with primary. Unknown if Probable history of TIA with manifestation of left hemiparesis that resolved and MRI of the brain was negative(04/08/2023). Elevated liver enzymes, likely due to statins. History of suspicious superficial siderosis seen on MRI of the brain History of bradycardia as low as 40s History of moderate MR, mild to moderate AR and severe concentric left ventricular hypertrophy. Hypertension Hyperlipidemia Chronic left hip issues Vitamin B12 deficiency Plan: Prolonged video EEG performed today for 2.5 hours, which was reported as normal. No clinical or electrographic seizures were recorded. No epileptiform activity was present. Routine EEG 05/17/2023 was normal during wakefulness, drowsiness and stage II sleep. No epileptiform activity was seen. Patient appears generalized weak. We will decrease Keppra down to 750 mg twice a day. CT of the head revealed no acute process. Nonspecific white matter changes, likely secondary to chronic small vessel ischemic disease. Patient has pansinusitis. Patient started on ceftriaxone. Ammonia level 13 normal and the lactic acid level normal 0.7. Keppra level 14.1 (3-60). The dose of Keppra has been increased to 750 mg twice a day. Lipid panel with cholesterol 108, LDL 51, HDL 43 and triglycerides 64. Continue Lipitor 80 mg. Continue aspirin 81 mg daily. Patient's liver enzymes have become elevated, likely from statins. Agree with stopping atorvastatin. Patient used to be on pravastatin 20 mg, but was changed to atorvastatin 80 mg at the time of discharge on last admission. Once liver enzymes improve, may resume Pravachol 20 mg, if medically cleared. Regarding her abdominal pain and cough will defer the further investigation to the primary attending. After discharge the patient needs to continue to follow up with her neurologist as an outpatient (Dr. Brown). Neurologically clear for discharge on Keppra 750 mg twice a day, once medically cleared.
[2023-05-19 11:25] LABS: ALT 232 U/L (4-34); AST 98 U/L (14-36); African American GFR (CKD) >90 (>60 ml/min/1.73 sqM); Albumin 3.2 g/dL (3.5-5.0); Alkaline Phosphatase 234 U/L (38-126); Anion Gap 7 mmol/L; Blood Urea Nitrogen 10 mg/dL (7-17); Calcium 8.5 mg/dL (8.4-10.2); Carbon Dioxide 24 mmol/L (22-30); Chloride 107 mmol/L (98-107); Glucose 80 mg/dL (74-99); Non-African American GFR(CKD) >90 (>60 ml/min/1.73 sqM); Potassium 3.7 mmol/L (3.5-5.1); Sodium 138 mmol/L (137-145); Total Bilirubin 0.3 mg/dL (0.2-1.3); Total Protein 5.8 g/dL (6.3-8.2)
--- NOTE | 2023-05-19 11:48 | P.PN ---
Subjective Progress Note Date: 05/19/23 Tia Faulkner, is a 78-year-old female who presented to [facility] emergency room with multiple vague symptoms of chest pain, abdominal pain, cough, confusion and left sided shaking. she was evaluated in the emergency room vital examination on presentation revealed a temperature of 97.8 pulse 52 respiration 24 blood pressure 138/76 pulse ox 98% on room air Laboratory data revealed a white blood count of 10.1 hemoglobin 13.5 platelet count 234 BUN 13 creatinine 0.49AST 114 ALT 77 alkaline phosphatase 160 troponin level 0.012 amylase and lipase were normal Testing in the emergency room revealed chest x-ray done in the emergency room revealed no acute process, computed tomography scan of the brain revealed no acute intracranial process there was evidence of diffuse paranasal sinus infection. EKG was done in the emergency room and revealed normal sinus rhythm with right bundle branch block. Patient was admitted to telemetry floor cardiology consultation and neurology consultation were requested on 05/18/2023 patient was seen and examined on the medical she is alert and michelle ented 3 in no apparent distress she is scheduled for a 3 hour EEG today she is feeling well at this time and denies any chest pain she is still having some abdominal discomfort, liver enzymes has increased significantly since yesterday abdomen ultrasound was done and did not reveal any significant abnormality, at this time will discontinue, will consult gastroenterology for elevated liver enzymes, will monitor closely, once EEG is done, will wait for further recommendation from neurology. Possible discharge in the next 1-2 days if liver enzymes started trending down. On 05/19/2023 patient is alert and oriented 3. Status post 3 hour EEG which was reported as normal. Patient complaining of increased episodes of diarrhea. Will order stool for C. diff and stool cultures. Liver numbers remain elevated but are trending down. Patient is not ready for discharge at this time will continue to monitor. Vital signs temp 97.6, heart rate 57, respiratory rate 20, blood pressure 126/50 pulse is 96% on room air Objective - Vital Signs Vital signs: Vital Signs Temp 97.6 F 05/19/23 11:26 Pulse 43 L 05/19/23 11:26 Resp 20 05/19/23 11:26 BP 121/59 05/19/23 11:26 Pulse Ox 97 05/19/23 11:26 FiO2 Intake & Output 05/18/23 05/19/23 05/19/23 18:59 06:59 18:59 Intake Total 180 0 Output Total 4 Balance 180 -4 0 Intake: Oral 180 0 Output: Urine 4 Other: Voiding Method Toilet # Voids 1 1 - Exam In general patient is alert and oriented x 3 in no distress HEENT head normocephalic and atraumatic Neck is supple no JVD no goiter no lymphadenopathy no carotid bruit Chest examination is clear to auscultation no crackles no wheezing Cardiac exam reveals regular heart sounds S1 and S2 no gallops no murmurs Abdomen is soft nontender no organomegaly with normal bowel sounds Extremity exam reveals no edema no cyanosis or clubbing Neurological examination reveals no gross focal deficits - Labs CBC & Chem 7: 05/19/23 10:29 05/19/23 10:29 Labs: Abnormal Lab Results - Last 24 Hours (Table) 05/18/23 05/18/23 05/19/23 Range/Units 12:01 12:01 10:29 WBC 13.4 H 12.4 H (3.8-10.6) k/uL Neutrophils # (Manual) 8.71 H (1.3-7.7) k/uL Eosinophils # (Manual) 2.28 H (0-0.7) k/uL Creatinine 0.46 L (0.52-1.04) mg/dL AST 249 H (14-36) U/L ALT 280 H (4-34) U/L Alkaline Phosphatase 294 H (38-126) U/L Total Protein (6.3-8.2) g/dL Albumin (3.5-5.0) g/dL 05/19/23 Range/Units 10:29 WBC (3.8-10.6) k/uL Neutrophils # (Manual) (1.3-7.7) k/uL Eosinophils # (Manual) (0-0.7) k/uL Creatinine 0.44 L (0.52-1.04) mg/dL AST 98 H (14-36) U/L ALT 232 H (4-34) U/L Alkaline Phosphatase 234 H (38-126) U/L Total Protein 5.8 L (6.3-8.2) g/dL Albumin 3.2 L (3.5-5.0) g/dL Assessment and Plan Plan: episode of chest pain, serial EKG and cardiac enzymes ordered cardiology consultation requested Left sided shaking similar to recent seizure activity, neurology consultation requested EEG ordered Evidence of acute pansinusitis, patient started on IV ceftriaxone Recent history of transient ischemic attack Recent diagnosis was seizure disorder, patient was started on Keppra last admission Severe kyphoscoliosis Diarrhea. Stool for C. diff stool cultures ordered At this time patient is admitted to telemetry floor serial EKG and cardiac enzymes ordered Cardiology consultation and neurology consultation requested Home medications reviewed and reordered Started on IV ceftriaxone for acute pansinusitis Will recheck in a.m.
[2023-05-19 11:57] LABS: Band Neutrophils % 1 %; Eosinophils # (M) 3.47 k/uL (0-0.7); Lymphocytes # (M) 2.11 k/uL (1.0-4.8); Neutrophils % (M) 51 %; Nucleated Red Blood Cells 0 /100 WBC (0-0); Total Cells Counted 200
[2023-05-19 16:34] LABS: Glucose,Whole Blood 90 mg/dL (70-110)
[2023-05-20] MEDS: lisinopriL 10 MG TAB PO SCH (08:46)
[2023-05-20] MEDS: METOPROLOL TARTRATE 12.5 MG TAB PO SCH ×2 (08:46→20:36)
[2023-05-20] MEDS: ASPIRIN 81 MG PO SCH (08:46)
[2023-05-20 11:39] LABS: HCT 39.2 % (34.0-46.0); HGB 13.4 gm/dL (11.4-16.0); MCH 31.6 pg (25.0-35.0); MCHC 34.3 g/dL (31.0-37.0); MCV 92.3 fL (80.0-100.0); Mean Platelet Volume 8.2; Platelet Count 315 k/uL (150-450); RBC 4.24 m/uL (3.80-5.40); RDW 13.1 % (11.5-15.5); WBC 13.5 k/uL (3.8-10.6)
[2023-05-20 11:52] LABS: ALT 170 U/L (4-34); AST 57 U/L (14-36); African American GFR (CKD) >90 (>60 ml/min/1.73 sqM); Albumin 3.5 g/dL (3.5-5.0); Alkaline Phosphatase 238 U/L (38-126); Anion Gap 9 mmol/L; Blood Urea Nitrogen 11 mg/dL (7-17); Calcium 9.4 mg/dL (8.4-10.2); Carbon Dioxide 25 mmol/L (22-30); Chloride 102 mmol/L (98-107); Glucose 81 mg/dL (74-99); Non-African American GFR(CKD) >90 (>60 ml/min/1.73 sqM); Potassium 4.4 mmol/L (3.5-5.1); Sodium 136 mmol/L (137-145); Total Bilirubin 0.4 mg/dL (0.2-1.3); Total Protein 6.5 g/dL (6.3-8.2)
--- NOTE | 2023-05-20 12:25 | P.PN ---
Subjective Progress Note Date: 05/19/23 05/19/2023: Patient was seen for a follow-up. Patient is laying comfortably in bed. No further strokes or TIA. No seizure-like spells. 05/18/2023: Patient was seen for a follow-up. Patient is laying comfortably in the bed. No further syncopal spell or seizure-like activity. Family was not present today. 05/17/2023: Patient was initially seen by Dr. Hal Britt. Please refer to his note for details. Patient presented to the hospital with seizure-like activity for 5 minutes, that was witnessed. Patient was taking Keppra 500 mg twice a day. Dr. Britt increase the dose of Keppra to 1 g twice a day. Patient also complaining of some cough and abdominal pain. IM on board. Patient is laying in the bed. Offers no complaints. Continues to be generalized weak. I had seen patient for initial consultation on 04/08/2023 for possible stroke/T IA, with negative MRI of the brain. Patient was sent home. On 04/14/2023, patient was having strokelike symptoms, when when she arrived to the ER, patient had a possible focal seizure, in which her left arm was jerking, twitching, lasted for a few minutes. Patient had an EEG, and after coming back from the EEG, patient had a second seizure, with jerking of left arm and hand, that lasted for 5 minutes. The EEG was reviewed by Dr. Britt, which revealed possible sharp waves left temporal region. Patient was transferred to [facility] on the [place]. Patient's third seizure occurred on 04/30/2023 while she was in the [facility] when she was on phone with her daughter, and patient started complaining of left-sided jerking of her arm. Patient's daughter called the nurse from the other line, and the nurse came over and saw patient having a seizure like activity involving the left arm. It lasted for about 5 minutes. The nurse tried to contact the physician, but there was no response. Patient was not brought to the hospital. After the event, her head flops to the left side. There is no jerking reported of the leg, facial region of the head. With most recent seizure yesterday 05/16/2023, which is the fourth seizure in her lifetime, yesterday she woke up having lot of pressure below the breast and abdominal region. She also has been having some cough for last 1 week. She was having difficulty breathing. Patient's daughter is her in the ventricle, and talked to the hospital. While she was being transferred from medical to the wheelchair, her left arm started shaking, jerking, which was witnessed by the patient's daughter and patient's grandson, and both of them felt was a seizure. It lasted for about 5 minutes. Her head flops to the left side but no jerking. Post ictally patient is disoriented, very incoherent, and wants to sleep. Objective - Vital Signs Vital signs: Vital Signs Temp 97.6 F 05/19/23 11:26 Pulse 43 L 05/19/23 11:26 Resp 20 05/19/23 11:26 BP 121/59 05/19/23 11:26 Pulse Ox 97 05/19/23 11:26 FiO2 Intake & Output 05/18/23 05/19/23 05/19/23 18:59 06:59 18:59 Intake Total 180 110 Output Total 4 Balance 180 -4 110 Intake: Oral 180 110 Output: Urine 4 Other: Voiding Method Toilet # Voids 1 1 - Exam Patient is alert and awake. Speech and language functions are normal. Cranial nerves are normal. Visual orozco are full. Face is symmetric. On muscle strength testing, there is no pronator drift. Strength is equal, but patient is generalized weak. Decreased effort. No ataxia for [id number] testing. Sensory to touch is equal with no neglect. - Labs CBC & Chem 7: 05/20/23 11:09 05/20/23 11:09 Labs: Abnormal Lab Results - Last 24 Hours (Table) 05/19/23 05/19/23 Range/Units 10:29 10:29 WBC 12.4 H (3.8-10.6) k/uL Eosinophils # (Manual) 3.47 H (0-0.7) k/uL Creatinine 0.44 L (0.52-1.04) mg/dL AST 98 H (14-36) U/L ALT 232 H (4-34) U/L Alkaline Phosphatase 234 H (38-126) U/L Total Protein 5.8 L (6.3-8.2) g/dL Albumin 3.2 L (3.5-5.0) g/dL Assessment and Plan Assessment: Probable seizure disorder. Patient has presented with some chest pain and in the ER had some left-sided shaking without loss of consciousness. Patient had so far had 4 possible focal type seizures (with clonic activity of the left upper limb) since new onset seizure type spells on 04/14/2023. Patient was dis charged on Keppra 500 mg twice a day in the last admission, but now the dose has been increased to 750 mg twice a day. Acute pansinusitis. CT head revealing air fluid level in the left frontal, left maxillary and bilateral sphenoid sinuses. Also multiple ethmoid air cells are opacified. Patient also has impacted cerumen bilaterally. History of seizure on [address] Britt has felt the EEG showing discharges over the left temporal region. She had MRI of the brain which does not show any evidence of intracranial mass, stroke. Finding suspicious for superficial siderosis. Recent cough for the past 1 week and the patient refused to seek medical attention even though the daughter made an appointment with primary. Unknown if Probable history of TIA with manifestation of left hemiparesis that resolved and MRI of the brain was negative(04/08/2023). Elevated liver enzymes, likely due to statins. History of suspicious superficial siderosis seen on MRI of the brain History of bradycardia as low as 40s History of moderate MR, mild to moderate AR and severe concentric left ventricular hypertrophy. Hypertension Hyperlipidemia Chronic left hip issues Vitamin B12 deficiency Plan: Prolonged video EEG for 2.5 hours, 05/17/2023 was reported as normal. No clinical or electrographic seizures were recorded. No epileptiform activity was present. I personally reviewed the EEG as well, and appears normal. Routine EEG 05/17/2023 was normal during wakefulness, drowsiness and stage II sleep. No epileptiform activity was seen. Patient appears generalized weak. We will decrease Keppra down to 750 mg twice a day. CT of the head revealed no acute process. Nonspecific white matter changes, likely secondary to chronic small vessel ischemic disease. Patient has pansinu sitis. Patient started on ceftriaxone. Ammonia level 13 normal and the lactic acid level normal 0.7. Keppra level 14.1 (3-60). The dose of Keppra has been increased to 750 mg twice a day. Lipid panel with cholesterol 108, LDL 51, HDL 43 and triglycerides 64. Continue Lipitor 80 mg. Continue aspirin 81 mg daily. Patient's liver enzymes have become elevated, likely from statins. Agree with stopping atorvastatin. Patient used to be on pravastatin 20 mg, but was changed to atorvastatin 80 mg at the time of discharge on last admission. Once liver enzymes improve, may resume Pravachol 20 mg, if medically cleared. Hepatic enzymes getting better. Regarding her abdominal pain and cough will defer the further investigation to the primary attending. After discharge the patient needs to continue to follow up with her neurologist as an outpatient (Dr. Brown). Neurologically clear for discharge on Keppra 750 mg twice a day, once medically cleared. Discussed with patient's daughter, and informed the results.
[2023-05-20] MEDS ORDERED: LOPERAMIDE 2 MG CAP PO PRN (12:41)
[2023-05-20] MEDS: DIPHENOX-ATROP 2.5-0.025 MG 1 EACH TAB PO PRN (14:03)
--- NOTE | 2023-05-20 17:37 | P.PN ---
Subjective Progress Note Date: 05/20/23 Tia Faulkner, is a 78-year-old female who presented to [facility] emergency room with multiple vague symptoms of chest pain, abdominal pain, cough, confusion and left sided shaking. she was evaluated in the emergency room vital examination on presentation revealed a temperature of 97.8 pulse 52 respiration 24 blood pressure 138/76 pulse ox 98% on room air Laboratory data revealed a white blood count of 10.1 hemoglobin 13.5 platelet count 234 BUN 13 creatinine 0.49AST 114 ALT 77 alkaline phosphatase 160 troponin level 0.012 amylase and lipase were normal Testing in the emergency room revealed chest x-ray done in the emergency room revealed no acute process, computed tomography scan of the brain revealed no acute intracranial process there was evidence of diffuse paranasal sinus infection. EKG was done in the emergency room and revealed normal sinus rhythm with right bundle branch block. Patient was admitted to telemetry floor cardiology consultation and neurology consultation were requested on 05/18/2023 patient was seen and examined on the medical she is alert and michelle ented 3 in no apparent distress she is scheduled for a 3 hour EEG today she is feeling well at this time and denies any chest pain she is still having some abdominal discomfort, liver enzymes has increased significantly since yesterday abdomen ultrasound was done and did not reveal any significant abnormality, at this time will discontinue, will consult gastroenterology for elevated liver enzymes, will monitor closely, once EEG is done, will wait for further recommendation from neurology. Possible discharge in the next 1-2 days if liver enzymes started trending down. On 05/19/2023 patient is alert and oriented 3. Status post 3 hour EEG which was reported as normal. Patient complaining of increased episodes of diarrhea. Will order stool for C. diff and stool cultures. Liver numbers remain elevated but are trending down. Patient is not ready for discharge at this time will continue to monitor. Vital signs temp 97.6, heart rate 57, respiratory rate 20, blood pressure 126/50 pulse is 96% on room air On 05/20/2023 patient was seen and examined on the medical floor she is alert and oriented 3 in no apparent distress she is complaining of abdominal discomfort and diarrhea otherwise she denies any complaints at this time there is no fever or chills no headache or dizziness no chest pain no shortness of breath no cough no nausea or vomiting no blood in the stools no burning with urination no frequency or urgency and no hematuria, there is no evidence of any repeat seizure at this time. Liver enzymes are elevated but are trending down at this time. Objective - Vital Signs Vital signs: Vital Signs Temp 97.6 F 05/20/23 08:00 Pulse 61 05/20/23 08:00 Resp 17 05/20/23 08:00 BP 133/70 05/20/23 08:00 Pulse Ox 97 05/20/23 08:00 FiO2 Intake & Output 05/19/23 05/20/23 05/20/23 18:59 06:59 18:59 Intake Total 400 Output Total 200 300 Balance 200 -300 Intake: Intake, IV Titration 50 Amount cefTRIAXone 1 gm In 50 Sodium Chloride 0.9% 50 ml @ 100 mls/hr IVPB Q24HR [facility] Rx#:[id number] Oral 350 Output: Urine 200 300 Other: Voiding Method Toilet Toilet # Voids 1 # Bowel Movements 1 - Exam In general patient is alert and oriented x 3 in no distress HEENT head normocephalic and atraumatic Neck is supple no JVD no goiter no lymphadenopathy no carotid bruit Chest examination is clear to auscultation no crackles no wheezing Cardiac exam reveals regular heart sounds S1 and S2 no gallops no murmurs Abdomen is soft nontender no organomegaly with normal bowel sounds Extremity exam reveals no edema no cyanosis or clubbing Neurological examination reveals no gross focal deficits - Labs CBC & Chem 7: 05/20/23 11:09 05/20/23 11:09 Labs: Abnormal Lab Results - Last 24 Hours (Table) 05/19/23 05/19/23 Range/Units 10:29 10:29 WBC 12.4 H (3.8-10.6) k/uL Eosinophils # (Manual) 3.47 H (0-0.7) k/uL Creatinine 0.44 L (0.52-1.04) mg/dL AST 98 H (14-36) U/L ALT 232 H (4-34) U/L Alkaline Phosphatase 234 H (38-126) U/L Total Protein 5.8 L (6.3-8.2) g/dL Albumin 3.2 L (3.5-5.0) g/dL Assessment and Plan Plan: episode of chest pain, serial EKG and cardiac enzymes ordered cardiology consultation requested Left sided shaking similar to recent seizure activity, neurology consultation requested EEG ordered Evidence of acute pansinusitis, patient started on IV ceftriaxone Recent history of transient ischemic attack Recent diagnosis was seizure disorder, patient was started on Keppra last admission Severe kyphoscoliosis Diarrhea. Stool for C. diff stool cultures ordered At this time patient is admitted to telemetry floor serial EKG and cardiac enzymes ordered Cardiology consultation and neurology consultation requested Home medications reviewed and reordered Started on IV ceftriaxone for acute pansinusitis Will recheck in a.m.
--- NOTE | 2023-05-21 09:37 | CDI ---
Documentation Clarification Form Date: 05/21/2023 09:17:53 AM From: Lynn Rodriguez RN, CCDS Email: [email or web address] Admit Date: 05/19/2023 01:36:00 PM Patient Name: Tia Faulkner Visit Number: [id number] Discharge Date: ATTENTION: The Clinical Documentation Specialists (CDI) and [facility] Coding Staff appreciate your assistance in clarifying documentation. Please respond to the clarification below the line at the bottom and electronically sign. The CDI & [facility] Coding staff will review the response and follow-up if needed. Please note: Queries are made part of the Legal Health Record. If you have any questions, please contact the author of this message via ITS. Dr. Gary Dimas The patients principal diagnosis the diagnosis that was chiefly responsible for the admission - has not been clearly identified and clarification is requested. The patient presented with chest pain, abdominal pain, cough, confusion and left sided shaking. History/Risk factors: CVA/TIA, HLD, HTN, seizures Clinical Indicators: VS: HR 48-67 05/[address]: no acute process 05/17 Cardiology: "chest pain. atypical, troponin negative x3. Will sign off. 05/18 Abd U/S: no acute process 05/19 Neurology: "consulted for seizures. Probable seizure disorder. Acute park sinusitis. Patient's live enzymes have become elevated likely from statins." 05/20 IM: "episode of chest pain. Left sided shaking similar to recent seizure activity. Evidence of park sinusitis, patient on IV Ceftriaxone. Recent TIA. Recent diagnosis of seizure disorder." Labs: 05/18 WBC 13.4; 05/16-current AST [id number]; 05/16-current ALT [phone]; 05/16 ALP [phone]; 05/19 C diff neg. 2-hour EEG: negative for seizures Treatment: IV Rocephin 1 gm Q24H, Keppra 1gm po Q12H 05/16-05/17 then 750mg po Q12H. Telemetry Consults: see above In your professional opinion, can you please clarify which diagnosis, after study, was the reason chiefly responsible for the admission? [x ] Breakthrough seizure [ ] Acute pansinusitis [ ] Other, please specify [ ] Unable to determine MTDD
[2023-05-21] MEDS: METOPROLOL TARTRATE 12.5 MG TAB PO SCH ×2 (10:40→10:48)
[2023-05-21] MEDS: ASPIRIN 81 MG PO SCH (10:40)
[2023-05-21] MEDS: lisinopriL 10 MG TAB PO SCH (10:40)
[2023-05-21 11:09] VITALS: RESP 18; TEMP 97.8
[2023-05-21 11:10] VITALS: BP 115/67
[2023-05-21 13:00] LABS: HCT 38.4 % (34.0-46.0); HGB 13.2 gm/dL (11.4-16.0); MCH 31.8 pg (25.0-35.0); MCHC 34.4 g/dL (31.0-37.0); MCV 92.5 fL (80.0-100.0); Mean Platelet Volume 7.8; Platelet Count 259 k/uL (150-450); RBC 4.15 m/uL (3.80-5.40); RDW 12.8 % (11.5-15.5); WBC 12.1 k/uL (3.8-10.6)
[2023-05-21 13:14] LABS: ALT 126 U/L (4-34); AST 42 U/L (14-36); African American GFR (CKD) >90 (>60 ml/min/1.73 sqM); Albumin 3.6 g/dL (3.5-5.0); Albumin/Globulin Ratio 1.2; Alkaline Phosphatase 220 U/L (38-126); Anion Gap 9 mmol/L; Blood Urea Nitrogen 15 mg/dL (7-17); Calcium 9.3 mg/dL (8.4-10.2); Carbon Dioxide 23 mmol/L (22-30); Chloride 102 mmol/L (98-107); Globulin 3.1 g/dL; Glucose 86 mg/dL (74-99); Non-African American GFR(CKD) >90 (>60 ml/min/1.73 sqM); Potassium 4.5 mmol/L (3.5-5.1); Sodium 134 mmol/L (137-145); Total Bilirubin 0.5 mg/dL (0.2-1.3); Total Protein 6.7 g/dL (6.3-8.2)
[2023-05-21] MEDS: DIPHENOX-ATROP 2.5-0.025 MG 1 EACH TAB PO PRN (14:03)
--- NOTE | 2023-05-21 14:06 | P.DS ---
Providers Date of admission: 05/19/23 13:36 Expected date of discharge: 05/21/23 Attending physician: Gary Dimas Consults: 05/16/23 10:47 Consult Physician Routine Consulting Provider: Hal Britt Consult Reason/Comments: seizure Do you want consulting provider notified?: Yes Primary care physician: Gary [facility] Course: Diagnosis on discharge: episode of chest pain, serial EKG and cardiac enzymes ordered cardiology consultation requested Left sided shaking similar to recent seizure activity, neurology consultation requested EEG ordered Evidence of acute pansinusitis, patient started on IV ceftriaxone, she was discharged home on a course of Ceftin for 8 more days Recent history of transient ischemic attack Recent diagnosis was seizure disorder, patient was started on Keppra last admission Severe kyphoscoliosis Diarrhea. Stool for C. diff was negative, patient given Lomotil as needed Elevated liver enzymes likely related to Lipitor 80 mg daily, Lipitor was discontinued and liver enzymes are trending down at the time of discharge Hospital course: Tia Faulkner, is a 78-year-old female who presented to [facility] emergency room with multiple vague symptoms of chest pain, abdominal pain, cough, confusion and left sided shaking. she was evaluated in the emergency room vital examination on presentation revealed a temperature of 97.8 pulse 52 respiration 24 blood pressure 138/76 pulse ox 98% on room air Laboratory data revealed a white blood count of 10.1 hemoglobin 13.5 platelet count 234 BUN 13 creatinine 0.49AST 114 ALT 77 alkaline phosphatase 160 troponin level 0.012 amylase and lipase were normal Testing in the emergency room revealed chest x-ray done in the emergency room revealed no acute process, computed tomography scan of the brain revealed no acute intracranial process there was evidence of diffuse paranasal sinus infection. EKG was done in the emergency room and revealed normal sinus rhythm with right bundle branch block. Patient was admitted to telemetry floor cardiology consultation and neurology consultation were requested on 05/18/2023 patient was seen and examined on the medical she is alert and oriented 3 in no apparent distress she is scheduled for a 3 hour EEG today she is feeling well at this time and denies any chest pain she is still having some abdominal discomfort, liver enzymes has increased significantly since yesterday abdomen ultrasound was done and did not reveal any significant abnormality, at this time will discontinue, will consult gastroenterology for elevated liver enzymes, will monitor closely, once EEG is done, will wait for further recommendation from neurology. Possible discharge in the next 1-2 days if liver enzymes started trending down. On 05/19/2023 patient is alert and oriented 3. Status post 3 hour EEG which was reported as normal. Patient complaining of increased episodes of diarrhea. Will order stool for C. diff and stool cultures. Liver numbers remain elevated but are trending down. Patient is not ready for discharge at this time will continue to monitor. Vital signs temp 97.6, heart rate 57, respiratory rate 20, blood pressure 126/50 pulse is 96% on room air On 05/20/2023 patient was seen and examined on the medical floor she is alert and oriented 3 in no apparent distress she is complaining of abdominal discomfort and diarrhea otherwise she denies any complaints at this time there is no fever or chills no headache or dizziness no chest pain no shortness of breath no cough no nausea or vomiting no blood in the stools no burning with urination no frequency or urgency and no hematuria, there is no evidence of any repeat seizure at this time. Liver enzymes are elevated but are trending down at this time. On 05/21/2023 patient was seen and examined on the medical floor she is alert and oriented 3 in no apparent distress there is no fever or chills no headache or dizziness no chest pain no shortness of breath no cough no nausea or vomiting no abdominal pain she is still having some diarrhea there is no blood in the stools no burning with urination no frequency or urgency no hematuria. Patient was cleared by cardiology and neurology for discharge. Plan - Discharge Summary New Discharge Prescriptions: New levETIRAcetam [Keppra] 750 mg PO Q12HR tab Diphenox-Atrop 2.5-0.025 mg [Lomotil] 1 each PO Q6HR PRN tab PRN Reason: Diarrhea cefUROXime axetiL [Cefuroxime] 500 mg PO BID 8 Days #16 tab Continue Aspirin EC [Ecotrin Low Dose] 81 mg PO DAILY lisinopriL [Zestril] 10 mg PO DAILY Metoprolol Tartrate [Lopressor] 12.5 mg PO BID Discontinued levETIRAcetam [Keppra] 500 mg PO Q12HR 30 Days #60 tab Atorvastatin [Lipitor] 80 mg PO HS tab Discharge Medication List Aspirin EC [Ecotrin Low Dose] 81 mg PO DAILY 04/08/23 [History] Metoprolol Tartrate [Lopressor] 12.5 mg PO BID 05/16/23 [History] lisinopriL [Zestril] 10 mg PO DAILY 05/16/23 [History] Diphenox-Atrop 2.5-0.025 mg [Lomotil] 1 each PO Q6HR PRN tab 05/21/23 [Rx] cefUROXime axetiL [Cefuroxime] 500 mg PO BID 8 Days #16 tab 05/21/23 [Rx] levETIRAcetam [Keppra] 750 mg PO Q12HR tab 05/21/23 [Rx] Follow up Appointment(s)/Referral(s): Gary Dimas MD [Primary Care Provider] - 1-2 days
[2023-05-21 15:49] VITALS: PULSE 94
== END 2023-05-21 16:47 | disposition home or self-care (01) | DRG 101 ==
LOC: EC 08:23 → 6NMEDSUR 10:47 → 3SCARD 13:56 → OBSVTOIN 05-19 13:36 → 5NMEDONC 05-20 22:46
PROVIDERS: ADMIT Internal Medicine; ATTEND Internal Medicine
DX: R56.9 Unspecified convulsions (principal); I42.1 Obstructive hypertrophic cardiomyopathy; R74.01 Elevation of levels of liver transaminase levels; T46.6X5A Adverse effect of antihyperlipidemic and antiarteriosclerotic drugs, initial encounter; Z86.79 Personal history of other diseases of the circulatory system; I10 Essential (primary) hypertension; I25.2 Old myocardial infarction; I45.10 Unspecified right bundle-branch block; M41.9 Scoliosis, unspecified; M41.80 Other forms of scoliosis, site unspecified; I08.0 Rheumatic disorders of both mitral and aortic valves; E53.8 Deficiency of other specified B group vitamins; H61.23 Impacted cerumen, bilateral; X58.XXXA Exposure to other specified factors, initial encounter
CPT/HCPCS: 36415; 70450; 71046; 76700; 80053; 80061; 80177; 82140; 82150; 83605; 83690; 83735; 84484; 85025; 85027; 85610; 85730; 87045; 87046; 87324; 93005; 94760; 95713; 95816; 96374; 99285

== ENCOUNTER 2023-07-10 09:26 | Emergency (ER) | payer MEDICARE, OTHER ==
[2023-07-10 09:39] VITALS: RESP 18; TEMP 98.1
[2023-07-10] MEDS ORDERED: fentaNYL (PF) 50 MCG/ML 2 ML AMP IVP STA (10:05)
--- NOTE | 2023-07-10 10:11 | ED ---
General Adult HPI - General Chief complaint: Neck Pain/Injury Stated complaint: L arm/neck pain Time Seen by Provider: 07/10/23 09:54 Source: patient, RN notes reviewed, old records reviewed, Caregiver (granddaughter) Mode of arrival: ambulatory Limitations: no limitations - History of Present Illness Initial comments: 78-year-old tearful female presents to the emergency room with complaints of waking up with neck pain radiates down her left arm and sharp left-sided back pain that is worse with light palpation. Denies any injuries. No fevers. No n ausea vomiting or diarrhea. Granddaughter at bedside states patient recently had a stroke March of this year, independent producer switched her from baby aspirin to Eliquis daily. Patient has a history of PA, stroke, hypertension and seizure disorder. -: hour(s) Location: neck, back Radiation: extremity (left arm) Severity scale (1-10): 10 Quality: sharp, constant Improves with: none Worsens with: movement Treatments Prior to Arrival: none - Related Data Home Medications Medication Instructions Recorded Confirmed Aspirin EC [Ecotrin Low Dose] 81 mg PO DAILY 04/08/23 05/16/23 Metoprolol Tartrate [Lopressor] 12.5 mg PO BID 05/16/23 05/16/23 lisinopriL [Zestril] 10 mg PO DAILY 05/16/23 05/16/23 Previous Rx's Medication Instructions Recorded Diphenox-Atrop 2.5-0.025 mg 1 each PO Q6HR PRN tab 05/21/23 [Lomotil] cefUROXime axetiL [Cefuroxime] 500 mg PO BID 8 Days #16 tab 05/21/23 levETIRAcetam [Keppra] 750 mg PO Q12HR tab 05/21/23 Allergies Allergy/AdvReac Type Severity Reaction Status Date / Time No Known Allergies Allergy Verified 07/10/23 09:38 Patient : No Review of Systems ROS Statement: Those systems with pertinent positive or pertinent negative responses have been documented in the HPI. ROS Other: All systems not noted in ROS Statement are negative. Past Medical History Past Medical History: CVA/TIA, Hyperlipidemia, Hypertension, Memory Impairment, Myocardial Infarction (PA) Additional Past Medical History / Comment(s): HEART MURMUR, LEAKY VALVE. POSS MILD STROKE YEARS AGO, UNSURE, HAS DIFFICULTY RECALLING SOME HISTORICAL MEDICAL INFO. 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 Past Anesthesia/Blood Transfusion Reactions: Motion Sickness Past Psychological History: No Psychological Hx Reported Smoking Status: Never smoker Past Alcohol Use History: None Reported Past Drug Use History: None Reported - Past Family History Father Additional Family Medical History / Comment(s): patient states "he had heart problems". patient unsure what type of heart problems. Mother Family Medical History: Cancer, Diabetes Mellitus Additional Family Medical History / Comment(s): brain cancer Brother(s) Family Medical History: Diabetes Mellitus Additional Family Medical History / Comment(s): autistic Sister(s) History Unknown: Yes General Exam Limitations: no limitations General appearance: alert, in distress (pain) Head exam: Present: atraumatic, normocephalic Eye exam: Present: normal appearance. Absent: scleral icterus, conjunctival injection Neck exam: Present: tenderness. Absent: meningismus, full ROM (pain with movement to left) Respiratory exam: Absent: respiratory distress, accessory muscle use Cardiovascular Exam: Present: regular rate GI/Abdominal exam: Present: soft. Absent: tenderness Extremities exam: Present: normal capillary refill. Absent: pedal edema Left Shoulder Exam: Present: full ROM, tenderness. Absent: swelling (pain with palpation and movement generalized) Upper Arm exam: Present: full ROM, tenderness. Absent: swelling Elbow exam: Present: full ROM, tenderness. Absent: swelling Forearm Wrist exam: Present: full ROM, tenderness. Absent: swelling Hand Wrist exam: Present: full ROM, tenderness. Absent: swelling Neurosensory exam: Present: radial nerve intact, ulnar nerve intact, median nerve intact Vascular: Present: normal capillary refill, radial pulse. Absent: vascular compromise Back exam: Present: tenderness (left thoracic), paraspinal tenderness (thoracic). Absent: rash noted Neurological exam: Present: alert, oriented X3 Psychiatric exam: Present: normal affect, normal mood (tearful) Skin exam: Present: warm, dry, normal color. Absent: cyanosis, diaphoretic, petechiae, pallor Course Vital Signs 07/10/23 07/10/23 09:34 11:59 Temperature 98.1 F Pulse Rate 74 61 Respiratory 18 18 Rate Blood Pressure 154/84 127/82 O2 Sat by Pulse 99 97 Oximetry Medical Decision Making - Medical Decision Making Was pt. sent in by a medical professional or institution (, PA, ROTARY FURNACE TENDER, urgent care, hospital, or intermediate...) When possible be specific @ -No Did you speak to anyone other than the patient for history (EMS, parent, family, police, friend...)? What history was obtained from this source @ -Granddaughter at bedside giving history of presenting illness and medical history Did you review nursing and triage notes (agree or disagree)? Why? @ -I reviewed and agree with nursing and triage notes Were old charts reviewed (outside hosp., previous admission, EMS record, old EKG, old radiological studies, urgent care reports/EKG's, intermediate records)? Report findings @ -Previous records show the patient has had multiple imaging over the past couple of months. Brain CT May 16, brain MRI April 15, angiography CT April 14, pain CT April 14, brain MRI April 09, angiography April 08, brain CT April 08. Most recent brain CT shows May 16 no intracranial process. Nonspecific white matter changes likely secondary to chronic small vessel ischemic disease, paranasal sinus disease. Cardiology consult with Dr. Mendieta performed on May 17, right bundle-branch block no evidence of acute coronary event. Troponins were negative. Old EKG 05/18/2023 Differential Diagnosis (chest pain, altered mental status, abdominal pain women, abdominal pain men, vaginal bleeding, weakness, fever, dyspnea, syncope, headache, dizziness, GI bleed, back pain, seizure, CVA, palpatations, mental health, musculoskeletal)? @ -Differential Back Pain: Strain, zoster, cauda equina syndrome, epidural abscess, vertebral osteomyelitis, discitis, fracture, subluxation, disc herniation, DJD, spinal stenosis, dissection, AAA, pancreatitis, peptic ulcer disease, pyelonephritis, kidney stone, cervical strain, pneumonia, this is not meant to be an all- inclusive list. EKG interpreted by me (3pts min.). @ -yes EKG interpreted by me today shows sinus rhythm with a ventricular rate o f 69, NH interval 0.152, QRS 0.155, QTC 0.474. No concerning changes compared to old. X-rays interpreted by me (1pt min.). @ -yes X-ray cervical spine interpreted by me shows degenerative changes no acute fracture. Chest x-ray performed today interpreted by me shows scoliosis with no focal consolidation. CT interpreted by me (1pt min.). @ -None done U/S interpreted by me (1pt. min.). @ -None done What testing was considered but not performed or refused? (CT, X-rays, U/S, labs)? Why? @ -None What meds were considered but not given or refused? Why? @ -None Did you discuss the management of the patient with other professionals (professionals i.e. DrCody, PA, ROTARY FURNACE TENDER, lab, RT, psych nurse, vp digital marketing social media and crm, filter tank tender helper, teacher, corporate trust officer, field nurse case manager)? Give summary @ -No Was smoking cessation discussed for >3mins.? @ -No Was critical care preformed (if so, how long)? @ -No Were there social determinants of health that impacted care today? How? (Homelessness, low income, unemployed, alcoholism, drug addiction, transportation, low edu. Level, literacy, decrease access to med. care, custodial, rehab)? @ -No Was there de-escalation of care discussed even if they declined (Discuss DNR or withdrawal of care, Hospice)? DNR status @ -No What co-morbidities impacted this encounter? (DM, HTN, Smoking, COPD, CAD, Cancer, CVA, ARF, Chemo, Hep., AIDS, mental health diagnosis, sleep apnea, morbid obesity)? @ -Patient has a history of PA, stroke, hypertension, hyperlipidemia, memory impairment and seizure disorder. Was patient admitted / discharged? Hospital course, mention meds given and route, prescriptions, significant lab abnormalities, going to OR and other per tinent info. @ -Discharged 78-year-old tearful female presents to the emergency room with complaints of waking up with neck pain radiates down her left arm and sharp left-sided back pain that is worse with light palpation. Denies any injuries. No fevers. No nausea vomiting or diarrhea. Granddaughter at bedside states patient recently had a stroke March of this year, independent producer switched her from baby aspirin to Eliquis daily. Troponin negative today. Electrolytes and CBC show no concerning values. Radiologist interpretation chest xr shows no evidence for acute pulmonary disease. Radiologist interpretation cervical spine shows severe degenerative disc disease and spondylosis with foraminal encroachment. No fracture or malalignment. Patient was given fentanyl, Norflex and a Lidoderm patch with improvement in her symptoms. This is likely musculoskeletal pain as patient awoke with symptoms all on the left side. No chest pain or shortness of breath. No cough or fevers. No evidence of rashes. She was discharged home to family directed to follow up with her primary care doctor. She is agreeable to this plan of care. Case discussed with Dr. Miller. Undiagnosed new problem with uncertain prognosis? @ -No Drug Therapy requiring intensive monitoring for toxicity (Heparin, Nitro, Insulin, Cardizem)? @ -No Were any procedures done? @ -No Diagnosis/symptom? @ -Musculoskeletal pain Acute, or Chronic, or Acute on Chronic? @ -Acute Uncomplicated (without systemic symptoms) or Complicated (systemic symptoms)? @ -Uncomplicated Side effects of treatment? @ -No Exacerbation, Progression, or Severe Exacerbation? @ -No Poses a threat to life or bodily function? How? (Chest pain, USA, PA, pneumonia, PE, COPD, DKA, ARF, appy, cholecystitis, CVA, Diverticulitis, Homicidal, Suicidal, threat to staff... and all critical care pts) @ -No - Lab Data Result diagrams: 07/10/23 10:24 07/10/23 10:24 Lab Results 07/10/23 07/10/23 07/10/23 Range/Units 10:24 10:24 10:24 WBC 9.9 (3.8-10.6) k/uL RBC 4.34 (3.80-5.40) m/uL Hgb 13.6 (11.4-16.0) gm/dL Hct 40.4 (34.0-46.0) % MCV 93.1 (80.0-100.0) fL MCH 31.4 (25.0-35.0) pg MCHC 33.7 (31.0-37.0) g/dL RDW 13.4 (11.5-15.5) % Plt Count 225 (150-450) k/uL MPV 8.7 Neutrophils % 78 % Lymphocytes % 15 % Monocytes % 3 % Eosinophils % 2 % Basophils % 0 % Neutrophils # 7.7 (1.3-7.7) k/uL Lymphocytes # 1.5 (1.0-4.8) k/uL Monocytes # 0.3 (0-1.0) k/uL Eosinophils # 0.2 (0-0.7) k/uL Basophils # 0.0 (0-0.2) k/uL Sodium 138 (137-145) mmol/L Potassium 4.4 (3.5-5.1) mmol/L Chloride 109 H (98-107) mmol/L Carbon Dioxide 21 L (22-30) mmol/L Anion Gap 8 mmol/L BUN 16 (7-17) mg/dL Creatinine 0.44 L (0.52-1.04) mg/dL Est GFR (CKD-EPI)AfAm >90 (>60 ml/min/1.73 sqM) Est GFR (CKD-EPI)NonAf >90 (>60 ml/min/1.73 sqM) Glucose 86 (74-99) mg/dL Calcium 9.2 (8.4-10.2) mg/dL Total Bilirubin 1.0 (0.2-1.3) mg/dL AST 34 (14-36) U/L ALT 36 H (4-34) U/L Alkaline Phosphatase 124 (38-126) U/L Troponin I <0.012 (0.000-0.034) ng/mL Total Protein 7.1 (6.3-8.2) g/dL Albumin 3.8 (3.5-5.0) g/dL Disposition Clinical Impression: Neck pain on left side, Musculoskeletal pain Disposition: HOME SELF-CARE Condition: Good Instructions (If sedation given, give patient instructions): Musculoskeletal Pain (ED), Neck Pain (ED) Additional Instructions: Tylenol as needed for pain and discomfort. Use topical [id number] pain relievers like BenGay or icy hot to your back and neck. Follow-up with the primary care doctor on Wednesday. Return to the emergency room with any new or concerning symptoms. Is patient prescribed a controlled substance at d/c from ED?: No Referrals: Gary Dimas MD [Primary Care Provider] - 1-2 days Time of Disposition: 11:33
[2023-07-10 11:04] LABS: Basophils % (A) 0 %; Eosinophils # (A) 0.2 k/uL (0-0.7); Eosinophils % (A) 2 %; HCT 40.4 % (34.0-46.0); HGB 13.6 gm/dL (11.4-16.0); Lymphocytes # (A) 1.5 k/uL (1.0-4.8); Lymphocytes % (A) 15 %; MCH 31.4 pg (25.0-35.0); MCHC 33.7 g/dL (31.0-37.0); MCV 93.1 fL (80.0-100.0); Mean Platelet Volume 8.7; Monocytes # (A) 0.3 k/uL (0-1.0); Monocytes % (A) 3 %; Neutrophils # (A) 7.7 k/uL (1.3-7.7); Neutrophils % (A) 78 %; Platelet Count 225 k/uL (150-450); RBC 4.34 m/uL (3.80-5.40); RDW 13.4 % (11.5-15.5); WBC 9.9 k/uL (3.8-10.6)
[2023-07-10 11:08] LABS: ALT 36 U/L (4-34); AST 34 U/L (14-36); African American GFR (CKD) >90 (>60 ml/min/1.73 sqM); Albumin 3.8 g/dL (3.5-5.0); Alkaline Phosphatase 124 U/L (38-126); Anion Gap 8 mmol/L; Blood Urea Nitrogen 16 mg/dL (7-17); Calcium 9.2 mg/dL (8.4-10.2); Carbon Dioxide 21 mmol/L (22-30); Chloride 109 mmol/L (98-107); Glucose 86 mg/dL (74-99); Non-African American GFR(CKD) >90 (>60 ml/min/1.73 sqM); Potassium 4.4 mmol/L (3.5-5.1); Sodium 138 mmol/L (137-145); Total Protein 7.1 g/dL (6.3-8.2)
--- NOTE | 2023-07-10 11:13 | XR ---
EXAMINATION TYPE: XR chest 2V DATE OF EXAM: 07/10/2023 COMPARISON: 05/16/23 HISTORY: Shortness of breath TECHNIQUE: Frontal and lateral views of the chest are obtained. FINDINGS: Scattered senescent parenchymal changes noted. No evidence for infiltrate. No evidence for atelectasis. Heart size is stable. Mediastinal structures are stable and grossly unremarkable. No evidence for hilar prominence. Degenerative changes dorsal spine. IMPRESSION: 1. No evidence for acute pulmonary disease.
--- NOTE | 2023-07-10 11:14 | XR ---
EXAMINATION TYPE: XR cervical spine comp DATE OF EXAM: 07/10/2023 CLINICAL HISTORY: pain COMPARISON: NONE TECHNIQUE: Frontal, lateral, oblique, swimmers, and open mouth view of the cervical spine are obtaine d. FINDINGS: The cervical spine is visualized in its entirety from C1 thru the top of T1 level. It is s atisfactory in alignment without evidence of acute fracture or dislocation. The pre-vertebral soft t issue appears within normal limits. Severe degenerative disc space narrowing and spondylosis extendin g from C3 through C7. The C1-C2 articulation is unremarkable on the open mouth view. Oblique images d emonstrate neural foraminal encroachment bilaterally at C4-5 through C6-7. IMPRESSION: 1. Severe degenerative disc disease and spondylosis with foraminal encroachment. 2. No fracture or malalignment.
[2023-07-10] MEDS ORDERED: ORPHENADRINE 30 MG/ML 2 ML VIAL IM STA (11:31)
[2023-07-10] MEDS ORDERED: LIDOCAINE 5% PATCH TOPICAL STA (11:33)
[2023-07-10 12:02] VITALS: BP 127/82; PULSE 61
== END 2023-07-10 12:16 | disposition home or self-care (01) ==
LOC: EC 09:26
DX: M54.2 Cervicalgia (principal); M79.602 Pain in left arm; I10 Essential (primary) hypertension; I25.2 Old myocardial infarction; Z86.73 Personal history of transient ischemic attack (TIA), and cerebral infarction without residual deficits; Z79.82 Long term (current) use of aspirin; Z79.899 Other long term (current) drug therapy
CPT/HCPCS: 36415; 93005; 80053; 84484; 85025; 72050; 71046; 99284; 96372; J2360; J3010

== ENCOUNTER 2023-08-26 12:43 | Emergency (ER) | payer MEDICARE, OTHER ==
[2023-08-26 13:24] LABS: Basophils % (A) 0 %; Eosinophils # (A) 0.7 k/uL (0-0.7); Eosinophils % (A) 8 %; HCT 38.2 % (34.0-46.0); Lymphocytes # (A) 1.5 k/uL (1.0-4.8); Lymphocytes % (A) 18 %; MCH 30.9 pg (25.0-35.0); MCHC 34.1 g/dL (31.0-37.0); MCV 90.6 fL (80.0-100.0); Mean Platelet Volume 7.9; Monocytes # (A) 0.2 k/uL (0-1.0); Monocytes % (A) 2 %; Neutrophils # (A) 6.1 k/uL (1.3-7.7); Neutrophils % (A) 70 %; Platelet Count 341 k/uL (150-450); RBC 4.21 m/uL (3.80-5.40); RDW 13.3 % (11.5-15.5); WBC 8.6 k/uL (3.8-10.6)
[2023-08-26 13:34] LABS: INR 0.9 (<1.2); Partial Thromboplastin Time 25.3 sec (22.0-30.0)
[2023-08-26 13:43] LABS: ALT 38 U/L (4-34); African American GFR (CKD) >90 (>60 ml/min/1.73 sqM); Albumin 3.5 g/dL (3.5-5.0); Amylase 84 U/L (30-110); Anion Gap 7 mmol/L; Blood Urea Nitrogen 14 mg/dL (7-17); Carbon Dioxide 23 mmol/L (22-30); Chloride 109 mmol/L (98-107); Glucose 80 mg/dL (74-99); Lipase 193 U/L (23-300); Non-African American GFR(CKD) >90 (>60 ml/min/1.73 sqM); Sodium 139 mmol/L (137-145); Total Bilirubin 0.5 mg/dL (0.2-1.3); Total Protein 6.5 g/dL (6.3-8.2)
[2023-08-26 13:51] LABS: NT-Pro-B-Type Natriuretic Pept 1900 pg/mL
[2023-08-26 13:55] LABS: AST 59 U/L (14-36); Alkaline Phosphatase 94 U/L (38-126); Potassium 4.2 mmol/L (3.5-5.1)
--- NOTE | 2023-08-26 14:07 | XR ---
EXAMINATION TYPE: XR chest 2V DATE OF EXAM: 08/26/2023 COMPARISON: 07/10/2023 INDICATION: Difficulty breathing short of breath TECHNIQUE: Frontal and lateral views of the chest are obtained. FINDINGS: The heart size is somewhat prominent. The pulmonary vasculature is normal. The lungs are clear. IMPRESSION: 1. May be some mild cardiomegaly. 2. No acute pulmonary process radiographically apparent
[2023-08-26 15:22] VITALS: TEMP 98
--- NOTE | 2023-08-26 16:31 | ED ---
General Adult HPI - General Chief complaint: Shortness of Breath Stated complaint: abd pain/sob Time Seen by Provider: 08/26/23 14:50 Source: patient, RN notes reviewed, old records reviewed Mode of arrival: ambulatory Limitations: no limitations - History of Present Illness Initial comments: This is a 78-year-old female who presents emergency Department complaining of right mid abdominal pain. Patient states it was quite severe at home but is better now but is still there. Patient states she's had this in the past and it is resolved on its own. Patient denies any vomiting but states she is mildly nauseous per patient states this morning she woke up and did not have any pain she had a bowel movement and the pain began. Patient denies any fever chills. Patient denies any back pain. Patient's family states when she got to the ER she was complaining of some shortness of breath and chest pain but did not sure if she was just anxious or not patient states she no longer has any chest pain or shortness of breath. Patient denies any lightheadedness or dizziness. Patient denies any dysuria hematuria urinary frequency. - Related Data Home Medications Medication Instructions Recorded Confirmed Aspirin EC [Ecotrin Low Dose] 81 mg PO DAILY 04/08/23 08/26/23 Metoprolol Tartrate [Lopressor] 12.5 mg PO BID 05/16/23 08/26/23 lisinopriL [Zestril] 10 mg PO DAILY 05/16/23 08/26/23 Apixaban [Eliquis] 5 mg PO BID 08/26/23 08/26/23 Diphenox-Atrop 2.5-0.025 mg 1 tab PO Q6HR PRN 08/26/23 08/26/23 [Lomotil] Previous Rx's Medication Instructions Recorded levETIRAcetam [Keppra] 750 mg PO Q12HR tab 05/21/23 Allergies Allergy/AdvReac Type Severity Reaction Status Date / Time No Known Allergies Allergy Verified 08/26/23 17:40 Review of Systems ROS Statement: Those systems with pertinent positive or pertinent negative responses have been documented in the HPI. ROS Other: All systems not noted in ROS Statement are negative. Past Medical History Past Medical History: CVA/TIA, Hyperlipidemia, Hypertension, Memory Impairment, Myocardial Infarction ([place]) Additional Past Medical History / Comment(s): HEART MURMUR, LEAKY VALVE. POSS MILD STROKE YEARS AGO, UNSURE, HAS DIFFICULTY RECALLING SOME HISTORICAL MEDICAL INFO. 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 Past Anesthesia/Blood Transfusion Reactions: Motion Sickness Past Psychological History: No Psychological Hx Reported Smoking Status: Never smoker Past Alcohol Use History: None Reported Past Drug Use History: None Reported - Past Family History Father Additional Family Medical History / Comment(s): patient states "he had heart problems". patient unsure what type of heart problems. Mother Family Medical History: Cancer, Diabetes Mellitus Additional Family Medical History / Comment(s): brain cancer Brother(s) Family Medical History: Diabetes Mellitus Additional Family Medical History / Comment(s): autistic Sister(s) History Unknown: Yes General Exam - General Exam Comments Initial Comments: GENERAL: Patient is well-developed and well-nourished. Patient is nontoxic and well- hydrated and is in mild distress. ENT: Neck is soft and supple. No significant lymphadenopathy is noted. Oropharynx is clear. Moist mucous membranes. Neck has full range of motion without eliciting any pain. EYES: The sclera were anicteric and conjunctiva were pink and moist. Extraocular movements were intact and pupils were equal round and reactive to light. Eyel ids were unremarkable. PULMONARY: Unlabored respirations. Good breath sounds bilaterally. No audible rales rhonchi or wheezing was noted. CARDIOVASCULAR: There is a regular rate and rhythm without any murmurs gallops or rubs. ABDOMEN: On palpation there was no reproducible pain. SKIN: Skin is clear with no lesions or rashes and otherwise unremarkable. NEUROLOGIC: Patient is alert and oriented x3. Cranial nerves II through XII are grossly intact. Motor and sensory are also intact. Normal speech, volume and content. Symmetrical smile. MUSCULOSKELETAL: Normal extremities with adequate strength and full range of motion. LYMPHATICS: No significant lymphadenopathy is noted PSYCHIATRIC: Normal psychiatric evaluation. Limitations: no limitations Course Vital Signs 08/26/23 08/26/23 08/26/23 12:55 15:03 15:14 Temperature 98.2 F 98.0 F Pulse Rate 54 L 55 L Respiratory 20 20 Rate Blood Pressure 156/72 176/85 O2 Sat by Pulse 97 99 Oximetry 11/02/23 17:39 Temperature Pulse Rate 58 L Respiratory 20 Rate Blood Pressure 132/67 O2 Sat by Pulse 97 Oximetry Medical Decision Making - Medical Decision Making EKG was interpreted by myself. EKG shows sinus bradycardia 51 bpm HI interval 290 QRS is 144 QT interval is 493 QTC is 471 per patient's EKG shows no ST segment elevation or depression. Was pt. sent in by a medical professional or institution (, PA, HEALTH EDUCATION COORDINATOR, urgent care, hospital, or penitentiary...) When possible be specific @ -No Did you speak to anyone other than the patient for history (EMS, parent, family, police, friend...)? What history was obtained from this source @ -Daughter and grandson did quite a bit of the history Did you review nursing and triage notes (agree or disagree)? Why? @ -I reviewed and agree with nursing and triage notes Were old charts reviewed (outside hosp., previous admission, EMS record, old EKG, old radiological studies, urgent care reports/EKG's, penitentiary records)? Report findings @ -I reviewed prior charts in our lab work on this patient Differential Diagnosis (chest pain, altered mental status, abdominal pain women, abdominal pain men, vaginal bleeding, weakness, fever, dyspnea, syncope, headache, dizziness, GI bleed, back pain, seizure, CVA, palpatations, mental health, musculoskeletal)? @ -Differential Abdominal Pain Women: Appendicitis, Cholecystitis, diverticulosis, ischemic bowel, pancreatitis, hepatitis, UTI, gastroenteritis, AAA, incarcerated hernia, bowel obstruction, constipation, inflammatory bowel, hepatitis, peptic ulcer disease, splenic infarction, perforated viscus, vulvitis, ovarian torsion, PID, kidney stone, placenta abruption, this is not meant to be an all-inclusive list EKG interpreted by me (3pts min.). @ -As above X-rays interpreted by me (1pt min.). @ -Chest x-ray showed no acute abnormality CT interpreted by me (1pt min.). @ -None done U/S interpreted by me (1pt. min.). @ -None done What testing was considered but not performed or refused? (CT, X-rays, U/S, labs)? Why? @ -None What meds were considered but not given or refused? Why? @ -None Did you discuss the management of the patient with other professionals (professionals i.e. , PA, HEALTH EDUCATION COORDINATOR, lab, RT, psych nurse, social work instructor, sales engineer, teacher, flight radio officer, registered nurse hh case manager)? Give summary @ -No Was smoking cessation discussed for >3mins.? @ -No Was critical care preformed (if so, how long)? @ -No Were there social determinants of health that impacted care today? How? (Homelessness, low income, unemployed, alcoholism, drug addiction, transportation, low edu. Level, literacy, decrease access to med. care, [facility], rehab)? @ -No Was there de-escalation of care discussed even if they declined (Discuss DNR or withdrawal of care, Hospice)? DNR status @ -No What co-morbidities impacted this encounter? (DM, HTN, Smoking, COPD, CAD, Cancer, CVA, ARF, Chemo, Hep., AIDS, mental health diagnosis, sleep apnea, morbid obesity)? @ -None Was patient admitted / discharged? Hospital course, mention meds given and route, prescriptions, significant lab abnormalities, going to OR and other pertinent info. @ -Lab work came back with a normal range. I went back in and reexamined the patient she was not having any abdominal pain at this time she was able to get up and ambulate without problem and she was comfortable going home at this time as was family comfortable taking her home. Undiagnosed new problem with uncertain prognosis? @ -No Drug Therapy requiring intensive monitoring for toxicity (Heparin, Nitro, Insulin, Cardizem)? @ -No Were any procedures done? @ -No Diagnosis/symptom? @ -Abdominal pain Acute, or Chronic, or Acute on Chronic? @ -Acute Uncomplicated (without systemic symptoms) or Complicated (systemic symptoms)? @ -Uncomplicated Side effects of treatment? @ -No Exacerbation, Progression, or Severe Exacerbation? @ -No Poses a threat to life or bodily function? How? (Chest pain, [place], [place], pneumonia, PE, COPD, DKA, ARF, appy, cholecystitis, CVA, Diverticulitis, Homicidal, Suicidal, threat to staff... and all critical care pts) @ -No - Lab Data Result diagrams: 08/26/23 13:16 08/26/23 13:16 Lab Results 08/26/23 08/26/23 08/26/23 Range/Units 13:16 13:16 13:16 WBC 8.6 (3.8-10.6) k/uL RBC 4.21 (3.80-5.40) m/uL Hgb 13.0 (11.4-16.0) gm/dL Hct 38.2 (34.0-46.0) % MCV 90.6 (80.0-100.0) fL MCH 30.9 (25.0-35.0) pg MCHC 34.1 (31.0-37.0) g/dL RDW 13.3 (11.5-15.5) % Plt Count 341 (150-450) k/uL MPV 7.9 Neutrophils % 70 % Lymphocytes % 18 % Monocytes % 2 % Eosinophils % 8 % Basophils % 0 % Neutrophils # 6.1 (1.3-7.7) k/uL Lymphocytes # 1.5 (1.0-4.8) k/uL Monocytes # 0.2 (0-1.0) k/uL Eosinophils # 0.7 (0-0.7) k/uL Basophils # 0.0 (0-0.2) k/uL PT 10.0 (10.0-12.5) sec INR 0.9 (<1.2) APTT 25.3 (22.0-30.0) sec Sodium 139 (137-145) mmol/L Potassium 4.2 (3.5-5.1) mmol/L Chloride 109 H (98-107) mmol/L Carbon Dioxide 23 (22-30) mmol/L Anion Gap 7 mmol/L BUN 14 (7-17) mg/dL Creatinine 0.46 L (0.52-1.04) mg/dL Est GFR (CKD-EPI)AfAm >90 (>60 ml/min/1.73 sqM) Est GFR (CKD-EPI)NonAf >90 (>60 ml/min/1.73 sqM) Glucose 80 (74-99) mg/dL Calcium 9.0 (8.4-10.2) mg/dL Total Bilirubin 0.5 (0.2-1.3) mg/dL AST 59 H (14-36) U/L ALT 38 H (4-34) U/L Alkaline Phosphatase 94 (38-126) U/L Troponin I (0.000-0.034) ng/mL NT-Pro-B Natriuret Pep 1900 pg/mL Total Protein 6.5 (6.3-8.2) g/dL Albumin 3.5 (3.5-5.0) g/dL Amylase 84 (30-110) U/L Lipase 193 (23-300) U/L Urine Color Urine Appearance (Clear) Urine pH (5.0-8.0) Ur Specific [place] (1.001-1.035) Urine Protein (Negative) Urine Glucose (UA) (Negative) Urine Ketones (Negative) Urine Blood (Negative) Urine Nitrite (Negative) Urine Bilirubin (Negative) Urine Urobilinogen (<2.0) mg/dL Ur Leukocyte Esterase (Negative) 08/26/23 08/26/23 Range/Units 13:16 16:00 WBC (3.8-10.6) k/uL RBC (3.80-5.40) m/uL Hgb (11.4-16.0) gm/dL Hct (34.0-46.0) % MCV (80.0-100.0) fL MCH (25.0-35.0) pg MCHC (31.0-37.0) g/dL RDW (11.5-15.5) % Plt Count (150-450) k/uL MPV Neutrophils % % Lymphocytes % % Monocytes % % Eosinophils % % Basophils % % Neutrophils # (1.3-7.7) k/uL Lymphocytes # (1.0-4.8) k/uL Monocytes # (0-1.0) k/uL Eosinophils # (0-0.7) k/uL Basophils # (0-0.2) k/uL PT (10.0-12.5) sec INR (<1.2) APTT (22.0-30.0) sec Sodium (137-145) mmol/L Potassium (3.5-5.1) mmol/L Chloride (98-107) mmol/L Carbon Dioxide (22-30) mmol/L Anion Gap mmol/L BUN (7-17) mg/dL Creatinine (0.52-1.04) mg/dL Est GFR (CKD-EPI)AfAm (>60 ml/min/1.73 sqM) Est GFR (CKD-EPI)NonAf (>60 ml/min/1.73 sqM) Glucose (74-99) mg/dL Calcium (8.4-10.2) mg/dL Total Bilirubin (0.2-1.3) mg/dL AST (14-36) U/L ALT (4-34) U/L Alkaline Phosphatase (38-126) U/L Troponin I <0.012 (0.000-0.034) ng/mL NT-Pro-B Natriuret Pep pg/mL Total Protein (6.3-8.2) g/dL Albumin (3.5-5.0) g/dL Amylase (30-110) U/L Lipase (23-300) U/L Urine Color Colorless Urine Appearance Clear (Clear) Urine pH 5.5 (5.0-8.0) Ur Specific [place] 1.006 (1.001-1.035) Urine Protein Negative (Negative) Urine Glucose (UA) Negative (Negative) Urine Ketones Negative (Negative) Urine Blood Negative (Negative) Urine Nitrite Negative (Negative) Urine Bilirubin Negative (Negative) Urine Urobilinogen <2.0 (<2.0) mg/dL Ur Leukocyte Esterase Negative (Negative) Disposition Clinical Impression: Abdominal pain Disposition: HOME SELF-CARE Condition: Good Instructions (If sedation given, give patient instructions): Abdominal Pain (ED) Is patient prescribed a controlled substance at d/c from ED?: No Referrals: Gary Dimas MD [Primary Care Provider] - 1-2 days Time of Disposition: 18:56
[2023-08-26 16:40] LABS: Appearance,Urine Clear (Clear); Bilirubin,Urine Negative (Negative); Blood,Urine Negative (Negative); Color,Urine Colorless; Glucose,Urine (UA) Negative (Negative); Ketones,Urine Negative (Negative); Leukocyte Esterase,Urine Negative (Negative); Nitrite,Urine Negative (Negative); PH, Urine 5.5 (5.0-8.0); Protein,Urine Negative (Negative); Specific Gravity,Urine 1.006 (1.001-1.035); Urobilinogen,Urine <2.0 mg/dL (<2.0)
[2023-08-26 19:46] VITALS: BP 130/74; PULSE 80; RESP 16
== END 2023-08-26 19:30 | disposition home or self-care (01) ==
LOC: EC 12:43
DX: R10.9 Unspecified abdominal pain (principal); R00.1 Bradycardia, unspecified; I10 Essential (primary) hypertension; I25.2 Old myocardial infarction; Z86.73 Personal history of transient ischemic attack (TIA), and cerebral infarction without residual deficits; Z79.01 Long term (current) use of anticoagulants; Z79.82 Long term (current) use of aspirin; Z79.899 Other long term (current) drug therapy; Z90.49 Acquired absence of other specified parts of digestive tract
CPT/HCPCS: 36415; 71046; 80053; 81003; 82150; 83690; 83880; 84484; 85025; 85610; 85730; 93005; 99285

== ENCOUNTER 2023-09-20 13:59 | Inpatient (IN) | payer MEDICARE, OTHER ==
--- NOTE | 2023-09-20 14:24 | ED ---
General Adult HPI - General Source: patient, family, RN notes reviewed Mode of arrival: ambulatory Limitations: no limitations <Andi Ruiz - Last Filed: 09/20/23 14:23> - General Source: patient, family, RN notes reviewed Mode of arrival: ambulatory Limitations: no limitations - History of Present Illness MD Complaint: Elevated BP, headache <Jonna Hernández - Last Filed: 09/21/23 21:03> - General Chief complaint: Weakness Stated complaint: bp over 200 weakness pressure in back of head Time Seen by Provider: 09/20/23 14:23 - History of Present Illness Initial comments: 78-year-old female presents emergency department with family for evaluation of hypertension. Patient has stroke in March they're very diligent about checking her blood pressure twice daily. He was reportedly elevated. Patient hit her medications which include lisinopril blood pressures improving. She still complains of mild headache. Denies chest pain (PatriciaAndi voss) This is a 78-year-old female who presents to the emergency department for elevated blood pressure. Her family states that they check her blood pressure every day, and have been since she had a stroke in March of this year. She is taking all of her blood pressure medications as prescribed. Yesterday her blood pressure was doing well and was in the 120s to 130s systolically. Today h owever, they noted that her blood pressure was in the 200s systolically at home, prompting her family to bring her to the emergency department. She is also complaining of a headache in the back of her head. Denies any visual changes. She reports ongoing shortness of breath since the stroke, and is unsure if this is any worse than normal. She does note some left-sided chest discomfort that almost feels like a shocking sensation or needle pokes. She is unable to explain exactly how long this has been present. This is occurring intermittently and usually only lasts for a couple of seconds to a couple of minutes at a time. Her daughter is worried about the blood pressure causing another stroke or leading to a seizure, which she also has a history of. Most recent seizure was in April of this year. (Jonna Hernández) - Related Data Home Medications Medication Instructions Recorded Confirmed Metoprolol Tartrate [Lopressor] 12.5 mg PO HS 05/16/23 09/21/23 lisinopriL [Zestril] 10 mg PO DAILY 05/16/23 09/21/23 Apixaban [Eliquis] 5 mg PO DAILY 08/26/23 09/21/23 Previous Rx's Medication Instructions Recorded levETIRAcetam [Keppra] 750 mg PO Q12HR tab 05/21/23 Allergies Allergy/AdvReac Type Severity Reaction Status Date / Time No Known Allergies Allergy Verified 09/21/23 07:52 Review of Systems ROS Other: All systems not noted in ROS Statement are negative. <Andi Ruiz - Last Filed: 09/20/23 14:23> ROS Other: All systems not noted in ROS Statement are negative. <Jonna Hernández - Last Filed: 09/21/23 21:03> ROS Statement: Those systems with pertinent positive or pertinent negative responses have been documented in the HPI. Past Medical History Past Medical History: CVA/TIA, Hyperlipidemia, Hypertension, Memory Impairment, Myocardial Infarction ([place]) Additional Past Medical History / Comment(s): HEART MURMUR, LEAKY VALVE. POSS MILD STROKE YEARS AGO, UNSURE, HAS DIFFICULTY RECALLING SOME HISTORICAL MEDICAL INFO. 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 Past Anesthesia/Blood Transfusion Reactions: Motion Sickness Past Psychological History: No Psychological Hx Reported Smoking Status: Never smoker Past Alcohol Use History: None Reported Past Drug Use History: None Reported - Past Family History Father Additional Family Medical History / Comment(s): patient states "he had heart problems". patient unsure what type of heart problems. Mother Family Medical History: Cancer, Diabetes Mellitus Additional Family Medical History / Comment(s): brain cancer Brother(s) Family Medical History: Diabetes Mellitus Additional Family Medical History / Comment(s): autistic Sister(s) History Unknown: Yes <Andi Ruiz - Last Filed: 09/20/23 14:23> General Exam Limitations: no limitations <Andi Ruiz - Last Filed: 09/20/23 14:23> Limitations: no limitations General appearance: alert, in no apparent distress Head exam: Present: atraumatic, normocephalic, normal inspection Eye exam: Present: normal appearance, PERRL, EOMI. Absent: scleral icterus, conjunctival injection, periorbital swelling Respiratory exam: Present: normal lung sounds bilaterally. Absent: respiratory distress, wheezes, rales, rhonchi, stridor Cardiovascular Exam: Present: normal rhythm, bradycardia Neurological exam: Present: alert, oriented X3, CN II-XII intact Psychiatric exam: Present: normal affect, normal mood Skin exam: Present: warm, dry, intact, normal color. Absent: rash <Jonna Hernández - Last Filed: 09/21/23 21:03> - General Exam Comments Initial Comments: Visual Physical Exam Vital signs reviewed General: Well-appearing, nontoxic, no acute distress. Head: Normocephalic, atraumatic Eyes: PERRLA, EOMI ENT: Airway patent Chest: Nonlabored breathing Skin: No visual rash, normal skin tone Neuro: Alert and oriented 3 Musculoskeletal: No gross abnormalities (Andi Ruiz) Course Vital Signs 09/20/23 09/20/23 09/20/23 14:17 19:32 22:25 Temperature 98.1 F Pulse Rate 59 L 58 L 57 L Respiratory 16 18 18 Rate Blood Pressure 181/77 190/87 208/87 O2 Sat by Pulse 99 97 99 Oximetry 09/20/23 09/20/23 09/20/23 22:40 23:00 23:30 Temperature Pulse Rate 54 L 75 Respiratory 22 20 20 Rate Blood Pressure 188/90 118/72 O2 Sat by Pulse 97 99 Oximetry 09/20/23 09/21/23 09/21/23 23:45 02:00 03:00 Temperature Pulse Rate 92 83 95 Respiratory 22 16 21 Rate Blood Pressure 133/85 113/73 114/72 O2 Sat by Pulse 99 98 95 Oximetry 09/21/23 09/21/23 09/21/23 04:00 05:00 06:00 Temperature Pulse Rate 71 64 63 Respiratory 18 16 19 Rate Blood Pressure 120/79 99/66 104/69 O2 Sat by Pulse 98 95 95 Oximetry 09/21/23 09/21/23 09/21/23 07:45 08:00 09:00 Temperature 96.3 F L Pulse Rate 75 58 L 59 L Respiratory 18 18 18 Rate Blood Pressure 133/78 113/75 106/70 O2 Sat by Pulse 97 97 96 Oximetry 09/21/23 09/21/23 09/21/23 10:00 11:00 12:00 Temperature 98.5 F Pulse Rate 67 66 64 Respiratory 18 18 18 Rate Blood Pressure 117/74 113/75 137/77 O2 Sat by Pulse 96 96 98 Oximetry 09/21/23 09/21/23 09/21/23 13:24 17:00 19:13 Temperature 98.3 F Pulse Rate 70 69 Respiratory 18 16 Rate Blood Pressure 117/78 100/64 O2 Sat by Pulse 98 96 95 Oximetry Medical Decision Making <Andi Ruiz - Last Filed: 09/20/23 14:23> - Lab Data Result diagrams: 09/20/23 15:06 09/20/23 15:06 - Radiology Data Radiology results: report reviewed, image reviewed <Jonna Hernández - Last Filed: 09/21/23 21:03> - Medical Decision Making I completed the quick note portion of this chart signed Andi Ruiz PA-C (Andi Ruiz) This is a 78-year-old female who presents to the emergency department for elevated blood pressure. Was pt. sent in by a medical professional or institution? @ -No Did you speak to anyone other than the patient for history? @ -Her daughter provided the majority of the information. Did you review nursing and triage notes? @ -Yes, and I agree, it is accurate with regards to the patient's symptoms. Were old charts reviewed? @ -No Differential Diagnosis? @ -Differential Headache: Migraine, tension, cluster, carbon monoxide, central venous thrombosis, pension karma temporal arteritis, acute closure glaucoma, intercranial hemorrhage, mastoiditis, sinusitis, head injury, this is not meant to be an all-inclusive list. EKG interpreted by me (3pts min.)? @ -EKG interpreted by me demonstrating the following: Sinus bradycardia. Right bundle branch block. Ventricular rate 53 beats per minute, UT interval 188 ms, QRS duration 156 ms, QTC 481 ms. X-rays interpreted by me (1pt min.)? @ -Chest x-ray obtained, my interpretation identifies no localized consolidations or infiltrates. CT interpreted by me (1pt min.)? @ -Computed tomography scan of the brain obtained. My interpretation identifies no evidence of an acute intracranial hemorrhage or mass effect. U/S interpreted by me (1pt. min.)? @ -Not obtained What testing was considered but not performed? (CT, X-rays, U/S, labs)? Why? @ -None What meds were considered but not given? Why? @ -None Did you discuss the management of the patient with other professionals? @ -Dr. Morales discussed the case with Dr. Dimas in the morning, who accepted the patient for admission. Did you reconcile home meds? @ -No Was smoking cessation discussed for >3mins.? @ -No Was critical care preformed (if so, how long)? @ -No Were there social determinants of health that impacted care today? How? (Homelessness, low income, unemployed, alcoholism, drug addiction, transportation, low edu. Level, literacy, decrease access to med. care, residential, rehab)? @ -No Was there de-escalation of care discussed even if they declined? (Discuss DNR or withdrawal of care, Hospice)? @ -No What co-morbidities impacted this encounter? (DM, HTN, Smoking, COPD, CAD, Cancer, CVA, Hep., AIDS, mental health diagnosis, sleep apnea, morbid obesity)? @ -HTN, HLD, memory impairment, Hx of CVA Was patient admitted / discharged? @ -Admitted. Lab work obtained and found to be unremarkable. Patient did test positive for COVID-19. Chest x-ray reveals no acute process. CT scan of the brain obtained as well also revealing no acute findings. Patient's blood pressure was 181/77 on arrival and continued to increase while she was here. Unfortunately, there was a substantial wait time in the waiting room due to the amount of holds in the emergency department, and after she had been brought back to an examination room, her blood pressure had increased to 208/87. She did continue to complain of a headache in the back of her head, however that had not increased in severity since being here. She was given Keppra, 750mg, which she had been due for. Hydralazine 10mg was administered for the elevated BP, and her BP initially reduced to 188/90, however about 40-45 minutes later it dropped to 118/78. However it did then begin to increase again to 144/78. Over an hour la ter, she ended up having a seizure, which lasted about 4 minutes according to the family with a longer postictal period than normal. She does not have grand mal seizures, her family states that she has small tremors. There was concern that she may have been having a second seizure, and she was given 2 mg of Ativan, which terminated this. Her BP then began to decrease again, and remained in the range of 112-125 systolically. Her headache resolved with management of her BP. Given the significant variability in her BP with breakthrough seizures, patient admitted to medicine for further management. Undiagnosed new problem with uncertain prognosis? @ -None Drug Therapy requiring intensive monitoring for toxicity (Heparin, Nitro, Insulin, Cardizem)? @ -None Were any procedures done? @ -None Diagnosis/symptom? @ -Breakthrough seizures, fluctuating blood pressure, COVID-19 Acute, or Chronic, or Acute on Chronic? @ -Acute Uncomplicated (without systemic symptoms) or Complicated (systemic symptoms)? @ -Uncomplicated Side effects of treatment? @ -None Exacerbation, Progression, or Severe Exacerbation] @ -Not applicable Poses a threat to life or bodily function? @ -Yes This case was discussed in detail with the attending ED physician, Dr. Morales. Presentation, findings, and treatment plan discussed in detail as well. (Jonna Hernández) - Lab Data Lab Results 09/20/23 09/20/23 09/20/23 Range/Units 15:06 15:06 23:53 WBC 7.4 (3.8-10.6) k/uL RBC 4.63 (3.80-5.40) m/uL Hgb 14.3 (11.4-16.0) gm/dL Hct 41.7 (34.0-46.0) % MCV 90.1 (80.0-100.0) fL MCH 31.0 (25.0-35.0) pg MCHC 34.4 (31.0-37.0) g/dL RDW 13.8 (11.5-15.5) % Plt Count 255 (150-450) k/uL MPV 8.2 Neutrophils % 62 % Lymphocytes % 28 % Monocytes % 5 % Eosinophils % 3 % Basophils % 1 % Neutrophils # 4.6 (1.3-7.7) k/uL Lymphocytes # 2.1 (1.0-4.8) k/uL Monocytes # 0.4 (0-1.0) k/uL Eosinophils # 0.2 (0-0.7) k/uL Basophils # 0.1 (0-0.2) k/uL Sodium 139 (137-145) mmol/L Potassium 3.3 L (3.5-5.1) mmol/L Chloride 104 (98-107) mmol/L Carbon Dioxide 24 (22-30) mmol/L Anion Gap 11 mmol/L BUN 14 (7-17) mg/dL Creatinine 0.49 L (0.52-1.04) mg/dL Est GFR (CKD-EPI)AfAm >90 (>60 ml/min/1.73 sqM) Est GFR (CKD-EPI)NonAf >90 (>60 ml/min/1.73 sqM) Glucose 74 (74-99) mg/dL Calcium 9.5 (8.4-10.2) mg/dL Magnesium 2.0 (1.6-2.3) mg/dL Total Bilirubin 0.9 (0.2-1.3) mg/dL AST 34 (14-36) U/L ALT 24 (4-34) U/L Alkaline Phosphatase 133 H (38-126) U/L Troponin I (0.000-0.034) ng/mL NT-Pro-B Natriuret Pep 504 pg/mL Total Protein 7.7 (6.3-8.2) g/dL Albumin 4.3 (3.5-5.0) g/dL Influenza Type A (PCR) (Not Detectd) Influenza Type B (PCR) (Not Detectd) RSV (PCR) (Not Detectd) SARS-CoV-2 (PCR) (Not Detectd) 09/20/23 09/21/23 Range/Units 23:53 02:10 WBC (3.8-10.6) k/uL RBC (3.80-5.40) m/uL Hgb (11.4-16.0) gm/dL Hct (34.0-46.0) % MCV (80.0-100.0) fL MCH (25.0-35.0) pg MCHC (31.0-37.0) g/dL RDW (11.5-15.5) % Plt Count (150-450) k/uL MPV Neutrophils % % Lymphocytes % % Monocytes % % Eosinophils % % Basophils % % Neutrophils # (1.3-7.7) k/uL Lymphocytes # (1.0-4.8) k/uL Monocytes # (0-1.0) k/uL Eosinophils # (0-0.7) k/uL Basophils # (0-0.2) k/uL Sodium (137-145) mmol/L Potassium (3.5-5.1) mmol/L Chloride (98-107) mmol/L Carbon Dioxide (22-30) mmol/L Anion Gap mmol/L BUN (7-17) mg/dL Creatinine (0.52-1.04) mg/dL Est GFR (CKD-EPI)AfAm (>60 ml/min/1.73 sqM) Est GFR (CKD-EPI)NonAf (>60 ml/min/1.73 sqM) Glucose (74-99) mg/dL Calcium (8.4-10.2) mg/dL Magnesium (1.6-2.3) mg/dL Total Bilirubin (0.2-1.3) mg/dL AST (14-36) U/L ALT (4-34) U/L Alkaline Phosphatase (38-126) U/L Troponin I 0.015 (0.000-0.034) ng/mL NT-Pro-B Natriuret Pep pg/mL Total Protein (6.3-8.2) g/dL Albumin (3.5-5.0) g/dL Influenza Type A (PCR) Not Detected (Not Detectd) Influenza Type B (PCR) Not Detected (Not Detectd) RSV (PCR) Not Detected (Not Detectd) SARS-CoV-2 (PCR) Detected A (Not Detectd) Disposition <Andi Ruiz - Last Filed: 09/20/23 14:23> <Jonna Hernández - Last Filed: 09/21/23 21:03> Clinical Impression: Breakthrough seizure, Hypertension, Fluctuating blood pressure, COVID-19 Disposition: ADMITTED IP TO THIS HOSP
[2023-09-20 15:24] LABS: Basophils # (A) 0.1 k/uL (0-0.2); Basophils % (A) 1 %; Eosinophils # (A) 0.2 k/uL (0-0.7); Eosinophils % (A) 3 %; HCT 41.7 % (34.0-46.0); HGB 14.3 gm/dL (11.4-16.0); Lymphocytes # (A) 2.1 k/uL (1.0-4.8); Lymphocytes % (A) 28 %; MCHC 34.4 g/dL (31.0-37.0); MCV 90.1 fL (80.0-100.0); Mean Platelet Volume 8.2; Monocytes # (A) 0.4 k/uL (0-1.0); Monocytes % (A) 5 %; Neutrophils # (A) 4.6 k/uL (1.3-7.7); Neutrophils % (A) 62 %; Platelet Count 255 k/uL (150-450); RBC 4.63 m/uL (3.80-5.40); RDW 13.8 % (11.5-15.5); WBC 7.4 k/uL (3.8-10.6)
[2023-09-20 15:39] LABS: ALT 24 U/L (4-34); AST 34 U/L (14-36); African American GFR (CKD) >90 (>60 ml/min/1.73 sqM); Albumin 4.3 g/dL (3.5-5.0); Alkaline Phosphatase 133 U/L (38-126); Anion Gap 11 mmol/L; Blood Urea Nitrogen 14 mg/dL (7-17); Calcium 9.5 mg/dL (8.4-10.2); Carbon Dioxide 24 mmol/L (22-30); Chloride 104 mmol/L (98-107); Glucose 74 mg/dL (74-99); Non-African American GFR(CKD) >90 (>60 ml/min/1.73 sqM); Potassium 3.3 mmol/L (3.5-5.1); Sodium 139 mmol/L (137-145); Total Bilirubin 0.9 mg/dL (0.2-1.3); Total Protein 7.7 g/dL (6.3-8.2)
[2023-09-20] MEDS ORDERED: levETIRAcetam IV 500 MG/5 ML VIAL IVP ONE (22:47)
[2023-09-20] MEDS ORDERED: hydrALAZINE HCL 20 MG/ML 1 ML VIAL IVP STA (22:48)
--- NOTE | 2023-09-20 23:35 | XR ---
EXAM: XR Chest, 2 Views CLINICAL HISTORY: ITS.REASON XR Reason: Chest pain, SIMONE TECHNIQUE: Frontal and lateral views of the chest. COMPARISON: Chest radiographs 07/10/2023. FINDINGS: Lungs: Unremarkable. No consolidation. Pleural space: Unremarkable. No pneumothorax. Heart: Cardiomegaly. Mediastinum: Unremarkable. Normal mediastinal contour. Bones/joints: Dextroscoliosis. Degenerative change in the spine and shoulders. No acute fracture. Vasculature: Atherosclerotic calcification of the aorta. IMPRESSION: 1. No radiographic evidence of acute cardiopulmonary abnormality. 2. Cardiomegaly.
[2023-09-20] MEDS ORDERED: ONDANSETRON 4 MG/2 ML VIAL IVP STA (23:46)
[2023-09-21] MEDS ORDERED: LORazepam 2 MG/ML INJ IV STA (00:05)
--- NOTE | 2023-09-21 01:10 | CT ---
EXAM: CT Head Without Intravenous Contrast CLINICAL HISTORY: ITS.REASON CT Reason: Headache, altered mental status TECHNIQUE: Axial computed tomography images of the head/brain without intravenous contrast. CTDI is 49.2 mGy and DLP is 1196.4 mGy-cm. This CT exam was performed using one or more of the following dose reduction techniques: automated exposure control, adjustment of the mA and/or kV according to patient size, and/or use of iterative reconstruction technique. COMPARISON: No relevant prior studies available. FINDINGS: No acute intracranial hemorrhage. No midline shift or mass effect. The territorial delacruz-white matter differentiation is maintained throughout. Age-related cerebral volume loss. Periventricular and subcortical white matter hypoattenuation, consistent with chronic microangiopathy. The visualized orbits appear grossly unremarkable. The calvarium is intact. The visualized paranasal sinuses and mastoid air cells are grossly clear. IMPRESSION: No acute intracranial hemorrhage, midline shift, or mass effect.
[2023-09-21] MEDS ORDERED: SODIUM CHLORIDE 0.9% 1,000 ML IV STA (02:33)
[2023-09-21] MEDS ORDERED: ACETAMINOPHEN TAB 325 MG TAB PO PRN (04:04)
[2023-09-21] MEDS ORDERED: ONDANSETRON 4 MG/2 ML VIAL IVP PRN (04:04)
[2023-09-21] MEDS ORDERED: NALOXONE 0.4 MG/ML 1 ML VIAL IV PRN (04:04)
[2023-09-21 08:03] LABS: Appearance,Urine Clear (Clear); Bilirubin,Urine Negative (Negative); Blood,Urine Negative (Negative); Color,Urine Colorless; Glucose,Urine (UA) Negative (Negative); Ketones,Urine 1+ (Negative); Leukocyte Esterase,Urine Trace (Negative); Nitrite,Urine Negative (Negative); PH, Urine 6.5 (5.0-8.0); Protein,Urine Negative (Negative); RBC,Urine 1 /hpf (0-5); Specific Gravity,Urine 1.009 (1.001-1.035); Urobilinogen,Urine <2.0 mg/dL (<2.0); WBC,Urine 4 /hpf (0-5)
--- NOTE | 2023-09-21 13:29 | P.CRDCN ---
History of Present Illness Consult date: 09/21/23 Reason for Consult (text): elevated BP History of present illness: HISTORY OF PRESENT ILLNESS: This is a 78-year-old female with a past medical history significant for paroxysmal atrial fibrillation hypertrophic obstructive cardiomyopathy, hypertension, seizure disorder, hyperlipidemia. Patient follows in the office with Dr. Morel. We have been asked to see the patient in consultation for elevated blood pressure. Patient is seen today in the emergency center. Patient states that she came in the hospital because her daughter checked her blood pressure at home and it was elevated. On presentation, patient's blood pressure was at 208/87. Her daughter checks her blood pressure twice a day and it usually runs in the normal range. Patient's blood pressure now is 137/77. Patient is status post hydralazine 10 mg IV push 1 Patient was found positive for Covid and is in isolation. EKG reveals sinus bradycardia with right bundle branch block. Chest xray: No evidence of acute cardiopulmonary abnormality. Cardiomegaly. CAT scan of the brain: No acute intracranial hemorrhage, midline shift or mass effect. CBC is unremarkable. Sodium 139, potassium 3.3, creatinine 0.49. Troponin negative 1. ProBNP 504. Alkaline phosphatase 133 otherwise liver function tests are within normal limits. Influenza A, influenza B B, RSV not detected. Covid 19 detected. Current home cardiac medications: eliquis 5 mg twice daily, lisinopril 10 mg daily, Lopressor 12.5 mg at bedtime Most recent echocardiogram obtained in March 2023 revealing normal left ventricular size and systolic function with severe hypertrophy, moderate mitral regurgitation, left ventricular outflow gradient consistent with hypertrophic obstructive cardiomyopathy, [id number] aortic regurgitation, mild tricuspid regurgitation, and no evidence of shunting with bubble study Patient underwent Lexiscan stress test in May 2023 revealiApical wall defect normal gated images findings consistent with artifact and similar to test performed in 2021. REVIEW OF SYSTEMS: At the time of my exam: CONSTITUTIONAL: Denies fever or chills. HEENT: Denies blurred vision, vision changes, or eye pain. Denies hemoptysis CARDIOVASCULAR: Denies chest pain. Denies orthopnea. Denies PND. Denies palpitations RESPIRATORY: Denies shortness of breath. GASTROINTESTINAL: Denies abdominal pain. Denies nausea or vomiting. HEMATOLOGIC: Denies bleeding disorders. GENITOURINARY: Denies any blood in urine. SKIN: Denies pruitis. Denies rash. PHYSICAL EXAM: VITAL SIGNS: Reviewed. GENERAL: Well-developed in no acute distress. HEENT: Head is normocephalic. Pupils are equal, round. Sclerae anicteric. No JVD or thyromegaly LUNGS: Respirations even and unlabored. Lungs essentially clear to auscultation bilaterally. HEART: Regular rate and rhythm. S1 and S2 heard. systolic ejection murmur, systolic murmur at the apex ABDOMEN: Soft. Nondistended. Nontender. EXTREMITIES: Normal range of motion. No clubbing or cyanosis. Peripheral pulses intact. No lower extremity edema NEUROLOGIC: Awake and alert. Oriented x 3. ASSESSMENT: hypertension uncontrolled COVID-19 History of seizures Hypertension Hyperlipidemia History of sinus bradycardia Severe left ventricular hypertrophy Left ventricular outflow gradient consistent with hypertrophic obstructive cardiomyopathy Questionable history of TIA PLAN: An acute coronary event has been ruled out Resume home cardiac medications including eliquis which should be twice daily dosing No further inpatient recommendations from a cardiac standpoint Nurse practitioner note has been reviewed by physician. Signing provider agrees with the documented findings, assessment, and plan of care. Past Medical History Past Medical History: CVA/TIA, Hyperlipidemia, Hypertension, Memory Impairment, Myocardial Infarction ([place]) Additional Past Medical History / Comment(s): HEART MURMUR, LEAKY VALVE. POSS MILD STROKE YEARS AGO, UNSURE, HAS DIFFICULTY RECALLING SOME HISTORICAL MEDICAL INFO. 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 Past Anesthesia/Blood Transfusion Reactions: Motion Sickness Past Psychological History: No Psychological Hx Reported Smoking Status: Never smoker Past Alcohol Use History: None Reported Past Drug Use History: None Reported - Past Family History Father Additional Family Medical History / Comment(s): patient states "he had heart problems". patient unsure what type of heart problems. Mother Family Medical History: Cancer, Diabetes Mellitus Additional Family Medical History / Comment(s): brain cancer Brother(s) Family Medical History: Diabetes Mellitus Additional Family Medical History / Comment(s): autistic Sister(s) History Unknown: Yes Medications and Allergies Home Medications Medication Instructions Recorded Confirmed Type Metoprolol Tartrate [Lopressor] 12.5 mg PO HS 05/16/23 09/21/23 History lisinopriL [Zestril] 10 mg PO DAILY 05/16/23 09/21/23 History levETIRAcetam [Keppra] 750 mg PO Q12HR tab 05/21/23 09/21/23 Rx Apixaban [Eliquis] 5 mg PO DAILY 08/26/23 09/21/23 History Allergies Allergy/AdvReac Type Severity Reaction Status Date / Time No Known Allergies Allergy Verified 09/21/23 07:52 Physical Exam Vitals: Vital Signs Temp Pulse Resp BP Pulse Ox 09/21/23 09:00 59 L 18 106/70 96 09/21/23 08:00 58 L 18 113/75 97 09/21/23 07:45 96.3 F L 75 18 133/78 97 09/21/23 06:00 63 19 104/69 95 09/21/23 05:00 64 16 99/66 95 09/21/23 04:00 71 18 120/79 98 09/21/23 03:00 95 21 114/72 95 09/21/23 02:00 83 16 113/73 98 09/20/23 23:45 92 22 133/85 99 09/20/23 23:30 75 20 118/72 99 09/20/23 23:00 54 L 20 188/90 97 09/20/23 22:40 22 09/20/23 22:25 57 L 18 208/87 99 09/20/23 19:32 58 L 18 190/87 97 09/20/23 14:17 98.1 F 59 L 16 181/77 99 Results 09/20/23 15:06 09/20/23 15:06 Cardiac Enzymes 09/20/23 09/21/23 Range/Units 15:06 02:10 AST 34 (14-36) U/L Troponin I 0.015 (0.000-0.034) ng/mL CBC 09/20/23 Range/Units 15:06 WBC 7.4 (3.8-10.6) k/uL RBC 4.63 (3.80-5.40) m/uL Hgb 14.3 (11.4-16.0) gm/dL Hct 41.7 (34.0-46.0) % Plt Count 255 (150-450) k/uL Comprehensive Metabolic Panel 09/20/23 Range/Units 15:06 Sodium 139 (137-145) mmol/L Potassium 3.3 L (3.5-5.1) mmol/L Chloride 104 (98-107) mmol/L Carbon Dioxide 24 (22-30) mmol/L BUN 14 (7-17) mg/dL Creatinine 0.49 L (0.52-1.04) mg/dL Glucose 74 (74-99) mg/dL Calcium 9.5 (8.4-10.2) mg/dL AST 34 (14-36) U/L ALT 24 (4-34) U/L Alkaline Phosphatase 133 H (38-126) U/L Total Protein 7.7 (6.3-8.2) g/dL Albumin 4.3 (3.5-5.0) g/dL Current Medications Generic Name Dose Route Start Last Admin Trade Name Freq PRN Reason Stop Dose Admin Acetaminophen 650 mg 09/21/23 04:04 Acetaminophen Tab 325 Mg Tab PO Q6HR PRN Mild Pain or Fever > 100.5 Apixaban 5 mg 09/22/23 09:00 Apixaban 5 Mg Tab PO DAILY [facility] Protocol Ascorbic Acid 500 mg 09/22/23 09:00 Ascorbic Acid 500 Mg Tab PO DAILY [facility] Levetiracetam 750 mg 09/21/23 21:00 Levetiracetam 750 Mg Tab PO Q12HR [facility] Lisinopril 10 mg 09/22/23 09:00 Lisinopril 10 Mg Tab PO DAILY [facility] Metoprolol Tartrate 12.5 mg 09/21/23 21:00 Metoprolol Tartrate 12.5 Mg Tab PO HS [facility] Naloxone HCl 0.2 mg 09/21/23 04:04 Naloxone 0.4 Mg/Ml 1 Ml Vial IV Q2M PRN Opioid Reversal Ondansetron HCl 4 mg 09/21/23 04:04 Ondansetron 4 Mg/2 Ml Vial IVP Q8HR PRN Nausea And Vomiting Pantoprazole Sodium 40 mg 09/22/23 07:30 Pantoprazole 40 Mg Tablet PO AC-BRKFST [facility] Zinc Sulfate 220 mg 09/22/23 09:00 Zinc Sulfate 220 Mg Cap PO DAILY [facility] 09/20/23 15:06 09/20/23 15:06
[2023-09-21] MEDS: APIXABAN 5 MG TAB PO SCH ×2 (14:32→20:21)
--- NOTE | 2023-09-21 15:54 | P.HPIM ---
History of Present Illness H&P Date: 09/21/23 This is a 78-year-old female patient who presented to the ER with concerns of weakness and hypertension. Patient reports that she type checks her blood pressure daily and noticed today that her blood pressure was over 200 prompting her family to bring her to the ER for further evaluation patient reports headache. Patient has past medical history of CVA, hyperlipidemia, hypertension, memory impairment of myocardial infarction and seizures. Upon arrival to ER patient's blood pressure 188/90 patient was given hydralazine. Blood pressure improving to 118/72. According to ER records patient was noted to have seizure lasting approximately 4 minutes. Patient was given Ativan and Keppra. Chest x-ray was completed showing no radiographic evidence of acute cardiopulmonary abnormality. Cardiomegaly. Head CT was completed showing no acute intracranial hemorrhage midline shift or mass effect. Lab work revealing positive COVID-19. Patient denies chest pain or shortness of breath. Patient denies nausea vomiting or diarrhea. Patient denies any urinary burning or frequency. At this time patient will be admitted cardiology and neurology services will be consulted. Patient's home meds resumed. Repeat labs ordered Review of Systems please refer to HPI otherwise unremarkable Past Medical History Past Medical History: CVA/TIA, Hyperlipidemia, Hypertension, Memory Impairment, Myocardial Infarction ([place]) Additional Past Medical History / Comment(s): HEART MURMUR, LEAKY VALVE. POSS MILD STROKE YEARS AGO, UNSURE, HAS DIFFICULTY RECALLING SOME HISTORICAL MEDICAL INFO. 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 Past Anesthesia/Blood Transfusion Reactions: Motion Sickness Past Psychological History: No Psychological Hx Reported Smoking Status: Never smoker Past Alcohol Use History: None Reported Past Drug Use History: None Reported - Past Family History Father Additional Family Medical History / Comment(s): patient states "he had heart problems". patient unsure what type of heart problems. Mother Family Medical History: Cancer, Diabetes Mellitus Additional Family Medical History / Comment(s): brain cancer Brother(s) Family Medical History: Diabetes Mellitus Additional Family Medical History / Comment(s): autistic Sister(s) History Unknown: Yes Medications and Allergies Home Medications Medication Instructions Recorded Confirmed Type Metoprolol Tartrate [Lopressor] 12.5 mg PO HS 05/16/23 09/21/23 History lisinopriL [Zestril] 10 mg PO DAILY 05/16/23 09/21/23 History levETIRAcetam [Keppra] 750 mg PO Q12HR tab 05/21/23 09/21/23 Rx Apixaban [Eliquis] 5 mg PO DAILY 08/26/23 09/21/23 History Allergies Allergy/AdvReac Type Severity Reaction Status Date / Time No Known Allergies Allergy Verified 09/21/23 07:52 Physical Exam Vitals: Vital Signs Temp Pulse Resp BP Pulse Ox 09/21/23 09:00 59 L 18 106/70 96 09/21/23 08:00 58 L 18 113/75 97 09/21/23 07:45 96.3 F L 75 18 133/78 97 09/21/23 06:00 63 19 104/69 95 09/21/23 05:00 64 16 99/66 95 09/21/23 04:00 71 18 120/79 98 09/21/23 03:00 95 21 114/72 95 09/21/23 02:00 83 16 113/73 98 09/20/23 23:45 92 22 133/85 99 09/20/23 23:30 75 20 118/72 99 09/20/23 23:00 54 L 20 188/90 97 09/20/23 22:40 22 09/20/23 22:25 57 L 18 208/87 99 09/20/23 19:32 58 L 18 190/87 97 09/20/23 14:17 98.1 F 59 L 16 181/77 99 Head normocephalic Neck supple Lungs clear to auscultation bilaterally no wheezing or crackles Heart regular rate and rhythm S1-S2, no rub or gallop Abdomen is soft nontender nondistended positive bowel sounds no hepatosplenomegaly Extremities no edema Neuro alert and orientated to 3 Results CBC & Chem 7: 09/20/23 15:06 09/20/23 15:06 Labs: Abnormal Lab Results - Last 24 Hours (Table) 09/20/23 09/20/23 09/21/23 Range/Units 15:06 23:53 07:42 Potassium 3.3 L (3.5-5.1) mmol/L Creatinine 0.49 L (0.52-1.04) mg/dL Alkaline Phosphatase 133 H (38-126) U/L Urine Ketones 1+ H (Negative) Ur Leukocyte Esterase Trace H (Negative) SARS-CoV-2 (PCR) Detected A (Not Detectd) Assessment and Plan Assessment: 1. Hypertensive urgency. 2. Breakthrough seizures 3. COVID-19 positive 4. History of seizures 5. History of TIA 6. Severe kyphoscoliosis 7. Paroxysmal atrial fibrillation, patient was seen by cardiology, in June 2023, as outpatient and was started on Eliquis. DVT prophylaxis eliquis. GI prophylaxis Protonix Cardiology and neurology service is consulted Seizure precautions ordered Home meds resumed Repeat labs ordered Time with Patient: Greater than 30 (Greater than 60% of the total time spent in counseling and coordination of care)
[2023-09-21] MEDS: METOPROLOL TARTRATE 12.5 MG TAB PO SCH (20:21)
[2023-09-22] MEDS: PANTOPRAZOLE 40 MG TABLET PO SCH (06:32)
--- NOTE | 2023-09-22 07:16 | P.CONS ---
History of Present Illness - Reason for Consult Consult date: 09/21/23 covid Requesting physician: Gary Dimas - Chief Complaint Elevated blood pressure x one day - History of Present Illness Patient is a 78-year-old female with past medical history significant for hypertension hyperlipidemia memory impairment CVA TIA presenting to the hospital for evaluation of elevated blood pressure with a reading around 200 systolic at home while the patient was brought into the hospital currently she is complaining of some headache but denies having any URI symptoms chest pain shortness of breath or cough no nausea vomiting no abdominal pain or any diarrhea patient presented to the hospital was afebrile and no fever has been called subsequently patient was not tachycardic hypotensive or hypoxic patient did have a white count of 7.4 creatinine 0.49 liver exams are normal urine has been negative patient did test positive for COVID 19 patient did have a chest x- ray no radiographic evidence of acute cardiopulmonary abnormality cardiomegaly CT of the brain was negative for any bleed no acute intracranial abnormality patient has been admitted to the hospital infectious disease was consulted for further management Review of Systems Positive point and negatives has been mentioned in the HPI, complete review of systems was performed and all other systems are negative Past Medical History Past Medical History: CVA/TIA, Hyperlipidemia, Hypertension, Memory Impairment, Myocardial Infarction ([place]) Additional Past Medical History / Comment(s): HEART MURMUR, LEAKY VALVE. POSS MILD STROKE YEARS AGO, UNSURE, HAS DIFFICULTY RECALLING SOME HISTORICAL MEDICAL INFO. 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 Past Anesthesia/Blood Transfusion Reactions: Motion Sickness Past Psychological History: No Psychological Hx Reported Smoking Status: Never smoker Past Alcohol Use History: None Reported Past Drug Use History: None Reported - Past Family History Father Additional Family Medical History / Comment(s): patient states "he had heart problems". patient unsure what type of heart problems. Mother Family Medical History: Cancer, Diabetes Mellitus Additional Family Medical History / Comment(s): brain cancer Brother(s) Family Medical History: Diabetes Mellitus Additional Family Medical History / Comment(s): autistic Sister(s) History Unknown: Yes Medications and Allergies Home Medications Medication Instructions Recorded Confirmed Type Metoprolol Tartrate [Lopressor] 12.5 mg PO HS 05/16/23 09/21/23 History lisinopriL [Zestril] 10 mg PO DAILY 05/16/23 09/21/23 History levETIRAcetam [Keppra] 750 mg PO Q12HR tab 05/21/23 09/21/23 Rx Apixaban [Eliquis] 5 mg PO BID 30 Days #60 tab 09/24/23 Rx Ascorbic Acid [Vitamin C] 500 mg PO DAILY 14 Days #14 tab 09/24/23 Rx Zinc Sulfate [Orazinc] 220 mg PO DAILY 14 Days #14 cap 09/24/23 Rx Allergies Allergy/AdvReac Type Severity Reaction Status Date / Time No Known Allergies Allergy Verified 09/21/23 07:52 Physical Exam Vitals: Vital Signs Temp Pulse Resp BP Pulse Ox 09/21/23 12:00 98.5 F 64 18 137/77 98 09/21/23 11:00 66 18 113/75 96 09/21/23 10:00 67 18 117/74 96 09/21/23 09:00 59 L 18 106/70 96 09/21/23 08:00 58 L 18 113/75 97 09/21/23 07:45 96.3 F L 75 18 133/78 97 09/21/23 06:00 63 19 104/69 95 09/21/23 05:00 64 16 99/66 95 09/21/23 04:00 71 18 120/79 98 09/21/23 03:00 95 21 114/72 95 09/21/23 02:00 83 16 113/73 98 09/20/23 23:45 92 22 133/85 99 09/20/23 23:30 75 20 118/72 99 09/20/23 23:00 54 L 20 188/90 97 09/20/23 22:40 22 09/20/23 22:25 57 L 18 208/87 99 09/20/23 19:32 58 L 18 190/87 97 09/20/23 14:17 98.1 F 59 L 16 181/77 99 GENERAL DESCRIPTION: Elderly female lying in bed, no distress. No tachypnea or accessory muscle of respiration use. HEENT: Shows Pallor , no scleral icterus. Oral mucous membrane is dry. No pharyngeal erythema or thrush NECK: Trachea central, no thyromegaly. LUNGS: Unlabored breathing. Clear to auscultation anteriorly. No wheeze or crackle. HEART: S1, S2, regular rate and rhythm. No loud murmur ABDOMEN: Soft, no tenderness , guarding or rigidity, no organomegaly EXTREMITIES: No edema of feet. SKIN: No rash, no masses palpable. NEUROLOGICAL: The patient is awake, alert, oriented x3, mood and affect normal. Results CBC & Chem 7: 09/24/23 05:38 09/24/23 05:38 Labs: Abnormal Lab Results - Last 24 Hours (Table) 09/20/23 09/20/23 09/21/23 Range/Units 15:06 23:53 07:42 Potassium 3.3 L (3.5-5.1) mmol/L Creatinine 0.49 L (0.52-1.04) mg/dL Alkaline Phosphatase 133 H (38-126) U/L Urine Ketones 1+ H (Negative) Ur Leukocyte Esterase Trace H (Negative) SARS-CoV-2 (PCR) Detected A (Not Detectd) Assessment and Plan (1) COVID-19 Current Visit: Yes Status: Acute Code(s): U07.1 - COVID-19 SNOMED Code(s): 436365523 Plan: 1patient tested positive for COVID-19 this patient was in the hospital predominantly for elevated blood pressure and some weakness did not have significant respiratory symptoms patient not hypoxic chest x-ray was negative for acute infiltrate more likely mild COVID-19 illness and treatment is mostly supportive 2-patient to continue with the Eliquis zinc and ascorbic acid 3-no need for steroids or remdesivir 4-droplet isolation We will follow on clinical condition and cultures to further adjust medication if needed Thank you for this consultation we will follow the patient along with you Dictation was produced using [employer] dictation software. please excuse any grammatical, word or spelling errors. Time with Patient: Greater than 30
[2023-09-22] MEDS ORDERED: APIXABAN 5 MG TAB PO SCH (09:00)
[2023-09-22] MEDS: ZINC SULFATE 220 MG CAP PO SCH (09:14)
[2023-09-22] MEDS: ASCORBIC ACID 500 MG TAB PO SCH (09:14)
[2023-09-22] MEDS: lisinopriL 10 MG TAB PO SCH (09:14)
[2023-09-22] MEDS: APIXABAN 5 MG TAB PO SCH ×2 (09:14→20:50)
[2023-09-22 11:07] LABS: Basophils # (A) 0.08 X 10*3/uL (0.00-0.10); Basophils % (A) 1.2 %; Eosinophils # (A) 0.14 X 10*3/uL (0.04-0.35); Eosinophils % (A) 2.2 %; HCT 36.2 % (37.2-46.3); HGB 12.8 g/dL (12.0-15.0); Lymphocytes # (A) 1.84 X 10*3/uL (0.90-5.00); Lymphocytes % (A) 28.3 %; MCH 31.1 pg (27.0-32.0); MCHC 35.4 g/dL (32.0-37.0); MCV 88.1 FL (80.0-97.0); Mean Platelet Volume 10.8 FL (9.5-12.2); Monocytes # (A) 0.38 X 10*3/uL (0.20-1.00); Monocytes % (A) 5.8 %; NRBC Per 100 WBC 0 X 10*3/uL (0.00-0.01); Neutrophils # (A) 4.04 X 10*3/uL (1.80-7.70); Neutrophils % (A) 62.2 %; Platelet Count 283 X 10*3/uL (140-440); RBC 4.11 X 10*6/uL (4.10-5.20); RDW 13.9 % (11.5-14.5)
--- NOTE | 2023-09-22 11:40 | P.PN ---
Subjective Progress Note Date: 09/22/23 This is a 78-year-old female patient who presented to the ER with concerns of weakness and hypertension. Patient reports that she type checks her blood pressure daily and noticed today that her blood pressure was over 200 prompting her family to bring her to the ER for further evaluation patient reports headache. Patient has past medical history of CVA, hyperlipidemia, hypertension, memory impairment of myocardial infarction and seizures. Upon arrival to ER patient's blood pressure 188/90 patient was given hydralazine. Blood pressure improving to 118/72. According to ER records patient was noted to have seizure lasting approximately 4 minutes. Patient was given Ativan and Keppra. Chest x-ray was completed showing no radiographic evidence of acute cardiopulmonary abnormality. Cardiomegaly. Head CT was completed showing no acute intracranial hemorrhage midline shift or mass effect. Lab work revealing positive COVID-19. Patient denies chest pain or shortness of breath. Patient denies nausea vomiting or diarrhea. Patient denies any urinary burning or frequency. At this time patient will be admitted cardiology and neurology services will be consulted. Patient's home meds resumed. Repeat labs ordered 09/22/2023 patient is alert and oriented 3. Current vital signs temp 98.2, heart rate 53, respiratory rate 17, blood pressure 137/80 with a pulse ox of 97% on room air. Awaiting neurology input. 2-D echo has been ordered. Patient denies chest pain or shortness of breath. Patient denies nausea vomiting or diarrhea. Patient denies any urinary burning or frequency Objective - Vital Signs Vital signs: Vital Signs Temp 98.2 F 09/22/23 07:28 Pulse 53 L 09/22/23 07:28 Resp 17 09/22/23 07:28 BP 137/80 09/22/23 07:28 Pulse Ox 97 09/22/23 07:28 FiO2 Intake & Output 09/21/23 09/22/23 09/22/23 18:59 06:59 18:59 Weight 50.757 kg Other: Voiding Method Toilet # Voids 1 - Exam Head normocephalic Neck supple Lungs clear to auscultation bilaterally no wheezing or crackles Heart regular rate and rhythm S1-S2, no rub or gallop Abdomen is soft nontender nondistended positive bowel sounds no hepatosplenomegaly Extremities no edema Neuro alert and orientated to 3 - Labs CBC & Chem 7: 09/22/23 07:32 09/20/23 15:06 Labs: Abnormal Lab Results - Last 24 Hours (Table) 09/22/23 Range/Units 07:32 Hct 36.2 L (37.2-46.3) % Assessment and Plan Assessment: 1. Hypertensive urgency. 2. Breakthrough seizures 3. COVID-19 positive 4. History of seizures 5. History of TIA 6. Severe kyphoscoliosis 7. Paroxysmal atrial fibrillation, patient was seen by cardiology, in June 2023, as outpatient and was started on Eliquis. DVT prophylaxis eliquis. GI prophylaxis Protonix Cardiology and neurology service is consulted Seizure precautions ordered Home meds resumed Repeat labs ordered
[2023-09-22 11:47] LABS: ALT 22 U/L (8-44); AST 27 U/L (13-35); Albumin 3.7 g/dL (3.8-4.9); Albumin/Globulin Ratio 1.61 Ratio (1.60-3.17); Alkaline Phosphatase 126 U/L (41-126); Blood Urea Nitrogen 12.6 mg/dL (9.0-27.0); Calcium 9.1 mg/dL (8.7-10.3); Carbon Dioxide 22.6 mmol/L (21.6-31.8); Chloride 106 mmol/L (96-109); Globulin 2.3 g/dL (1.6-3.3); Glucose 79 mg/dL (70-110); Potassium 3.6 mmol/L (3.5-5.5); Sodium 140 mmol/L (135-145); Total Bilirubin 0.8 mg/dL (0.3-1.2)
--- NOTE | 2023-09-22 13:34 | P.PN ---
Subjective Progress Note Date: 09/22/23 HISTORY OF PRESENT ILLNESS: This is a 78-year-old female with a past medical history significant for pa roxysmal atrial fibrillation hypertrophic obstructive cardiomyopathy, hypertension, seizure disorder, hyperlipidemia. Patient follows in the office with Dr. Morel. We have been asked to see the patient in consultation for elevated blood pressure. Patient is seen today in the emergency center. Patient states that she came in the hospital because her daughter checked her blood pressure at home and it was elevated. On presentation, patient's blood pressure was at 208/87. Her daughter checks her blood pressure twice a day and it usually runs in the normal range. Patient's blood pressure now is 137/77. Patient is status post hydralazine 10 mg IV push 1 Patient was found positive for Covid and is in isolation. EKG reveals sinus bradycardia with right bundle branch block. Chest xray: No evidence of acute cardiopulmonary abnormality. Cardiomegaly. CAT scan of the brain: No acute intracranial hemorrhage, midline shift or mass effect. CBC is unremarkable. Sodium 139, potassium 3.3, creatinine 0.49. Troponin negative 1. ProBNP 504. Alkaline phosphatase 133 otherwise liver function tests are within normal limits. Influenza A, influenza B B, RSV not detected. Covid 19 detected. Current home cardiac medications: eliquis 5 mg twice daily, lisinopril 10 mg daily, Lopressor 12.5 mg at bedtime Most recent echocardiogram obtained in March 2023 revealing normal left ventricular size and systolic function with severe hypertrophy, moderate mitral regurgitation, left ventricular outflow gradient consistent with hypertrophic obstructive cardiomyopathy, [id number] aortic regurgitation, mild tricuspid regurgitation, and no evidence of shunting with bubble study Patient underwent Lexiscan stress test in May 2023 revealiApical wall defect normal gated images findings consistent with artifact and similar to test performed in 2021. 09/22 [facility] The pressure has been running between 100/64 in 148/80. Heart rate is 5660s. Pulse ox is 97% on room air patient has been afebrile. Patient remains in isolation for Covid 19. She has been resumed on her home medications with good blood pressure control. She is complaining of feeling tired and weak. No significant cough. PHYSICAL EXAM: VITAL SIGNS: Reviewed. GENERAL: Well-developed in no acute distress. HEENT: Head is normocephalic. Pupils are equal, round. Sclerae anicteric. No JVD or thyromegaly LUNGS: Respirations even and unlabored. Lungs essentially clear to auscultation bilaterally. HEART: Regular rate and rhythm. S1 and S2 heard. systolic ejection murmur, systolic murmur at the apex ABDOMEN: Soft. Nondistended. Nontender. EXTREMITIES: Normal range of motion. No clubbing or cyanosis. Peripheral pulses intact. No lower extremity edema NEUROLOGIC: Awake and alert. Oriented x 3. ASSESSMENT: hypertension uncontrolled COVID-19 History of seizures Hypertension Hyperlipidemia History of sinus bradycardia Severe left ventricular hypertrophy Left ventricular outflow gradient consistent with hypertrophic obstructive cardiomyopathy Questionable history of TIA PLAN: An acute coronary event has been ruled out Continue home cardiac medications including eliquis which should be twice daily dosing No further inpatient recommendations from a cardiac standpoint Nurse practitioner note has been reviewed by physician. Signing provider agrees with the documented findings, assessment, and plan of care. Objective - Vital Signs Vital signs: Vital Signs Temp 98.8 F 09/22/23 05:02 Pulse 55 L 09/22/23 05:02 Resp 18 09/22/23 05:02 BP 148/80 09/22/23 05:02 Pulse Ox 97 09/22/23 05:02 FiO2 Intake & Output 09/21/23 09/22/23 09/22/23 18:59 06:59 18:59 Weight 50.757 kg Other: Voiding Method Toilet # Voids 1 - Labs CBC & Chem 7: 09/22/23 07:32 09/22/23 07:32
--- NOTE | 2023-09-22 15:58 | P.CNNES ---
History of Present Illness Consult date: 09/22/23 Requesting physician: Gary Dimas Reason for Consult: Breakthrough seizures History of Present Illness: Patient is a 78-year-old female with history of TIA, seizure disorder, hyperlipidemia, hypertension came to the hospital yesterday at 1:59 PM for high blood pressure. While she was in the waiting room which was around 9 hours per patient's daughter, she had 2 seizures [id number], 10 minutes apart. The first seizure lasted for 5 minutes, in which she was having subtle parkinsonian shaking and light trembling on the right side. Once it was over, about 7-10 minutes later, she had a second seizure, in which her left leg were trembling, and she not responding, zoned out. She was given Ativan. Patient was postictal with glaze look for about several minutes afterwards. Patient's family are positive that these were seizures. There was no tongue bite. Vital signs on arrival blood pressure 181/77, which went up to 190/87, pulse rate 59 temperature 98.1. Blood pressure was normal CBC, CMP with slightly decreased potassium 3.3, normal hepatic panel, troponin, UA, and influenza screen, RSV negative, but wolf virus PCR positive. Chest x-ray revealed no radiographic evidence of acute cardiopulmonary process. Cardiomegaly. CT head revealed no acute intracranial hemorrhage, midline shift or mass effect. I personally reviewed CT head, agree with the findings. Patient had a normal EEG on 05/17/2023. Patient had an EEG performed 04/05/2023, reviewed by Dr. Britt, which mentioned epileptiform discharges over the left temporal region, increase his risk for seizure. Otherwise the background is normal and there is no focal slowing or seizure noted during the study. Clinical correlation is recommended. Patient had a subsequent prolonged, 2.5 hour video EEG performed on 05/18/2023, which was normal. No epileptiform activity was seen. Patient is currently on Keppra 750 mg twice a day. She was at first placed on Keppra 500 mg twice a day, but she had a breakthrough seizure. The dosage was increased to 750 mg twice a day. Her Keppra level was 14.1 on 05/16/2023. Patient's last seizure was on 05/16/2023, in no seizures until now. Review of Systems Constitutional: Reports chills, Denies fever Eyes: denies blurred vision, denies diplopia, denies pain Ears: bilateral: decreased hearing, deny: ear discharge Ears, nose, mouth and throat: Denies headache, Denies sore throat, Denies vertigo Cardiovascular: Reports chest pain (in er), Reports shortness of breath Respiratory: Denies cough Gastrointestinal: Denies abdominal pain, Denies diarrhea, Denies nausea, Denies vomiting Genitourinary: Reports urge incontinence (slight), Reports urinary frequency Musculoskeletal: Denies low back pain, Denies myalgias, Denies neck pain Integumentary: Denies pruritus, Denies rash Neurological: Reports as per HPI Psychiatric: Reports anxiety, Reports depression Hematologic/Lymphatic: Reports easy bruising, Denies easy bleeding Past Medical History Past Medical History: CVA/TIA, Hyperlipidemia, Hypertension, Memory Impairment, Myocardial Infarction ([place]) Additional Past Medical History / Comment(s): HEART MURMUR, LEAKY VALVE. POSS MILD STROKE YEARS AGO, UNSURE, HAS DIFFICULTY RECALLING SOME HISTORICAL MEDICAL INFO. 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 Past Anesthesia/Blood Transfusion Reactions: Motion Sickness Past Psychological History: No Psychological Hx Reported Smoking Status: Never smoker Past Alcohol Use History: None Reported Past Drug Use History: None Reported - Past Family History Father Additional Family Medical History / Comment(s): patient states "he had heart problems". patient unsure what type of heart problems. Mother Family Medical History: Cancer, Diabetes Mellitus Additional Family Medical History / Comment(s): brain cancer Brother(s) Family Medical History: Diabetes Mellitus Additional Family Medical History / Comment(s): autistic Sister(s) History Unknown: Yes Medications and Allergies Home Medications Medication Instructions Recorded Confirmed Type Metoprolol Tartrate [Lopressor] 12.5 mg PO HS 05/16/23 09/21/23 History lisinopriL [Zestril] 10 mg PO DAILY 05/16/23 09/21/23 History levETIRAcetam [Keppra] 750 mg PO Q12HR tab 05/21/23 09/21/23 Rx Apixaban [Eliquis] 5 mg PO DAILY 08/26/23 09/21/23 History Allergies Allergy/AdvReac Type Severity Reaction Status Date / Time No Known Allergies Allergy Verified 09/21/23 07:52 Physical Examination - Vital Signs Vital Signs: Vital Signs Temp Pulse Pulse Resp BP BP Pulse Ox 09/22/23 07:28 98.2 F 53 L 17 137/80 97 09/22/23 05:02 98.8 F 55 L 18 148/80 97 09/22/23 00:46 56 L 17 124/78 97 09/21/23 23:00 97.9 F 51 L 16 122/70 95 09/21/23 19:13 98.3 F 69 16 100/64 95 09/21/23 17:00 70 18 117/78 96 09/21/23 13:24 98 Intake and Output 09/21/23 09/22/23 09/22/23 22:59 06:59 14:59 Other: Voiding Method Toilet # Voids 1 Weight 50.757 kg Patient is an elderly female, in no acute distress. Patient is alert awake, knows it is August and believes the year is 24. She knows that she is in [facility]. Speech and language functions are normal. Patient can name and repeat very well. No aphasia or dysarthria. Attention, concentration and fund of knowledge is adequate. Detail cognitive function testing deferred. On cranial nerve examination, pupils are equal, round and reacting to light, visual orozco are full on confrontation, with no neglect on double simultaneous stimulation. Extraocular muscles are intact with no nystagmus. Face is symme tric, tongue protrudes to the midline. Palatal elevation and sensation normal, hearing and shoulder shrug normal, facial sensation normal. On muscle strength testing, there is no pronator drift and the strength is normal in arms and legs distally and proximally, although patient is somewhat generalized weak with decreased endurance for examination. Deep tendon reflexes are symmetric and trace all over and plantars downgoing. Sensory to touch is equal with no neglect on double simultaneous stimulation. Cerebellar function showed no ataxia for xizeub-sa-mqyu testing. No ataxia for nkvy-nk-ytyr testing on either side. Tone and bulk of muscles normal. Gait deferred.. On general examination, there is no carotid bruit or murmur, S1-S2 audible. Chest is clear on consultation. Abdomen is soft nontender. No organomegaly, bowel sounds present. Peripheral pulses are present. No peripheral edema. Results - Laboratory Findings CBC and BMP: 09/22/23 07:32 09/22/23 07:32 Abnormal Lab Findings: Abnormal Labs 09/20/23 09/20/23 09/21/23 15:06 23:53 07:42 Hct Potassium 3.3 L Creatinine 0.49 L BUN/Creatinine Ratio Alkaline Phosphatase 133 H Total Protein Albumin Urine Ketones 1+ H Ur Leukocyte Esterase Trace H SARS-CoV-2 (PCR) Detected A 09/22/23 09/22/23 07:32 07:32 Hct 36.2 L Potassium Creatinine BUN/Creatinine Ratio 21.00 H Alkaline Phosphatase Total Protein 6.0 L Albumin 3.7 L Urine Ketones Ur Leukocyte Esterase SARS-CoV-2 (PCR) Assessment and Plan Assessment: * Breakthrough seizure, likely triggered by uncontrolled blood pressure and acute Covid-19 infection. * Seizure disorder since March 2023. * Probable history of TIA with manifestation of left hemiparesis that resolved and MRI of the brain was negative(04/08/2023). * Acute Covid-19 infection. * History of suspicious superficial siderosis seen on MRI of the brain * Hypertension, uncontrolled * Hyperlipidemia * Chronic left hip issues * History of Vitamin B12 deficiency Plan: Patient's seizures were likely triggered because of uncontrolled hypertension and Acute Covid-19 infection. Patient's daughter believes that she is on optimal dose of Keppra 750 mg twice a day and her neurologist Dr. Brown believes that the dose is very optimal for her. We will recheck her Keppra level. Last Keppra level was 14.1(3-60) on 05/16. We will keep her on Keppra 750 mg twice a day. If the levels are low, or if she has any breakthrough seizure, we will increase the dose of Keppra to 1000 mg twice a day. Prolonged video EEG for 2.5 hours, 05/17/2023 was reported as normal. No clinical or electrographic seizures were recorded. No epileptiform activity was present. I personally reviewed the EEG as well, and appears normal. Routine EEG 05/17/2023 was normal during wakefulness, drowsiness and stage II sleep. No epileptiform activity was seen. Patient appears generalized weak. Lipid panel with cholesterol 108, LDL 51, HDL 43 and triglycerides 64. Patient is off statins because of her side effects in the past. Patient is currently on Eliquis 5 mg once a day. Recommended to discuss with cardiology about optimizing dose of Eliquis, (bid), if indicated. Patient has history of B12 deficiency, currently not on any B12 replacement. We will check B12 and MMA. Treatment of blood pressure as per IM. Neurologically clear for discharge on Keppra 750 mg twice a day, once medically cleared. Recommend follow-up with neurologist in 1-2 weeks. Thank you for the consult.
--- NOTE | 2023-09-22 17:37 | CA ---
Transthoracic Echo Report Name: Tia Faulkner Age: 78 Gender: F : 1945 Exam Date: 09/22/2023 13:15 Exam Location: [place] [facility] Ht (in): 58 Wt (lb): 111 Ordering Physician: Zara Mercado Attending/Referring Phys: [id number], Jess [employer] Moses Anglin Procedure CPT: Indications: LVF Cardiac Hx: Technical Quality: Fair Contrast 1: Definity Total Dose (mL): 2 Contrast 2: Total Dose (mL): MEASUREMENTS (Male / Female) Normal Values 2D ECHO LV Diastolic Diameter PLAX 3.7 cm 4.2 - 5.9 / 3.9 - 5.3 cm LV Systolic Diameter PLAX 3.2 cm IVS Diastolic Thickness 1.1 cm 0.6 - 1.0 / 0.6 - 0.9 cm LVPW Diastolic Thickness 1.2 cm 0.6 - 1.0 / 0.6 - 0.9 cm LV Relative Wall Thickness 0.6 RV Internal Dim ED PLAX 2.1 cm LVOT Diameter 2.1 cm Aortic Root Diameter 2.6 cm LA Systolic Diameter LX 2.7 cm 3.0 - 4.0 / 2.7 - 3.8 cm LV Diastolic Volume MOD BP 55.3 cm??? 67 - 155 / 56 - 104 cm??? LV Systolic Volume MOD BP 15.7 cm??? - 58 / 19 - 49 cm??? LV Ejection Fraction MOD BP 71.5 % >= 55 % LV Cardiac Index MOD BP 1808.2 cm???/min???m??? LV Diastolic Volume MOD 4C 47.1 cm??? LV Systolic Volume MOD 4C 11.5 cm??? LV Ejection Fraction MOD 4C 75.5 % LV Cardiac Index MOD 4C 1625.7 cm???/min???m??? LV Diastolic Length 4C 6.5 cm LV Systolic Length 4C 5.1 cm LV Diastolic Volume MOD 2C 59.5 cm??? LV Systolic Volume MOD 2C 20.0 cm??? LV Ejection Fraction MOD 2C 66.4 % LV Cardiac Index MOD 2C 1805.1 cm???/min???m??? LV Diastolic Length 2C 7.2 cm LV Systolic Length 2C 5.6 cm LA Volume 70.9 cm??? 18 - 58 / 22 - 52 cm??? LA Volume Index 49.1 cm???/m??? 16 - 28 cm???/m??? DOPPLER AV Peak Velocity 406.1 cm/s AV Peak Gradient 66.0 mmHg AV Mean Velocity 286.7 cm/s AV Mean Gradient 39.8 mmHg AV Velocity Time Integral 113.7 cm MV Peak Velocity 117.9 cm/s MV Peak Gradient 5.6 mmHg MV Mean Velocity 69.5 cm/s MV Mean Gradient 2.2 mmHg MV Velocity Time Integral 46.5 cm MR Peak Velocity 570.8 cm/s MR Peak Gradient 130.3 mmHg Mitral E Point Velocity 72.9 cm/s Mitral A Point Velocity 112.3 cm/s Mitral E to A Ratio 0.6 MV Deceleration Time 276.1 ms PV Peak Velocity 111.6 cm/s PV Peak Gradient 5.0 mmHg FINDINGS Left Ventricle Normal LV size. Severe concentric LVH. HOCM present. Left ventricular ejection fraction is estimated at 60-70 %. Right Ventricle Normal right ventricular size. Right Atrium Normal right atrial size. Left Atrium LA volume index= 50ml/m2 Mitral Valve Posterior mitral annulus calcification. Moderate MR. Aortic Valve Aortic valve not well visualized. Hypertrophic subaortic stenosis. Mild to moderate AI. Tricuspid Valve Tricuspid valve not well visualized. Mild TR. Pulmonic Valve Pulmonic valve not well visualized. No pulmonic regurgitation. Pericardium Not well visualized. Aorta Normal size aortic root. CONCLUSIONS Normal LV function Moderate mitral regurgitation Mild to moderate aortic regurgitation Previewed by: Dr. Beck Hendrix MD (Electronically Signed) Final Date: 22 September 2023 17:36
[2023-09-22] MEDS: METOPROLOL TARTRATE 12.5 MG TAB PO SCH (20:50)
[2023-09-23] MEDS: PANTOPRAZOLE 40 MG TABLET PO SCH (06:41)
[2023-09-23] MEDS: ASCORBIC ACID 500 MG TAB PO SCH (09:08)
[2023-09-23] MEDS: ZINC SULFATE 220 MG CAP PO SCH (09:08)
[2023-09-23] MEDS: APIXABAN 5 MG TAB PO SCH ×2 (09:08→20:50)
[2023-09-23] MEDS: lisinopriL 10 MG TAB PO SCH (09:08)
--- NOTE | 2023-09-23 09:43 | P.PN ---
Subjective Progress Note Date: 09/23/23 This is a 78-year-old female patient who presented to the ER with concerns of weakness and hypertension. Patient reports that she type checks her blood pressure daily and noticed today that her blood pressure was over 200 prompting her family to bring her to the ER for further evaluation patient reports headache. Patient has past medical history of CVA, hyperlipidemia, hypertension, memory impairment of myocardial infarction and seizures. Upon arrival to ER patient's blood pressure 188/90 patient was given hydralazine. Blood pressure improving to 118/72. According to ER records patient was noted to have seizure lasting approximately 4 minutes. Patient was given Ativan and Keppra. Chest x-ray was completed showing no radiographic evidence of acute cardiopulmonary abnormality. Cardiomegaly. Head CT was completed showing no acute intracranial hemorrhage midline shift or mass effect. Lab work revealing positive COVID-19. Patient denies chest pain or shortness of breath. Patient denies nausea vomiting or diarrhea. Patient denies any urinary burning or frequency. At this time patient will be admitted cardiology and neurology services will be consulted. Patient's home meds resumed. Repeat labs ordered 09/22/2023 patient is alert and oriented 3. Current vital signs temp 98.2, heart rate 53, respiratory rate 17, blood pressure 137/80 with a pulse ox of 97% on room air. Awaiting neurology input. 2-D echo has been ordered. Patient denies chest pain or shortness of breath. Patient denies nausea vomiting or diarrhea. Patient denies any urinary burning or frequency. On 09/23/2023 patient was seen and examined on the medical floor she is alert and oriented 3 in no apparent distress there is no fever or chills no headache or dizziness, she is still complaining of cough and shortness of breath, no chest pain no nausea or vomiting no abdominal pain no diarrhea no blood in the stools no burning with urination no frequency or urgency and no hematuria Objective - Vital Signs Vital signs: Vital Signs Temp 98.4 F 09/23/23 00:54 Pulse 60 09/23/23 00:54 Resp 15 09/22/23 20:00 BP 107/70 09/23/23 00:54 Pulse Ox 96 09/23/23 00:54 FiO2 Intake & Output 09/22/23 09/23/23 09/23/23 18:59 06:59 18:59 Other: Voiding Method Toilet # Voids 3 3 - Exam Head normocephalic Neck supple Lungs clear to auscultation bilaterally no wheezing or crackles Heart regular rate and rhythm S1-S2, no rub or gallop Abdomen is soft nontender nondistended positive bowel sounds no hepatosplenomegaly Extremities no edema Neuro alert and orientated to 3 - Labs CBC & Chem 7: 09/22/23 07:32 09/22/23 07:32 Labs: Abnormal Lab Results - Last 24 Hours (Table) 09/22/23 09/22/23 Range/Units 07:32 07:32 Hct 36.2 L (37.2-46.3) % BUN/Creatinine Ratio 21.00 H (12.00-20.00) Ratio Total Protein 6.0 L (6.2-8.2) g/dL Albumin 3.7 L (3.8-4.9) g/dL Assessment and Plan Assessment: 1. Hypertensive urgency. 2. Breakthrough seizures 3. COVID-19 positive 4. History of seizures 5. History of TIA 6. Severe kyphoscoliosis 7. Paroxysmal atrial fibrillation, patient was seen by cardiology, in June 2023, as outpatient and was started on Eliquis. DVT prophylaxis eliquis. GI prophylaxis Protonix Cardiology and neurology service is consulted Seizure precautions ordered Home meds resumed Repeat labs ordered
[2023-09-23 11:15] LABS: Basophils # (A) 0.07 X 10*3/uL (0.00-0.10); Basophils % (A) 1.1 %; Eosinophils # (A) 0.19 X 10*3/uL (0.04-0.35); HGB 12.3 g/dL (12.0-15.0); Lymphocytes # (A) 1.77 X 10*3/uL (0.90-5.00); Lymphocytes % (A) 28.3 %; MCH 31.1 pg (27.0-32.0); MCHC 35.1 g/dL (32.0-37.0); MCV 88.6 FL (80.0-97.0); Mean Platelet Volume 10.8 FL (9.5-12.2); Monocytes # (A) 0.34 X 10*3/uL (0.20-1.00); Monocytes % (A) 5.4 %; NRBC Per 100 WBC 0 X 10*3/uL (0.00-0.01); Neutrophils # (A) 3.88 X 10*3/uL (1.80-7.70); Platelet Count 261 X 10*3/uL (140-440); RBC 3.95 X 10*6/uL (4.10-5.20); RDW 13.9 % (11.5-14.5); WBC 6.26 X 10*3/uL (4.50-10.00)
[2023-09-23 11:49] LABS: ALT 16 U/L (8-44); AST 19 U/L (13-35); Albumin 3.5 g/dL (3.8-4.9); Albumin/Globulin Ratio 1.67 Ratio (1.60-3.17); Alkaline Phosphatase 117 U/L (41-126); BUN/Creat Ratio 30.17 Ratio (12.00-20.00); Blood Urea Nitrogen 18.1 mg/dL (9.0-27.0); Carbon Dioxide 23.3 mmol/L (21.6-31.8); Chloride 104 mmol/L (96-109); Globulin 2.1 g/dL (1.6-3.3); Glucose 90 mg/dL (70-110); Potassium 3.4 mmol/L (3.5-5.5); Sodium 137 mmol/L (135-145); Total Bilirubin 0.4 mg/dL (0.3-1.2); Total Protein 5.6 g/dL (6.2-8.2)
[2023-09-23] MEDS ORDERED: POTASSIUM CHLORIDE ER 20 MEQ TAB.ER PO STA (12:16)
--- NOTE | 2023-09-23 12:17 | P.PN ---
Subjective Progress Note Date: 09/23/23 HISTORY OF PRESENT ILLNESS: This is a 78-year-old female with a past medical history significant for pa roxysmal atrial fibrillation hypertrophic obstructive cardiomyopathy, hypertension, seizure disorder, hyperlipidemia. Patient follows in the office with Dr. Morel. We have been asked to see the patient in consultation for elevated blood pressure. Patient is seen today in the emergency center. Patient states that she came in the hospital because her daughter checked her blood pressure at home and it was elevated. On presentation, patient's blood pressure was at 208/87. Her daughter checks her blood pressure twice a day and it usually runs in the normal range. Patient's blood pressure now is 137/77. Patient is status post hydralazine 10 mg IV push 1 Patient was found positive for Covid and is in isolation. EKG reveals sinus bradycardia with right bundle branch block. Chest xray: No evidence of acute cardiopulmonary abnormality. Cardiomegaly. CAT scan of the brain: No acute intracranial hemorrhage, midline shift or mass effect. CBC is unremarkable. Sodium 139, potassium 3.3, creatinine 0.49. Troponin negative 1. ProBNP 504. Alkaline phosphatase 133 otherwise liver function tests are within normal limits. Influenza A, influenza B B, RSV not detected. Covid 19 detected. Current home cardiac medications: eliquis 5 mg twice daily, lisinopril 10 mg daily, Lopressor 12.5 mg at bedtime Most recent echocardiogram obtained in March 2023 revealing normal left ventricular size and systolic function with severe hypertrophy, moderate mitral regurgitation, left ventricular outflow gradient consistent with hypertrophic obstructive cardiomyopathy, [id number] aortic regurgitation, mild tricuspid regurgitation, and no evidence of shunting with bubble study Patient underwent Lexiscan stress test in May 2023 revealiApical wall defect normal gated images findings consistent with artifact and similar to test performed in 2021. 09/22 Patient is seen today in follow-up on the [facility] floor. The pressure has been running between 100/64 in 148/80. Heart rate is 5660s. Pulse ox is 97% on room air patient has been afebrile. Patient remains in isolation for Covid 19. She has been resumed on her home medications with good blood pressure control. She is complaining of feeling tired and weak. No significant cough. 09/23 The patient is seen today in follow-up. Patient remains in Covid isolation but seems to be improving. Coughing shortness of breath are both improved. Patient is continued on eliquis which should be twice daily not the time of discharge. Heart rate is in the 50s to 70s, blood pressure 115/70, pulse ox 96% on room air. Repeat blood work reveals potassium of 3.4 otherwise electrolytes renal function are normal. Potassium will be replaced. PHYSICAL EXAM: VITAL SIGNS: Reviewed. GENERAL: Well-developed in no acute distress. HEENT: Head is normocephalic. Pupils are equal, round. Sclerae anicteric. No JVD or thyromegaly LUNGS: Respirations even and unlabored. Lungs essentially clear to auscultation bilaterally. HEART: Regular rate and rhythm. S1 and S2 heard. systolic ejection murmur, systolic murmur at the apex ABDOMEN: Soft. Nondistended. Nontender. EXTREMITIES: Normal range of motion. No clubbing or cyanosis. Peripheral pulses intact. No lower extremity edema NEUROLOGIC: Awake and alert. Oriented x 3. ASSESSMENT: hypertension uncontrolled COVID-19 History of seizures Hypertension Hyperlipidemia History of sinus bradycardia Severe left ventricular hypertrophy Left ventricular outflow gradient consistent with hypertrophic obstructive cardiomyopathy Questionable history of TIA PLAN: An acute coronary event has been ruled out Continue home cardiac medications including eliquis which should be twice daily dosing No further inpatient recommendations from a cardiac standpoint Cardiology will sign off this case and follow on an as-needed basis. Please reconsult for any new concerns. Patient may follow-up in the office with Dr. Morel in one to 2 weeks. Nurse practitioner note has been reviewed by physician. Signing provider agrees with the documented findings, assessment, and plan of care. Objective - Vital Signs Vital signs: Vital Signs Temp 98.4 F 09/23/23 00:54 Pulse 60 09/23/23 00:54 Resp 15 09/22/23 20:00 BP 107/70 09/23/23 00:54 Pulse Ox 96 09/23/23 00:54 FiO2 Intake & Output 09/22/23 09/23/23 09/23/23 18:59 06:59 18:59 Other: Voiding Method Toilet # Voids 3 3 - Labs CBC & Chem 7: 09/23/23 05:37 09/23/23 05:37 Labs: Abnormal Lab Results - Last 24 Hours (Table) 11/29/23 11/29/23 Range/Units 07:32 07:32 Hct 36.2 L (37.2-46.3) % BUN/Creatinine Ratio 21.00 H (12.00-20.00) Ratio Total Protein 6.0 L (6.2-8.2) g/dL Albumin 3.7 L (3.8-4.9) g/dL
--- NOTE | 2023-09-23 13:09 | P.PN ---
Subjective Progress Note Date: 09/22/23 Principal diagnosis: Reason for follow-up is covid 19 Patient is a 78-year-old female with past medical history significant for hypertension hyperlipidemia memory impairment CVA TIA presenting to the hospital for evaluation of elevated blood pressure, patient was tested positive for covid19 , chest x-ray was negative for acute infiltrate On today's evaluation that is 09/22/2023, the patient remains to be febrile, the patient is breathing comfortably on room air. The patient denies having any shortness of breath no chest pain or cough, patient denies Abdominal pain, no nausea/vomiting or diarrhea Patient did have a white count of 6.50, creatinine 0.6 Objective - Vital Signs Vital signs: Vital Signs Temp 98.2 F 09/22/23 07:28 Pulse 53 L 09/22/23 07:28 Resp 17 09/22/23 07:28 BP 137/80 09/22/23 07:28 Pulse Ox 97 09/22/23 07:28 FiO2 Intake & Output 09/21/23 09/22/23 09/22/23 18:59 06:59 18:59 Weight 50.757 kg Other: Voiding Method Toilet # Voids 1 - Exam GENERAL DESCRIPTION: An elderly female lying in bed in no distress RESPIRATORY SYSTEM: Unlabored breathing , clear to auscultation anteriorly HEART: S1 S2 regular rate and rhythm , ABDOMEN: Soft , no tenderness EXTREMITIES: No edema feet - Labs CBC & Chem 7: 09/23/23 05:37 09/23/23 05:37 Labs: Abnormal Lab Results - Last 24 Hours (Table) 09/22/23 09/22/23 Range/Units 07:32 07:32 Hct 36.2 L (37.2-46.3) % BUN/Creatinine Ratio 21.00 H (12.00-20.00) Ratio Total Protein 6.0 L (6.2-8.2) g/dL Albumin 3.7 L (3.8-4.9) g/dL Assessment and Plan (1) COVID-19 Current Visit: Yes Status: Acute Code(s): U07.1 - COVID-19 SNOMED Code(s): 047099199 Plan: 1patient tested positive for COVID-19 this patient was in the hospital predominantly for elevated blood pressure and some weakness did not have significant respiratory symptoms patient not hypoxic chest x-ray was negative for acute infiltrate more likely mild COVID-19 illness and treatment is mostly supportive 2-patient to continue with the Eliquis zinc and ascorbic acid and monitor clinical course closely Dictation was produced using [employer] dictation software. please excuse any grammatical, word or spelling errors. Time with Patient: Less than 30
--- NOTE | 2023-09-23 13:10 | P.PN ---
Subjective Progress Note Date: 09/23/23 Principal diagnosis: Reason for follow-up is covid 19 Patient is a 78-year-old female with past medical history significant for hypertension hyperlipidemia memory impairment CVA TIA presenting to the hospital for evaluation of elevated blood pressure, patient was tested positive for covid19 , chest x-ray was negative for acute infiltrate On today's evaluation that is 09/23/2023, the patient denies any fever or any chills, the patient is breathing comfortably on room air and denies any shortness of breath, the patient denies any chest pain, no cough or sputum pr oduction, patient denies nausea/vomiting /diarrhea and no abdominal pain Patient did have a white count of 6.26, creatinine 0.6 Objective - Vital Signs Vital signs: Vital Signs Temp 97.4 F L 09/23/23 06:57 Pulse 55 L 09/23/23 06:57 Resp 18 09/23/23 06:57 BP 115/70 09/23/23 06:57 Pulse Ox 96 09/23/23 06:57 FiO2 Intake & Output 09/22/23 09/23/23 09/23/23 18:59 06:59 18:59 Other: Voiding Method Toilet # Voids 3 3 - Exam GENERAL DESCRIPTION: An elderly female lying in bed in no distress RESPIRATORY SYSTEM: Unlabored breathing , clear to auscultation anteriorly HEART: S1 S2 regular rate and rhythm , ABDOMEN: Soft , no tenderness EXTREMITIES: No edema feet - Labs CBC & Chem 7: 09/23/23 05:37 09/23/23 05:37 Labs: Abnormal Lab Results - Last 24 Hours (Table) 09/23/23 09/23/23 Range/Units 05:37 05:37 RBC 3.95 L (4.10-5.20) X 10*6/uL Hct 35.0 L (37.2-46.3) % Potassium 3.4 L (3.5-5.5) mmol/L BUN/Creatinine Ratio 30.17 H (12.00-20.00) Ratio Total Protein 5.6 L (6.2-8.2) g/dL Albumin 3.5 L (3.8-4.9) g/dL Assessment and Plan (1) COVID-19 Current Visit: Yes Status: Acute Code(s): U07.1 - COVID-19 SNOMED Code(s): 926456267 Plan: 1patient tested positive for COVID-19 this patient was in the hospital predominantly for elevated blood pressure and some weakness did not have significant respiratory symptoms patient not hypoxic chest x-ray was negative f or acute infiltrate more likely mild COVID-19 illness and treatment is mostly supportive 2-patient has shown some clinical improvement and will continue with the Eliquis zinc and ascorbic acid and monitor clinical course closely Dictation was produced using [employer] dictation software. please excuse any grammatical, word or spelling errors. Time with Patient: Less than 30
[2023-09-23] MEDS: CYANOCOBALAMIN 1,000 MCG/ML 1 ML VIAL IM SCH (17:31)
[2023-09-23] MEDS: METOPROLOL TARTRATE 12.5 MG TAB PO SCH (20:49)
[2023-09-24] MEDS: PANTOPRAZOLE 40 MG TABLET PO SCH (06:43)
[2023-09-24 08:35] LABS: Basophils # (A) 0.07 X 10*3/uL (0.00-0.10); Basophils % (A) 1.2 %; Eosinophils % (A) 3.4 %; Lymphocytes % (A) 32.3 %; MCHC 33.3 g/dL (32.0-37.0); Monocytes # (A) 0.35 X 10*3/uL (0.20-1.00); NRBC Per 100 WBC 0 X 10*3/uL (0.00-0.01); Neutrophils # (A) 3.34 X 10*3/uL (1.80-7.70); Neutrophils % (A) 56.8 %; Platelet Count 249 X 10*3/uL (140-440); RBC 3.87 X 10*6/uL (4.10-5.20); RDW 14.2 % (11.5-14.5); WBC 5.88 X 10*3/uL (4.50-10.00)
[2023-09-24] MEDS: ZINC SULFATE 220 MG CAP PO SCH (09:04)
[2023-09-24] MEDS: ASCORBIC ACID 500 MG TAB PO SCH (09:04)
[2023-09-24] MEDS: APIXABAN 5 MG TAB PO SCH (09:04)
[2023-09-24] MEDS: lisinopriL 10 MG TAB PO SCH (09:04)
[2023-09-24 09:34] LABS: ALT 17 U/L (8-44); AST 19 U/L (13-35); Albumin 3.5 g/dL (3.8-4.9); Albumin/Globulin Ratio 1.67 Ratio (1.60-3.17); Alkaline Phosphatase 109 U/L (41-126); Blood Urea Nitrogen 19.5 mg/dL (9.0-27.0); Calcium 9.2 mg/dL (8.7-10.3); Carbon Dioxide 22.5 mmol/L (21.6-31.8); Chloride 108 mmol/L (96-109); Globulin 2.1 g/dL (1.6-3.3); Glucose 82 mg/dL (70-110); Potassium 4.6 mmol/L (3.5-5.5); Sodium 139 mmol/L (135-145); Total Bilirubin 0.4 mg/dL (0.3-1.2); Total Protein 5.6 g/dL (6.2-8.2)
--- NOTE | 2023-09-24 09:37 | P.PN ---
Subjective Progress Note Date: 09/23/23 No further seizures. Offers no complaints. Objective - Vital Signs Vital signs: Vital Signs Temp 98.3 F 09/23/23 13:50 Pulse 65 09/23/23 13:50 Resp 18 09/23/23 13:50 BP 126/88 09/23/23 13:50 Pulse Ox 97 09/23/23 13:50 FiO2 Intake & Output 09/22/23 09/23/23 09/23/23 18:59 06:59 18:59 Other: Voiding Method Toilet # Voids 3 3 - Exam No change. - Labs CBC & Chem 7: 09/24/23 05:38 09/24/23 05:38 Labs: Abnormal Lab Results - Last 24 Hours (Table) 09/23/23 09/23/23 Range/Units 05:37 05:37 RBC 3.95 L (4.10-5.20) X 10*6/uL Hct 35.0 L (37.2-46.3) % Potassium 3.4 L (3.5-5.5) mmol/L BUN/Creatinine Ratio 30.17 H (12.00-20.00) Ratio Total Protein 5.6 L (6.2-8.2) g/dL Albumin 3.5 L (3.8-4.9) g/dL Assessment and Plan Assessment: * Breakthrough seizure, likely triggered by uncontrolled blood pressure and acute Covid-19 infection. * Seizure disorder since March 2023. * Probable history of TIA with manifestation of left hemiparesis that resolved and MRI of the brain was negative(04/08/2023). * Acute Covid-19 infection. * Vitamin B12 deficiency * History of suspicious superficial siderosis seen on MRI of the brain * Hypertension, uncontrolled * Hyperlipidemia * Chronic left hip issues Plan: Patient's seizures were likely triggered because of uncontrolled hypertension and Acute Covid-19 infection. Patient's daughter believes that she is on optimal dose of Keppra 750 mg twice a day and her neurologist Dr. Brown believes that the dose is very optimal for her. Keppra level is therapeutic 31.0 (3-60). Last Keppra level was 14.1(3-60) on 05/16/2023. We will keep her on Keppra 750 mg twice a day. If she has any breakthrough seizure, we will increase the dose of Keppra to 1000 mg twice a day. B12 level is again low 240. Patient will be given B12 injections daily 2 and then should stay on at least monthly injection. Prolonged video EEG for 2.5 hours, 05/17/2023 was reported as normal. No clinical or electrographic seizures were recorded. No epileptiform activity was present. I personally reviewed the EEG as well, and appears normal. Routine EEG 05/17/2023 was normal during wakefulness, drowsiness and stage II sleep. No epileptiform activity was seen. Patient appears generalized weak. Lipid panel with cholesterol 108, LDL 51, HDL 43 and triglycerides 64. Patient is off statins because of her side effects in the past. Patient is currently on Eliquis 5 mg once a day. Recommended to discuss with cardiology about optimizing dose of Eliquis, (bid), if indicated. Patient has history of B12 deficiency, currently not on any B12 replacement. We will check B12 and MMA. Treatment of blood pressure as per IM. Neurologically clear for discharge on Keppra 750 mg twice a day, once medically cleared. Recommend follow-up with neurologist in 1-2 weeks. Thank you for the consult.
[2023-09-24] MEDS: CYANOCOBALAMIN 1,000 MCG/ML 1 ML VIAL IM SCH (10:01)
--- NOTE | 2023-09-24 11:04 | P.DS ---
Providers Date of admission: 09/21/23 04:05 Expected date of discharge: 09/24/23 Attending physician: Gary Dimas Consults: 09/21/23 09:58 Consult Physician Routine Consulting Provider: Sona Valenzuela Consult Reason/Comments: breakthrough seizures Do you want consulting provider notified?: Yes 09/21/23 09:59 Consult Physician Routine Consulting Provider: Wero Gagnon Consult Reason/Comments: elevated bp Do you want consulting provider notified?: Yes 09/21/23 10:13 Consult Physician Routine Consulting Provider: Smita Odell Consult Reason/Comments: covid 19 Do you want consulting provider notified?: Yes Primary care physician: Garysharlene Dimas [facility] Course: discharge diagnosis 1. Hypertensive urgency. 2. Breakthrough seizures 3. COVID-19 positive 4. History of seizures 5. History of TIA 6. Severe kyphoscoliosis 7. Paroxysmal atrial fibrillation, patient was seen by cardiology, in June 2023, as outpatient and was started on Eliquis. Hospital course This is a 78-year-old female patient who presented to the ER with concerns of weakness and hypertension. Patient reports that she type checks her blood pressure daily and noticed today that her blood pressure was over 200 prompting her family to bring her to the ER for further evaluation patient reports headache. Patient has past medical history of CVA, hyperlipidemia, hypertension, memory impairment of myocardial infarction and seizures. Upon arrival to ER patient's blood pressure 188/90 patient was given hydralazine. Blood pressure improving to 118/72. According to ER records patient was noted to have seizure lasting approximately 4 minutes. Patient was given Ativan and Keppra. Chest x-ray was completed showing no radiographic evidence of acute cardiopulmonary abnormality. Cardiomegaly. Head CT was completed showing no acute intracranial hemorrhage midline shift or mass effect. Lab work revealing positive COVID-19. Patient denies chest pain or shortness of breath. Patient denies nausea vomiting or diarrhea. Patient denies any urinary burning or frequency. At this time patient will be admitted cardiology and neurology services will be consulted. Patient's home meds resumed. Repeat labs ordered 09/22/2023 patient is alert and oriented 3. Current vital signs temp 98.2, heart rate 53, respiratory rate 17, blood pressure 137/80 with a pulse ox of 97% on room air. Awaiting neurology input. 2-D echo has been ordered. Patient denies chest pain or shortness of breath. Patient denies nausea vomiting or d iarrhea. Patient denies any urinary burning or frequency. On 09/23/2023 patient was seen and examined on the medical floor she is alert and oriented 3 in no apparent distress there is no fever or chills no headache or dizziness, she is still complaining of cough and shortness of breath, no chest pain no nausea or vomiting no abdominal pain no diarrhea no blood in the stools no burning with urination no frequency or urgency and no hematuria On 09/24/2023 patient is alert and oriented 3. Patient has been cleared for discharge from cardiology and neurology services. Eliquis increased to 5 mg by mouth twice a day. Patient also to be maintained on current dose of Keppra 750 by mouth every 12 patient follow-up with her neurologist in 1 week. Patient will be DC'd on zinc and vitamin C for COVID-19. Patient was evaluated by ID no need for steroids or antibiotics at this time. Patient denies chest pain or shortness of breath. Patient denies nausea vomiting or diarrhea. Patient carine es any urinary burning or frequency. Current vital signs temp 98.6, heart rate 65, respiratory rate 18, blood pressure 104/69 with a pulse ox 97% on room air Patient Condition at Discharge: Stable Plan - Discharge Summary Discharge Rx Participant: No New Discharge Prescriptions: New Apixaban [Eliquis] 5 mg PO BID 30 Days #60 tab Ascorbic Acid [Vitamin C] 500 mg PO DAILY 14 Days #14 tab Zinc Sulfate [Orazinc] 220 mg PO DAILY 14 Days #14 cap Continue levETIRAcetam [Keppra] 750 mg PO Q12HR tab lisinopriL [Zestril] 10 mg PO DAILY Metoprolol Tartrate [Lopressor] 12.5 mg PO HS Discontinued Apixaban [Eliquis] 5 mg PO DAILY Discharge Medication List Metoprolol Tartrate [Lopressor] 12.5 mg PO HS 05/16/23 [History] lisinopriL [Zestril] 10 mg PO DAILY 05/16/23 [History] levETIRAcetam [Keppra] 750 mg PO Q12HR tab 05/21/23 [Rx] Apixaban [Eliquis] 5 mg PO BID 30 Days #60 tab 09/24/23 [Rx] Ascorbic Acid [Vitamin C] 500 mg PO DAILY 14 Days #14 tab 09/24/23 [Rx] Zinc Sulfate [Orazinc] 220 mg PO DAILY 14 Days #14 cap 09/24/23 [Rx] Follow up Appointment(s)/Referral(s): Dolly Morel MD [STAFF PHYSICIAN] - 10/01/23 4:15 pm Gary Dimas MD [Primary Care Provider] - 1-2 days Hal Brown MD [STAFF PHYSICIAN] - 1 Week Patient Instructions/Handouts: Seizure/Epilepsy Discharge Instructions & Follow-Up Discharge Disposition: HOME SELF-CARE
[2023-09-24 13:05] VITALS: BP 137/73; PULSE 59; RESP 17; TEMP 97.9
--- NOTE | 2023-09-24 16:18 | P.PN ---
Subjective Progress Note Date: 09/24/23 Principal diagnosis: Reason for follow-up is covid 19 Patient is a 78-year-old female with past medical history significant for hypertension hyperlipidemia memory impairment CVA TIA presenting to the hospital for evaluation of elevated blood pressure, patient was tested positive for covid19 , chest x-ray was negative for acute infiltrate On today's evaluation that is 09/24/2023 the patient remains to be afebrile, the patient is breathing comfortably on room air and no need for oxygen. The patient denies shortness of breath denies any chest pain or cough, patient denies nausea/vomiting or diarrhea and no abdominal pain. Patient did have a white count of 5.8, creatinine 0.6 Objective - Vital Signs Vital signs: Vital Signs Temp 97.9 F 09/24/23 08:04 Pulse 59 L 09/24/23 08:04 Resp 17 09/24/23 08:04 BP 137/73 09/24/23 08:04 Pulse Ox 99 09/24/23 08:04 FiO2 Intake & Output 09/23/23 09/24/23 09/24/23 18:59 06:59 18:59 Other: # Voids 2 - Exam GENERAL DESCRIPTION: An elderly female lying in bed in no distress RESPIRATORY SYSTEM: Unlabored breathing , clear to auscultation anteriorly HEART: S1 S2 regular rate and rhythm , ABDOMEN: Soft , no tenderness EXTREMITIES: No edema feet - Labs CBC & Chem 7: 09/24/23 05:38 09/24/23 05:38 Labs: Abnormal Lab Results - Last 24 Hours (Table) 09/24/23 09/24/23 Range/Units 05:38 05:38 RBC 3.87 L (4.10-5.20) X 10*6/uL Hct 36.0 L (37.2-46.3) % BUN/Creatinine Ratio 32.50 H (12.00-20.00) Ratio Total Protein 5.6 L (6.2-8.2) g/dL Albumin 3.5 L (3.8-4.9) g/dL Assessment and Plan (1) COVID-19 Current Visit: Yes Status: Acute Code(s): U07.1 - COVID-19 SNOMED Code(s): 879273583 Plan: 1patient tested positive for COVID-19 this patient was in the hospital predominantly for elevated blood pressure and some weakness did not have significant respiratory symptoms patient not hypoxic chest x-ray was negative for acute infiltrate more likely mild COVID-19 illness and treatment is mostly supportive 2-patient has shown some clinical improvement to continue with the current supportive treatment of Eliquis zinc and ascorbic acid and no need for antibiotics on discharge Dictation was produced using [employer] dictation software. please excuse any grammatical, word or spelling errors. Time with Patient: Less than 30
== END 2023-09-24 16:40 | disposition home or self-care (01) | DRG 304 ==
LOC: EC 13:59 → 5NMEDONC 09-21 04:05 → 4SSUR 09-21 05:02
PROVIDERS: ADMIT Internal Medicine; ATTEND Internal Medicine
PROC: 8E0ZXY6 Isolation (ICD-10-PCS; principal; 2023-09-21)
DX: I16.0 Hypertensive urgency (principal); U07.1 COVID-19; I42.1 Obstructive hypertrophic cardiomyopathy; I11.9 Hypertensive heart disease without heart failure; G93.89 Other specified disorders of brain; I08.3 Combined rheumatic disorders of mitral, aortic and tricuspid valves; G40.909 Epilepsy, unspecified, not intractable, without status epilepticus; I48.0 Paroxysmal atrial fibrillation; E78.5 Hyperlipidemia, unspecified; E53.8 Deficiency of other specified B group vitamins; M41.9 Scoliosis, unspecified; M25.552 Pain in left hip; E87.6 Hypokalemia; I45.10 Unspecified right bundle-branch block; R00.1 Bradycardia, unspecified; Z79.01 Long term (current) use of anticoagulants; Z79.899 Other long term (current) drug therapy; I25.2 Old myocardial infarction; Z86.73 Personal history of transient ischemic attack (TIA), and cerebral infarction without residual deficits
CPT/HCPCS: 36415; 70450; 71046; 80053; 80177; 81001; 82607; 83735; 83880; 84484; 85025; 87636; 93005; 93306; 96374; 96375; 99285

== ENCOUNTER 2023-10-23 19:22 | Observation (INO) | payer MEDICARE, OTHER ==
[2023-10-23] MEDS ORDERED: SODIUM CHLORIDE 0.9% 500 ML 500 ML IV STA (20:10)
[2023-10-23] MEDS ORDERED: hydrALAZINE HCL 20 MG/ML 1 ML VIAL IVP STA (20:10)
[2023-10-23] MEDS ORDERED: LORazepam 2 MG/ML INJ IV STA ×2 (20:21→20:38)
[2023-10-23 20:35] LABS: Basophils # (A) 0.1 k/uL (0-0.2); Basophils % (A) 1 %; Eosinophils # (A) 0.1 k/uL (0-0.7); Eosinophils % (A) 2 %; HCT 40.7 % (34.0-46.0); Lymphocytes # (A) 2.5 k/uL (1.0-4.8); Lymphocytes % (A) 38 %; MCH 31.4 pg (25.0-35.0); MCHC 34.5 g/dL (31.0-37.0); MCV 91.1 fL (80.0-100.0); Mean Platelet Volume 8.3; Monocytes # (A) 0.2 k/uL (0-1.0); Monocytes % (A) 3 %; Neutrophils # (A) 3.6 k/uL (1.3-7.7); Neutrophils % (A) 55 %; Platelet Count 258 k/uL (150-450); RBC 4.46 m/uL (3.80-5.40); RDW 13.7 % (11.5-15.5); WBC 6.5 k/uL (3.8-10.6)
[2023-10-23 20:44] LABS: ALT 25 U/L (4-34); AST 32 U/L (14-36); African American GFR (CKD) >90 (>60 ml/min/1.73 sqM); Albumin 3.9 g/dL (3.5-5.0); Alkaline Phosphatase 127 U/L (38-126); Anion Gap 9 mmol/L; Blood Urea Nitrogen 11 mg/dL (7-17); Calcium 9.3 mg/dL (8.4-10.2); Carbon Dioxide 21 mmol/L (22-30); Chloride 108 mmol/L (98-107); Glucose 78 mg/dL (74-99); Non-African American GFR(CKD) >90 (>60 ml/min/1.73 sqM); Potassium 3.7 mmol/L (3.5-5.1); Sodium 138 mmol/L (137-145); Total Bilirubin 0.8 mg/dL (0.2-1.3); Total Protein 6.8 g/dL (6.3-8.2)
--- NOTE | 2023-10-23 20:47 | CT ---
EXAMINATION TYPE: CT brain wo con CT DLP: 1090.4 mGycm, Automated exposure control for dose reduction was used. DATE OF EXAM: 10/23/2023 8:36 PM COMPARISON: 09/13/2023.. CLINICAL INDICATION:Female, 78 years old with history of seizure activity, seizure TECHNIQUE: Brain: Axial CT images of the brain were obtained with coronal and sagittal reformats created and rev iewed. Contrast used: None. Oral contrast used: None. FINDINGS: Brain: Extra-axial spaces: No abnormal extra-axial fluid collections. Ventricular system: Dilatation in proportion to cerebral atrophy. Cerebral parenchyma: Cerebral atrophy. No acute intraparenchymal hemorrhage or mass effect. The delacruz -white junction is well differentiated. Scattered hypoattenuating areas are seen within the white mat ter. Cerebellum: Unremarkable. Mass effect: No evidence of midline shift. Intracranial vasculature: Atherosclerotic calcifications of the intracranial vessels. Soft tissues: Normal. Calvarium/osseous structures: No depressed skull fracture. Paranasal sinuses and mastoid air cells: Mild scattered paranasal sinus disease. Visualized orbits: Orbital contents are intact. IMPRESSION: 1. No acute intracranial process. 2. Nonspecific white matter changes, likely secondary to chronic small vessel ischemic disease.
[2023-10-23] MEDS ORDERED: levETIRAcetam IV 500 MG/5 ML VIAL IVP STA (20:55)
[2023-10-23 21:04] LABS: Appearance,Urine Clear (Clear); Bilirubin,Urine Negative (Negative); Blood,Urine Negative (Negative); Color,Urine Colorless; Glucose,Urine (UA) Negative (Negative); Ketones,Urine Negative (Negative); Leukocyte Esterase,Urine Negative (Negative); Nitrite,Urine Negative (Negative); PH, Urine 5.5 (5.0-8.0); Protein,Urine Negative (Negative); Specific Gravity,Urine 1.002 (1.001-1.035); Urobilinogen,Urine <2.0 mg/dL (<2.0)
[2023-10-23] MEDS ORDERED: NALOXONE 0.4 MG/ML 1 ML VIAL IV PRN (22:06)
--- NOTE | 2023-10-23 22:13 | ED ---
General Adult HPI - General Chief complaint: Recheck/Abnormal Lab/Rx Stated complaint: elevated blood pressure Time Seen by Provider: 10/23/23 19:50 Source: patient Mode of arrival: ambulatory Limitations: no limitations - History of Present Illness Initial comments: 78-year-old female with history of CVA, focal seizures, hypertension, hyperlipidemia brought in by family with concerns for elevated blood pressure. Family states that ever since the patient had her CVA several months ago the house regularly checked her blood pressure twice daily. Today they noted it was elevated, they gave a second dose of her lisinopril but blood pressure remained elevated so they reported to the ER. They were concerned as the patient has been known to have seizures when her blood pressure is elevated. She has not been complaining of any chest pain, difficulty breathing, abdominal pain, nausea, vomiting, fever, URI like symptoms according to family. - Related Data Home Medications Medication Instructions Recorded Confirmed Metoprolol Tartrate [Lopressor] 12.5 mg PO HS 05/16/23 09/21/23 lisinopriL [Zestril] 10 mg PO DAILY 05/16/23 09/21/23 Previous Rx's Medication Instructions Recorded levETIRAcetam [Keppra] 750 mg PO Q12HR tab 05/21/23 Apixaban [Eliquis] 5 mg PO BID 30 Days #60 tab 09/24/23 Ascorbic Acid [Vitamin C] 500 mg PO DAILY 14 Days #14 tab 09/24/23 Zinc Sulfate [Orazinc] 220 mg PO DAILY 14 Days #14 cap 09/24/23 Allergies Allergy/AdvReac Type Severity Reaction Status Date / Time No Known Allergies Allergy Verified 10/23/23 19:49 Review of Systems ROS Statement: Those systems with pertinent positive or pertinent negative responses have been documented in the HPI. ROS Other: All systems not noted in ROS Statement are negative. Past Medical History Past Medical History: CVA/TIA, Hyperlipidemia, Hypertension, Memory Impairment, [place]ocardial Infarction ([place]) Additional Past Medical History / Comment(s): HEART MURMUR, LEAKY VALVE. POSS MILD STROKE YEARS AGO, UNSURE, HAS DIFFICULTY RECALLING SOME HISTORICAL MEDICAL INFO. 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 Past Anesthesia/Blood Transfusion Reactions: Motion Sickness Past Psychological History: No Psychological Hx Reported Smoking Status: Never smoker Past Alcohol Use History: None Reported Past Drug Use History: None Reported - Past Family History Father Additional Family Medical History / Comment(s): patient states "he had heart problems". patient unsure what type of heart problems. Mother Family Medical History: Cancer, Diabetes Mellitus Additional Family Medical History / Comment(s): brain cancer Brother(s) Family Medical History: Diabetes Mellitus Additional Family Medical History / Comment(s): autistic Sister(s) History Unknown: Yes General Exam Limitations: no limitations General appearance: obtunded (Postictal) Head exam: Present: atraumatic, normocephalic Eye exam: Present: normal appearance Neck exam: Present: normal inspection Respiratory exam: Present: normal lung sounds bilaterally. Absent: respiratory distress, wheezes, rales, rhonchi, stridor Cardiovascular Exam: Present: regular rate, normal rhythm, normal heart sounds. Absent: systolic murmur, diastolic murmur, rubs, gallop, clicks Neurological exam: Present: altered (Postictal) Skin exam: Present: warm, dry Course Vital Signs 10/23/23 10/23/23 10/23/23 19:48 20:15 20:43 Temperature 98.1 F Pulse Rate 56 L 53 L Pulse Rate [ 52 L Right Supine Pulse Oximetery ] Respiratory 18 18 Rate Blood Pressure 173/68 141/83 O2 Sat by Pulse 100 98 Oximetry 10/23/23 10/23/23 10/23/23 21:16 22:07 23:49 Temperature Pulse Rate 95 99 73 Pulse Rate [ Right Supine Pulse Oximetery ] Respiratory 18 20 18 Rate Blood Pressure 125/81 103/69 92/62 O2 Sat by Pulse 99 99 96 Oximetry 10/24/23 10/24/23 10/24/23 00:00 01:30 02:39 Temperature 98.1 F Pulse Rate 65 61 57 L Pulse Rate [ Right Supine Pulse Oximetery ] Respiratory 20 18 18 Rate Blood Pressure 82/61 85/60 84/50 O2 Sat by Pulse 96 98 98 Oximetry EKG Findings - EKG Comments: EKG Findings:: Sinus bradycardia ventricular rate 55. NE interval 188. QRS 156. Q-T 482. QTC 472. Right bundle branch block. No acute changes from previous EKG Medical Decision Making - Medical Decision Making Was pt. sent in by a medical professional or institution (, [facility], CIVIL ENGINEERING DESIGNER, urgent care, hospital, or assisted...) When possible be specific @ -No Did you speak to anyone other than the patient for history (EMS, parent, family, police, friend...)? What history was obtained from this source @ -History obtained from family Did you review nursing and triage notes (agree or disagree)? Why? @ -I reviewed and agree with nursing and triage notes Were old charts reviewed (outside hosp., previous admission, EMS record, old EKG, old radiological studies, urgent care reports/EKG's, assisted records)? Report findings @ -No old charts were reviewed Differential Diagnosis (chest pain, altered mental status, abdominal pain women, abdominal pain men, vaginal bleeding, weakness, fever, dyspnea, syncope, headache, dizziness, GI bleed, back pain, seizure, CVA, palpatations, mental h ealth, musculoskeletal)? @ -MDM Differential Seizure: Recurrent seizure disorder, febrile seizure, alcohol withdrawal, stimulants, meningitis, encephalitis, intercranial hemorrhage, intracranial tumor, stroke, eclampsia, thyrotoxicosis, hypocalcemia, hyponatremia, hypernatremia, hypomagnesemia, psychogenic this is not meant to be an all-inclusive list EKG interpreted by me (3pts min.). @ -As above X-rays interpreted by me (1pt min.). @ -None done CT interpreted by me (1pt min.). @ -CT shows no acute intracranial process U/S interpreted by me (1pt. min.). @ -None done What testing was considered but not performed or refused? (CT, X-rays, U/S, labs)? Why? @ -None What meds were considered but not given or refused? Why? @ -None Did you discuss the management of the patient with other professionals (professionals i.e. [facility] Root, CIVIL ENGINEERING DESIGNER, lab, RT, psych nurse, executive secretary social welfare, shutdown coordinator, teacher, customer service security officer, case advocate)? Give summary @ -Spoke with Marifer Bo from [facility] who accepted admission Was smoking cessation discussed for >3mins.? @ -No Was critical care preformed (if so, how long)? @ -No Were there social determinants of health that impacted care today? How? (Homelessness, low income, unemployed, alcoholism, drug addiction, transportation, low edu. Level, literacy, decrease access to med. care, fci, rehab)? @ -No Was there de-escalation of care discussed even if they declined (Discuss DNR or withdrawal of care, Hospice)? DNR status @ -No What co-morbidities impacted this encounter? (DM, HTN, Smoking, COPD, CAD, Canc er, CVA, ARF, Chemo, Hep., AIDS, mental health diagnosis, sleep apnea, morbid obesity)? @ -History of seizures Was patient admitted / discharged? Hospital course, mention meds given and route, prescriptions, significant lab abnormalities, going to OR and other p ertinent info. @ -78-year-old female brought in by family with concerns for high blood pressure. Patient has history of focal seizures, family states that in the past when her blood pressure from too high she has had seizures. When she arrived to the room and we were transferring from the wheelchair to the bed the patient started having a focal seizure which involved tremoring of the left arm. Patient was disoriented. Seizure ceased after 4-5 minutes. Patient then was po stictal which family states is normal for her. She then continued to have 2 more seizures. She was treated with Ativan 2 mg and 1 g of Keppra. Blood pressure was treated with 10 mg hydralazine, blood pressure improved. Lab work requires no action. Negative CT of the brain. EKG shows no acute changes from previous. Given that patient had 3 breakthrough seizures in the department today while compliant on her Keppra 750 twice a day she will be admitted for observation with neurology consult. Family is agreeable with this plan. I discussed this case with my attending Dr. Daugherty Undiagnosed new problem with uncertain prognosis? @ -No Drug Therapy requiring intensive monitoring for toxicity (Heparin, Nitro, Insulin, Cardizem)? @ -No Were any procedures done? @ -No Diagnosis/symptom? @ -Breakthrough seizure Acute, or Chronic, or Acute on Chronic? @ -Acute Uncomplicated (without systemic symptoms) or Complicated (systemic symptoms)? @ -Complicated Side effects of treatment? @ -No Exacerbation, Progression, or Severe Exacerbation? @ -No Poses a threat to life or bodily function? How? (Chest pain, [place], [place], pneumonia, PE, COPD, DKA, ARF, appy, cholecystitis, CVA, Diverticulitis, Homicidal, Suicidal, threat to staff... and all critical care pts) @ -yes - Lab Data Result diagrams: 10/23/23 20:26 10/23/23 20:26 Lab Results 10/23/23 10/23/23 10/23/23 Range/Units 20:26 20:26 20:26 WBC 6.5 (3.8-10.6) k/uL RBC 4.46 (3.80-5.40) m/uL Hgb 14.0 (11.4-16.0) gm/dL Hct 40.7 (34.0-46.0) % MCV 91.1 (80.0-100.0) fL MCH 31.4 (25.0-35.0) pg MCHC 34.5 (31.0-37.0) g/dL RDW 13.7 (11.5-15.5) % Plt Count 258 (150-450) k/uL MPV 8.3 Neutrophils % 55 % Lymphocytes % 38 % Monocytes % 3 % Eosinophils % 2 % Basophils % 1 % Neutrophils # 3.6 (1.3-7.7) k/uL Lymphocytes # 2.5 (1.0-4.8) k/uL Monocytes # 0.2 (0-1.0) k/uL Eosinophils # 0.1 (0-0.7) k/uL Basophils # 0.1 (0-0.2) k/uL Sodium 138 (137-145) mmol/L Potassium 3.7 (3.5-5.1) mmol/L Chloride 108 H (98-107) mmol/L Carbon Dioxide 21 L (22-30) mmol/L Anion Gap 9 mmol/L BUN 11 (7-17) mg/dL Creatinine 0.40 L (0.52-1.04) mg/dL Est GFR (CKD-EPI)AfAm >90 (>60 ml/min/1.73 sqM) Est GFR (CKD-EPI)NonAf >90 (>60 ml/min/1.73 sqM) Glucose 78 (74-99) mg/dL Calcium 9.3 (8.4-10.2) mg/dL Magnesium 2.0 (1.6-2.3) mg/dL Total Bilirubin 0.8 (0.2-1.3) mg/dL AST 32 (14-36) U/L ALT 25 (4-34) U/L Alkaline Phosphatase 127 H (38-126) U/L Total Protein 6.8 (6.3-8.2) g/dL Albumin 3.9 (3.5-5.0) g/dL Urine Color Colorless Urine Appearance Clear (Clear) Urine pH 5.5 (5.0-8.0) Ur Specific [place] 1.002 (1.001-1.035) Urine Protein Negative (Negative) Urine Glucose (UA) Negative (Negative) Urine Ketones Negative (Negative) Urine Blood Negative (Negative) Urine Nitrite Negative (Negative) Urine Bilirubin Negative (Negative) Urine Urobilinogen <2.0 (<2.0) mg/dL Ur Leukocyte Esterase Negative (Negative) Disposition Clinical Impression: Breakthrough seizure Disposition: ADMITTED IP TO THIS [facility] Condition: Fair Time of Disposition: 22:14
[2023-10-23] MEDS: SODIUM CHLORIDE 0.9% 1,000 ML IV SCH (23:52)
[2023-10-24] MEDS ORDERED: LORazepam 2 MG/ML INJ IV PRN (04:58)
[2023-10-24] MEDS: APIXABAN 5 MG TAB PO SCH ×2 (08:28→21:29)
[2023-10-24] MEDS ORDERED: lisinopriL 10 MG TAB PO SCH (09:00)
--- NOTE | 2023-10-24 12:23 | P.CNNES ---
History of Present Illness Consult date: 10/24/23 Requesting physician: David Gregory Reason for Consult: break-through seizures History of Present Illness: This is a 78-year-old woman with history of seizure was in the emergency department by family members because concern of elevated blood pressure. Patient does not recall what transpired and she woke up at being in the hospital. The ED notes when the patient was transferred from the wheelchair to the bed in our facility she had a focal seizure involving tremor of the left arm and was disoriented and then seizure ceased after 4-5 minutes. She was post ictal afterwards. It seems that she continued to have 2 more seizures. She was given Ativan 2 mg by the ED team with a loading dose of Keppra. She had e levated blood pressure and in the past when her blood pressure was elevated that triggered the seizure. She was given 10 mg hydralazine. She had a CT of the head in the ED which was negative. She had a total of 3 seizures while in the ED. Patient is on Keppra 750 mg twice a day and according to the patient her daughter gives her that the medication and she is compliant taking the medication. Upon seeing the patient today she denies of any headache. She feels less less confused. Again she does not recall what transpired and woke up at being in the hospital. Due to the patient follows up with Dr. Brown for her seizure management. Note patient is known to our neurology team and she was seen last by Dr. Valenzuela on 09/24/2023 in which she had a breakthrough seizure and he stated that was t riggered by uncontrolled hypertension as well as acute COVID-19 infection. Patient had a prolonged EEG on 05/17/2023 which was reported as normal. Please refer to Dr. Batres's note for further details. Some of the workup during his hospital visit consisted of: On initial presentation her blood pressure was 173/68. And had the blood pressure as low as 84/50. Currently it's in the systolic 100 to 120s. CBC with differential is unremarkable Serum glucose 78, magnesium 2.0, AST ALT and creatinine and BUN are within normal limits Sodium is 138 Urinalysis is negative for any underlying acute urinary tract infection CT of the head is reported as no acute intracranial process. I personally rev iewed this the head and there is no acute or subacute ischemia. There is no clear bleed. There is no mass effect. Review of Systems The positive and negative as per HPI. Past Medical History Past Medical History: CVA/TIA, Hyperlipidemia, Hypertension, Memory Impairment, Myocardial Infarction ([place]) Additional Past Medical History / Comment(s): HEART MURMUR, LEAKY VALVE. POSS MILD STROKE YEARS AGO, UNSURE, HAS DIFFICULTY RECALLING SOME HISTORICAL MEDICAL INFO. 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 Past Anesthesia/Blood Transfusion Reactions: Motion Sickness Past Psychological History: No Psychological Hx Reported Smoking Status: Never smoker Past Alcohol Use History: None Reported Past Drug Use History: None Reported - Past Family History Father Additional Family Medical History / Comment(s): patient states "he had heart problems". patient unsure what type of heart problems. Mother Family Medical History: Cancer, Diabetes Mellitus Additional Family Medical History / Comment(s): brain cancer Brother(s) Family Medical History: Diabetes Mellitus Additional Family Medical History / Comment(s): autistic Sister(s) History Unknown: Yes Medications and Allergies Home Medications Medication Instructions Recorded Confirmed Type Metoprolol Tartrate [Lopressor] 12.5 mg PO HS PRN 05/16/23 10/24/23 History lisinopriL [Zestril] 10 mg PO DAILY 05/16/23 10/24/23 History levETIRAcetam [Keppra] 750 mg PO Q12HR tab 05/21/23 10/24/23 Rx Apixaban [Eliquis] 5 mg PO BID 30 Days #60 tab 09/24/23 10/24/23 Rx Allergies Allergy/AdvReac Type Severity Reaction Status Date / Time No Known Allergies Allergy Verified 10/23/23 19:49 Physical Examination - Vital Signs Vital Signs: Vital Signs Temp Pulse Pulse Pulse Resp BP BP 10/24/23 10:51 66 124/70 10/24/23 07:35 98.1 F 72 18 106/67 10/24/23 03:26 97.7 F 61 15 110/70 10/24/23 02:39 98.1 F 57 L 18 84/50 10/24/23 01:30 61 18 85/60 10/24/23 00:00 65 20 82/61 10/23/23 23:49 73 18 92/62 10/23/23 22:07 99 20 103/69 10/23/23 21:16 95 18 125/81 10/23/23 20:43 53 L 18 141/83 10/23/23 20:15 52 L 10/23/23 19:48 98.1 F 56 L 18 173/68 Pulse Ox 10/24/23 10:51 10/24/23 07:35 98 10/24/23 03:26 96 10/24/23 02:39 98 10/24/23 01:30 98 10/24/23 00:00 96 10/23/23 23:49 96 10/23/23 22:07 99 10/23/23 21:16 99 10/23/23 20:43 98 10/23/23 20:15 10/23/23 19:48 100 Intake and Output 10/23/23 10/24/23 10/24/23 22:59 06:59 14:59 Intake Total 100 Output Total 200 Balance -200 100 Intake: Oral 100 Output: Urine 200 Other: Voiding Method External Catheter Weight 53.07 kg 53.07 kg GENERAL: The patient is lying in bed and is not in acute distress. NEUROLOGICAL: Somewhat limited. Higher mental function: The patient is minimally to mildly drowsy. Is oriented to self. She placed her glasses on and was looking on board and read the correct place and current time. She is following simple commands. No aphasia from limited language. Cranial nerves: The pupils are round, equal and reactive to light. Visual orozco are full to confrontation throughout. Extraocular movement is intact no nystagmus is noted. The facial strength is normal throughout. Tongue is midline and moved [id number] without any difficulty. No tongue bite. No dysarthria is noted. Motor: The strength is lifting bilateral upper extremities above gravity symmetrically and wiggling toes symmetrically. Normal tone and bulk. Cerebellum: Normal finger to nose bilaterally. Sensation: Sensation is normal to touch throughout. Reflexes (right/left): 2+ in uppers while lowers are 1+ Plantars are mute bilaterally. Results - Laboratory Findings CBC and BMP: 10/23/23 20:26 10/23/23 20:26 Abnormal Lab Findings: Abnormal Labs 10/23/23 20:26 Chloride 108 H Carbon Dioxide 21 L Creatinine 0.40 L Alkaline Phosphatase 127 H Assessment and Plan Assessment: This is a 78-year-old woman with history of seizure, hypertension who presents because of uncontrolled hypertension. While in the ED she had that 3 reported seizure by the ED team and which was given 2 mg Ativan and was loaded by Keppra 1gm. Breakthrough seizure unknown exact etiology. Unsure exact cause. Unsure if hypertension was cause of breakthrough seizures or vice versa. Seizure disorder since March 2023 and the patient is on Keppra 750 mg twice a day. Patient had a prolonged EEG with video on 05/17/2023 which was reported as normal. Probable TIA per Dr. Valenzuela with manifestation of left hemiparesis that resolved an MRI was negative on 04/08/2023 History of COVID-19 infection in the beginning of September 2023 Vitamin B12 deficiency History of superficial siderosis and seen an MRI of the brain Uncontrolled hypertension Hyperlipidemia Chronic the hip issues Plan: I want up on her Keppra from 750 mg twice a day to 1000 mg twice a day. She is on Ativan 1 mg every 2 hours started by the primary team. Please notify and neurology team if patient has seizures. Seizure precautions seizure pads As stated above patient had a prolonged would have hour EEG in the April 2023 which was reported as normal. Because of the increased frequency of seizure recommend possible an epilepsy monitoring unit (EMU) as outpatient and if not possible a prolonged ambulatory EEG for couple days as outpatient. This should be correlated by her neurologist and she follows up with Dr. Brown. Keppra level was ordered and is pending Seizure precautions seizure pads We'll defer the rest of the medical record the primary team Recommend the patient to follow-up with her neurologist as an outpatient within 1-2 weeks The plan was discussed with the patient, primary attending and her nurse. I spoke with daughter via phone and updated plan. Thank you for the consultation. Time with Patient: Greater than 30
--- NOTE | 2023-10-24 12:48 | P.HPIM ---
History of Present Illness H&P Date: 10/24/23 History of present illness; patient is a 78-year-old lady with past medical sign ificant for hypertension, hyperlipidemia, seasonal brought to the ER for concern for elevated blood pressure. Family at home have been noticing that the patient blood pressure was elevated last night, they gave patient her normal blood pressure medication of lisinopril and Lopressor but it was still elevated. Because of concern of elevated blood pressure, patient was brought to the ER. Patient is known to have seizures when blood pressure was high. Patient is on Keppra at home. While patient was in the ER, patient had a seizure that involved shaking of her left upper arm. Patient was post ictal after that. Patient continued to have 2 more seizures while in the ER. Initial lab work done in the ER showed WBC 6.5, hemoglobin 14, platelet count 258, sodium 1:30, potassium 3.7, BUN 11, creatinine 0.40, glucose 78, AST 22, ALT 25 Urine negative for any infection EKG done in the ER showed heart rate of55, right bundle branch , no ST segment elevation or depression seen, no T-wave inversions seen. CT head done showed no acute intracranial process Patient admitted to internal medicine service REVIEW OF SYSTEMS: CONSTITUTIONAL: No fever, no malaise, no fatigue. HEENT: No recent visual problems or hearing problems. Denied any sore throat. CARDIOVASCULAR: No chest pain, orthopnea, PND, no palpitations, no syncope. PULMONARY: No shortness of breath, no cough, no hemoptysis. GASTROINTESTINAL: No diarrhea, no nausea, no vomiting, no abdominal pain. NEUROLOGICAL: No headaches, no weakness, no numbness. HEMATOLOGICAL: Denies any bleeding or petechiae. GENITOURINARY: Denies any burning micturition, frequency, or urgency. MUSCULOSKELETAL/RHEUMATOLOGICAL: Denies any joint pain, swelling, or any muscle pain. ENDOCRINE: Denies any polyuria or polydipsia. The rest of the 14-point review of systems is negative. PHYSICAL EXAMINATION: GENERAL: The patient is alert and oriented x3, not in any acute distress. Well developed, well nourished. HEENT: Pupils are round and equally reacting to light. EOMI. No scleral icterus. No conjunctival pallor. Normocephalic, atraumatic. No pharyngeal erythema. No thyromegaly. CARDIOVASCULAR: S1 and S2 present. No murmurs, rubs, or gallops. PULMONARY: Chest is clear to auscultation, no wheezing or crackles. ABDOMEN: Soft, nontender, nondistended, normoactive bowel sounds. No palpable organomegaly. MUSCULOSKELETAL: No joint swelling or deformity. EXTREMITIES: No cyanosis, clubbing, or pedal edema. NEUROLOGICAL: Gross neurological examination did not reveal any focal deficits. SKIN: No rashes. Assessment and plan Seizures Hypertension History of CVA Hyperlipidemia Monitor vital signs Monitor CBC Monitor CMP Continue telemetry monitoring Seizure precautions Continue neuro checks Fall precautions Dose of Keppra increased to 1000 mg twice a day Resume home meds Continue lisinopril and Lopressor. Consult neurology Labs and medication were reviewed.. Continue same treatment. Continue with symptomatic treatment. Resume home medication. Monitor labs and vitals. DVT and GI prophylaxis. Further recommendations as per clinical course of the patient Dictation was produced using [employer] dictation software. please excuse any grammatical, word or spelling errors. Past Medical History Past Medical History: CVA/TIA, Hyperlipidemia, Hypertension, Memory Impairment, Myocardial Infarction ([place]) Additional Past Medical History / Comment(s): HEART MURMUR, LEAKY VALVE. POSS MILD STROKE YEARS AGO, UNSURE, HAS DIFFICULTY RECALLING SOME HISTORICAL MEDICAL INFO. 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 Past Anesthesia/Blood Transfusion Reactions: Motion Sickness Past Psychological History: No Psychological Hx Reported Smoking Status: Never smoker Past Alcohol Use History: None Reported Past Drug Use History: None Reported - Past Family History Father Additional Family Medical History / Comment(s): patient states "he had heart problems". patient unsure what type of heart problems. Mother Family Medical History: Cancer, Diabetes Mellitus Additional Family Medical History / Comment(s): brain cancer Brother(s) Family Medical History: Diabetes Mellitus Additional Family Medical History / Comment(s): autistic Sister(s) History Unknown: Yes Medications and Allergies Home Medications Medication Instructions Recorded Confirmed Type Metoprolol Tartrate [Lopressor] 12.5 mg PO HS 05/16/23 09/21/23 History lisinopriL [Zestril] 10 mg PO DAILY 05/16/23 09/21/23 History levETIRAcetam [Keppra] 750 mg PO Q12HR tab 05/21/23 09/21/23 Rx Apixaban [Eliquis] 5 mg PO BID 30 Days #60 tab 09/24/23 Rx Ascorbic Acid [Vitamin C] 500 mg PO DAILY 14 Days #14 tab 09/24/23 Rx Zinc Sulfate [Orazinc] 220 mg PO DAILY 14 Days #14 cap 09/24/23 Rx Allergies Allergy/AdvReac Type Severity Reaction Status Date / Time No Known Allergies Allergy Verified 10/23/23 19:49 Physical Exam Vitals: Vital Signs Temp Pulse Pulse Pulse Resp BP BP 10/24/23 07:35 98.1 F 72 18 106/67 10/24/23 03:26 97.7 F 61 15 110/70 10/24/23 02:39 98.1 F 57 L 18 84/50 10/24/23 01:30 61 18 85/60 10/24/23 00:00 65 20 82/61 10/23/23 23:49 73 18 92/62 10/23/23 22:07 99 20 103/69 10/23/23 21:16 95 18 125/81 10/23/23 20:43 53 L 18 141/83 10/23/23 20:15 52 L 10/23/23 19:48 98.1 F 56 L 18 173/68 Pulse Ox 10/24/23 07:35 98 10/24/23 03:26 96 10/24/23 02:39 98 10/24/23 01:30 98 10/24/23 00:00 96 10/23/23 23:49 96 10/23/23 22:07 99 10/23/23 21:16 99 10/23/23 20:43 98 10/23/23 20:15 10/23/23 19:48 100 Intake and Output 10/23/23 10/24/23 10/24/23 22:59 06:59 14:59 Intake Total 100 Output Total 200 Balance -200 100 Intake: Oral 100 Output: Urine 200 Other: Weight 53.07 kg Results CBC & Chem 7: 10/23/23 20:26 10/23/23 20:26 Labs: Abnormal Lab Results - Last 24 Hours (Table) 12/30/23 Range/Units 20:26 Chloride 108 H (98-107) mmol/L Carbon Dioxide 21 L (22-30) mmol/L Creatinine 0.40 L (0.52-1.04) mg/dL Alkaline Phosphatase 127 H (38-126) U/L
[2023-10-24] MEDS: SODIUM CHLORIDE 0.9% 1,000 ML IV SCH (16:08)
[2023-10-24] MEDS ORDERED: METOPROLOL TARTRATE 12.5 MG TAB PO SCH (21:00)
[2023-10-24] MEDS: levETIRAcetam 500 MG TAB PO SCH (21:28)
[2023-10-25 04:59] VITALS: TEMP 98.2
[2023-10-25] MEDS: levETIRAcetam 500 MG TAB PO SCH (08:12)
[2023-10-25] MEDS: APIXABAN 5 MG TAB PO SCH (08:13)
[2023-10-25] MEDS ORDERED: lisinopriL 10 MG TAB PO SCH (10:15)
--- NOTE | 2023-10-25 12:01 | P.DS ---
Providers Date of admission: 10/23/23 23:57 Expected date of discharge: 10/25/23 Attending physician: Georgina Naylor Consults: 10/23/23 22:11 Consult Physician Urgent Consulting Provider: Hal Britt Consult Reason/Comments: break-through seizures Do you want consulting provider notified?: Yes, Notify in am Primary care physician: Gary Judie [facility] Course: Discharge diagnoses; Seizures Hypertension History of CVA Hyperlipidemia Hospital course; patient is a 78-year-old lady with past medical significant for hypertension, hyperlipidemia, seasonal brought to the ER for concern for elevated blood pressure. Family at home have been noticing that the patient blood pressure was elevated last night, they gave patient her normal blood pressure medication of lisinopril and Lopressor but it was still elevated. Because of concern of elevated blood pressure, patient was brought to the ER. Patient is known to have seizures when blood pressure was high. Patient is on Keppra at home. While patient was in the ER, patient had a seizure that involved shaking of her left upper arm. Patient was post ictal after that. Patient continued to have 2 more seizures while in the ER. Initial lab work done in the ER showed WBC 6.5, hemoglobin 14, platelet count 258, sodium 1:30, potassium 3.7, BUN 11, creatinine 0.40, glucose 78, AST 22, ALT 25 Urine negative for any infection EKG done in the ER showed heart rate of55, right bundle branch , no ST segment elevation or depression seen, no T-wave inversions seen. CT head done showed no acute intracranial process Patient admitted to internal medicine service 10/25/23 patient seen and examined. Patient was seen by neurology, they recommended increasing dose of Keppra to 1000 mg twice a day. While in the hospital, patient had no further episodes of seizures. Neurology recommended outpatient follow-up. Patient being discharged in stable condition PHYSICAL EXAMINATION: GENERAL: The patient is alert and oriented x3, not in any acute distress. Well developed, well nourished. HEENT: Pupils are round and equally reacting to light. EOMI. No scleral icterus. No conjunctival pallor. Normocephalic, atraumatic. No pharyngeal erythema. No thyromegaly. CARDIOVASCULAR: S1 and S2 present. No murmurs, rubs, or gallops. PULMONARY: Chest is clear to auscultation, no wheezing or crackles. ABDOMEN: Soft, nontender, nondistended, normoactive bowel sounds. No palpable organomegaly. MUSCULOSKELETAL: No joint swelling or deformity. EXTREMITIES: No cyanosis, clubbing, or pedal edema. NEUROLOGICAL: Gross neurological examination did not reveal any focal deficits. SKIN: No rashes. Dictation was produced using [employer] dictation software. please excuse any grammatical, word or spelling errors. Patient Condition at Discharge: Fair Plan - Discharge Summary Discharge Rx Participant: No New Discharge Prescriptions: New levETIRAcetam [Keppra] 1,000 mg PO Q12HR 30 Days #60 tab Continue Apixaban [Eliquis] 5 mg PO BID 30 Days #60 tab lisinopriL [Zestril] 10 mg PO DAILY Metoprolol Tartrate [Lopressor] 12.5 mg PO HS PRN PRN Reason: pulse <60 Discontinued levETIRAcetam [Keppra] 750 mg PO Q12HR tab Discharge Medication List Metoprolol Tartrate [Lopressor] 12.5 mg PO HS PRN 05/16/23 [History] lisinopriL [Zestril] 10 mg PO DAILY 05/16/23 [History] Apixaban [Eliquis] 5 mg PO BID 30 Days #60 tab 09/24/23 [Rx] levETIRAcetam [Keppra] 1,000 mg PO Q12HR 30 Days #60 tab 10/25/23 [Rx] Follow up Appointment(s)/Referral(s): Gary Dimas MD [Primary Care Provider] - 1-2 days Patient Instructions/Handouts: Seizure/Epilepsy Discharge Instructions & Follow-Up Discharge Disposition: HOME SELF-CARE
--- NOTE | 2023-10-25 12:12 | P.PN ---
Subjective Progress Note Date: 10/25/23 I am following-up with patient and she feels she is doing better. She feels she is back to baseline. No further seizures. Objective - Vital Signs Vital signs: Vital Signs Temp 98.2 F 10/25/23 07:00 Pulse 56 L 10/25/23 07:00 Resp 16 10/25/23 07:00 BP 143/77 10/25/23 07:00 Pulse Ox 97 10/25/23 07:00 FiO2 Intake & Output 10/24/23 10/25/23 10/25/23 18:59 06:59 18:59 Intake Total 100 Output Total 45 1200 Balance 55 -1200 Weight 53.07 kg Intake: Oral 100 Output: Urine 45 1200 Other: Voiding Method External Catheter External Catheter # Voids 1 - Exam General: Sitting up in chair and is not in acute distress. Neuro: Patient is awake, alert, oriented to self, place. She stated the year is 2022 but today is first today of 2023 and would not allyson her down on the question. She is following simple commands. No aphasia. Visual orozco are full to confrontation. EOM intact and no nystagmus. No facial weakness. No dysarthria. Motor: Strength is 5/5 throughout uppers and moving bilateral lowers above gravity equally. Some of the workup during his hospital visit consisted of: On initial presentation her blood pressure was 173/68. And had the blood pressure as low as 84/50. Currently it's in the systolic 100 to 120s. CBC with differential is unremarkable Serum glucose 78, magnesium 2.0, AST ALT and creatinine and BUN are within normal limits Sodium is 138 Keppra level is 18.5 (normal is 3-60). Urinalysis is negative for any underlying acute urinary tract infection CT of the head is reported as no acute intracranial process. I personally reviewed this the head and there is no acute or subacute ischemia. There is no clear bleed. There is no mass effect. - Labs CBC & Chem 7: 10/23/23 20:26 10/23/23 20:26 Assessment and Plan Assessment: This is a 78-year-old woman with history of seizure, hypertension who presents because of uncontrolled hypertension. While in the ED she had that 3 reported seizure by the ED team and which was given 2 mg Ativan and was loaded by Keppra 1gm. Breakthrough seizure unknown exact etiology. Unsure exact cause. Unsure if hypertension was cause of breakthrough seizures or vice versa---no further seizures. Seizure disorder since March 2023 and the patient is on Keppra 750 mg twice a day. Patient had a prolonged EEG with video on 05/17/2023 which was reported as normal. Probable TIA per Dr. Valenzuela with manifestation of left hemiparesis that resolved an MRI was negative on 04/08/2023 History of COVID-19 infection in the beginning of September 2023 Vitamin B12 deficiency History of superficial siderosis and seen an MRI of the brain Uncontrolled hypertension Hyperlipidemia Chronic the hip issues Plan: I went up on her Keppra from 750 mg twice a day to 1000 mg twice a day. She is on Ativan 1 mg every 2 hours started by the primary team. Please notify and neurology team if patient has seizures. Seizure precautions seizure pads As stated above patient had a prolonged would have hour EEG in the April 2023 which was reported as normal. Because of the increased frequency of seizure recommend possible an epilepsy monitoring unit (EMU) as outpatient and if not possible a prolonged ambulatory EEG for couple days as outpatient while still at home since has no transportation. This should be coordinated by her neurologist and she follows up with Dr. Brown. Seizure precautions seizure pads We'll defer the rest of the medical record the primary team Recommend the patient to follow-up with her neurologist as an outpatient within 1-2 weeks The plan was discussed with the patient, primary attending and her nurse. I spoke with daughter via phone and updated plan. There is no further neurological work-up. Will sign off. Please reconsult if needed. Time with Patient: Less than 30
[2023-10-25 15:03] VITALS: BP 139/76; PULSE 72; RESP 14
== END 2023-10-25 15:24 | disposition home or self-care (01) ==
LOC: EC 19:22 → 6NMEDSUR 23:57
PROVIDERS: ADMIT Hospitalist; ATTEND Hospitalist
DX: G40.909 Epilepsy, unspecified, not intractable, without status epilepticus (principal); E78.5 Hyperlipidemia, unspecified; I10 Essential (primary) hypertension; I25.2 Old myocardial infarction; E53.8 Deficiency of other specified B group vitamins; Z86.16 Personal history of COVID-19; Z86.73 Personal history of transient ischemic attack (TIA), and cerebral infarction without residual deficits; Z79.01 Long term (current) use of anticoagulants; Z79.899 Other long term (current) drug therapy
CPT/HCPCS: 96376; 96361; 96374; 96375; 99285; 36415; 93005; 80053; 80177; 83735; 85025; 81003; 70450; G0378 ×4; J2060; J0360; J1953

== ENCOUNTER 2023-10-25 22:35 | Observation (INO) | payer MEDICARE, OTHER ==
[2023-10-25] MEDS ORDERED: SODIUM CHLORIDE 0.9% 500 ML 500 ML IV STA (22:50)
[2023-10-25] MEDS ORDERED: LORazepam 2 MG/ML INJ IV STA (22:50)
--- NOTE | 2023-10-25 23:00 | ED ---
General Adult HPI - General Chief complaint: Seizure Stated complaint: High BP Time Seen by Provider: 10/25/23 22:46 Source: patient, RN notes reviewed, old records reviewed Mode of arrival: ambulatory Limitations: altered mental status - History of Present Illness Initial comments: 78-year-old female presents for evaluation of seizure. Patient has known seizure disorder and is currently on Keppra. She was discharged from the hospital earlier today. History is obtained from the daughter who is at bedside. She has bilateral arm tremor and is minimally responsive. This is consistent with previous seizure activity according to the daughter. - Related Data Home Medications Medication Instructions Recorded Confirmed Metoprolol Tartrate [Lopressor] 12.5 mg PO HS PRN 05/16/23 10/24/23 lisinopriL [Zestril] 10 mg PO DAILY 05/16/23 10/24/23 Previous Rx's Medication Instructions Recorded Apixaban [Eliquis] 5 mg PO BID 30 Days #60 tab 09/24/23 levETIRAcetam [Keppra] 1,000 mg PO Q12HR 30 Days #60 tab 10/25/23 Allergies Allergy/AdvReac Type Severity Reaction Status Date / Time No Known Allergies Allergy Verified 10/23/23 19:49 Review of Systems ROS Statement: Those systems with pertinent positive or pertinent negative responses have been documented in the HPI. ROS Other: All systems not noted in ROS Statement are negative. Past Medical History Past Medical History: CVA/TIA, Hyperlipidemia, Hypertension, Memory Impairment, Myocardial Infarction (ID) Additional Past Medical History / Comment(s): HEART MURMUR, LEAKY VALVE. POSS MILD STROKE YEARS AGO, UNSURE, HAS DIFFICULTY RECALLING SOME HISTORICAL MEDICAL INFO. 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 Past Anesthesia/Blood Transfusion Reactions: Motion Sickness Past Psychological History: No Psychological Hx Reported Smoking Status: Never smoker Past Alcohol Use History: None Reported Past Drug Use History: None Reported - Past Family History Father Additional Family Medical History / Comment(s): patient states "he had heart problems". patient unsure what type of heart problems. Mother Family Medical History: Cancer, Diabetes Mellitus Additional Family Medical History / Comment(s): brain cancer Brother(s) Family Medical History: Diabetes Mellitus Additional Family Medical History / Comment(s): autistic Sister(s) History Unknown: Yes General Exam Limitations: no limitations General appearance: in distress Head exam: Present: atraumatic, normocephalic Eye exam: Present: normal appearance, PERRL ENT exam: Present: normal exam Neck exam: Present: normal inspection. Absent: tenderness, meningismus Respiratory exam: Present: normal lung sounds bilaterally. Absent: respiratory distress, wheezes Cardiovascular Exam: Present: regular rate, normal rhythm GI/Abdominal exam: Present: soft. Absent: distended, tenderness, guarding Neurological exam: Present: other (Generalized seizure activity). Absent: alert, oriented X3 Skin exam: Present: warm, dry, intact Course Vital Signs 10/25/23 10/25/23 10/26/23 22:37 23:06 00:00 Temperature 97.3 F L Pulse Rate 61 57 L 58 L Respiratory 18 18 18 Rate Blood Pressure 199/88 100/88 126/70 O2 Sat by Pulse 99 99 98 Oximetry Medical Decision Making - Medical Decision Making Was pt. sent in by a medical professional or institution (, PA, NYLON MACHINE OPERATOR, urgent care, hospital, or snf...) When possible be specific @ -No Did you speak to anyone other than the patient for history (EMS, parent, family, police, friend...)? What history was obtained from this source @ -No Did you review nursing and triage notes (agree or disagree)? Why? @ -I reviewed and agree with nursing and triage notes Were old charts reviewed (outside hosp., previous admission, EMS record, old EKG, old radiological studies, urgent care reports/EKG's, snf records)? Report findings @ -No old charts were reviewed Differential Diagnosis (chest pain, altered mental status, abdominal pain women, abdominal pain men, vaginal bleeding, weakness, fever, dyspnea, syncope, headache, dizziness, GI bleed, back pain, seizure, CVA, palpatations, mental health, musculoskeletal)? @ -Differential Seizure: Recurrent seizure disorder, febrile seizure, alcohol withdrawal, stimulants, meningitis, encephalitis, intercranial hemorrhage, intracranial tumor, stroke, eclampsia, thyrotoxicosis, hypocalcemia, hyponatremia, hypernatremia, hypomagnesemia, psychogenic, this is not meant to be an all-inclusive list. EKG interpreted by me (3pts min.). @ -Sinus bradycardia, right bundle branch block, rate of 58, QRS duration 204, QTC 154 X-rays interpreted by me (1pt min.). @ -None done CT interpreted by me (1pt min.). @ CT brain negative for intracranial hemorrhage or mass effect U/S interpreted by me (1pt. min.). @ -None done What testing was considered but not performed or refused? (CT, X-rays, U/S, labs)? Why? @ -None What meds were considered but not given or refused? Why? @ -None Did you discuss the management of the patient with other professionals (professionals i.e. , PA, NYLON MACHINE OPERATOR, lab, RT, psych nurse, secondary social studies teacher, ground support equipment assembler, teacher, chief security officer, comp field case manager)? Give summary @ -[EMH Was smoking cessation discussed for >3mins.? @ -No Was critical care preformed (if so, how long)? @ -No Were there social determinants of health that impacted care today? How? (Homelessness, low income, unemployed, alcoholism, drug addiction, transportation, low edu. Level, literacy, decrease access to med. care, snf, rehab)? @ -No Was there de-escalation of care discussed even if they declined (Discuss DNR or withdrawal of care, Hospice)? DNR status @ -No What co-morbidities impacted this encounter? (DM, HTN, Smoking, COPD, CAD, Cancer, CVA, ARF, Chemo, Hep., AIDS, mental health diagnosis, sleep apnea, morbid obesity)? @ -[CVA, history of seizures Was patient admitted / discharged? Hospital course, mention meds given and route, prescriptions, significant lab abnormalities, going to OR and other pertinent info. @ 78-year-old female who was recently discharged presenting with recurrent seizure. Patient is seizing upon arrival. Tonic-clonic movement and left-sided gaze. Patient given Ativan with resolution in seizure resulting in a postictal confusion. CT is negative for intracranial hemorrhage or mass effect. Patient's daughter is at bedside states that this is typical of her seizures. She is continued on her Keppra, Ativan is ordered for recurrent seizure. She will be observed with neurology on consult. Undiagnosed new problem with uncertain prognosis? @ -No Drug Therapy requiring intensive monitoring for toxicity (Heparin, Nitro, Insulin, Cardizem)? @ -No] Were any procedures done? @ -[No] Diagnosis/symptom? @ -[Seizure Acute, or Chronic, or Acute on Chronic? @ -acute on chronic Uncomplicated (without systemic symptoms) or Complicated (systemic symptoms)? @ -[complicated Side effects of treatment? @ -[No] Exacerbation, Progression, or Severe Exacerbation? @ -[No] Poses a threat to life or bodily function? How? (Chest pain, USA, ID, pneumonia, PE, COPD, DKA, ARF, appy, cholecystitis, CVA, Diverticulitis, Homicidal, Suicidal, threat to staff... and all critical care pts) @ -[yes, seizure - Lab Data Result diagrams: 10/25/23 23:06 10/25/23 23:06 Lab Results 10/25/23 10/25/23 10/25/23 Range/Units 23:06 23:06 23:09 WBC 8.9 (3.8-10.6) k/uL RBC 3.95 (3.80-5.40) m/uL Hgb 12.6 (11.4-16.0) gm/dL Hct 36.3 (34.0-46.0) % MCV 91.9 (80.0-100.0) fL MCH 31.9 (25.0-35.0) pg MCHC 34.7 (31.0-37.0) g/dL RDW 14.0 (11.5-15.5) % Plt Count 225 (150-450) k/uL MPV 8.6 Neutrophils % 69 % Lymphocytes % 22 % Monocytes % 5 % Eosinophils % 2 % Basophils % 1 % Neutrophils # 6.2 (1.3-7.7) k/uL Lymphocytes # 1.9 (1.0-4.8) k/uL Monocytes # 0.4 (0-1.0) k/uL Eosinophils # 0.1 (0-0.7) k/uL Basophils # 0.1 (0-0.2) k/uL Sodium 132 L (137-145) mmol/L Potassium 3.5 (3.5-5.1) mmol/L Chloride 99 (98-107) mmol/L Carbon Dioxide 22 (22-30) mmol/L Anion Gap 11 mmol/L BUN 20 H (7-17) mg/dL Creatinine 0.48 L (0.52-1.04) mg/dL Est GFR (CKD-EPI)AfAm >90 (>60 ml/min/1.73 sqM) Est GFR (CKD-EPI)NonAf >90 (>60 ml/min/1.73 sqM) Glucose 98 (74-99) mg/dL Calcium 8.6 (8.4-10.2) mg/dL Magnesium 1.7 (1.6-2.3) mg/dL Total Bilirubin 0.5 (0.2-1.3) mg/dL AST 34 (14-36) U/L ALT 22 (4-34) U/L Alkaline Phosphatase 117 (38-126) U/L Total Protein 6.7 (6.3-8.2) g/dL Albumin 3.7 (3.5-5.0) g/dL Urine Color Colorless Urine Appearance Clear (Clear) Urine pH 6.5 (5.0-8.0) Ur Specific [place] 1.002 (1.001-1.035) Urine Protein Negative (Negative) Urine Glucose (UA) Negative (Negative) Urine Ketones Negative (Negative) Urine Blood Negative (Negative) Urine Nitrite Negative (Negative) Urine Bilirubin Negative (Negative) Urine Urobilinogen <2.0 (<2.0) mg/dL Ur Leukocyte Esterase Negative (Negative) Disposition Clinical Impression: Seizure Disposition: ADMITTED IP TO THIS [facility] Condition: Stable Is patient prescribed a controlled substance at d/c from ED?: No Referrals: Gary Dimas MD [Primary Care Provider] - 1-2 days Time of Disposition: 00:58
[2023-10-25 23:21] LABS: Basophils # (A) 0.1 k/uL (0-0.2); Basophils % (A) 1 %; Eosinophils # (A) 0.1 k/uL (0-0.7); Eosinophils % (A) 2 %; HCT 36.3 % (34.0-46.0); HGB 12.6 gm/dL (11.4-16.0); Lymphocytes # (A) 1.9 k/uL (1.0-4.8); Lymphocytes % (A) 22 %; MCH 31.9 pg (25.0-35.0); MCHC 34.7 g/dL (31.0-37.0); MCV 91.9 fL (80.0-100.0); Mean Platelet Volume 8.6; Monocytes # (A) 0.4 k/uL (0-1.0); Monocytes % (A) 5 %; Neutrophils # (A) 6.2 k/uL (1.3-7.7); Neutrophils % (A) 69 %; Platelet Count 225 k/uL (150-450); RBC 3.95 m/uL (3.80-5.40); WBC 8.9 k/uL (3.8-10.6)
[2023-10-25 23:36] LABS: ALT 22 U/L (4-34); AST 34 U/L (14-36); African American GFR (CKD) >90 (>60 ml/min/1.73 sqM); Albumin 3.7 g/dL (3.5-5.0); Alkaline Phosphatase 117 U/L (38-126); Anion Gap 11 mmol/L; Blood Urea Nitrogen 20 mg/dL (7-17); Calcium 8.6 mg/dL (8.4-10.2); Carbon Dioxide 22 mmol/L (22-30); Chloride 99 mmol/L (98-107); Glucose 98 mg/dL (74-99); Magnesium 1.7 mg/dL (1.6-2.3); Non-African American GFR(CKD) >90 (>60 ml/min/1.73 sqM); Potassium 3.5 mmol/L (3.5-5.1); Sodium 132 mmol/L (137-145); Total Bilirubin 0.5 mg/dL (0.2-1.3); Total Protein 6.7 g/dL (6.3-8.2)
[2023-10-25 23:54] LABS: Appearance,Urine Clear (Clear); Bilirubin,Urine Negative (Negative); Blood,Urine Negative (Negative); Color,Urine Colorless; Glucose,Urine (UA) Negative (Negative); Ketones,Urine Negative (Negative); Leukocyte Esterase,Urine Negative (Negative); Nitrite,Urine Negative (Negative); PH, Urine 6.5 (5.0-8.0); Protein,Urine Negative (Negative); Specific Gravity,Urine 1.002 (1.001-1.035); Urobilinogen,Urine <2.0 mg/dL (<2.0)
--- NOTE | 2023-10-26 00:47 | CT ---
EXAM: CT Head Without Intravenous Contrast CLINICAL HISTORY: ITS.REASON CT Reason: seizure activity TECHNIQUE: Axial computed tomography images of the head/brain without intravenous contrast. CTDI is 49.2 mGy and DLP is 1138.4 mGy-cm. This CT exam was performed using one or more of the following dose reduction techniques: automated exposure control, adjustment of the mA and/or kV according to patient size, and/or use of iterative reconstruction technique. COMPARISON: No relevant prior studies available. FINDINGS: Brain: No hemorrhage or mass effect. Ventricles: No hydrocephalus. Bones/joints: Unremarkable. Soft tissues: Unremarkable. Sinuses: No air fluid level. Mastoid air cells: Clear. IMPRESSION: No acute hemorrhage, hydrocephalus, or mass effect.
[2023-10-26] MEDS ORDERED: ACETAMINOPHEN TAB 325 MG TAB PO PRN (00:55)
[2023-10-26] MEDS ORDERED: NALOXONE 0.4 MG/ML 1 ML VIAL IV PRN (00:55)
[2023-10-26] MEDS ORDERED: LORazepam 2 MG/ML INJ IV PRN (01:00)
[2023-10-26] MEDS: SODIUM CHLORIDE 0.9% 1,000 ML IV SCH ×2 (01:11→18:44)
[2023-10-26] MEDS: levETIRAcetam 500 MG TAB PO SCH ×2 (08:45→20:29)
[2023-10-26] MEDS ORDERED: METOPROLOL TARTRATE 12.5 MG TAB PO PRN (09:39)
[2023-10-26] MEDS: levETIRAcetam 250 MG TAB PO SCH ×2 (11:12→20:29)
[2023-10-26] MEDS: lisinopriL 10 MG TAB PO SCH (11:12)
[2023-10-26] MEDS: APIXABAN 5 MG TAB PO SCH ×2 (11:12→20:29)
--- NOTE | 2023-10-26 12:46 | P.HPIM ---
History of Present Illness H&P Date: 10/26/23 History of present illness; patient is a 78-year-old lady with past medical sign ificant for hypertension, hyperlipidemia, seizures brought to the ER for concern for seizure like activity. Patient was just discharged this morning after being admitted to the hospital for seizures, at that time patient's dose of Keppra was increased to 1000 mg twice a day. Patient was discharged with family, daughter brought her back because she had active jerky movements of her upper extremities and she was having upper gaze. There was no complain of fecal incontinence. There was no complain of back biting . patient received a dose of ativan in the er and her seizures resolved. Initial lab work done in the ER showed WBC 8.9, hemoglobin 12.6, platelet count 225, sodium 132, potassium 3.5, BUN 20, creatinine 0.48 EKG done in the ER showed heart rate of 58, no ST segment elevation or depression seen, no T-wave inversions seen. CT head done showed no acute intracranial process Patient admitted to internal medicine service REVIEW OF SYSTEMS: CONSTITUTIONAL: No fever, no malaise, no fatigue. HEENT: No recent visual problems or hearing problems. Denied any sore throat. CARDIOVASCULAR: No chest pain, orthopnea, PND, no palpitations, no syncope. PULMONARY: No shortness of breath, no cough, no hemoptysis. GASTROINTESTINAL: No diarrhea, no nausea, no vomiting, no abdominal pain. NEUROLOGICAL: No headaches, no weakness, no numbness. HEMATOLOGICAL: Denies any bleeding or petechiae. GENITOURINARY: Denies any burning micturition, frequency, or urgency. MUSCULOSKELETAL/RHEUMATOLOGICAL: Denies any joint pain, swelling, or any muscle pain. ENDOCRINE: Denies any polyuria or polydipsia. The rest of the 14-point review of systems is negative. PHYSICAL EXAMINATION: GENERAL: The patient is alert and oriented x3, not in any acute distress. Well developed, well nourished. HEENT: Pupils are round and equally reacting to light. EOMI. No scleral icterus. No conjunctival pallor. Normocephalic, atraumatic. No pharyngeal erythema. No thyromegaly. CARDIOVASCULAR: S1 and S2 present. No murmurs, rubs, or gallops. PULMONARY: Chest is clear to auscultation, no wheezing or crackles. ABDOMEN: Soft, nontender, nondistended, normoactive bowel sounds. No palpable organomegaly. MUSCULOSKELETAL: No joint swelling or deformity. EXTREMITIES: No cyanosis, clubbing, or pedal edema. NEUROLOGICAL: Gross neurological examination did not reveal any focal deficits. SKIN: No rashes. Assessment and plan Seizures Hypertension History of CVA Hyperlipidemia Monitor vital signs Monitor CBC Monitor CMP Continue telemetry monitoring Seizure precautions Continue neuro checks Fall precautions Continue Keppra 1000 mg twice a day EEG ordered Resume home meds Continue lisinopril and Lopressor. Consult neurology Labs and medication were reviewed.. Continue same treatment. Continue with symptomatic treatment. Resume home medication. Monitor labs and vitals. DVT and GI prophylaxis. Further recommendations as per clinical course of the patient Dictation was produced using [employer] dictation software. please excuse any grammatical, word or spelling errors. Past Medical History Past Medical History: CVA/TIA, Hyperlipidemia, Hypertension, Memory Impairment, Myocardial Infarction ([place]) Additional Past Medical History / Comment(s): HEART MURMUR, LEAKY VALVE. POSS MILD STROKE YEARS AGO, UNSURE, HAS DIFFICULTY RECALLING SOME HISTORICAL MEDICAL INFO. 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 Past Anesthesia/Blood Transfusion Reactions: Motion Sickness Past Psychological History: No Psychological Hx Reported Smoking Status: Never smoker Past Alcohol Use History: None Reported Past Drug Use History: None Reported - Past Family History Father Additional Family Medical History / Comment(s): patient states "he had heart problems". patient unsure what type of heart problems. Mother Family Medical History: Cancer, Diabetes Mellitus Additional Family Medical History / Comment(s): brain cancer Brother(s) Family Medical History: Diabetes Mellitus Additional Family Medical History / Comment(s): autistic Sister(s) History Unknown: Yes Medications and Allergies Home Medications Medication Instructions Recorded Confirmed Type Metoprolol Tartrate [Lopressor] 12.5 mg PO HS PRN 05/16/23 10/26/23 History lisinopriL [Zestril] 10 mg PO DAILY 05/16/23 10/26/23 History Apixaban [Eliquis] 5 mg PO BID 30 Days #60 tab 09/24/23 10/26/23 Rx levETIRAcetam [Keppra] 1,000 mg PO Q12HR 30 Days #60 tab 10/25/23 10/26/23 Rx Allergies Allergy/AdvReac Type Severity Reaction Status Date / Time No Known Allergies Allergy Verified 10/26/23 07:15 Physical Exam Vitals: Vital Signs Temp Pulse Pulse Resp BP BP BP 10/26/23 07:00 98.1 F 60 14 126/67 10/26/23 03:43 137/75 10/26/23 02:37 97.5 F L 69 16 207/91 10/26/23 01:00 61 18 131/77 10/26/23 00:00 58 L 18 126/70 10/25/23 23:06 57 L 18 100/88 10/25/23 22:37 97.3 F L 61 18 199/88 Pulse Ox 10/26/23 07:00 99 10/26/23 03:43 10/26/23 02:37 99 10/26/23 01:00 97 10/26/23 00:00 98 10/25/23 23:06 99 10/25/23 22:37 99 Intake and Output 10/25/23 10/26/23 10/26/23 22:59 06:59 14:59 Other: Voiding Method Toilet # Voids 1 Weight 53.07 kg 53.07 kg Results CBC & Chem 7: 10/25/23 23:06 10/25/23 23:06 Labs: Abnormal Lab Results - Last 24 Hours (Table) 10/25/23 Range/Units 23:06 Sodium 132 L (137-145) mmol/L BUN 20 H (7-17) mg/dL Creatinine 0.48 L (0.52-1.04) mg/dL
--- NOTE | 2023-10-26 16:18 | P.CNNES ---
History of Present Illness Consult date: 10/26/23 Requesting physician: Pedro Luis Swann Reason for Consult: seizure History of Present Illness: This is a 78-year-old woman with history of seizure, hypertension who presents back to the emergency department on 10/25/2023 because of breakthrough seizure. Patient is known to me and the eye escalated her seizures and she was discharged yesterday on Keppra 1 g twice a day. It seems that the patient presents back with bilateral arm tremor and millimeter responsive. She does not recall what transpired and does not know how she got back to the hospital. Patient was given 1 g of Ativan by the ED physician. Of note, as stated earlier seen the patient and she was in our facility on 10/23/2023 for breakthrough seizure. She had multiple EEGs in the past and no seizure was noted. She had a prolonged routine EEG in our facility which was normal in the past. I increased her Keppra from 750 mg twice a day to 1 g twice a day and I recommended a prolonged EEG as an outpatient. Some of the workup during this hospital visit consisted of: On initial presentation her blood pressure was 199/88. CBC with differential is unremarkable chemisry panel sodium was 132 otherwise at rest is unremarkable. Glucose is 98, calcium magnesium are within normal limits. CT head is reported as no acute hemorrhage, hydrocephalus or mass effect. I personally reviewed CT head and agree with report. Review of Systems Limited but positive and negative as per HPI. Past Medical History Past Medical History: CVA/TIA, Hyperlipidemia, Hypertension, Memory Impairment, Myocardial Infarction ([place]) Additional Past Medical History / Comment(s): HEART MURMUR, LEAKY VALVE. POSS MILD STROKE YEARS AGO, UNSURE, HAS DIFFICULTY RECALLING SOME HISTORICAL MEDICAL INFO. 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 Past Anesthesia/Blood Transfusion Reactions: Motion Sickness Past Psychological History: No Psychological Hx Reported Smoking Status: Never smoker Past Alcohol Use History: None Reported Past Drug Use History: None Reported - Past Family History Father Additional Family Medical History / Comment(s): patient states "he had heart problems". patient unsure what type of heart problems. Mother Family Medical History: Cancer, Diabetes Mellitus Additional Family Medical History / Comment(s): brain cancer Brother(s) Family Medical History: Diabetes Mellitus Additional Family Medical History / Comment(s): autistic Sister(s) History Unknown: Yes Medications and Allergies Home Medications Medication Instructions Recorded Confirmed Type Metoprolol Tartrate [Lopressor] 12.5 mg PO HS PRN 05/16/23 10/26/23 History lisinopriL [Zestril] 10 mg PO DAILY 05/16/23 10/26/23 History Apixaban [Eliquis] 5 mg PO BID 30 Days #60 tab 09/24/23 10/26/23 Rx levETIRAcetam [Keppra] 1,000 mg PO Q12HR 30 Days #60 tab 10/25/23 10/26/23 Rx Allergies Allergy/AdvReac Type Severity Reaction Status Date / Time No Known Allergies Allergy Verified 10/26/23 07:15 Physical Examination - Vital Signs Vital Signs: Vital Signs Temp Pulse Pulse Resp BP BP BP 10/26/23 14:25 98.2 F 69 16 114/72 10/26/23 11:11 60 167/84 10/26/23 07:00 98.1 F 60 14 126/67 10/26/23 03:43 137/75 10/26/23 02:37 97.5 F L 69 16 207/91 10/26/23 01:00 61 18 131/77 10/26/23 00:00 58 L 18 126/70 10/25/23 23:06 57 L 18 100/88 10/25/23 22:37 97.3 F L 61 18 199/88 Pulse Ox 10/26/23 14:25 97 10/26/23 11:11 98 10/26/23 07:00 99 10/26/23 03:43 10/26/23 02:37 99 10/26/23 01:00 97 10/26/23 00:00 98 10/25/23 23:06 99 10/25/23 22:37 99 Intake and Output 10/26/23 10/26/23 10/26/23 06:59 14:59 22:59 Intake Total 433 Balance 433 Intake: Oral 433 Other: Voiding Method Toilet Toilet # Voids 1 2 Weight 53.07 kg General: Lying in bed and is not in acute distress. Neuro: Very limited since the patient was drowsy. She is oriented to self. With options she stated she is in the hospital. Slow responding Pupils are round equal reactive to light. Pupils are round 3 mm bilaterally. No facial weakness. No dysarthria. Motor the strength is a limited assessment individual muscle strength. Is a slowly responding bilateral upper extremity just above gravity minimally and was able to wiggle toes symmetrically. Results - Laboratory Findings CBC and BMP: 10/25/23 23:06 10/25/23 23:06 Abnormal Lab Findings: Abnormal Labs 10/25/23 23:06 Sodium 132 L BUN 20 H Creatinine 0.48 L Assessment and Plan Assessment: This is a 78-year-old woman was a discharged yesterday because of breakthrough seizures who presents back again because of breakthrough seizure. She has hypertension and continues to be elevated on initial presentation but then resolves. Breakthrough seizure on the exact etiology. Unsure if the brief episodes of hypertension on presentation are a result of her seizure Seizure disorder since March 2023 and the patient was just discharged yesterday on Keppra 1gm bid). Patient had a prolonged EEG with video on 05/17/2023 which was reported as normal. Probable TIA per Dr. Valenzuela with manifestation of left hemiparesis that resolved an MRI was negative on 04/08/2023 History of COVID-19 infection in the beginning of September 2023 Vitamin B12 deficiency History of superficial siderosis and seen an MRI of the brain Uncontrolled hypertension Hyperlipidemia Chronic the hip issues Plan: I went up on her Keppra from 1000mg twice a day to 1250mg twice a day. She is on Ativan 1 mg every 2 hours PRN for seizure. Please notify and neurology team if patient has seizures. Seizure precautions seizure pads I will obtain repeat routine EEG. If negative recommend transferring her to a tertiary center for prolonged EEG since having recurrent seizures in the past couples days. We'll defer the rest of the medical record the primary team Recommend the patient to follow-up with her neurologist (Dr. Brown) as an outpatient within 1-2 weeks The plan was discussed with primary attending and her nurse. Time with Patient: Greater than 30
--- NOTE | 2023-10-27 01:35 | EEG ---
ELECTROENCEPHALOGRAM REPORT CLINICAL HISTORY: This is a 78-year-old woman with breakthrough seizure. The video EEG is obtained to evaluate for seizure epileptiform activity. RELEVANT MEDICATIONS: Keppra and Ativan. DESCRIPTION: Wakefulness is obtained. During awake state, the background consists of low-to- moderate voltage of 9 to 9.5 hertz activity, that is well modulated, well sustained. There is no physiological stage 2 sleep architecture. There is no focal slowing. Interictal and ictal, none. ACTIVATION PROCEDURE: Photic stimulation did not evoke a posterior driving response. There is no abnormality during the photic stimulation. Hyperventilation is not performed. CLINICAL INTERPRETATION: This is a normal routine EEG. There is no focal slowing, epileptiform discharge, or seizure on the EEG. A normal routine EEG does not rule out underlying epilepsy. Clinical correlation is recommended. MMSILVINO / IJN: [id number] / MTDLauren
[2023-10-27] MEDS: SODIUM CHLORIDE 0.9% 1,000 ML IV SCH ×2 (05:07→18:33)
[2023-10-27] MEDS: APIXABAN 5 MG TAB PO SCH ×2 (08:42→21:08)
[2023-10-27] MEDS: lisinopriL 10 MG TAB PO SCH (08:42)
[2023-10-27] MEDS: levETIRAcetam 500 MG TAB PO SCH ×2 (08:42→21:08)
[2023-10-27] MEDS: levETIRAcetam 250 MG TAB PO SCH ×2 (08:42→21:08)
--- NOTE | 2023-10-27 12:25 | P.PN ---
Subjective Progress Note Date: 10/27/23 Dr. Naylor group covering from 10/25/2022 to 10/27/2023 We are resuming care of patient Patient originally presented to the hospital on 10/25/2019 showing for with seizure activity. Patient apparently was discharged that morning after being admitted for seizures at that time patient's dose Of Keppra was increased to thousand milligrams twice daily. Patient was discharged with family and daughter brought patient back due to jerky movements of upper extremities and gazing. CT of head was done showing no intracranial process. Neurology services were reconsulted repeat EEG was ordered. Keppra dose increased. On 10/27/2023 patient is alert and oriented 3. Patient had EEG showing normal routine EEG. Discussed case with neurology services due to reoccurring seizures despite Keppra escalation recommending transfer to [facility] for prolonged EEG. Transfer has been initiated. Discussed plan with patient patient verbalized understanding will also call patient's daughter to update and plan. At this time patient is resting comfortably in bed. Patient denies chest pain or shortness of breath. Patient denies nausea vomiting. Patient denies any urinary burning or frequency. Current vital signs temp 97.6, heart rate 60, blood pressure 156/84 with a pulse ox of 97% on room air. Objective - Vital Signs Vital signs: Vital Signs Temp 97.6 F 10/27/23 07:00 Pulse 60 10/27/23 07:00 Resp 14 10/27/23 07:00 BP 156/84 10/27/23 07:00 Pulse Ox 97 10/27/23 07:00 FiO2 Intake & Output 10/26/23 10/27/23 10/27/23 18:59 06:59 18:59 Intake Total 669 Balance 669 Intake: Oral 669 Other: Voiding Method Toilet Toilet # Voids 2 1 - Exam Head normocephalic Neck supple Lungs clear to auscultation bilaterally no wheezing or crackles Heart regular rate and rhythm S1-S2, no rub or gallop Abdomen is soft nontender nondistended positive bowel sounds no hepatosplenomegaly Extremities no edema Neuro alert and orientated to 3 - Labs CBC & Chem 7: 10/25/23 23:06 10/25/23 23:06 Assessment and Plan Assessment: Reoccurring seizures History of essential hypertension History of CVA History of hyperlipidemia Paroxysmal atrial fibrillation she was seen by cardiology in June 2023 as outpatient and started on eliquis Severe kyphoscoliosis Transfer to [facility] in progress
--- NOTE | 2023-10-27 12:58 | P.PN ---
Subjective Progress Note Date: 10/27/23 I am following-up with patient and no further seizure. Patient is feeling better. Objective - Vital Signs Vital signs: Vital Signs Temp 97.6 F 10/27/23 07:00 Pulse 60 10/27/23 07:00 Resp 14 10/27/23 07:00 BP 156/84 10/27/23 07:00 Pulse Ox 97 10/27/23 07:00 FiO2 Intake & Output 10/26/23 10/27/23 10/27/23 18:59 06:59 18:59 Intake Total 669 Balance 669 Intake: Oral 669 Other: Voiding Method Toilet Toilet # Voids 2 1 - Exam General: Lying in bed and is not in acute distress. Neuro: The patient is awake, alert, oriented to self, place and time. Is following simple commands. No aphasia or neglect. Pupils are round, equal and reactive to light. Visual orozco are full to confrontation. EOM intact and no nystagmus. No facial weakness. No dysarthria. Motor: Strength moving uppers >lowers symmetrically. Some of the workup during this hospital visit consisted of: CBC with differential is unremarkable chemisry panel sodium was 132 otherwise at rest is unremarkable. Glucose is 98, calcium magnesium are within normal limits. CT head is reported as no acute hemorrhage, hydrocephalus or mass effect. I personally reviewed CT head and agree with report. Routine EEG: Is normal. - Labs CBC & Chem 7: 10/25/23 23:06 10/25/23 23:06 Assessment and Plan Assessment: This is a 78-year-old woman was a discharged on 10/25/2023 for breakthrough s eizures but presents back again the same days again for breakthrough seizures. She has hypertension and continues to be elevated on initial presentation but then resolves. Breakthrough seizure unknown exact etiology. Unsure if the brief episodes of hypertension on presentation are a result of her seizure. Patient Seizure disorder since March 2023 and the patient was just discharged on 024 for breakthrough on Keppra 1gm bid). Patient had a prolonged EEG with video on 05/17/2023 which was reported as normal. Probable TIA per Dr. Valenzuela with manifestation of left hemiparesis that resolved an MRI was negative on 04/08/2023 History of COVID-19 infection in the beginning of September 2023 Vitamin B12 deficiency History of superficial siderosis and seen an MRI of the brain Uncontrolled hypertension Hyperlipidemia Chronic the hip issues Plan: I went up on her Keppra from 1000mg twice a day to 1250mg twice a day. She is on Ativan 1 mg every 2 hours PRN for seizure. Please notify and neurology team if patient has seizures. Seizure precautions seizure pads Recommend transferring her to a tertiary center for prolonged EEG since having recurrent seizures in the past couples days even with escalation with medication and continues and having more frequent hospital visits for seizures. 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 We'll defer the rest of the medical record the primary team Recommend the patient to follow-up with her neurologist (Dr. Brown) as an outpatient within 1-2 weeks The plan was discussed with patient, her daughter (Facundo) via phone and N.P from primary team. Time with Patient: Less than 30
--- NOTE | 2023-10-27 13:17 | P.DS ---
Providers Date of admission: 10/26/23 00:56 Expected date of discharge: 10/27/23 Attending physician: Gary Dimas Consults: 10/26/23 00:55 Consult Physician Routine Consulting Provider: Hal Britt Consult Reason/Comments: Seizure Do you want consulting provider notified?: Yes Primary care physician: Gary Judie [facility] Course: Discharge diagnosis Reoccurring seizures History of essential hypertension History of CVA History of hyperlipidemia Paroxysmal atrial fibrillation she was seen by cardiology in June 2023 as outpatient and started on eliquis Severe kyphoscoliosis Hospital course Dr. Naylor group covering from 10/25/2022 to 10/27/2023 We are resuming care of patient Patient originally presented to the hospital on 10/25/2019 showing for with seizure activity. Patient apparently was discharged that morning after being admitted for seizures at that time patient's dose Of Keppra was increased to t housand milligrams twice daily. Patient was discharged with family and daughter brought patient back due to jerky movements of upper extremities and gazing. CT of head was done showing no intracranial process. Neurology services were reconsulted repeat EEG was ordered. Keppra dose increased. On 10/27/2023 patient is alert and oriented 3. Patient had EEG showing normal routine EEG. Discussed case with neurology services due to reoccurring seizures despite Keppra escalation recommending transfer to [facility] for prolonged EEG. Transfer has been initiated. Discussed plan with patient patient verbalized understanding will also call patient's daughter to update and plan. At this time patient is resting comfortably in bed. Patient denies chest pain or shortness of breath. Patient denies nausea vomiting. Patient denies any urinary burning or frequency. Current vital signs temp 97.6, heart rate 60, blood pressure 156/84 with a pulse ox of 97% on room air. Patient to be transferred to [facility] per neurology recommendation for prolonged EEG. Patient has been accepted. Awaiting bed availability. Patient's daughter Will updated on plan. Patient Condition at Discharge: Stable Plan - Discharge Summary New Discharge Prescriptions: No Action Apixaban [Eliquis] 5 mg PO BID 30 Days #60 tab levETIRAcetam [Keppra] 1,000 mg PO Q12HR 30 Days #60 tab lisinopriL [Zestril] 10 mg PO DAILY Metoprolol Tartrate [Lopressor] 12.5 mg PO HS PRN PRN Reason: pulse <60 Discharge Medication List Metoprolol Tartrate [Lopressor] 12.5 mg PO HS PRN 05/16/23 [History] lisinopriL [Zestril] 10 mg PO DAILY 05/16/23 [History] Apixaban [Eliquis] 5 mg PO BID 30 Days #60 tab 09/24/23 [Rx] levETIRAcetam [Keppra] 1,000 mg PO Q12HR 30 Days #60 tab 10/25/23 [Rx] Follow up Appointment(s)/Referral(s): Gary Dimas MD [Primary Care Provider] - 1-2 days
[2023-10-27 14:06] VITALS: TEMP 98.1
[2023-10-27 20:00] VITALS: BP 132/83; PULSE 68; RESP 16
== END 2023-10-27 21:20 | disposition other institution (70) ==
LOC: EC 22:35 → 6NMEDSUR 10-26 00:56
PROVIDERS: ADMIT Internal Medicine; ATTEND Internal Medicine
DX: G40.909 Epilepsy, unspecified, not intractable, without status epilepticus (principal); E78.5 Hyperlipidemia, unspecified; I10 Essential (primary) hypertension; G81.94 Hemiplegia, unspecified affecting left nondominant side; E53.8 Deficiency of other specified B group vitamins; G93.89 Other specified disorders of brain; I48.0 Paroxysmal atrial fibrillation; M41.9 Scoliosis, unspecified; I25.2 Old myocardial infarction; Z86.16 Personal history of COVID-19; Z86.73 Personal history of transient ischemic attack (TIA), and cerebral infarction without residual deficits; Z79.01 Long term (current) use of anticoagulants; Z79.899 Other long term (current) drug therapy
CPT/HCPCS: 96361 ×4; 96374; 99285; 36415; 95816; 93005; 80053; 83735; 85025; 81003; 70450; G0378 ×3; J2060

== ENCOUNTER 2023-11-22 00:06 | Observation (INO) | payer MEDICARE, OTHER ==
[2023-11-22] MEDS: LORazepam 2 MG/ML INJ IV STA (00:55)
--- NOTE | 2023-11-22 02:00 | ED ---
General Adult HPI - General Source: patient Mode of arrival: ambulatory Limitations: no limitations <Hernán May - Last Filed: 11/22/23 04:36> <Marifer Morales - Last Filed: 11/22/23 07:51> - General Chief complaint: Recheck/Abnormal Lab/Rx Stated complaint: Seizures high blood pressure Time Seen by Provider: 11/22/23 00:43 - History of Present Illness Initial comments: 78-year-old female presenting to the ED with a chief complaint of seizure. Patient initially presented to the hospital on 10/25/19 with seizure-like activity. Patient was reportedly discharged that morning after being admitted for seizures and at that time patient's dose of Keppra was increased to a thousand milligrams twice a day. Patient was discharged and was brought back by her daughter due to jerking movements of the upper extremities and gazing. CT of the head done at that time revealed no acute intracranial process. Keppra dose was increased at this time to 1250 mg BID. Patient had a repeat EKG which was normal in nature. Due to this, discussion with neurology advised transferring the patient to [facility] for a prolonged EEG. Per daughter, had this prolonged EEG performed. She notes that there are no medication changes done after this EEG. Today, other states that she performs regular blood pressure checks. States that today she checked her blood pressure and it was high in the 170s systolic. She notes that whenever the patient's blood pressure usually gets this high she has seizures and she was brought to the ED due to fear of possibly having a seizure. While in the waiting room, patient reportedl y had a seizure described by jerking movements of her bilateral upper and lower extremities. Per daughter, this is somewhat uncharacteristic of her usual seizures and she notes that this seemed to last a little longer than usual. She states that this lasted for "20 minutes". At this time, patient appears to have a decreased level of consciousness and history provided by the patient's daughter. (Hernán May) - Related Data Home Medications Medication Instructions Recorded Confirmed Metoprolol Tartrate [Lopressor] 12.5 mg PO HS PRN 05/16/23 10/26/23 lisinopriL [Zestril] 10 mg PO DAILY 05/16/23 10/26/23 Previous Rx's Medication Instructions Recorded Apixaban [Eliquis] 5 mg PO BID 30 Days #60 tab 09/24/23 levETIRAcetam [Keppra] 1,000 mg PO Q12HR 30 Days #60 tab 10/25/23 Allergies Allergy/AdvReac Type Severity Reaction Status Date / Time No Known Allergies Allergy Verified 11/22/23 00:22 Review of Systems ROS Other: All systems not noted in ROS Statement are negative. <Hernán May - Last Filed: 11/22/23 04:36> ROS Other: All systems not noted in ROS Statement are negative. <Marifer Morales - Last Filed: 11/22/23 07:51> ROS Statement: Those systems with pertinent positive or pertinent negative responses have been documented in the HPI. Past Medical History Past Medical History: CVA/TIA, Hyperlipidemia, Hypertension, Memory Impairment, Myocardial Infarction ([place]) Additional Past Medical History / Comment(s): HEART MURMUR, LEAKY VALVE. POSS MILD STROKE YEARS AGO, UNSURE, HAS DIFFICULTY RECALLING SOME HISTORICAL MEDICAL INFO. 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 Past Anesthesia/Blood Transfusion Reactions: Motion Sickness Past Psychological History: No Psychological Hx Reported Smoking Status: Never smoker Past Alcohol Use History: None Reported Past Drug Use History: None Reported - Past Family History Father Additional Family Medical History / Comment(s): patient states "he had heart problems". patient unsure what type of heart problems. Mother Family Medical History: Cancer, Diabetes Mellitus Additional Family Medical History / Comment(s): brain cancer Brother(s) Family Medical History: Diabetes Mellitus Additional Family Medical History / Comment(s): autistic Sister(s) History Unknown: Yes <Hernán May - Last Filed: 11/22/23 04:36> General Exam Limitations: no limitations General appearance: alert Neck exam: Present: normal inspection Respiratory exam: Present: normal lung sounds bilaterally Cardiovascular Exam: Present: regular rate, normal rhythm, systolic murmur GI/Abdominal exam: Present: soft Neurological exam: Present: other (Limited secondary to poor cooperation) Skin exam: Present: warm <Hernán May - Last Filed: 11/22/23 04:36> Course Vital Signs 11/22/23 11/22/23 11/22/23 00:21 00:45 01:22 Temperature 98.5 F Pulse Rate 68 70 70 Respiratory 18 22 18 Rate Blood Pressure 149/90 171/137 112/76 O2 Sat by Pulse 99 96 96 Oximetry 11/22/23 11/22/23 11/22/23 02:00 03:00 06:00 Temperature Pulse Rate 72 59 L 47 L Respiratory 14 15 16 Rate Blood Pressure 124/68 116/70 103/74 O2 Sat by Pulse 95 97 97 Oximetry Medical Decision Making - Lab Data Result diagrams: 11/22/23 02:17 11/22/23 02:17 <Hernán May - Last Filed: 11/22/23 04:36> - Lab Data Result diagrams: 11/22/23 02:17 11/22/23 02:17 <Marifer Morales - Last Filed: 11/22/23 07:51> - Medical Decision Making Was pt. sent in by a medical professional or institution (, PA, BOAT DOCK OPERATOR, urgent care, hospital, or halfway...) When possible be specific @ -No Did you speak to anyone other than the patient for history (EMS, parent, family, police, friend...)? What history was obtained from this source @ -Spoke to the patient's family for parts of the history. For further details please see HPI. Did you review nursing and triage notes (agree or disagree)? Why? @ -I reviewed and agree with nursing and triage notes Were old charts reviewed (outside hosp., previous admission, EMS record, old EKG, old radiological studies, urgent care reports/EKG's, halfway records)? Report findings @ -Prior charts reviewed for further details please see HPI. Differential Diagnosis (chest pain, altered mental status, abdominal pain women, abdominal pain men, vaginal bleeding, weakness, fever, dyspnea, syncope, headache, dizziness, GI bleed, back pain, seizure, CVA, palpatations, mental health, musculoskeletal)? @ -Differential Seizure: Recurrent seizure disorder, febrile seizure, alcohol withdrawal, stimulants, meningitis, encephalitis, intercranial hemorrhage, intracranial tumor, stroke, eclampsia, thyrotoxicosis, hypocalcemia, hyponatremia, hypernatremia, hypomagnesemia, psychogenic, this is not meant to be an all-inclusive list. EKG interpreted by me (3pts min.). @ -As above X-rays interpreted by me (1pt min.). @ -None done CT interpreted by me (1pt min.). @ -At this time CT of the brain is pending U/S interpreted by me (1pt. min.). @ -None done What testing was considered but not performed or refused? (CT, X-rays, U/S, labs)? Why? @ -None What meds were considered but not given or refused? Why? @ -None Did you discuss the management of the patient with other professionals (professionals i.e. DrCody, PA, BOAT DOCK OPERATOR, lab, RT, psych nurse, social insurance administrator, insurance marketing rep, teacher, human resources officer, foster care case manager)? Give summary @ -Page was sent out to Dr. Valenzuela of neurology. Was smoking cessation discussed for >3mins.? @ -No Was critical care preformed (if so, how long)? @ -No Were there social determinants of health that impacted care today? How? (Homelessness, low income, unemployed, alcoholism, drug addiction, transportation, low edu. Level, literacy, decrease access to med. care, [facility], rehab)? @ -No Was there de-escalation of care discussed even if they declined (Discuss DNR or withdrawal of care, Hospice)? DNR status @ -No What co-morbidities impacted this encounter? (DM, HTN, Smoking, COPD, CAD, Cancer, CVA, ARF, Chemo, Hep., AIDS, mental health diagnosis, sleep apnea, morbid obesity)? @ -None Was patient admitted / discharged? Hospital course, mention meds given and route, prescriptions, significant lab abnormalities, going to OR and other pertinent info. @ -Pending 78-year-old female with a history of seizures presenting to the ED via her family for seizure-like activity today. Laboratory studies reviewed. Labs including CBC, coagulation panel, CMP, UA, drug screen, alcohol largely unremarkable. At this time CT of the brain pending case signed out to my attending Dr. Jacobo for further disposition. (Hernán May) Was patient admitted / discharged? Hospital course, mention meds given and route, prescriptions, significant lab abnormalities, going to OR and other pertinent info. @ -Admit [facility] was signed out to me at shift change, patient with history of seizure disorder has been on Keppra has had multiple EEGs that were negative however she continues to have recurrent seizures. Workup in the ER today is negative. Patient care was discussed with neurologist transportation design engineer Dr. Batres who recommended patient be admitted so that medications can be altered and patient can be monitored. Dr. Dimas excepts admission Undiagnosed new problem with uncertain prognosis? @ -No Drug Therapy requiring intensive monitoring for toxicity (Heparin, Nitro, Insulin, Cardizem)? @ -No Were any procedures done? @ -No Diagnosis/symptom? @ -Seizures Acute, or Chronic, or Acute on Chronic? @ -default Uncomplicated (without systemic symptoms) or Complicated (systemic symptoms)? @ -default Side effects of treatment? @ -No Exacerbation, Progression, or Severe Exacerbation? @ -No Poses a threat to life or bodily function? How? (Chest pain, [place], [place], pneumonia, PE, COPD, DKA, ARF, appy, cholecystitis, CVA, Diverticulitis, Homicidal, Suicidal, threat to staff... and all critical care pts) @ -No CT was interpreted by me pending formal radiology interpretation she no acute bleed, no mass, no edema no midline shift (Marifer Morales) - Lab Data Lab Results 11/22/23 11/22/23 11/22/23 Range/Units 02:17 02:17 02:17 WBC 5.8 (3.8-10.6) k/uL RBC 4.01 (3.80-5.40) m/uL Hgb 12.8 (11.4-16.0) gm/dL Hct 36.2 (34.0-46.0) % MCV 90.3 (80.0-100.0) fL MCH 32.0 (25.0-35.0) pg MCHC 35.4 (31.0-37.0) g/dL RDW 13.1 (11.5-15.5) % Plt Count 207 (150-450) k/uL MPV 8.2 Neutrophils % 60 % Lymphocytes % 30 % Monocytes % 5 % Eosinophils % 3 % Basophils % 1 % Neutrophils # 3.5 (1.3-7.7) k/uL Lymphocytes # 1.7 (1.0-4.8) k/uL Monocytes # 0.3 (0-1.0) k/uL Eosinophils # 0.2 (0-0.7) k/uL Basophils # 0.1 (0-0.2) k/uL PT (10.0-12.5) sec INR (<1.2) APTT (22.0-30.0) sec Sodium 135 L (137-145) mmol/L Potassium 4.1 (3.5-5.1) mmol/L Chloride 106 (98-107) mmol/L Carbon Dioxide 18 L (22-30) mmol/L Anion Gap 11 mmol/L BUN 14 (7-17) mg/dL Creatinine 0.37 L (0.52-1.04) mg/dL Est GFR (CKD-EPI)AfAm >90 (>60 ml/min/1.73 sqM) Est GFR (CKD-EPI)NonAf >90 (>60 ml/min/1.73 sqM) Glucose 115 H (74-99) mg/dL Lactic Ac Sepsis Rflx Plasma Lactic Acid Eduardo 2.1 H* (0.7-2.0) mmol/L Calcium 8.4 (8.4-10.2) mg/dL Magnesium 1.9 (1.6-2.3) mg/dL Total Bilirubin 0.7 (0.2-1.3) mg/dL AST 38 H (14-36) U/L ALT 25 (4-34) U/L Alkaline Phosphatase 92 (38-126) U/L Ammonia 23 (<30) umol/L Troponin I (0.000-0.034) ng/mL Total Protein 6.3 (6.3-8.2) g/dL Albumin 3.6 (3.5-5.0) g/dL Urine Color Urine Appearance (Clear) Urine pH (5.0-8.0) Ur Specific Elmo (1.001-1.035) Urine Protein (Negative) Urine Glucose (UA) (Negative) Urine Ketones (Negative) Urine Blood (Negative) Urine Nitrite (Negative) Urine Bilirubin (Negative) Urine Urobilinogen (<2.0) mg/dL Ur Leukocyte Esterase (Negative) Urine Opiates Screen (NotDetected) Ur Oxycodone Screen (NotDetected) Urine Methadone Screen (NotDetected) Ur Barbiturates Screen (NotDetected) U Tricyclic Antidepress (NotDetected) Ur Phencyclidine Scrn (NotDetected) Ur Amphetamines Screen (NotDetected) U Methamphetamines Scrn (NotDetected) U Benzodiazepines Scrn (NotDetected) Urine Cocaine Screen (NotDetected) U Marijuana (THC) Screen (NotDetected) Serum Alcohol <10 mg/dL 11/22/23 11/22/23 11/22/23 Range/Units 02:17 02:17 02:30 WBC (3.8-10.6) k/uL RBC (3.80-5.40) m/uL Hgb (11.4-16.0) gm/dL Hct (34.0-46.0) % MCV (80.0-100.0) fL MCH (25.0-35.0) pg MCHC (31.0-37.0) g/dL RDW (11.5-15.5) % Plt Count (150-450) k/uL MPV Neutrophils % % Lymphocytes % % Monocytes % % Eosinophils % % Basophils % % Neutrophils # (1.3-7.7) k/uL Lymphocytes # (1.0-4.8) k/uL Monocytes # (0-1.0) k/uL Eosinophils # (0-0.7) k/uL Basophils # (0-0.2) k/uL PT 9.7 L (10.0-12.5) sec INR 0.9 (<1.2) APTT 23.0 (22.0-30.0) sec Sodium (137-145) mmol/L Potassium (3.5-5.1) mmol/L Chloride (98-107) mmol/L Carbon Dioxide (22-30) mmol/L Anion Gap mmol/L BUN (7-17) mg/dL Creatinine (0.52-1.04) mg/dL Est GFR (CKD-EPI)AfAm (>60 ml/min/1.73 sqM) Est GFR (CKD-EPI)NonAf (>60 ml/min/1.73 sqM) Glucose (74-99) mg/dL Lactic Ac Sepsis Rflx Plasma Lactic Acid Eduardo (0.7-2.0) mmol/L Calcium (8.4-10.2) mg/dL Magnesium (1.6-2.3) mg/dL Total Bilirubin (0.2-1.3) mg/dL AST (14-36) U/L ALT (4-34) U/L Alkaline Phosphatase (38-126) U/L Ammonia (<30) umol/L Troponin I 0.020 (0.000-0.034) ng/mL Total Protein (6.3-8.2) g/dL Albumin (3.5-5.0) g/dL Urine Color Colorless Urine Appearance Clear (Clear) Urine pH 5.0 (5.0-8.0) Ur Specific Elmo 1.002 (1.001-1.035) Urine Protein Negative (Negative) Urine Glucose (UA) Negative (Negative) Urine Ketones Negative (Negative) Urine Blood Negative (Negative) Urine Nitrite Negative (Negative) Urine Bilirubin Negative (Negative) Urine Urobilinogen <2.0 (<2.0) mg/dL Ur Leukocyte Esterase Negative (Negative) Urine Opiates Screen Not Detected (NotDetected) Ur Oxycodone Screen Not Detected (NotDetected) Urine Methadone Screen Not Detected (NotDetected) Ur Barbiturates Screen Not Detected (NotDetected) U Tricyclic Antidepress Not Detected (NotDetected) Ur Phencyclidine Scrn Not Detected (NotDetected) Ur Amphetamines Screen Not Detected (NotDetected) U Methamphetamines Scrn Not Detected (NotDetected) U Benzodiazepines Scrn Not Detected (NotDetected) Urine Cocaine Screen Not Detected (NotDetected) U Marijuana (THC) Screen Not Detected (NotDetected) Serum Alcohol mg/dL 11/22/23 Range/Units 03:02 WBC (3.8-10.6) k/uL RBC (3.80-5.40) m/uL Hgb (11.4-16.0) gm/dL Hct (34.0-46.0) % MCV (80.0-100.0) fL MCH (25.0-35.0) pg MCHC (31.0-37.0) g/dL RDW (11.5-15.5) % Plt Count (150-450) k/uL MPV Neutrophils % % Lymphocytes % % Monocytes % % Eosinophils % % Basophils % % Neutrophils # (1.3-7.7) k/uL Lymphocytes # (1.0-4.8) k/uL Monocytes # (0-1.0) k/uL Eosinophils # (0-0.7) k/uL Basophils # (0-0.2) k/uL PT (10.0-12.5) sec INR (<1.2) APTT (22.0-30.0) sec Sodium (137-145) mmol/L Potassium (3.5-5.1) mmol/L Chloride (98-107) mmol/L Carbon Dioxide (22-30) mmol/L Anion Gap mmol/L BUN (7-17) mg/dL Creatinine (0.52-1.04) mg/dL Est GFR (CKD-EPI)AfAm (>60 ml/min/1.73 sqM) Est GFR (CKD-EPI)NonAf (>60 ml/min/1.73 sqM) Glucose (74-99) mg/dL Lactic Ac Sepsis Rflx Y Plasma Lactic Acid Eduardo (0.7-2.0) mmol/L Calcium (8.4-10.2) mg/dL Magnesium (1.6-2.3) mg/dL Total Bilirubin (0.2-1.3) mg/dL AST (14-36) U/L ALT (4-34) U/L Alkaline Phosphatase (38-126) U/L Ammonia (<30) umol/L Troponin I (0.000-0.034) ng/mL Total Protein (6.3-8.2) g/dL Albumin (3.5-5.0) g/dL Urine Color Urine Appearance (Clear) Urine pH (5.0-8.0) Ur Specific Elmo (1.001-1.035) Urine Protein (Negative) Urine Glucose (UA) (Negative) Urine Ketones (Negative) Urine Blood (Negative) Urine Nitrite (Negative) Urine Bilirubin (Negative) Urine Urobilinogen (<2.0) mg/dL Ur Leukocyte Esterase (Negative) Urine Opiates Screen (NotDetected) Ur Oxycodone Screen (NotDetected) Urine Methadone Screen (NotDetected) Ur Barbiturates Screen (NotDetected) U Tricyclic Antidepress (NotDetected) Ur Phencyclidine Scrn (NotDetected) Ur Amphetamines Screen (NotDetected) U Methamphetamines Scrn (NotDetected) U Benzodiazepines Scrn (NotDetected) Urine Cocaine Screen (NotDetected) U Marijuana (THC) Screen (NotDetected) Serum Alcohol mg/dL - EKG Data EKG Comments: EKG interpreted by me reveals a sinus rhythm at 71 bpm with a right bundle branch block. ND 205 ms, QRS 103, QT/QTc 447/470. Appears similar to prior. (Hernán May) Disposition <Hernán May - Last Filed: 11/22/23 04:36> Is patient prescribed a controlled substance at d/c from ED?: No <Marifer Morales - Last Filed: 11/22/23 07:51> Clinical Impression: Seizures Disposition: ADMITTED IP TO THIS HOSP Condition: Stable Additional Instructions: Continue Keppra Follow up with primary care and neurologist out patient Referrals: Gary Dimas MD [Primary Care Provider] - 1-2 days
[2023-11-22 02:28] LABS: Basophils # (A) 0.1 k/uL (0-0.2); Basophils % (A) 1 %; Eosinophils # (A) 0.2 k/uL (0-0.7); Eosinophils % (A) 3 %; HCT 36.2 % (34.0-46.0); HGB 12.8 gm/dL (11.4-16.0); Lymphocytes # (A) 1.7 k/uL (1.0-4.8); Lymphocytes % (A) 30 %; MCHC 35.4 g/dL (31.0-37.0); MCV 90.3 fL (80.0-100.0); Mean Platelet Volume 8.2; Monocytes # (A) 0.3 k/uL (0-1.0); Monocytes % (A) 5 %; Neutrophils # (A) 3.5 k/uL (1.3-7.7); Neutrophils % (A) 60 %; Platelet Count 207 k/uL (150-450); RBC 4.01 m/uL (3.80-5.40); RDW 13.1 % (11.5-15.5); WBC 5.8 k/uL (3.8-10.6)
[2023-11-22 02:33] LABS: INR 0.9 (<1.2); Prothrombin Time 9.7 sec (10.0-12.5)
[2023-11-22 02:50] LABS: ALT 25 U/L (4-34); African American GFR (CKD) >90 (>60 ml/min/1.73 sqM); Albumin 3.6 g/dL (3.5-5.0); Alcohol <10 mg/dL; Alkaline Phosphatase 92 U/L (38-126); Calcium 8.4 mg/dL (8.4-10.2); Carbon Dioxide 18 mmol/L (22-30); Magnesium 1.9 mg/dL (1.6-2.3); Non-African American GFR(CKD) >90 (>60 ml/min/1.73 sqM); Potassium 4.1 mmol/L (3.5-5.1); Sodium 135 mmol/L (137-145); Total Bilirubin 0.7 mg/dL (0.2-1.3); Total Protein 6.3 g/dL (6.3-8.2)
[2023-11-22 02:51] LABS: AST 38 U/L (14-36); Anion Gap 11 mmol/L; Blood Urea Nitrogen 14 mg/dL (7-17); Chloride 106 mmol/L (98-107); Glucose 115 mg/dL (74-99)
[2023-11-22 02:56] LABS: Appearance,Urine Clear (Clear); Bilirubin,Urine Negative (Negative); Blood,Urine Negative (Negative); Color,Urine Colorless; Glucose,Urine (UA) Negative (Negative); Ketones,Urine Negative (Negative); Leukocyte Esterase,Urine Negative (Negative); Nitrite,Urine Negative (Negative); Protein,Urine Negative (Negative); Specific Gravity,Urine 1.002 (1.001-1.035); Urobilinogen,Urine <2.0 mg/dL (<2.0)
[2023-11-22 03:02] LABS: Lactic Acid, Venous 2.1 mmol/L (0.7-2.0)
[2023-11-22 03:08] LABS: Amphetamine Screen,Urine Not Detected (NotDetected); Barbiturate Screen,Urine Not Detected (NotDetected); Benzodiazepines Screen,Urine Not Detected (NotDetected); Cocaine Screen,Urine Not Detected (NotDetected); Methadone Screen, Urine Not Detected (NotDetected); Opiate Screen,Urine Not Detected (NotDetected); Oxycodone Screen, Urine Not Detected (NotDetected); Phencyclidine Screen,Urine Not Detected (NotDetected); Tricyclic Antidepressant,Urine Not Detected (NotDetected); Urn Cannabinoid Scrn Not Detected (NotDetected)
--- NOTE | 2023-11-22 07:23 | CT ---
EXAMINATION TYPE: CT brain wo con DATE OF EXAM: 11/22/2023 COMPARISON: 10/25/2023 HISTORY: ams, seizure activity, unable to otain any pmh CT DLP: 1079.[address] of the brain was performed. The ventricles, basal cisterns and sulci overlying the cerebral convexities demonstrate mild enlargem ent. There is no evidence for intracranial hemorrhage or sulcal effacement. There is decreased attenuation about the periventricular white matter and deep white matter of both c erebral hemispheres, compatible with chronic small vessel ischemia. Differential diagnosis does inclu de demyelination. No mass effects are seen.No midline shift. Osseous calvarium is intact. If symptoms persist consider MRI. IMPRESSION: 1. Age related atrophic and chronic small vessel ischemic change without acute intracranial process s een at this time.
[2023-11-22] MEDS ORDERED: NALOXONE 0.4 MG/ML 1 ML VIAL IV PRN (07:47)
[2023-11-22] MEDS: levETIRAcetam IV 500 MG/5 ML VIAL IVP STA (08:07)
--- NOTE | 2023-11-22 13:29 | P.CNNES ---
History of Present Illness Consult date: 11/22/23 Requesting physician: Marifer Morales Reason for Consult: recurrent seizure History of Present Illness: This is a 78-year-old woman with history of seizure, hypertension who presents back to the emergency department on 10/25/2023 because of breakthrough seizure. Patient is known to me and I have seen her last on 10/27/2023 for breakthrough seizure (last presented to our ED was on 10/25/2023). The patient's she doesn't recall which responded remembers that her daughter was taking her blood pressure at home and being in the hospital. She currently denies of any headache. She states that she's been compliant taking her Keppra that her daughter has been given her. Per the ED note seems that her daughter with checking her blood pressure recently was in the 170s systolic and she verified the ED whenever the blood pressure is high she has seizures and was brought to the ED for fear of possibly having seizure and while waiting the patient probably had a seizure described in jerking movement of bilateral upper and lower extremity and it seems at this once prolonged lasting for about 20 minutes with a decrease in the level of consciousness. She is on a little bit of Keppra 1250 mg twice a day. Unknown on the past whether that of breakthrough seizures is a causing the elevated blood pressure or the elevated blood pressure is provoked the seizures The ED the patient was given Ativan 2 mg and Keppra 1000mg once. Of note I seen the patient last on her prior hospital presentation it was she presented on 10/25/2023 for breakthrough seizure and seizure last on 10/27/2023. Patient had a prolonged EEG of the pelvis which was dual. She had a routine EEG during last admission was normal. Since the patient was getting recurrent seizures patient was transferred to [facility] for long-term EEG. And per the EEG was seems that the patient's had the prolonged EEG according to the daughter and no medications were modified. Workup during his hospital visit consisted of: Initial blood pressure is 199/88 then resolved. Cbc with diff is unremarkable. Chemistry panel is as serum glucose is 115, sodium is 135, calcium is 8.4, magnesium is 1.9. Plasma lactic acid vein is 2.1 and repeated is 1.8 U/a is negative for acute UTI UDS is non dtected and serum alcohol <10. CT Head is reported as age related atrophic and chronic small vessel ischemic change without acute intracranial process seen at this time. I personally reviewed CT and agree with report. Review of Systems Limited but the positive and negative as per HPI. Past Medical History Past Medical History: CVA/TIA, Hyperlipidemia, Hypertension, Memory Impairment, Myocardial Infarction ([place]) Additional Past Medical History / Comment(s): HEART MURMUR, LEAKY VALVE. POSS MILD STROKE YEARS AGO, UNSURE, HAS DIFFICULTY RECALLING SOME HISTORICAL MEDICAL INFO. 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 Past Anesthesia/Blood Transfusion Reactions: Motion Sickness Past Psychological History: No Psychological Hx Reported Smoking Status: Never smoker Past Alcohol Use History: None Reported Past Drug Use History: None Reported - Past Family History Father Additional Family Medical History / Comment(s): patient states "he had heart problems". patient unsure what type of heart problems. Mother Family Medical History: Cancer, Diabetes Mellitus Additional Family Medical History / Comment(s): brain cancer Brother(s) Family Medical History: Diabetes Mellitus Additional Family Medical History / Comment(s): autistic Sister(s) History Unknown: Yes Medications and Allergies Home Medications Medication Instructions Recorded Confirmed Type Metoprolol Tartrate [Lopressor] 12.5 mg PO HS PRN 05/16/23 11/22/23 History lisinopriL [Zestril] 10 mg PO DAILY 05/16/23 11/22/23 History Azithromycin [Zithromax] See Taper PO DIRECTED 11/22/23 11/22/23 History levETIRAcetam [Keppra] 1,250 mg PO Q12HR 11/22/23 11/22/23 History Allergies Allergy/AdvReac Type Severity Reaction Status Date / Time No Known Allergies Allergy Verified 11/22/23 10:41 Physical Examination - Vital Signs Vital Signs: Vital Signs Temp Pulse Resp BP Pulse Ox 11/22/23 11:17 78 18 121/87 97 11/22/23 08:00 60 18 113/73 97 11/22/23 07:00 98.1 F 60 18 112/66 98 11/22/23 06:00 47 L 16 103/74 97 11/22/23 03:00 59 L 15 116/70 97 11/22/23 02:00 72 14 124/68 95 11/22/23 01:22 70 18 112/76 96 11/22/23 00:45 70 22 171/137 96 11/22/23 00:21 98.5 F 68 18 149/90 99 Intake and Output 11/21/23 11/22/23 11/22/23 22:59 06:59 14:59 Other: Weight 51.256 kg General: Lying in bed and is not in acute distress. HENT: Supple neck Neuro: The patient is drowsy and slow in responding. She's oriented to self. Upon asking her the time she said "leave me alone I am tired". Following the very few simple commands. Language is limited that. The pupils are round equal they're about 2 mm bilaterally and reactive to light. No facial weakness. No dysarthria. Motor upper exam and she is able to lift up above gravity but individual muscle strength and was hard to assess because of her cooperation. Lower extremities as wiggling the toes. Sensation as well as reflexes she did not comply. Plantars are mute bilaterally. Results - Laboratory Findings CBC and BMP: 11/22/23 02:17 11/22/23 02:17 Abnormal Lab Findings: Abnormal Labs 11/22/23 11/22/23 11/22/23 02:17 02:17 02:17 PT 9.7 L Sodium 135 L Carbon Dioxide 18 L Creatinine 0.37 L Glucose 115 H Plasma Lactic Acid Eduardo 2.1 H* AST 38 H Assessment and Plan Assessment: This is a 78-year-old woman C of seizures who is been having multiple hospital visit for break through seizures and with the seizures she has elevated blood pressure and it's unknown whether the elevated blood pressure provokes seizure or vice versa. Presented to the in the beginning of October and was transferred to [facility] for long-term EEG and which per the ED note she had long- term EEG and that her antiepileptics were not modified and more kept at the Keppra 1250 twice a day. She presents our facility this time for elevated blood pressure and in the ED seems that she had a breakthrough seizures that was prolonged. Break through seizures and unsure if it's provoked due to elevated blood pressure or the seizure is elevating her blood pressure. History of recurrent seizures is on Keppra 1250 mg twice a day. Patient had a prolonged EEG on 05/17/2023 which was reported as normal facility. She had an EEG at the outside facility the first week of the October [address] Batres with manifestation of left hemiparesis that resolved an MRI of the brain on 04/08/2023 were negative. History of COVID-19 infection in the beginning of September 2023 History of vitamin B12 deficiency History of superficial siderosis seen on MRI the brain Uncontrolled hypertension Hyperlipidemia Chronic hip issues Plan: I went up on Keppra from 1250 mg twice a day to 1500 twice a day. Seizure precautions seizure pads I spoke with the primary team regarding her recent hospitalization and was transferred to [facility] and the primary team will attempt to obtain the medical records from the outside facility supposedly she had prolonged EEG recently. We'll defer the rest of medical management to primary team. Recommend normotensive. Upon discharge recommend the patient to follow-up with her neurologist (Dr. Brown) as outpatient within 1-2 weeks. The plan is discussed with primary team. Thank you for the consultation. Time with Patient: Greater than 30
[2023-11-22] MEDS: levETIRAcetam 500 MG TAB PO STA (16:07)
[2023-11-22] MEDS ORDERED: METOPROLOL TARTRATE 12.5 MG TAB PO PRN (17:26)
[2023-11-22] MEDS ORDERED: levETIRAcetam 500 MG TAB PO SCH (21:00)
--- NOTE | 2023-11-23 08:10 | P.HPIM ---
History of Present Illness H&P Date: 11/22/23 Tia Faulkner, is a 78-year-old female who presented to [facility] emergency room, with a chief complaint of possible seizure activity, patient's daughter is describing she working movement of the upper extremities, and fixed gaze, symptoms lasted for about 20 minutes. Patient had a similar admission about 1 month ago, at that time she was evaluated by neurology, she is maintained on Keppra, she was referred to [facility] for prolonged EEG. She was evaluated in the emergency room vital examination on presentation revealed a temperature of 98.5 pulse 68 respiration 18 blood pressure 149/90 pulse ox 99% on room air Laboratory data revealed a white blood count of 5.8 hemoglobin 12.8 platelet count 207 BUN 14 creatinine 0.37 lactic acid 2.1 Testing in the emergency room revealed computed tomography scan of the brain done in the emergency room without contrast revealed age-related atrophic and chronic small vessel ischemic change without acute intracranial process. Patient was admitted to medical floor for further evaluation and treatment Past Medical History Past Medical History: CVA/TIA, Hyperlipidemia, Hypertension, Memory Impairment, Myocardial Infarction ([place]) Additional Past Medical History / Comment(s): HEART MURMUR, LEAKY VALVE. POSS MILD STROKE YEARS AGO, UNSURE, HAS DIFFICULTY RECALLING SOME HISTORICAL MEDICAL INFO. 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 Past Anesthesia/Blood Transfusion Reactions: Motion Sickness Past Psychological History: No Psychological Hx Reported Smoking Status: Never smoker Past Alcohol Use History: None Reported Past Drug Use History: None Reported - Past Family History Father Additional Family Medical History / Comment(s): patient states "he had heart problems". patient unsure what type of heart problems. Mother Family Medical History: Cancer, Diabetes Mellitus Additional Family Medical History / Comment(s): brain cancer Brother(s) Family Medical History: Diabetes Mellitus Additional Family Medical History / Comment(s): autistic Sister(s) History Unknown: Yes Medications and Allergies Home Medications Medication Instructions Recorded Confirmed Type Metoprolol Tartrate [Lopressor] 12.5 mg PO HS PRN 05/16/23 11/22/23 History lisinopriL [Zestril] 10 mg PO DAILY 05/16/23 11/22/23 History Azithromycin [Zithromax] See Taper PO DIRECTED 11/22/23 11/22/23 History levETIRAcetam [Keppra] 1,250 mg PO Q12HR 11/22/23 11/22/23 History Allergies Allergy/AdvReac Type Severity Reaction Status Date / Time No Known Allergies Allergy Verified 11/22/23 10:41 Physical Exam Vitals: Vital Signs Temp Pulse Resp BP Pulse Ox 11/22/23 08:00 60 18 113/73 97 11/22/23 07:00 98.1 F 60 18 112/66 98 11/22/23 06:00 47 L 16 103/74 97 11/22/23 03:00 59 L 15 116/70 97 11/22/23 02:00 72 14 124/68 95 11/22/23 01:22 70 18 112/76 96 11/22/23 00:45 70 22 171/137 96 11/22/23 00:21 98.5 F 68 18 149/90 99 Intake and Output 11/21/23 11/22/23 11/22/23 22:59 06:59 14:59 Other: Weight 51.256 kg In general patient is alert and oriented x 3 in no distress HEENT head normocephalic and atraumatic Neck is supple no JVD no goiter no lymphadenopathy no carotid bruit Chest examination is clear to auscultation no crackles no wheezing Cardiac exam reveals regular heart sounds S1 and S2 no gallops no murmurs Abdomen is soft nontender no organomegaly with normal bowel sounds Extremity exam reveals no edema no cyanosis or clubbing Neurological examination reveals no gross focal deficits Results CBC & Chem 7: 11/22/23 02:17 11/22/23 02:17 Labs: Abnormal Lab Results - Last 24 Hours (Table) 11/22/23 11/22/23 11/22/23 Range/Units 02:17 02:17 02:17 PT 9.7 L (10.0-12.5) sec Sodium 135 L (137-145) mmol/L Carbon Dioxide 18 L (22-30) mmol/L Creatinine 0.37 L (0.52-1.04) mg/dL Glucose 115 H (74-99) mg/dL Plasma Lactic Acid Eduardo 2.1 H* (0.7-2.0) mmol/L AST 38 H (14-36) U/L Assessment and Plan Plan: Episode of jerking movement in the upper extremity and fixed gaze, possible seizure activity Known history of seizure disorder maintained on Keppra Underlying history of hypertension Underlying history of hyperlipidemia Previous history of stroke Underlying history of degenerative disc disease with previous history of back surgery Underlying history of paroxysmal atrial fibrillation maintained on Eliquis At this time patient will be admitted to medical floor Home medications reviewed and reordered Neurology consultation requested Will obtain records from [facility] regarding her recent hospitalization and prolonged EEG. Will follow closely
--- NOTE | 2023-11-23 08:48 | P.PN ---
Subjective Progress Note Date: 11/23/23 Tia Faulkner, is a 78-year-old female who presented to [facility] emergency room, with a chief complaint of possible seizure activity, patient's daughter is describing she working movement of the upper extremities, and fixed gaze, symptoms lasted for about 20 minutes. Patient had a similar admission about 1 month ago, at that time she was evaluated by neurology, she is maintained on Keppra, she was referred to [facility] for prolonged EEG. She was evaluated in the emergency room vital examination on presentation revealed a temperature of 98.5 pulse 68 respiration 18 blood pressure 149/90 pulse ox 99% on room air Laboratory data revealed a white blood count of 5.8 hemoglobin 12.8 platelet count 207 BUN 14 creatinine 0.37 lactic acid 2.1 Testing in the emergency room revealed computed tomography scan of the brain done in the emergency room without contrast revealed age-related atrophic and chronic small vessel ischemic change without acute intracranial process. Patient was admitted to medical floor for further evaluation and treatment On 11/23/2023 patient is alert and oriented 3 still awaiting medical records from [facility]. Patient's Keppra was increased per neurology services. No further seizure activities. Patient denies chest pain or shortness of breath. Patient denies nausea vomiting or diarrhea. Patient denies any urinary burning or frequency Objective - Vital Signs Vital signs: Vital Signs Temp 98.3 F 11/23/23 07:09 Pulse 56 L 11/23/23 07:09 Resp 18 11/23/23 07:09 BP 148/77 11/23/23 07:09 Pulse Ox 97 11/23/23 07:09 FiO2 Intake & Output 11/22/23 11/23/23 11/23/23 18:59 06:59 18:59 Intake Total 600 Balance 600 Weight 51.256 kg Intake: Oral 600 Other: Voiding Method Toilet Diaper # Voids 2 1 - Exam In general patient is alert and oriented x 3 in no distress HEENT head normocephalic and atraumatic Neck is supple no JVD no goiter no lymphadenopathy no carotid bruit Chest examination is clear to auscultation no crackles no wheezing Cardiac exam reveals regular heart sounds S1 and S2 no gallops no murmurs Abdomen is soft nontender no organomegaly with normal bowel sounds Extremity exam reveals no edema no cyanosis or clubbing Neurological examination reveals no gross focal deficits - Labs CBC & Chem 7: 11/22/23 02:17 11/22/23 02:17 Assessment and Plan Plan: Episode of jerking movement in the upper extremity and fixed gaze, possible s eizure activity Known history of seizure disorder maintained on Keppra Underlying history of hypertension Underlying history of hyperlipidemia Previous history of stroke Underlying history of degenerative disc disease with previous history of back surgery Underlying history of paroxysmal atrial fibrillation maintained on Eliquis At this time patient will be admitted to medical floor Home medications reviewed and reordered Neurology consultation requested Keppra increased per neurology Will obtain records from [facility] regarding her recent hospitalization and prolonged EEG. Will follow closely
[2023-11-23 09:03] LABS: Basophils # (A) 0.05 X 10*3/uL (0.00-0.10); Basophils % (A) 0.7 %; Eosinophils # (A) 0.09 X 10*3/uL (0.04-0.35); Eosinophils % (A) 1.3 %; HCT 35.6 % (37.2-46.3); HGB 12.5 g/dL (12.0-15.0); MCH 31.3 pg (27.0-32.0); MCHC 35.1 g/dL (32.0-37.0); Monocytes # (A) 0.34 X 10*3/uL (0.20-1.00); Monocytes % (A) 5.1 %; NRBC Per 100 WBC 0 X 10*3/uL (0.00-0.01); Neutrophils # (A) 4.58 X 10*3/uL (1.80-7.70); Neutrophils % (A) 68.8 %; Platelet Count 210 X 10*3/uL (140-440); RDW 12.9 % (11.5-14.5); WBC 6.67 X 10*3/uL (4.50-10.00)
[2023-11-23 10:07] LABS: Blood Urea Nitrogen 12.3 mg/dL (9.0-27.0); Carbon Dioxide 24.8 mmol/L (21.6-31.8); Chloride 103 mmol/L (96-109); Glucose 80 mg/dL (70-110); Potassium 4.3 mmol/L (3.5-5.5); Sodium 134 mmol/L (135-145)
[2023-11-23 10:08] LABS: ALT 23 U/L (8-44); AST 26 U/L (13-35); Albumin 3.5 g/dL (3.8-4.9); Albumin/Globulin Ratio 1.67 Ratio (1.60-3.17); Alkaline Phosphatase 122 U/L (41-126); Calcium 9.3 mg/dL (8.7-10.3); Globulin 2.1 g/dL (1.6-3.3); Total Bilirubin 0.5 mg/dL (0.3-1.2); Total Protein 5.6 g/dL (6.2-8.2)
[2023-11-23] MEDS: lisinopriL 10 MG TAB PO SCH (10:09)
--- NOTE | 2023-11-23 18:18 | P.PN ---
Progress Note - Text Progress Note Date: 11/23/23 Upon reviewing her medical records, it seems patient neurological condition improved and she is oriented X3 and no further seizures. Still pending records form outside hospital. She is to continue Keppra 1500mg bid. Will continue to follow-up with patient.
[2023-11-24 11:37] LABS: Basophils # (A) 0.06 X 10*3/uL (0.00-0.10); Eosinophils # (A) 0.07 X 10*3/uL (0.04-0.35); Eosinophils % (A) 1.1 %; HCT 37.8 % (37.2-46.3); HGB 13.1 g/dL (12.0-15.0); Lymphocytes # (A) 1.73 X 10*3/uL (0.90-5.00); Lymphocytes % (A) 27.5 %; MCHC 34.7 g/dL (32.0-37.0); MCV 89.4 FL (80.0-97.0); Mean Platelet Volume 10.8 FL (9.5-12.2); Monocytes % (A) 6.3 %; NRBC Per 100 WBC 0 X 10*3/uL (0.00-0.01); Neutrophils # (A) 4.03 X 10*3/uL (1.80-7.70); Neutrophils % (A) 63.9 %; Platelet Count 232 X 10*3/uL (140-440); RBC 4.23 X 10*6/uL (4.10-5.20); RDW 13.2 % (11.5-14.5)
[2023-11-24 14:15] LABS: ALT 23 U/L (8-44); AST 25 U/L (13-35); Albumin 3.7 g/dL (3.8-4.9); Albumin/Globulin Ratio 1.54 Ratio (1.60-3.17); Alkaline Phosphatase 129 U/L (41-126); BUN/Creat Ratio 24.67 Ratio (12.00-20.00); Blood Urea Nitrogen 14.8 mg/dL (9.0-27.0); Calcium 9.3 mg/dL (8.7-10.3); Carbon Dioxide 24.5 mmol/L (21.6-31.8); Chloride 101 mmol/L (96-109); Globulin 2.4 g/dL (1.6-3.3); Glucose 80 mg/dL (70-110); Potassium 4.4 mmol/L (3.5-5.5); Sodium 135 mmol/L (135-145); Total Bilirubin 0.6 mg/dL (0.3-1.2); Total Protein 6.1 g/dL (6.2-8.2)
[2023-11-24 15:48] VITALS: BP 109/67; PULSE 62; RESP 16; TEMP 99
--- NOTE | 2023-11-24 16:42 | P.PN ---
Subjective Progress Note Date: 11/24/23 I am following-up with patient and no further seizures. She feels she is doing better. Objective - Vital Signs Vital signs: Vital Signs Temp 99.0 F 11/24/23 13:32 Pulse 62 11/24/23 13:32 Resp 16 11/24/23 13:32 BP 109/67 11/24/23 13:32 Pulse Ox 95 11/24/23 13:32 FiO2 Intake & Output 11/23/23 11/24/23 11/24/23 18:59 06:59 18:59 Other: Voiding Method Toilet Toilet # Voids 1 3 - Exam General: Sitting up in chair and is not in acute distress. Neuro: She is awake alert oriented to self and she stated she is in the hospital but initially did not know the name of the hospital but with oxygen correctly chose the right name. She correctly stated that the year is 2023 but did not know the month. She was following the commands but was somewhat slow. No aphasia and no neglect. Pupils are round equal reactive to light. The pupils are round 3-4 mm b ilaterally. Visual orozco are full to confrontation. Extraocular movement is intact no nystagmus No dysarthria Motor is lifting all extremities above gravity. Workup during this hospital visit consisted of: Initial blood pressure is 199/88 then resolved. Cbc with diff is unremarkable. Chemistry panel is as serum glucose is 115, sodium is 135, calcium is 8.4, magnesium is 1.9. Plasma lactic acid vein is 2.1 and repeated is 1.8 Keppra level is 56.9 (normal is 3-60). U/a is negative for acute UTI UDS is non dtected and serum alcohol <10. CT Head is reported as age related atrophic and chronic small vessel ischemic change without acute intracranial process seen at this time. I personally reviewed CT and agree with report. - Labs CBC & Chem 7: 11/24/23 06:49 11/24/23 06:49 Labs: Abnormal Lab Results - Last 24 Hours (Table) 11/24/23 Range/Units 06:49 BUN/Creatinine Ratio 24.67 H (12.00-20.00) Ratio Alkaline Phosphatase 129 H (41-126) U/L Total Protein 6.1 L (6.2-8.2) g/dL Albumin 3.7 L (3.8-4.9) g/dL Albumin/Globulin Ratio 1.54 L (1.60-3.17) Ratio Assessment and Plan Assessment: This is a 78-year-old woman C of seizures who is been having multiple hospital visit for break through seizures and with the seizures she has elevated blood pressure and it's unknown whether the elevated blood pressure provokes seizure or vice versa. Presented to the in the beginning of October and was transferred to [facility] for long-term EEG and which per the ED note she had long- term EEG and that her antiepileptics were not modified and more kept at the Keppra 1250 twice a day. She presents our facility this time for elevated blood pressure and in the ED seems that she had a breakthrough seizures that was pro longed. Break through seizures and unsure if it's provoked due to elevated blood pressure or the seizure is elevating her blood pressure--no further seizures History of recurrent seizures is on Keppra 1250 mg twice a day. Patient had a prolonged EEG on 05/17/2023 which was reported as normal facility. She had an EEG at the outside facility the first week of the October [address] Batres with manifestation of left hemiparesis that resolved an MRI of the brain on 04/08/2023 were negative. History of COVID-19 infection in the beginning of September 2023 History of vitamin B12 deficiency History of superficial siderosis seen on MRI the brain Uncontrolled hypertension Hyperlipidemia Chronic hip issues Plan: I went up on Keppra from 1250 mg twice a day to 1500 twice a day on 11/22/23 and no further seizure. Seizure precautions seizure pads I spoke with the primary team regarding her recent hospitalization and was transferred to [facility] and the primary team will attempt to obtain the medical records from the outside facility supposedly she had prolonged EEG recently. Still pending records from outside hospital. We'll defer the rest of medical management to primary team. Recommend normotensive. Upon discharge recommend the patient to follow-up with her neurologist (Dr. Brown) as outpatient within 1-2 weeks. Will continue to follow. Time with Patient: Less than 30
--- NOTE | 2023-11-28 10:12 | P.DS ---
Providers Date of admission: 11/22/23 07:47 Expected date of discharge: 11/24/23 Attending physician: Gary Dimas Consults: 11/22/23 07:47 Consult Physician Routine Consulting Provider: Hal Britt Consult Reason/Comments: recurrent seizures Do you want consulting provider notified?: Yes Primary care physician: Gary Judie [facility] Course: Diagnosis on discharge: Episode of jerking movement in the upper extremity and fixed gaze, possible seizure activity Known history of seizure disorder maintained on Keppra Underlying history of hypertension Underlying history of hyperlipidemia Previous history of stroke Underlying history of degenerative disc disease with previous history of back surgery Underlying history of paroxysmal atrial fibrillation maintained on [facility] course: Tia Faulkner, is a 78-year-old female who presented to [facility] emergency room, with a chief complaint of possible seizure activity, patient's daughter is describing she working movement of the upper extremities, and fixed gaze, symptoms lasted for about 20 minutes. Patient had a similar admission about 1 month ago, at that time she was evaluated by neurology, she is maintained on Keppra, she was referred to [facility] for prolonged EEG. She was evaluated in the emergency room vital examination on presentation revealed a temperature of 98.5 pulse 68 respiration 18 blood pressure 149/90 pulse ox 99% on room air Laboratory data revealed a white blood count of 5.8 hemoglobin 12.8 platelet count 207 BUN 14 creatinine 0.37 lactic acid 2.1 Testing in the emergency room revealed computed tomography scan of the brain done in the emergency room without contrast revealed age-related atrophic and chronic small vessel ischemic change without acute intracranial process. Patient was admitted to medical floor for further evaluation and treatment On 11/23/2023 patient is alert and oriented 3 still awaiting medical records from [facility]. Patient's Keppra was increased per neurology services. No further seizure activities. Patient denies chest pain or shortness of breath. Patient denies nausea vomiting or diarrhea. Patient denies any urinary burning or frequency Patient Condition at Discharge: Stable Plan - Discharge Summary Discharge Rx Participant: No New Discharge Prescriptions: New levETIRAcetam [Keppra] 1,500 mg PO Q12HR 30 Days #60 tab Continue lisinopriL [Zestril] 10 mg PO DAILY Metoprolol Tartrate [Lopressor] 12.5 mg PO HS PRN PRN Reason: pulse <60 Discontinued levETIRAcetam [Keppra] 1,250 mg PO Q12HR Azithromycin [Zithromax] See Taper PO DIRECTED Discharge Medication List Metoprolol Tartrate [Lopressor] 12.5 mg PO HS PRN 05/16/23 [History] lisinopriL [Zestril] 10 mg PO DAILY 05/16/23 [History] levETIRAcetam [Keppra] 1,500 mg PO Q12HR 30 Days #60 tab 11/24/23 [Rx] Follow up Appointment(s)/Referral(s): Gary Dimas MD [Primary Care Provider] - 1-2 days Patient Instructions/Handouts: Seizure/Epilepsy Discharge Instructions & Follow-Up Activity/Diet/Wound Care/Special Instructions: Continue Keppra Follow up with primary care and neurologist out patient
== END 2023-11-24 20:00 ==
LOC: EC 00:06 → 5NMEDONC 07:47
PROVIDERS: ADMIT Internal Medicine; ATTEND Internal Medicine
DX: G40.909 Epilepsy, unspecified, not intractable, without status epilepticus (principal); I10 Essential (primary) hypertension; E78.5 Hyperlipidemia, unspecified; I25.2 Old myocardial infarction; R41.3 Other amnesia; R01.1 Cardiac murmur, unspecified; Z79.899 Other long term (current) drug therapy; Z79.01 Long term (current) use of anticoagulants; Z86.73 Personal history of transient ischemic attack (TIA), and cerebral infarction without residual deficits
CPT/HCPCS: 96373; 96374; 99285 ×2; 36415; 93005; 80053 ×3; 80177; 82140; 83605; 83735; 84484; 85025 ×3; 85610; 85730; 81003; 80306; 70450; G0378 ×3; G0480; J2060; J1953; 80320; 96375

== ENCOUNTER 2024-05-29 14:23 | Emergency (ER) | payer MEDICARE, OTHER ==
[2024-05-29] MEDS ORDERED: SODIUM CHLORIDE 0.9% 1,000 ML BAG ONE (20:30)
== END 2024-05-30 04:03 | disposition home or self-care (01) ==
LOC: EC 14:23
DX: R19.7 Diarrhea, unspecified (principal); F03.90 Unspecified dementia, unspecified severity, without behavioral disturbance, psychotic disturbance, mood disturbance, and anxiety; Z86.73 Personal history of transient ischemic attack (TIA), and cerebral infarction without residual deficits
CPT/HCPCS: 80053; 81003; 82150; 83690; 85025; 96360; 99283

== ENCOUNTER 2024-06-06 20:00 | Inpatient (IN) | payer OTHER ==
[~2024-06-06 20:00] MED LIST changes: -LACTATED RINGERS 1,000 ML IV SCH; -LIDOCAINE 1% 20 ML VIAL (10MG/ML) FOR IV START INTRADERMA PRN; +ONDANSETRON 4 MG/2 ML VIAL ONE; +PANTOPRAZOLE 40 MG/10 ML VIAL ONE
[2024-06-07] MEDS ORDERED: levETIRAcetam 500 MG TAB ONE ×2 (11:57→20:44)
[2024-06-07] MEDS ORDERED: ONDANSETRON 4 MG/2 ML VIAL ONE (15:48)
[2024-06-07] MEDS ORDERED: PRAVASTATIN SODIUM 20 MG TAB ONE (20:44)
[2024-06-08] MEDS ORDERED: lisinopriL 10 MG TAB ONE (09:19)
[2024-06-08] MEDS ORDERED: levETIRAcetam 500 MG TAB ONE ×2 (09:19→20:22)
[2024-06-08] MEDS ORDERED: LIDOCAINE 1% INJ 10MG/ML (20 ML MDV) ONE (10:55)
[2024-06-08] MEDS ORDERED: PROPOFOL 10 MG/ML 20 ML VIAL IV ONE (10:55)
[2024-06-08] MEDS ORDERED: PRAVASTATIN SODIUM 20 MG TAB ONE (20:22)
[2024-06-09] MEDS ORDERED: ONDANSETRON 4 MG/2 ML VIAL ONE (09:14)
[2024-06-09] MEDS ORDERED: lisinopriL 10 MG TAB ONE (09:14)
[2024-06-09] MEDS ORDERED: levETIRAcetam 500 MG TAB ONE ×2 (09:14→19:25)
[2024-06-09] MEDS ORDERED: LORazepam 2 MG/ML INJ ONE (11:43)
[2024-06-09] MEDS ORDERED: PRAVASTATIN SODIUM 20 MG TAB ONE (19:25)
[2024-06-10] MEDS ORDERED: levETIRAcetam 500 MG TAB ONE ×3 (08:56→19:41)
[2024-06-10] MEDS ORDERED: lisinopriL 10 MG TAB ONE (08:57)
[2024-06-10] MEDS ORDERED: PRAVASTATIN SODIUM 20 MG TAB ONE ×2 (08:57→19:40)
[2024-06-10] MEDS ORDERED: LORazepam 2 MG/ML INJ ONE (14:54)
[2024-06-10] MEDS ORDERED: ERGOCALCIFEROL 1,250 MCG (50,000 IU) CAPSULE ONE (16:00)
[2024-06-10] MEDS ORDERED: Lacosamide IV (ages 17+ yrs) 200 MG/20 ML ML ONE (16:41)
[2024-06-10] MEDS ORDERED: LACOSAMIDE 50 MG TABLET ONE (19:40)
[2024-06-11] MEDS ORDERED: levETIRAcetam 500 MG TAB ONE ×2 (10:06→21:20)
[2024-06-11] MEDS ORDERED: LACOSAMIDE 50 MG TABLET ONE ×2 (10:06→21:20)
[2024-06-11] MEDS ORDERED: lisinopriL 10 MG TAB ONE (10:07)
[2024-06-11] MEDS ORDERED: PRAVASTATIN SODIUM 20 MG TAB ONE (21:20)
[2024-06-12] MEDS ORDERED: ONDANSETRON 4 MG/2 ML VIAL ONE ×2 (09:37→16:59)
[2024-06-12] MEDS ORDERED: lisinopriL 10 MG TAB ONE (11:20)
[2024-06-12] MEDS ORDERED: levETIRAcetam 500 MG TAB ONE ×3 (11:20→20:43)
[2024-06-12] MEDS ORDERED: LACOSAMIDE 150 MG TABLET ONE (11:20)
[2024-06-12] MEDS ORDERED: LACOSAMIDE 50 MG TABLET ONE ×2 (11:23→20:40)
[2024-06-12] MEDS ORDERED: PRAVASTATIN SODIUM 20 MG TAB ONE (20:40)
[2024-06-13] MEDS ORDERED: LACOSAMIDE 50 MG TABLET ONE (07:53)
[2024-06-13] MEDS ORDERED: lisinopriL 10 MG TAB ONE (07:53)
[2024-06-13] MEDS ORDERED: levETIRAcetam 500 MG TAB ONE (07:53)
--- NOTE | 2024-06-20 10:14 | CT ---
EXAM: CT Abdomen and Pelvis With Intravenous Contrast CLINICAL HISTORY: ABD PAIN SINCE 05/29/24 AM, PT IS POOR HISTORIAN AND UNABLE TO OBTAIN PMH FROM HER OTHER THAN NO CANCER, SHE HAS HAD A PREVIOUS STROKE, AND NO ALLERGY TO IODINE. TECHNIQUE: Axial computed tomography images of the abdomen and pelvis with intravenous contrast. CTDI is 15.2 mGy and DLP is 658.6 mGy-cm. This CT exam was performed using one or more of the following dose reduction techniques: automated exposure control, adjustment of the mA and/or kV according to patient size, and/or use of iterative reconstruction technique. COMPARISON: No relevant prior studies available. FINDINGS: Lung bases:Unremarkable. No mass. No consolidation. ABDOMEN: Liver:Hepatic steatosis. Gallbladder and bile ducts:Cholecystectomy. No ductal dilation. Pancreas:Unremarkable. No mass. No ductal dilation. Spleen:Unremarkable. No splenomegaly. Adrenals:Unremarkable. No mass. Kidneys and ureters:Unremarkable. No solid mass. No hydronephrosis. Stomach and bowel:Diverticulosis, without acute diverticulitis. No small bowel obstruction. No free intraperitoneal air. PELVIS: Appendix:No acute appendicitis. Bladder:Unremarkable. No mass. Reproductive:Hysterectomy. ABDOMEN and PELVIS: Intraperitoneal space:Unremarkable. No free air. No significant fluid collection. Bones/joints:Degenerative changes of the spine. No acute fracture. No dislocation. Soft tissues:Unremarkable. Vasculature:Atherosclerotic changes of the aorta. No abdominal aortic aneurysm. Lymph nodes:Unremarkable. No enlarged lymph nodes. IMPRESSION: 1. Hepatic steatosis. 2. Cholecystectomy. 3. Hysterectomy. 4. Diverticulosis, without acute diverticulitis. No small bowel obstruction. No free intraperitoneal air. Radiologist: Del Wilhelm MD Electronically Signed: 05/30/24 02:16 Study ready at 00:45 and initial results transmitted at 02:16 [facility]
--- NOTE | 2024-07-03 16:24 | CT ---
Patient Natalee Faulkner ID [id number] Order # EXAMINATION TYPE: CT angio abd aorta wo/w con DATE OF EXAM: 06/06/2024 COMPARISON: No comparisons on downtime PACS INDICATION: GI bleed DLP: 111.85 mGycm, Automated exposure control for dose reduction was used. CONTRAST: 100 mL of Isovue 300. Study performed without Oral Contrast TECHNIQUE: Axial images were obtained from above the diaphragm to the pubic rami in the axial plane a t 5 mm thick sections. Reconstructed images are reviewed on the computer in the coronal plane. FINDINGS: Limited CT sections are obtained the lung bases. There may be some minimal pericardial effusion.. CT ABDOMEN: There is a periumbilical hernia containing mesenteric fat Liver: Normal Spleen: Normal Pancreas: Normal Adrenal glands: The adrenal glands are normal. Gallbladder: Normal Kidneys: No masses are evident. No hydronephrosis is present. No cysts are present. Delayed images were obtained through the kidneys, which remain unremarkable. Aorta: Vascular calcification is within the aorta. On the arterial phase no dissection is evident. No aneurysmal dilatation of the abdominal aorta is ev ident. The mesenteric arteries are patent. Common iliac internal and external iliac and common femora l veins are patent. No suspicious contrast accumulation within loops of bowel however are identified during the early arterial phase. With slight delay, there is some focal uptake within the wall stomac h, series 6021, Images 196-202. If upper GI bleed compatible with the patient's symptoms, this could be a potential source. No suspicious distal bowel accumulation is identified Inferior vena cava: Normal. CT PELVIS: There is prior sigmoid bowel surgery with anastomosis within the mid pelvis. This study is lateral co ntrast limits bowel evaluation. Appendix: Normal as visualized. Urinary bladder: Located within the right hemipelvis Genitourinary structures: Uterus and ovaries are not identified. Osseous structures: No suspicious lytic or sclerotic lesions. IMPRESSION: 1. There is some intense contrast within the anterior mid stomach wall potentially could be a source for GI bleed if the findings are compatible with an upper GI bleed. 2. Periumbilical hernia containing mesenteric fat. No loops of bowel are involved.
--- NOTE | 2024-07-04 15:38 | MR ---
Patient: Natalee Faulkner Ordering Physician: Unknown, Unknown ID: [id number] Phone, Pager: Phone: N/A Pager: N/A : [phone] Age/Gender: 79Y, F Primary Location: N/A Procedure: MR brain wo con Enzo dy Date: 06/12/2024 8:43:20 AM EXAMINATION TYPE: MR brain wo con DATE OF EXAM: 06/12/2024 4:05 PM CLINICAL INDICATION: Confusion COMPARISON: None. TECHNIQUE: Multi planar, multi sequence imaging was performed through the brain including: T1, T2, In version recovery, Diffusion weighted imaging, and gradient echo imaging. No gadolinium was given. FINDINGS: Scattered susceptibility artifact throughout the bilateral cerebral hemispheres and scattered through out the sulci within the posterior cerebrum. Mild cerebral atrophy with proportional dilation of vent ricular system. Scattered foci of high T2 signal intensity are seen within the periventricular whit e matter. Midline structures show no abnormality. Diffusion-weighted imaging shows no evidence of res tricted diffusion. The susceptibility weighted images do not reveal any evidence for micro-hemorrhage . The bone marrow signal is within normal limits. Paranasal sinuses and mastoid air cells: Mild scattered paranasal sinus disease. Visualized orbits: Orbital contents are intact. IMPRESSION: 1. Susceptibility artifact within the sulci suspicious for superficial siderosis. 2. No evidence of intracranial mass or acute/subacute infarct. 3. Nonspecific white matter changes, likely secondary to small vessel ischemic disease.
--- NOTE | 2024-07-24 15:51 | CONS ---
CONSULTATION CHIEF COMPLAINT: GI bleed. HISTORY OF PRESENT ILLNESS: This is a 79-year-old female who was admitted through the emergency room with complaints of rectal bleeding. PAST MEDICAL HISTORY: The patient has a past medical history of hypertension, hyperlipidemia, remote history of colon cancer, seizure disorder, GERD, and osteoarthritis. PHYSICAL EXAMINATION: VITAL SIGNS: Appeared stable. CHEST: Clear. ABDOMEN: Soft, nontender. The patient will undergo EGD. If this is normal, she will need to undergo colonoscopy at a different date. MMODL / IJN: [id number] /
== END 2024-06-13 14:42 | disposition home or self-care (01) | DRG 241 ==
LOC: MERGE 20:00 → DISRECOVER 20:00
PROVIDERS: ADMIT Internal Medicine; ATTEND Internal Medicine
PROC: 0DB58ZX Excision of Esophagus, Via Natural or Artificial Opening Endoscopic, Diagnostic (ICD-10-PCS; principal; 2024-06-08 10:30)
PROC: 0DB78ZX Excision of Stomach, Pylorus, Via Natural or Artificial Opening Endoscopic, Diagnostic (ICD-10-PCS; principal; 2024-06-08 10:30)
DX: K29.71 Gastritis, unspecified, with bleeding (principal); K44.9 Diaphragmatic hernia without obstruction or gangrene; F41.9 Anxiety disorder, unspecified; I10 Essential (primary) hypertension; Z85.038 Personal history of other malignant neoplasm of large intestine; R00.1 Bradycardia, unspecified; F31.9 Bipolar disorder, unspecified; E78.5 Hyperlipidemia, unspecified; G40.909 Epilepsy, unspecified, not intractable, without status epilepticus; K21.9 Gastro-esophageal reflux disease without esophagitis; M41.9 Scoliosis, unspecified; Z86.73 Personal history of transient ischemic attack (TIA), and cerebral infarction without residual deficits; Z79.899 Other long term (current) drug therapy
CPT/HCPCS: 43239; 70551; 74174; 88305; 88312; 88342; 96361; 96374; 96375; 99285